=== PATIENT | male | born 1955 | race Caucasian/White ===

== ENCOUNTER → 2017-03-13 | Outpatient (CLI) | payer OTHER ==
[~2017-03-13] MED LIST: ALBUAER2 INH; CMD5 PO; DLR500 PO; FLUT0.15 NAE; FURO-85 PO; LPR25 PO; MAGN250T3 PO; OPTIRAY 320 IV PRN; OXYC5TAB PO; POTA1TAB PO; PRLSR20 PO; SENN-65 PO; SYMIN160 INH; TAMS0.4C38 PO; TIOTCAP INH; TYL325X PO
--- NOTE | 2017-03-13 16:02 | DIAGNOSTIC IMAGING REPORT ---
CT ANGIOGRAM OF THE ABDOMEN, PELVIS, BILATERAL LOWER EXTREMITIES HISTORY: Peripheral artery disease. Lower extremity pain. TECHNIQUE: Multiaxial CT images of the abdomen, pelvis, bilateral lower extremities were performed following the use of intravenous contrast about the arterial structures. Maximal intensity projection images were also obtained. COMPARISON STUDY: None. FINDINGS: The heart is enlarged. Poststernotomy changes. Pacemaker wires. Cholelithiasis. Trace ascites. No hepatic or splenic masses. The adrenal glands and pancreas are unremarkable. The left kidney enhances normally. No hydronephrosis. An 11 mm hypodense lesion within the right kidney. This favors a cyst. Tiny fat and fluid containing right inguinal hernia. Normal bladder. No bowel wall thickening or obstruction. Colonic diverticulosis. Bilateral L5 spondylolysis. Bilateral lower extremity subcutaneous edema. 30% stenosis at the origin of the celiac artery due to the calcified plaque. No significant stenosis seen within the superior mesenteric artery and inferior mesenteric arteries. Mild narrowing at the origin of the right renal artery and approximately 50% narrowing at the origin of the left renal artery due to the calcified plaque. Normal caliber abdominal aorta with moderate calcified plaque. Mild narrowing at the origin of the left common iliac artery. No significant stenosis within the right common iliac artery or external iliac arteries. On the left, the common femoral artery is patent. Multifocal areas of calcified plaque within the mid to distal left superficial femoral artery. This results in up to 75% stenosis within the distal left superficial femoral artery best seen on image 632. Scattered calcified plaque within the proximal popliteal artery demonstrating up to 50% stenosis. Scattered calcified plaque within the posterior tibial and peroneal arteries without associated occlusion. The distal anterior tibia artery is not identified and may be occluded. However, this could also be due to the timing of contrast. On the right, there is 30% focal stenosis within the right common femoral artery. Multifocal stenosis within the distal superficial femoral artery demonstrating up to 60 % stenosis on image 618. Approximately 50% stenosis seen within the proximal popliteal artery. No significant stenosis or occlusion within the posterior tibial are peroneal arteries. The distal anterior tibial artery demonstrates faint flow. Extensive calcified plaque within the mid anterior tibial artery which appears to be occluded. IMPRESSION: 1. Multifocal bilateral lower extremity arterial stenosis as described above. There is also suggestion of occlusion of the distal left anterior tibial artery and occlusion of the mid right anterior tibial artery. 2. Cardiomegaly. 3. Cholelithiasis. 4. Trace ascites. Electronically signed by: Lenny Gracia M.D. 03/13/2017 4:01 PM Dictated Date/Time: 03/13/2017 3:45 PM
== END | disposition home or self-care (01) ==
LOC: C.CTS 14:35
PROVIDERS: ATTEND Internal Medicine Interventional Cardiology
DX: I73.9 Peripheral vascular disease, unspecified (principal)

== ENCOUNTER 2019-04-17 10:10 | Inpatient (IN) ==
[~2019-04-17 10:10] MED LIST changes: -ALBUAER2 INH; -CMD5 PO; -DLR500 PO; -FLUT0.15 NAE; -FURO-85 PO; -LPR25 PO; -MAGN250T3 PO; -OPTIRAY 320 IV PRN; -OXYC5TAB PO; -POTA1TAB PO; -PRLSR20 PO; -SENN-65 PO; +SODIUM CHLORIDE 0.9% 1000ML IV SCH; -SYMIN160 INH; -TAMS0.4C38 PO; -TIOTCAP INH; -TYL325X PO
[2019-04-17] MEDS ORDERED: NITROGLYCERIN/D5W 100MCG/ML 20ML SYR ONE (12:03)
[2019-04-17 12:23] LABS: INR 1.3 (0.9-1.1); Prothrombin Time 13.2 Seconds (9.0-12.0)
[2019-04-17 12:27] LABS: BUN Creatinine Ratio 13.3 (10-20); Creatinine Clr Calc Pharmacy 64.5 ml/min; Est GFR (African American) 95.8; Est GFR (Non-African American) 82.6
[2019-04-17] MEDS ORDERED: NITROGLYCERIN 5 MG/ML 10 ML VIAL ONE (13:03)
[2019-04-17] MEDS ORDERED: NiCARDipine HCL INJ 2.5 MG/ML 10 ML AMP ONE (13:03)
--- NOTE | 2019-04-17 13:17 | Pre Anesthesia Assessment ---
Date of Service April 17, 2019 Pre Sedation Assessment Vital Signs Temp Pulse Resp BP Pulse Ox 04/17/19 10:53 36.4 C L 79 20 146/103 H 91 Cardiovascular RRR, no murmur, no edema Respiratory normal respiratory effort, lungs clear to auscultation Pre-Sedation Airway Assessment Smoking Status: Current some day smoker Hx Sleep Apnea: No Hx Difficult Intubation: No Short, Thick Neck: No Thyromental Distance: > or= 3.5 Finger Breadths Oral Cavity: + WNL Mallampati Class: II ASA: ASA3 NPO Status Date of Last Intake of Fluids: 04/17/19 Time of Last Intake of Fluids: 00:30 Date of Last Intake of Solid Food: 04/17/19 Time of Last Intake of Solid Foods: 00:30 Procedure Planning Contraindications for Sedation: none Current Medications Reviewed: Yes Notes The planned sedation has been discussed with the patient. Informed Consent was obtained. I have identified the patient, determined the appropriateness of sedation and have assessed the patient immediately prior to the procedure. All medicine(s) and interventions are by my order.
--- NOTE | 2019-04-17 13:17 | History & Physical Bridge Note ---
Date of Service April 17, 2019 History & Physical Bridge Note I have examined the patient, reviewed the History & Physical and in the interval since the performance of the History & Physical I have noted the following changes of clinical significance: no changes noted
[2019-04-17] MEDS ORDERED: fentaNYL citrate 100 MCG/2 ML VIAL ONE (13:41)
[2019-04-17] MEDS ORDERED: MIDAZOLAM HCL 1 MG/ML 2ML VIAL ONE (13:41)
[2019-04-17] MEDS ORDERED: HEPARIN SOD (PORCINE) 1000 UNIT/ML 10 ML VIAL ONE (13:41)
[2019-04-17] MEDS ORDERED: LIDOCAINE HCL 1% 20 ML VIAL INJ ONE (14:12)
[2019-04-17] MEDS ORDERED: VISIPAQUE IV PRN (15:40)
[2019-04-17] MEDS ORDERED: NITROGLYCERIN/D5W 100MCG/ML 20ML SYR IART ONE (15:40)
--- NOTE | 2019-04-17 15:41 | Post Anesthesia Assessment ---
Date of Service April 17, 2019 Post Sedation Assessment Vital Signs Temp Pulse Pulse Resp BP BP Pulse Ox 04/17/19 15:23 62 20 162/91 H 100 04/17/19 15:17 60 16 169/94 H 100 04/17/19 15:12 61 16 179/98 H 100 04/17/19 15:07 59 L 18 173/97 H 100 04/17/19 15:02 65 16 185/101 H 100 04/17/19 14:57 61 14 170/97 H 100 04/17/19 14:52 60 14 180/100 H 100 04/17/19 14:47 62 16 161/98 H 100 04/17/19 14:42 60 14 176/98 H 100 04/17/19 14:37 62 16 182/103 H 100 04/17/19 14:32 60 19 181/103 H 100 04/17/19 14:27 60 20 171/102 H 100 04/17/19 14:22 63 21 163/93 H 100 04/17/19 14:17 62 22 148/94 H 100 04/17/19 14:12 63 21 156/92 H 100 04/17/19 14:07 61 23 147/91 H 100 04/17/19 14:02 63 23 158/100 H 100 04/17/19 13:45 61 21 156/90 H 100 04/17/19 10:53 36.4 C L 79 20 146/103 H 91 Recovery Score Activity: Moves 4 extremities Respiration: Deep Breath/Cough Circulation: +/-20% PreAnes Value Consciousness: Fully Awake Oxygen Saturation: O2 needed for >90% Discharge Sedation Level of Care: Fast Track Phase II Post Sedation Plan On clinical assessment, the patient appears to have tolerated the sedation without complications. Patient is recovering as anticipated. Patient will continue to be monitored by nursing and may be discharged when sedation discharge criteria are met per below protocol. Upon Completions of procedure and additional 15 minutes continue every 5 minute vital signs and the P.A.R. score; then discharge to a Phase I or Fast Track to Phase II per the following guidelines: * Discharge Patient to appropriate Phase II area if PAR is 8 or greater or return to pre- procedure baseline. The post - procedure orders will be as directed. * If PAR score is less than 8 or not return to pre-procedure baseline then patient will follow Phase I monitoring till PAR is reached for Phase II. The Phase I may be done in procedure room or may call to secure a Phase I area. * If naloxone or flumazenil are used for reversal, hold in Phase I for continued monitoring from when last reversal dose was given for a minimum of 60 minutes or longer pending the nurse and/or physician discretion of patient condition before discharge to Phase II. Please call the Sedation Physician to re-evaluate and complete post-note for discharge to Phase II area. Do NOT discharge from procedure sedation or Phase 1 until post- sedation evaluation note is complete by procedure /sedation MD Sedation Discharge Instructions to be given to the patient at discharge to home.
[2019-04-17] MEDS ORDERED: ONDANSETRON INJ 2 MG/ML 2 ML VIAL IV PRN (15:44)
[2019-04-17] MEDS ORDERED: ACETAMINOPHEN 325 MG TAB PO PRN (15:44)
--- NOTE | 2019-04-17 15:44 | Post Operative Brief Note ---
Immediate Post Op Note v1 Date of Surgery April 17, 2019 Pre & Post Diagnosis Operation Date: 04/17/19 13:20 Pre-Op Diagnosis: Peripheral Artery Disease Post-Op Diagnosis: Peripheral Artery Disease Procedure Operation Date: 04/17/19 13:20 Actual Procedures p Bilateral Lower Extremity Angiogram, Percutaneous Transluminal Angioplasty and Stent of the Left Superficial Femoral Artery, Mechanical Closure of Right Femoral Artery, Moderate sedation from 1402 - (Right) - Benigno Javed MD Surgeon Sean Javed MD Branch Operations Coordinator Jennifer Estimated Blood Loss 20 Findings Consistent with Post-Op Diagnosis Occluded proximal SFA Successful SENIOR TECHNICAL ARCHITECT and stenting of SFA with good 3 vessel run-off.
[2019-04-17] MEDS ORDERED: SODIUM CHLORIDE 0.9% 1000ML 1,000 ML IV SCH (15:45)
[2019-04-17] MEDS ORDERED: ALBUTEROL HFA 8 GM INHALER INH PRN (15:47)
[2019-04-17] MEDS ORDERED: MoRPHine SULFATE 2 MG/ML CARP IV PRN (15:49)
[2019-04-17] MEDS ORDERED: HYDROCODONE/ACETAMOPHEN 5/325MG TAB PO PRN (15:49)
--- NOTE | 2019-04-17 16:50 | Operative Report ---
Post Operative Report Pre & Post Diagnosis Operation Date: 04/17/19 13:20 Pre-Op Diagnosis: Peripheral Artery Disease Post-Op Diagnosis: Peripheral Artery Disease Procedure Operation Date: 04/17/19 13:20 Actual Procedures p Bilateral Lower Extremity Angiogram, Percutaneous Transluminal Angioplasty and Stent of the Left Superficial Femoral Artery, Mechanical Closure of Right Femoral Artery, Moderate sedation from 1402 - 1552 (Right) - Benigno Javed MD Surgeon Sean Javed MD Operations Technician Jennifer Estimated Blood Loss 20 Findings Consistent with Post-Op Diagnosis Aorta: No significant stenotic or aneurysmal disease. Left lower extremity: Common iliac - Minimal disease External iliac - Minimal disease Internal iliac - Minimal disease RUBBER PRESS TENDER - Mild calcified plaque Profunda - Minimal disease SFA - Occluded proximally, reconstitutes distally via collaterals Popliteal- mild diffuse disease TPT - minimal disease AT - patent, sluggish flow, tapers before foot PT - patent Peroneal - patent Right lower extremity: Common iliac - Mild disease External iliac - Moderate disease extending back to RUBBER PRESS TENDER Internal iliac - Minimal disease RUBBER PRESS TENDER - Moderate calcified proximal disease Profunda - Minimal disease SFA - Distal SFA calcified with 50% stenosis Popliteal - Mild disease TPT - mild disease AT - patent PT - patent Peroneal - patent Specimens none Drains none Complications none Disposition Accompanied Patient To Recovery: No Disposition: PCU Description of Procedure Right common femoral access obtained under ultrasound guidance, short 5Fr sheath placed LLE angiogram performed with RIM catheter and quick cross catheter placed into left RUBBER PRESS TENDER 6 Fr 45 cm destination sheath placed to left RUBBER PRESS TENDER Proximal SFA occlusion crossed with a glide advantage wire and quick cross catheter Intraluminal position confirmed via injection through quick cross catheter Proximal/mid SFA dilated with multiple 6.0 balloon inflations Residual mid segment stenosis treated with 6.5 x 100 mm Supera stent Moderate distal SFA/proximal popliteal disease dilated with 5.0 balloon Noted to have a persistent dissection in proximal SFA upstream from initial stent despite prolonged balloon inflation. Aboslute Pro self-expanding 6 x 60 mm stent placed across proximal SFA overlapping with initial Supera stent Stent postdilated with 6.0 balloon IA nitroglycerin administered for spasm Post procedure good angiographic result, no evidence of dissection and good 3 vessel run-off. Access closure: Starclose Summary: 1. Left lower extremity occluded proximal SFA with distal reconstitution with diminished distal flow but patent 3 vessel runoff. 2. Right lower extremity with moderate distal SFA/popliteal disease and patent 3 vessel runoff. 3. Successful NATURAL GAS BASIS TRADER and stenting of proximal to mid SFA (6.0 x 60 Absolue Pro self-expanding, 6.5 x 120 Supera). Recommendations: Continue DAPT with ASA/Clopidogrel for 1 months Continue ASCVD risk factor modification Follow-up ultrasound in 1 month. I attest to the content of the Intraoperative Record and any orders documented therein. Any exceptions are noted below.
[2019-04-17] MEDS: SENNA 8.6 MG TAB PO SCH (20:04)
[2019-04-17] MEDS: BUDESONIDE/FORMOTEROL FUMARATE 160/4.5 60 PUFFS/INHALER INH SCH (20:04)
[2019-04-17] MEDS: DOCUSATE SODIUM 100 MG CAP PO SCH (20:04)
[2019-04-17] MEDS: POLYETHYLENE (MIRALAX) 17 GM PACK PO SCH (20:04)
[2019-04-17] MEDS ORDERED: MONTELUKAST SODIUM 10 MG TABLET PO SCH (21:00)
[2019-04-17] MEDS ORDERED: ROFLUMILAST 500 MCG TAB PO SCH (21:00)
[2019-04-18 03:08] VITALS: TEMP 98.6
[2019-04-18 06:03] LABS: Basophils # (auto) 0.05 K/uL (0-0.2); Basophils % (auto) 0.6 %; Eosinophils # (auto) 0.07 K/uL (0-0.5); Eosinophils % (auto) 0.8 %; Hematocrit (blood only) 46.1 % (42-52); Hemoglobin 15.5 g/dL (14.0-18.0); Immature Granulocytes # (auto) 0.03 K/uL (0.00-0.02); Immature Granulocytes % (auto) 0.3 %; Lymphocytes # (auto) 1.69 K/uL (1.2-3.4); Lymphocytes % (auto) 18.8 %; Mean Corpuscular Hgb Conc 33.6 g/dL (32-36); Mean Corpuscular Volume 94.9 fL (80-100); Mean Platelet Volume 9.9 fL (7.4-10.4); Monocytes # (auto) 0.97 K/uL (0.11-0.59); Monocytes % (auto) 10.8 %; Neutrophils # (auto) 6.19 K/uL (1.4-6.5); Neutrophils % (auto) 68.7 %; Platelet Count 142 K/uL (130-400); RDW Coefficient of Variation 14.4 % (11.5-14.5); RDW Standard Deviation 49.5 fL (36.4-46.3); Red Blood Count 4.86 M/uL (4.7-6.1)
[2019-04-18 07:48] VITALS: BP 134/78; PULSE 70; O2SAT 96
[2019-04-18] MEDS: DOCUSATE SODIUM 100 MG CAP PO SCH (08:18)
[2019-04-18] MEDS: SENNA 8.6 MG TAB PO SCH (08:18)
[2019-04-18] MEDS: POLYETHYLENE (MIRALAX) 17 GM PACK PO SCH (08:18)
[2019-04-18] MEDS: BUDESONIDE/FORMOTEROL FUMARATE 160/4.5 60 PUFFS/INHALER INH SCH (08:19)
[2019-04-18] MEDS ORDERED: CLOPIDOGREL BISULFATE 75 MG TAB PO SCH (09:00)
[2019-04-18] MEDS ORDERED: ASPIRIN 81 MG ECTAB PO SCH (09:00)
[2019-04-18] MEDS ORDERED: TIOTROPIUM BROMIDE 5 PUFF/90 MCG INH INH SCH (09:00)
[2019-04-18] MEDS ORDERED: ATORVASTATIN 40 MG TAB PO SCH (09:00)
--- NOTE | 2019-04-19 00:06 | Discharge Summary ---
Date of Service April 18, 2019 Admission HPI Per Admitting Provider Mr. Farooq is a pleasant 63-year-old man with a history of significant valvular and congenital heart disease status post bioprosthetic aortic valve replacement (#25 Young), VSD repair, subaortic membrane resection, PFO repair, tricuspid valve annuloplasty in 2014 at [facility], atrial fibrillation, COPD and peripheral artery disease. He is followed by Dr. Jansen at [facility] for his cardiac care. He was seen in the clinic by Dr. Javed last in 2017 for his peripheral arterial disease. At the time the patient was experiencing claudication symptoms. A CTA with runoff showed approximately 70% stenosis of the left SFA, question of occluded distal left NAYANA and question of occluded right mid NAYANA. Lower extremity arterial duplex showed greater than 75% stenosis in the left SFA and 70% stenosis in right distal SFA. It was recommended he undergo lower extremity angiogram with possible intervention. Patient cannot recall why this was not done. He continues to experience limiting claudication, worse on the left. He has cramping in his right calf and left calf/lower thigh after walking about 1/2 block. Denies pain at rest. He has a history lower extremity ulcerations several years ago. No recent wounds or ulcerations. Discharge Data Procedures Performed Operation Date: 04/17/19 13:20 Actual Procedures p Bilateral Lower Extremity Angiogram, Percutaneous Transluminal Angioplasty and Stent of the Left Superficial Femoral Artery, Mechanical Closure of Right Femoral Artery, Moderate sedation from 1402 - 1552 (Right) - Benigno Javed MD Hospital Course (1) PAD (peripheral artery disease): Patient underwent lower extremity angiogram via right common femoral artery access. He was found to have an occluded proximal SFA with distal reconstitution and dampened distal flow. He underwent endovascular intervention with angioplasty and stenting of proximal- mid SFA with placement of a 6.5 x 120 mm Supera stent to mid SFA and later a 6 .0 x 60 self-expanding stent placed to proximal SFA due to residual dissection. Post procedure he had brisk flow with three-vessel runoff and 2+ DP/PT pulses. He was admitted to the telemetry service for observation. Overnight he had no significant lower extremity pain. No access site complications on day of discharge. He was discharged home on new clopidogrel along with his prior warfarin. Atorvastatin increased to 40 mg daily. Follow-up at Dr. Javed's office in 1 month with repeat non-invasive vascular testing. Continued cardiac care with Dr. Jansen at [facility] cardiology. Discharge Instructions Home Medications Daliresp 500 mcg PO QPM 07/27/18 [History Confirmed 04/17/19] MidNite 1 dose PO HS 07/27/18 [History Confirmed 04/17/19] Prilosec OTC 1 tab PO QAM 07/27/18 [History Confirmed 04/17/19] Probiotic 1 tab PO QAM 07/27/18 [History Confirmed 04/17/19] Spiriva with HandiHaler 1 cap INHALATION DAILY 07/27/18 [History Confirmed 04/17/19] Symbicort 2 puff INHALATION BID 07/27/18 [History Confirmed 04/17/19] albuterol sulfate [Ventolin HFA] 2 puff INHALATION Q6H PRN 07/27/18 [History Confirmed 04/17/19] montelukast 10 mg PO PM 07/27/18 [History Confirmed 04/17/19] warfarin 5 mg PO DIRECTED 07/27/18 [History Confirmed 04/17/19] lecithin 1,200 mg PO DAILY 04/16/19 [History Confirmed 04/17/19] turmeric root extract 500 mg PO DAILY 04/16/19 [History Confirmed 04/17/19] acetaminophen [Mapap (acetaminophen)] 650 mg PO Q6H PRN #30 tab 04/18/19 [Rx] atorvastatin 40 mg PO QAM #30 tab 04/18/19 [Rx] clopidogrel 75 mg PO QAM #30 tab 04/18/19 [Rx]
== END 2019-04-18 10:55 | disposition home or self-care (01) | DRG 253 ==
LOC: 2E 10:10 → ASU 10:10 → OBSVTOIN 14:28

== ENCOUNTER 2020-02-23 18:01 | Inpatient (IN) ==
[2020-02-23] MEDS ORDERED: methylPREDNISolone 60 MG in SYRINGE 1 ML IV STA (18:23)
[2020-02-23] MEDS ORDERED: ALBUT/IPRATROP 3MG/0.5MG NEB 3 ML VIAL INH STA (18:23)
--- NOTE | 2020-02-23 18:29 | Emergency Department Note ---
Impression & Plan Hypoxia, Wheezing, Fluid overload, Edema, Hypomagnesemia, SOB (shortness of breath) ED Provider Note NAME: ANGLE PAREDES JR AGE: 64 SEX: M : 1955 ARRIVES VIA: Walk-In INFORMANT: [Patient] ED PROVIDER(S): [Jesus Schroeder MD] CHIEF COMPLAINT: Shortness of breath HISTORY OF PRESENT ILLNESS: Patient is a 64-year-old male with a history of heart failure as well as COPD. Patient states that for the last 2 weeks, he has had increasing leg edema, a 7 pound weight gain, increasing and persistent shortness of breath. The shortness of breath is worse with exertion and better at rest. 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 Despite this change, things keep worsening. Patient does have a subtle cough but this is baseline. There has been no fever. No chest pain although his abdomen feels full. Patient states that he has had no recent travel, no known coronavirus exposures. Patient is currently using albuterol via MDI about 3 times a day and it does seem to help when he uses this medication. REVIEW OF SYSTEMS: See HPI for pertinent positives and negatives. A total of ten systems were reviewed and were otherwise negative. PMHx/PSHx: See Below SOCIAL HISTORY: See Below. PHYSICAL EXAM: GENERAL: Patient is in mild respiratory distress. HEENT: No acute trauma, normocephalic atraumatic, mucous membranes moist, no nasal congestion, no scleral icterus. NECK: No stridor, no adenopathy, no meningismus, trachea is midline. LUNGS: Diminished breath sounds bilaterally, breath sounds are equal. The patient does speak in shorter sentences and does have an increased respiratory rate. He seems in mild respiratory distress. There are wheezes bilaterally, a few crackles heard bilaterally. HEART: 2/6 systolic murmur, slightly irregular rhythm. Normal rate. ABDOMEN: Soft, nontender, bowel sounds positive, no hernias, no peritonitis. EXTREMITIES: No cyanosis, moderate bilateral pedal edema with some chronic skin change, full range of motion of all the joints without pain or difficulty, no signs for acute trauma. NEUROLOGIC: Oriented x 3, no acute motor or sensory deficits, no focal weakness. SKIN: No rash, no jaundice, no diaphoresis. DIFFERENTIAL DIAGNOSIS: Reactive airway disease, pneumonia, pneumothorax, COPD, CHF, infections, cardiac ischemia, pulmonary embolism, musculoskeletal, gastrointestinal, as well as other pathologies. EMERGENCY DEPARTMENT COURSE/PROCEDURES: ECG: Indication is shortness of breath. EKG shows an AV pacemaker with a rate of 75. PVCs are present. QTC is 536. No evidence for acute PR, no concerning ST elevation. Continuous Cardiac Monitoring: An order was placed for continuous cardiac monitoring. The monitor shows a rate of 62 with an AV pacemaker and PVCs. MEDICAL DECISION MAKING: There is no leukocytosis. There was a mild anemia present. Platelet count was normal. No coagulopathy. Magnesium slightly low at 1.7, no kidney failure. Alk phos slightly elevated, the bilirubin was normal. BNP was elevated cons istent with fluid overload. EKG shows an AV pacemaker. Cardiac enzyme testing x1 is not consistent with acute cardiac injury. Chest film shows some chronic lung findings and some cardiomegaly. The film looked similar to previous films. There was no pneumothorax or pneumonia. The patient on exam did seem somewhat short of breath. He did seem fluid overloaded. He was wheezing on exam. Patient was given a DuoNeb, he received IV Solu-Medrol, IV magnesium and IV Lasix. The patient was borderline hypoxic during his ED stay. He required nasal cannula O2. Given the hypoxia, given the weight gain, given the dyspnea, I do think a hospital stay is warranted. I believe the patient's shortness of breath is secondary to fluid overload combined with a flare of COPD. Case management has been involved. The on-call hospitalist was consulted. The patient is aware of all his findings. Past Med/Surg History Medical History Afib CAD (coronary artery disease) non-obstructive Chronic anticoagulation COPD (chronic obstructive pulmonary disease) stable GERD (gastroesophageal reflux disease) Hx of Lyme disease (Acute) approximately 4 years ago per pt Nonischemic cardiomyopathy Osteoarthritis Pacemaker secondary to complete heart block; dual chamber PAD (peripheral artery disease) Pulmonary hypertension Surgical History H/O aortic valve replacement secondary to severe aortic insufficiency; 2014; bioprosthetic H/O Spinal surgery LUMBAR DISCECTOMY History of cardiac cath NO STENTS History of colonoscopy History of tooth extraction History of ventricular septal defect s/p repair S/P right knee arthroscopy S/P VSD closure 2015 Status post patent foramen ovale closure Family History Mother Family history of diabetes mellitus Social History Preferred Language: [place] Citizen Communication Ability: Effective Hot Oiler Required: No Beliefs That Will Affect Care: None Current Living Situation: Alone Feels Safe at Home: Yes Smoking Status: Former smoker Tobacco Type: cigars ; Cigarettes Per Day: ADVISED NOT TO USE IN AM ; Second Hand Exposure: No ; Hx Alcohol Use: Yes Alcohol type: beer Hx Substance Use: No Allergies Allergies Allergy/AdvReac Type Severity Reaction Status Date / Time carvedilol AdvReac Intermediate NIGHTMARES Verified 02/23/20 18:41 Home Meds Home Medications Medication Instructions Recorded Confirmed Daliresp 500 mcg PO QPM 07/27/18 02/23/20 Spiriva with HandiHaler 1 cap INHALATION DAILY 07/27/18 02/23/20 albuterol sulfate [Ventolin HFA] 2 puff INHALATION Q6H PRN 07/27/18 02/23/20 budesonide-formoterol [Symbicort] 2 puff INHALATION BID 07/27/18 02/23/20 montelukast 10 mg PO PM 07/27/18 02/23/20 turmeric root extract 500 mg PO DAILY 04/16/19 02/23/20 spironolactone 25 mg tablet 12.5 mg PO DAILY tab 12/26/19 02/23/20 torsemide 20 mg tablet 20 mg PO DAILY 12/26/19 02/23/20 acetaminophen [Mapap 650 mg PO TID 02/23/20 02/23/20 (acetaminophen)] omeprazole 20 mg PO QAM 02/23/20 02/23/20 simethicone [Gas Relief 160 mg PO BID 02/23/20 02/23/20 (simethicone)] trazodone 50 mg PO HS PRN 02/23/20 02/23/20 Previous Rx's Medication Instructions Recorded atorvastatin 40 mg tablet 40 mg PO QAM #90 tab 12/04/19 Results & Data (ED) Vital Signs Vital Signs - 24 hr 02/23/20 18:06 02/23/20 18:18 02/23/20 18:38 Temperature 36.4 C L Temperature Source Oral Pulse Rate 102 H 77 Pulse Rate [Right Apical] Pulse Rate from SpO2 Sensor 67 Respiratory Rate 24 16 Respiratory Effort / Characteristics Labored Short of Breath Tripoding Respiratory Depth Deep Respiratory Pattern Tachypnea Blood Pressure 151/64 H 154/91 H Blood Pressure Mean 93 96 Pulse Oximetry 90 91 Oxygen Delivery Method Room Air Room Air Room Air Sepsis Recent Fever Within 48 Hours No Sepsis Action Taken by Nursing No Action Required 02/23/20 18:42 02/23/20 18:43 02/23/20 19:00 Temperature Temperature Source Pulse Rate 63 62 Pulse Rate [Right Apical] 73 Pulse Rate from SpO2 Sensor Respiratory Rate 18 16 18 Respiratory Effort / Characteristics Spontaneous Respiratory Depth Respiratory Pattern Blood Pressure 149/84 H Blood Pressure Mean 103 Pulse Oximetry 90 91 93 Oxygen Delivery Method Room Air Room Air Room Air Sepsis Recent Fever Within 48 Hours Sepsis Action Taken by Nursing 02/23/20 19:26 Temperature Temperature Source Pulse Rate Pulse Rate [Right Apical] Pulse Rate from SpO2 Sensor Respiratory Rate Respiratory Effort / Characteristics Respiratory Depth Respiratory Pattern Blood Pressure Blood Pressure Mean Pulse Oximetry 88 L Oxygen Delivery Method Room Air Sepsis Recent Fever Within 48 Hours Sepsis Action Taken by Long Term Medications Current Medication List: was personally reviewed by me Laboratory Data Attestation: I reviewed the patient's lab results. Result diagrams: 02/23/20 18:30 02/23/20 18:30 Lab Results 02/23/20 02/23/20 02/23/20 Range/Units 18:30 18:30 18:30 WBC 7.79 (4.8-10.8) K/uL RBC 4.97 (4.7-6.1) M/uL Hgb 12.9 L (14.0-18.0) g/dL Hct 43.4 (42-52) % MCV 87.3 (80-100) fL MCH 26.0 (25-34) pg MCHC 29.7 L (32-36) g/dL RDW Std Deviation 51.2 H (36.4-46.3) fL RDW Coeff of Lennox 16.0 H (11.5-14.5) % Plt Count 188 (130-400) K/uL MPV 9.2 (7.4-10.4) fL Immature Gran % (Auto) 0.3 % Neut % (Auto) 73.4 % Lymph % (Auto) 16.4 % [place] % (Auto) 8.5 % Eos % (Auto) 0.9 % Baso % (Auto) 0.5 % Immature Gran # (Auto) 0.02 (0.00-0.02) K/uL Neut # (Auto) 5.72 (1.4-6.5) K/uL Lymph # (Auto) 1.28 (1.2-3.4) K/uL [place] # (Auto) 0.66 H (0.11-0.59) K/uL Eos # (Auto) 0.07 (0-0.5) K/uL Baso # (Auto) 0.04 (0-0.2) K/uL PT 11.5 (9.0-12.0) Seconds INR 1.1 (0.9-1.1) APTT 28.4 (21.0-31.0) Seconds PTT Ratio 1.0 Sodium 139 (136-145) mmol/L Potassium 3.6 (3.5-5.1) mmol/L Chloride 103 (98-107) mmol/L Carbon Dioxide 31 (21-32) mmol/L Anion Gap 5.0 (3-11) BUN 12 (7-18) mg/dl Creatinine 1.28 (0.6-1.4) mg/dl Est Cr Clr Drug Dosing Not Reportable Est GFR ( Amer) 67.1 Est GFR (Non-Af Amer) 57.9 BUN/Creatinine Ratio 9.5 L (10-20) Glucose 116 H (70-99) mg/dl Calcium 9.5 (8.5-10.1) mg/dl Magnesium 1.7 L (1.8-2.4) mg/dl Total Bilirubin 0.6 (0.2-1) mg/dl AST 31 (15-37) U/L ALT 25 (12-78) U/L Alkaline Phosphatase 152 H (45-117) U/L Troponin I 0.033 (0-0.045) ng/ml NT-Pro-B Natriuret Pep 3249 H (0-900) pg/ml Total Protein 7.8 (6.4-8.2) gm/dl Albumin 3.6 (3.4-5.0) gm/dl Globulin 4.2 H (2.5-4.0) gm/dl Albumin/Globulin Ratio 0.9 (0.9-2) Administered Medications Magnesium Sulfate/Dextrose (Magnesium Sulfate / D5w) 1 gm in 100 mls @ 100 mls/hr IV ONE ONE Stop: 02/23/20 20:04 Last Admin: 02/23/20 19:23 Dose: 100 mls/hr Documented by: [id number] Discontinued Medications Albuterol (Duoneb) 3 ml INH NOW STA Stop: 02/23/20 18:24 Last Admin: 02/23/20 18:40 Dose: 3 ml Documented by: [id number] Furosemide (Lasix) 40 mg IV NOW STA Stop: 02/23/20 18:52 Last Admin: 02/23/20 18:58 Dose: 40 mg Documented by: [id number] Methylprednisolone 60 mg/ (Syringe) 1.96 mls @ 1.5 mls/min IV NOW STA Stop: 02/23/20 18:24 Last Admin: 02/23/20 18:47 Dose: 1.5 mls/min Documented by: [id number] Methylprednisolone (Solumedrol) Confirm Administered Dose 125 mg .ROUTE .STK-MED ONE Stop: 02/23/20 18:43 Last Admin: 02/23/20 18:47 Dose: Not Given Documented by: [id number] Imaging Data Radiologist's Impression: XR chest 1V portable CLINICAL HISTORY: SOB dyspnea COMPARISON STUDY: 06/17/2016 FINDINGS: Moderate stable cardiomegaly. Prior median sternotomy. Permanent bipolar cardiac pacemaker with leads in good position. A metallic needle overlying the medial right clavicle unchanged from the prior exam. Lungs otherwise appear clear. There are chronic parenchymal changes left lung base. IMPRESSION: Chronic and postoperative change. No acute process. Blood Pressure Blood Pressure Findings: Elevated blood pressure Blood Pressure Disposition: further management by hospitalist Discharge Plan Visit Data Chief Complaint: Shortness of Breath/Dyspnea Stated Complaint: RETAINING WATER ED Provider: Jesus Schroeder Discharge Problem: Hypoxia, Wheezing, Fluid overload, Edema, Hypomagnesemia, SOB (shortness of breath) Patient Disposition: Being Evaluated by Hospitalist Condition: Fair Forms Stand Alone Forms: [employer] Prescriptions Prescriptions: No Action atorvastatin 40 mg tablet 40 mg PO QAM Qty: 90 RF: 3 spironolactone 25 mg tablet 12.5 mg PO DAILY RF: 0 torsemide 20 mg tablet 20 mg PO DAILY RF: 0 omeprazole 20 mg Tablet,Delayed Release (Dr/Ec) 20 mg PO QAM RF: 0 acetaminophen [Mapap (acetaminophen)] 325 mg tablet 650 mg PO TID RF: 0 trazodone 50 mg Tablet 50 mg PO HS PRN (Reason: Sleep) RF: 0 simethicone [Gas Relief (simethicone)] 80 mg Tablet,Chewable 160 mg PO BID RF: 0 montelukast 10 mg Tablet 10 mg PO PM RF: 0 albuterol sulfate [Ventolin HFA] 90 mcg/actuation Hfa Aerosol Inhaler 2 puff INHALATION Q6H PRN (Reason: Shortness Of Breath) RF: 0 Spiriva with HandiHaler 18 mcg Capsule, W/Inhalation Device 1 cap INHALATION DAILY RF: 0 budesonide-formoterol [Symbicort] 160-4.5 mcg/actuation Hfa Aerosol Inhaler 2 puff Inhalation BID RF: 0 Daliresp 500 mcg Tablet 500 mcg PO QPM RF: 0 turmeric root extract 500 mg Capsule 500 mg PO DAILY RF: 0 Referrals Referrals: Haydee Fiore D.OJaun [Primary Care Provider] - Discharge Problem: Fluid overload Qualifiers: Hypervolemia type: unspecified Qualified Code(s): E87.70 - Fluid overload, unspecified Edema Qualifiers: Edema type: unspecified Qualified Code(s): R60.9 - Edema, unspecified
--- NOTE | 2020-02-23 18:36 | XRay Report ---
XR chest 1V portable CLINICAL HISTORY: SOB dyspnea COMPARISON STUDY: 06/17/2016 FINDINGS: Moderate stable cardiomegaly. Prior median sternotomy. Permanent bipolar cardiac pacemaker with leads in good position. A metallic needle overlying the medial right clavicle unchanged from the prior exam. Lungs otherwise appear clear. There are chronic parenchymal changes left lung base. IMPRESSION: Chronic and postoperative change. No acute process. ACT 112: Negative or not required by law. The above report was generated using voice recognition software. It may contain grammatical, syntax or spelling errors. Electronically signed by: Leon Meneses M.D. 02/23/2020 6:34 PM
[2020-02-23 18:39] LABS: Basophils # (auto) 0.04 K/uL (0-0.2); Basophils % (auto) 0.5 %; Eosinophils # (auto) 0.07 K/uL (0-0.5); Eosinophils % (auto) 0.9 %; Hematocrit (blood only) 43.4 % (42-52); Hemoglobin 12.9 g/dL (14.0-18.0); Immature Granulocytes # (auto) 0.02 K/uL (0.00-0.02); Immature Granulocytes % (auto) 0.3 %; Lymphocytes # (auto) 1.28 K/uL (1.2-3.4); Lymphocytes % (auto) 16.4 %; Mean Corpuscular Hgb Conc 29.7 g/dL (32-36); Mean Corpuscular Volume 87.3 fL (80-100); Mean Platelet Volume 9.2 fL (7.4-10.4); Monocytes # (auto) 0.66 K/uL (0.11-0.59); Monocytes % (auto) 8.5 %; Neutrophils # (auto) 5.72 K/uL (1.4-6.5); Neutrophils % (auto) 73.4 %; Platelet Count 188 K/uL (130-400); RDW Standard Deviation 51.2 fL (36.4-46.3); Red Blood Count 4.97 M/uL (4.7-6.1); White Blood Count 7.79 K/uL (4.8-10.8)
[2020-02-23] MEDS ORDERED: methylPREDNISolone 125 MG/2 ML VIAL ONE (18:42)
[2020-02-23 18:50] LABS: INR 1.1 (0.9-1.1); Partial Thromboplastin Time 28.4 Seconds (21.0-31.0); Prothrombin Time 11.5 Seconds (9.0-12.0)
[2020-02-23] MEDS ORDERED: FUROSEMIDE 40 MG/4 ML VIAL IV STA (18:51)
[2020-02-23 19:02] LABS: Alanine Aminotransferase 25 U/L (12-78); Albumin Level 3.6 gm/dl (3.4-5.0); Aspartate Aminotransferase 31 U/L (15-37); BUN Creatinine Ratio 9.5 (10-20); Blood Urea Nitrogen 12 mg/dl (7-18); Calcium 9.5 mg/dl (8.5-10.1); Carbon Dioxide 31 mmol/L (21-32); Chloride 103 mmol/L (98-107); Est GFR (African American) 67.1; Est GFR (Non-African American) 57.9; Glucose 116 mg/dl (70-99); Magnesium 1.7 mg/dl (1.8-2.4); Potassium 3.6 mmol/L (3.5-5.1); Sodium 139 mmol/L (136-145)
[2020-02-23] MEDS ORDERED: MAGNESIUM SULFATE / D5W 1 GM/100 ML BAG IV ONE ×2 (19:05→22:43)
[2020-02-23 19:07] LABS: Albumin Globulin Ratio 0.9 (0.9-2); Alkaline Phosphatase 152 U/L (45-117); Bilirubin,Total 0.6 mg/dl (0.2-1); Globulin 4.2 gm/dl (2.5-4.0); NT Pro B Type Natriuretic Pept 3249 pg/ml (0-900); Total Protein 7.8 gm/dl (6.4-8.2); Troponin I 0.033 ng/ml (0-0.045)
[2020-02-23 21:10] LABS: Reticulocyte % 1.5 % (0.5-2.0); Reticulocytes # 0.07 10^6/uL (0.02-0.10)
[2020-02-23 21:22] LABS: Iron 30 mcg/dl (35-175); Thyroid Stimulating Hormone 0.913 uIu/ml (0.300-4.500); Total Iron Binding Capacity 555 mcg/dl (250-450); Transferrin 415 mg/dl (200-360)
[2020-02-23 21:41] LABS: Allen Test Pos (Pos); Base Excess ABG 2.8 mEq/L (-9-1.8); HCO3 ABG 27 mmol/L (19-24); Oxygen Saturation ABG 90.9 % (90-95); PCO2 ABG 40 mmHg (35-46); PO2 ABG 62 mmHg (80-95); pH ABG 7.45 (7.35-7.45)
--- NOTE | 2020-02-23 21:52 | History & Physical Report ---
Date of Service February 23, 2020 Assessment & Plan (1) Acute hypoxemic respiratory failure: RSHF exacerbation, hx pulmonary hypertension secondary to COPD hx chronic CHF (EF 53% TTE 2019) Dietary indiscretion contributory Doubt acute COPD exacerbation Rule out recurrent PE PAF status post Watchman off anticoagulation complete heart block status post PPM Paced rhythm aortic regurgitation status post bioprosthetic AVR hx PFO/VSD status post surgery nonobstructive CAD/PAD status post surgery New onset anemia Hyperglycemia rule out DM ongoing tobacco abuse PCU Supplemental O2 CT chest PE study Diuretic Rx Strict I/Os, daily weights, CHF education, fluid restriction Cardiology follow-up eval RE right-sided heart failure Anemia work-up, transfuse PRBC if hemoglobin less than 8 (hx PAD/nonobstructive CAD) Check hemoglobin A1c Nicotine patch PRN DVT prophylaxis per Lovenox subcu Full code Text document was generated using [employer] voice recognition software. It may contain grammatical or spelling errors. Kindly contact undersigned for clarification of any documentation item in question. History of Present Illness Chief Complaint: Shortness of breath, fluid retention Primary Care Provider: Haydee Fiore History obtained from patient and records. Medical history significant for chronic CHF (EF 53% TTE 2019), PAF status post Watchman off anticoagulation, complete heart block status post PPM, aortic regurgitation status post bioprosthetic AVR, hx PFO/VSD status post surgery, complete heart block status post PPM, nonobstructive CAD, PAD status post surgery, COPD, pulmonary HTN as per records, history pulmonary embolism sp Coumadin, history endocarditis as per records, ongoing tobacco abuse, history of MRSA as per records. [facility] last June [address] shortness of [address]. CT showed multiple pulmonary emboli. Patient signed out AGAINST MEDICAL ADVICE after an overnight stay because he was unhappy with care but took Coumadin for a few months. 3 weeks ago patient noted increased fluid retention, bilateral leg swelling, and shortness of breath especially on exertion. No chest pain. Usual smoker's cough symptoms. No flulike symptoms. Admits to dietary indiscretion with consumption of pretzels despite "knowing better". Denies abdominal pain/black/bloody stools. [facility] classroom assistant recommended going up on dose 1 of his diuretic pills. Worsening symptoms despite compliance with medication regimen change and stopping pretzel intake the last week. At the ER, O2 sats noted to be 80s on room air. Patient received Lasix, Solu-Medrol, and neb treatment. Medical History as above Last colonoscopy was about 10 years ago as per patient, unrecalled findings. Patient thinks he might be overdue for another colonoscopy. Surgical History : PPM, watchman procedure, vascular procedure, history CABG/valvuloplasty/bioprosthetic AVR/VSD closure, jaw surgery, hernia repair, back surgery Family History : Alcoholism, diabetes, hypertension, COPD Personal/Social history : Half pack daily, daily alcohol intake denies abuse, di sabled Allergies Allergy/AdvReac Type Severity Reaction Status Date / Time carvedilol AdvReac Intermediate NIGHTMARES Verified 02/23/20 18:41 Home Medications Home Medications Medication Instructions Recorded Confirmed Type Daliresp 500 mcg PO QPM 07/27/18 02/23/20 History Spiriva with HandiHaler 1 cap INHALATION DAILY 07/27/18 02/23/20 History albuterol sulfate [Ventolin HFA] 2 puff INHALATION Q6H PRN 07/27/18 02/23/20 History budesonide-formoterol [Symbicort] 2 puff INHALATION BID 07/27/18 02/23/20 History montelukast 10 mg PO PM 07/27/18 02/23/20 History turmeric root extract 500 mg PO DAILY 04/16/19 02/23/20 History atorvastatin 40 mg tablet 40 mg PO QAM #90 tab 12/04/19 02/23/20 Rx spironolactone 25 mg tablet 12.5 mg PO DAILY tab 12/26/19 02/23/20 History torsemide 20 mg tablet 20 mg PO DAILY 12/26/19 02/23/20 History acetaminophen [Mapap 650 mg PO TID 02/23/20 02/23/20 History (acetaminophen)] omeprazole 20 mg PO QAM 02/23/20 02/23/20 History simethicone [Gas Relief 160 mg PO BID 02/23/20 02/23/20 History (simethicone)] trazodone 50 mg PO HS PRN 02/23/20 02/23/20 History Past Med/Surg History Medical History Afib CAD (coronary artery disease) non-obstructive Chronic anticoagulation COPD (chronic obstructive pulmonary disease) stable GERD (gastroesophageal reflux disease) Hx of Lyme disease (Acute) approximately 4 years ago per pt Nonischemic cardiomyopathy Osteoarthritis Pacemaker secondary to complete heart block; dual chamber PAD (peripheral artery disease) Pulmonary hypertension Surgical History H/O aortic valve replacement secondary to severe aortic insufficiency; 2014; bioprosthetic H/O Spinal surgery LUMBAR DISCECTOMY History of cardiac cath NO STENTS History of colonoscopy History of tooth extraction History of ventricular septal defect s/p repair S/P right knee arthroscopy S/P VSD closure 2015 Status post patent foramen ovale closure Family History Mother Family history of diabetes mellitus Social History Preferred Language: Sami Communication Ability: Effective Metal Spinner Required: No Beliefs That Will Affect Care: None Current Living Situation: Alone Feels Safe at Home: Yes Safety Concerns: Feels Safe At This Time Smoking Status: Current every day smoker Tobacco Type: cigarettes ; Cigarettes Per Day: 10 ; Do You Dip or Chew Tobacco: No ; Second Hand Exposure: No ; Hx Alcohol Use: Yes Alcohol type: beer Hx Substance Use: No Review of Systems Review of Systems: As per HPI, all 10 systems reviewed, constipation, all other ROS negative Physical Exam Physical Exam: GENERAL: Slightly uncomfortable, slightly anxious, minimal respiratory distress SKIN: Pallor, warm HEENT: Partial alopecia, pale palpebral conjunctivae, no ptosis, dry buccal mucosa, nasal cannula in place NECK : Supple, no tenderness CHEST : Healed sternal scar, decreased breath sounds, no tenderness HEART : RRR, systolic murmur ABDOMEN: Some distention, nontender RECTAL : Intact sphincter, dark brown stool (FOBT negative) EXTREMITIES : Minimal LE edema/erythema, minimal LE tenderness , no other conspicuous deformities noted NEUROLOGIC : Coherent, no facial asymmetry, no other gross focality Results & Data Results & Data ([facility]) Vital Signs (Past 12 Hours) Vital Signs Temp Pulse Pulse Resp BP Pulse Ox 02/23/20 21:30 66 21 142/84 H 90 02/23/20 21:00 67 17 155/98 H 91 02/23/20 20:30 72 16 135/94 94 02/23/20 20:01 64 25 H 143/80 H 99 02/23/20 20:00 61 23 98 02/23/20 19:31 78 36 H 162/89 H 89 L 02/23/20 19:30 87 28 H 87 L 02/23/20 19:26 88 L 02/23/20 19:00 62 18 149/84 H 93 02/23/20 18:43 63 16 91 02/23/20 18:42 73 18 90 02/23/20 18:38 77 16 154/91 H 91 02/23/20 18:06 36.4 C L 102 H 24 151/64 H 90 Laboratory Results Laboratory Results WBC 7.79 K/uL (4.8-10.8) 02/23/20 18:30 RBC 4.97 M/uL (4.7-6.1) 02/23/20 18:30 Hgb 12.9 g/dL (14.0-18.0) L 02/23/20 18:30 Hct 43.4 % (42-52) 02/23/20 18:30 MCV 87.3 fL (80-100) 02/23/20 18:30 MCH 26.0 pg (25-34) 02/23/20 18:30 MCHC 29.7 g/dL (32-36) L 02/23/20 18:30 RDW Std Deviation 51.2 fL (36.4-46.3) H 02/23/20 18:30 RDW Coeff of Lennox 16.0 % (11.5-14.5) H 02/23/20 18:30 Plt Count 188 K/uL (130-400) 02/23/20 18:30 MPV 9.2 fL (7.4-10.4) 02/23/20 18:30 Immature Gran % (Auto) 0.3 % 02/23/20 18:30 Neut % (Auto) 73.4 % 02/23/20 18:30 Lymph % (Auto) 16.4 % 02/23/20 18:30 [place] % (Auto) 8.5 % 02/23/20 18:30 Eos % (Auto) 0.9 % 02/23/20 18:30 Baso % (Auto) 0.5 % 02/23/20 18:30 Reticulocyte % (Auto) 1.5 % (0.5-2.0) 02/23/20 18:30 Immature Gran # (Auto) 0.02 K/uL (0.00-0.02) 02/23/20 18:30 Neut # (Auto) 5.72 K/uL (1.4-6.5) 02/23/20 18:30 Lymph # (Auto) 1.28 K/uL (1.2-3.4) 02/23/20 18:30 [place] # (Auto) 0.66 K/uL (0.11-0.59) H 02/23/20 18:30 Eos # (Auto) 0.07 K/uL (0-0.5) 02/23/20 18:30 Baso # (Auto) 0.04 K/uL (0-0.2) 02/23/20 18: Reticulocyte # 0.07 10^6/uL (0.02-0.10) 02/23/20 18: Absolute Nucleated RBC 0.00 K/uL (0-0) 02/23/20 18: Nucleated RBC % (auto) 0.0 % 02/23/20 18:30 PT 11.5 Seconds (9.0-12.0) 02/23/20 18:30 INR 1.1 (0.9-1.1) 02/23/20 18:30 APTT 28.4 Seconds (21.0-31.0) 02/23/20 18:30 PTT Ratio 1.0 02/23/20 18:30 ABG pH 7.45 (7.35-7.45) 02/23/20 21:25 ABG pCO2 40 mmHg (35-46) 02/23/20 21:25 ABG pO2 62 mmHg (80-95) L 02/23/20 21:25 ABG HCO3 27 mmol/L (19-24) H 02/23/20 21:25 ABG O2 Saturation 90.9 % (90-95) 02/23/20 21:25 ABG Base Excess 2.8 mEq/L (-9-1.8) H 02/23/20 21:25 Tyler Test Pos (Pos) 02/23/20 21:25 Barometric Pressure 727.6 mm/Hg 02/23/20 21:25 Oxygen Given ROOM AIR 02/23/20 21:25 Sodium 139 mmol/L (136-145) 02/23/20 18:30 Potassium 3.6 mmol/L (3.5-5.1) 02/23/20 18:30 Chloride 103 mmol/L (98-107) 02/23/20 18:30 Carbon Dioxide 31 mmol/L (21-32) 02/23/20 18:30 Anion Gap 5.0 (3-11) 02/23/20 18:30 BUN 12 mg/dl (7-18) 02/23/20 18:30 Creatinine 1.28 mg/dl (0.6-1.4) 02/23/20 18:30 Est Cr Clr Drug Dosing Not Reportable 02/23/20 18:30 Est GFR ( Amer) 67.1 02/23/20 18:30 Est GFR (Non-Af Amer) 57.9 02/23/20 18:30 BUN/Creatinine Ratio 9.5 (10-20) L 02/23/20 18:30 Glucose 116 mg/dl (70-99) H 02/23/20 18:30 Calcium 9.5 mg/dl (8.5-10.1) 02/23/20 18:30 Magnesium 1.7 mg/dl (1.8-2.4) L 02/23/20 18:30 Iron 30 mcg/dl (35-175) L 02/23/20 18:30 TIBC 555 mcg/dl (250-450) H 02/23/20 18:30 Transferrin 415 mg/dl (200-360) H 02/23/20 18:30 Ferritin 9.0 ng/ml (8-388) 02/23/20 18:30 Total Bilirubin 0.6 mg/dl (0.2-1) 02/23/20 18:30 AST 31 U/L (15-37) 02/23/20 18:30 ALT 25 U/L (12-78) 02/23/20 18:30 Alkaline Phosphatase 152 U/L (45-117) H 02/23/20 18:30 Lactate Dehydrogenase 326 U/L (87-241) H 02/23/20 18:30 Troponin I 0.033 ng/ml (0-0.045) 02/23/20 18:30 NT-Pro-B Natriuret Pep 3249 pg/ml (0-900) H 02/23/20 18:30 Total Protein 7.8 gm/dl (6.4-8.2) 02/23/20 18:30 Albumin 3.6 gm/dl (3.4-5.0) 02/23/20 18:30 Globulin 4.2 gm/dl (2.5-4.0) H 02/23/20 18:30 Albumin/Globulin Ratio 0.9 (0.9-2) 02/23/20 18:30 TSH 0.913 uIu/ml (0.300-4.500) 02/23/20 18:30 Diagnostic Findings Chest x-ray : Chronic and postoperative change. No acute process. EKG as per my interpretation : Rate 75, paced rhythm
[2020-02-23 22:14] LABS: Folate (Folic Acid) 15.77 ng/ml (>5.38)
[2020-02-23] MEDS ORDERED: OPTIRAY 320 125ml IV PRN (22:23)
--- NOTE | 2020-02-23 22:40 | CT Scan Report ---
CT angio chest PE protocol CT DOSE: 366.86 mGy.cm HISTORY: Dyspnea PE TECHNIQUE: Multiaxial CT images of the chest were performed following the intravenous administration of contrast to evaluate the pulmonary arteries. Maximal intensity projection images were also obtaine d. A dose lowering technique was utilized adhering to the principles of ALARA. COMPARISON STUDY: None. FINDINGS: Mild atherosclerotic changes thoracic aorta. No evidence for aneurysm. Dilatation of the right as well as left pulmonary arterial vasculature. A component of pulmonary ursula rial hypertension is considered. There is heterogeneous enhancement characteristics of the left lower lobe pulmonary arterial vasculat ure. Diminished opacification is noted throughout the bulk of the vessels left lower lobe. Similar but less prominent findings are seen involving the right lower lobe pulmonary vasculature. IMPRESSION: 1. Study is positive for bilateral pulmonary emboli. 2. Dilatation the pulmonary arterial vessels bilaterally suggesting pulmonary arterial hypertension. 3. Mild emphysematous change ACT 112: Negative or not required by law. The above report was generated using voice recognition software. It may contain grammatical, syntax or spelling errors. Electronically signed by: Leon Meneses M.D. 02/23/2020 10:38 PM
[2020-02-23] MEDS ORDERED: NITROGLYCERIN SL 0.4 MG/TAB TAB SL PRN (22:43)
[2020-02-23] MEDS ORDERED: TRAZODONE HCL 50 MG TAB PO PRN (22:43)
[2020-02-23] MEDS ORDERED: ACETAMINOPHEN 325 MG TAB PO PRN (22:43)
[2020-02-23] MEDS ORDERED: POTASSIUM CHLORIDE 20 MEQ TABCR PO STA (22:43)
[2020-02-24] MEDS: HEPARIN SODIUM/DEXTROSE 25,000 UNITS/500 ML BAG IV SCH ×2 (00:14→22:41)
[2020-02-24] MEDS: SIMETHICONE 80 MG CHEW PO SCH ×3 (00:20→20:19)
[2020-02-24] MEDS: MONTELUKAST SODIUM 10 MG TABLET PO SCH ×2 (00:20→20:20)
[2020-02-24] MEDS: ROFLUMILAST 500 MCG TAB PO SCH ×2 (00:21→20:19)
[2020-02-24] MEDS ORDERED: ALBUT/IPRATROP 3MG/0.5MG NEB 3 ML VIAL NEB PRN (00:21)
[2020-02-24] MEDS: DOCUSATE SODIUM/SENNA 50/8.6MG TAB PO SCH ×2 (00:21→20:21)
[2020-02-24] MEDS ORDERED: LEVALBUTEROL 1.25MG/0.5ML NEB INH SCH (01:00)
[2020-02-24] MEDS ORDERED: XOPENEX/ATROVENT 1.25mg/0.5MG NEB COMBO NEB SCH (01:00)
[2020-02-24] MEDS ORDERED: IPRATROPIUM BROMIDE NEB SOLN 0.02% 2.5 ML VIAL INH SCH (01:00)
[2020-02-24] MEDS: Heparin IV Standard *NO* Bolus IV SCH ×2 (01:23→01:24)
[2020-02-24 05:36] LABS: Estimated Average Glucose 134 mg/dl; Hemoglobin A1C 6.3 % (4.5-5.6)
--- NOTE | 2020-02-24 06:30 | Ultrasound Report ---
US venous doppler LE BI CLINICAL HISTORY: 64 years-old Male presenting with bilateral leg swelling, history of pulmonary embo benigno. TECHNIQUE: Real-time grayscale and color and spectral Doppler ultrasound imaging of the veins of the bilateral lower extremities was performed. Compression and augmentation were also utilized. COMPARISON: None. FINDINGS: RIGHT: Common femoral vein: Patent. Greater saphenous vein (superficial): Not visualized. Deep femoral vein: Patent. Femoral vein: Patent. Popliteal vein: Patent. Calf veins: Limited visualization though grossly patent. LEFT: Common femoral vein: Patent. Greater saphenous vein (superficial): Not visualized. Deep femoral vein: Patent. Femoral vein: Patent. Popliteal vein: Patent. Calf veins: Limited visualization though grossly patent. Other: None. IMPRESSION: No evidence of deep venous thrombosis. ACT 112: Negative or not required by law. Electronically signed by: Berny Medrano M.D. 02/24/2020 6:28 AM
[2020-02-24 06:59] LABS: Basophils # (auto) 0.01 K/uL (0-0.2); Basophils % (auto) 0.2 %; Hematocrit (blood only) 39.5 % (42-52); Hemoglobin 11.6 g/dL (14.0-18.0); Immature Granulocytes # (auto) 0.02 K/uL (0.00-0.02); Immature Granulocytes % (auto) 0.4 %; Lymphocytes # (auto) 0.63 K/uL (1.2-3.4); Lymphocytes % (auto) 12.1 %; Mean Corpuscular Hemoglobin 25.7 pg (25-34); Mean Corpuscular Hgb Conc 29.4 g/dL (32-36); Mean Corpuscular Volume 87.4 fL (80-100); Mean Platelet Volume 9.7 fL (7.4-10.4); Monocytes # (auto) 0.36 K/uL (0.11-0.59); Monocytes % (auto) 6.9 %; Neutrophils # (auto) 4.19 K/uL (1.4-6.5); Neutrophils % (auto) 80.4 %; Platelet Count 199 K/uL (130-400); RDW Standard Deviation 51.3 fL (36.4-46.3); Red Blood Count 4.52 M/uL (4.7-6.1); White Blood Count 5.21 K/uL (4.8-10.8)
[2020-02-24 07:18] LABS: Partial Thromboplastin Ratio 2.1
[2020-02-24 07:19] LABS: Partial Thromboplastin Time 59.1 Seconds (21.0-31.0)
[2020-02-24 07:33] LABS: BUN Creatinine Ratio 12.1 (10-20); Creatinine Clr Calc Pharmacy 53.5 ml/min; Est GFR (African American) 74.9; Est GFR (Non-African American) 64.6; Potassium 4.4 mmol/L (3.5-5.1)
[2020-02-24] MEDS ORDERED: FUROSEMIDE 40 MG/4 ML VIAL IV ONE ×2 (08:00→11:09)
[2020-02-24] MEDS: ASPIRIN 81 MG ECTAB PO SCH (08:23)
[2020-02-24] MEDS: ATORVASTATIN 40 MG TAB PO SCH (08:23)
[2020-02-24] MEDS: POTASSIUM CHLORIDE 20 MEQ TABCR PO SCH ×2 (08:23→20:18)
[2020-02-24] MEDS: METOPROLOL SUCC 25MG EXT REL TAB PO SCH (08:23)
[2020-02-24] MEDS: PANTOprazole 40 MG TAB PO SCH (08:23)
[2020-02-24] MEDS: FLUTICASONE/VILANTEROL 100/25MCG 14 PUFFS/INHALER INH SCH (08:24)
[2020-02-24] MEDS: UMECLIDINIUM BROMIDE 62.5MCG/BLISTER 7 PUFFS/INHALER INH SCH (08:24)
--- NOTE | 2020-02-24 08:52 | Hospitalist Progress Note ---
Date of Service February 24, 2020 Assessment & Plan (1) Acute hypoxemic respiratory failure: B/l Pulmonary Embolism - on current CT angio - pt also has a hx of prior PE diagnosed in [place] - started on IV heparin on admission - plan for oral anticoag., prev. pt was on warfarin - hypercoag. work -up including poss. ca work up / age appropriate cancer screenings - may have been done already per outpt - follow up w/ PCP/ poss. heme/onc - suppl. O2 as needed RSHF exacerbation, hx pulmonary hypertension secondary to COPD Acute cor pulmonale due to bilateral PE's hx chronic CHF (EF 53% TTE 2019) Dietary indiscretion contributory - weight gain, LE edema, crackles on phys. exam, ProBNP elevated - Echo shows EF of 45-50%, LVH, RV pressure overload, RV is moderately to severely dilatated, trace MR, mild TR, RV -Strict I/Os, daily weights, sodium and fluid restriction Cardiology consulted - anticoag. for PE, cont. home diuretics PAF status post Watchman off anticoagulation complete heart block status post PPM, Paced rhythm aortic regurgitation status post bioprosthetic AVR hx PFO/VSD status post surgery nonobstructive CAD/PAD status post surgery New onset anemia Anemia work-up, transfuse PRBC if hemoglobin less than 8 (hx PAD/nonobstructive CAD) Hyperglycemia rule out DM, check hemoglobin A1c Ongoing tobacco abuse, Nicotine patch PRN DVT prophylaxis - on IV heparin Full code Admission and Anticipated Discharge Date Admission Date: February 23, 2020 Subjective Patient is sitting up in the bed, in no acute distress. Denies any fevers, chills, chest pain, abdominal pain, nausea or vomiting. Only reports heartburn, and asks for Tums. Says that his abdomen was more distended, and he noticed lower extremity edema, says that both are now improved, shortness of breath improved. Review of Systems Review of Systems: All systems reviewed & are unremarkable except as noted in HPI & below Constitutional: no fever and no chills Respiratory: + dyspnea (improved); no cough Cardiovascular: + edema (LE b/l, and abd.); no chest pain and no palpitations Gastrointestinal: + heartburn; no abdominal pain, no nausea and no vomiting Physical Exam Physical Exam: GENERAL: thin elderly male sitting up on the edge of bed, in NAD HEENT: NC/AT, EOMI, normal oropharynx NECK : Supple, no tenderness, no JVD RESP : decreased breath sounds, HEART : RRR, soft systolic murmur, 1+ LE edema b/l ABDOMEN: + bowel sounds, some distention, nontender to palpation EXTREMITIES : 1+ LE pitting edema/erythem. skin changes, moves extremities spontaneously NEUROLOGIC : alert and oriented x3, no facial asymmetry,speech fluent, moves extremities spontaneously SKIN: warm, dry Results & Data Results & Data ([facility]) Vital Signs (Past 12 Hours) Vital Signs Temp Pulse Pulse Resp BP BP Pulse Ox 02/24/20 07:00 36.7 C 67 22 137/73 89 L 02/24/20 04:15 36.4 C L 68 18 124/79 90 02/23/20 23:49 36.6 C 69 20 152/88 H 94 02/23/20 23:12 87 02/23/20 22:46 02/23/20 22:43 36.6 C 69 20 152/82 H 100 02/23/20 22:07 60 21 137/86 98 02/23/20 21:30 66 21 142/84 H 90 02/23/20 21:00 67 17 155/98 H 91 Pulse Ox 02/24/20 07:00 02/24/20 04:15 02/23/20 23:49 02/23/20 23:12 02/23/20 22:46 100 02/23/20 22:43 02/23/20 22:07 02/23/20 21:30 02/23/20 21:00 Laboratory Results 02/24/20 02/24/20 02/24/20 Range/Units 06:44 06:44 06:44 WBC 5.21 (4.8-10.8) K/uL RBC 4.52 L (4.7-6.1) M/uL Hgb 11.6 L (14.0-18.0) g/dL Hct 39.5 L (42-52) % MCV 87.4 (80-100) fL MCH 25.7 (25-34) pg MCHC 29.4 L (32-36) g/dL RDW Std Deviation 51.3 H (36.4-46.3) fL RDW Coeff of Lennox 16.0 H (11.5-14.5) % Plt Count 199 (130-400) K/uL MPV 9.7 (7.4-10.4) fL Immature Gran % (Auto) 0.4 % Neut % (Auto) 80.4 % Lymph % (Auto) 12.1 % [place] % (Auto) 6.9 % Eos % (Auto) 0.0 % Baso % (Auto) 0.2 % Reticulocyte % (Auto) (0.5-2.0) % Immature Gran # (Auto) 0.02 (0.00-0.02) K/uL Neut # (Auto) 4.19 (1.4-6.5) K/uL Lymph # (Auto) 0.63 L (1.2-3.4) K/uL [place] # (Auto) 0.36 (0.11-0.59) K/uL Eos # (Auto) 0.00 (0-0.5) K/uL Baso # (Auto) 0.01 (0-0.2) K/uL Reticulocyte # (0.02-0.10) 10^6/uL Absolute Nucleated RBC (0-0) K/uL Nucleated RBC % (auto) % PT (9.0-12.0) Seconds INR (0.9-1.1) APTT 59.1 H* (21.0-31.0) Seconds PTT Ratio 2.1 ABG pH (7.35-7.45) ABG pCO2 (35-46) mmHg ABG pO2 (80-95) mmHg ABG HCO3 (19-24) mmol/L ABG O2 Saturation (90-95) % ABG Base Excess (-9-1.8) mEq/L Tyler Test (Pos) Barometric Pressure mm/Hg Oxygen Given Sodium 138 (136-145) mmol/L Potassium 4.4 D (3.5-5.1) mmol/L Chloride 103 (98-107) mmol/L Carbon Dioxide 29 (21-32) mmol/L Anion Gap 6.0 (3-11) BUN 14 (7-18) mg/dl Creatinine 1.17 (0.6-1.4) mg/dl Est Cr Clr Drug Dosing 53.5 Est GFR ( Amer) 74.9 Est GFR (Non-Af Amer) 64.6 BUN/Creatinine Ratio 12.1 (10-20) Glucose 159 H (70-99) mg/dl Estimat Average Glucose mg/dl Hemoglobin A1c (4.5-5.6) % Calcium 9.0 (8.5-10.1) mg/dl Magnesium (1.8-2.4) mg/dl Iron (35-175) mcg/dl TIBC (250-450) mcg/dl Transferrin (200-360) mg/dl Ferritin (8-388) ng/ml Total Bilirubin (0.2-1) mg/dl AST (15-37) U/L ALT (12-78) U/L Alkaline Phosphatase (45-117) U/L Lactate Dehydrogenase (87-241) U/L Troponin I (0-0.045) ng/ml NT-Pro-B Natriuret Pep (0-900) pg/ml Total Protein (6.4-8.2) gm/dl Albumin (3.4-5.0) gm/dl Globulin (2.5-4.0) gm/dl Albumin/Globulin Ratio (0.9-2) Vitamin B12 (211-911) pg/ml Folate (>5.38) ng/ml TSH (0.300-4.500) uIu/ml Nasal Screen MRSA (PCR) (Negative) Blood Type Antibody Screen 02/24/20 02/23/20 02/23/20 Range/Units 00:15 21:25 21:25 WBC (4.8-10.8) K/uL RBC (4.7-6.1) M/uL Hgb (14.0-18.0) g/dL Hct (42-52) % MCV (80-100) fL MCH (25-34) pg MCHC (32-36) g/dL RDW Std Deviation (36.4-46.3) fL RDW Coeff of Lennox (11.5-14.5) % Plt Count (130-400) K/uL MPV (7.4-10.4) fL Immature Gran % (Auto) % Neut % (Auto) % Lymph % (Auto) % [place] % (Auto) % Eos % (Auto) % Baso % (Auto) % Reticulocyte % (Auto) (0.5-2.0) % Immature Gran # (Auto) (0.00-0.02) K/uL Neut # (Auto) (1.4-6.5) K/uL Lymph # (Auto) (1.2-3.4) K/uL [place] # (Auto) (0.11-0.59) K/uL Eos # (Auto) (0-0.5) K/uL Baso # (Auto) (0-0.2) K/uL Reticulocyte # (0.02-0.10) 10^6/uL Absolute Nucleated RBC (0-0) K/uL Nucleated RBC % (auto) % PT (9.0-12.0) Seconds INR (0.9-1.1) APTT (21.0-31.0) Seconds PTT Ratio ABG pH (7.35-7.45) ABG pCO2 (35-46) mmHg ABG pO2 (80-95) mmHg ABG HCO3 (19-24) mmol/L ABG O2 Saturation (90-95) % ABG Base Excess (-9-1.8) mEq/L Tyler Test (Pos) Barometric Pressure mm/Hg Oxygen Given Sodium (136-145) mmol/L Potassium (3.5-5.1) mmol/L Chloride (98-107) mmol/L Carbon Dioxide (21-32) mmol/L Anion Gap (3-11) BUN (7-18) mg/dl Creatinine (0.6-1.4) mg/dl Est Cr Clr Drug Dosing Est GFR ( Amer) Est GFR (Non-Af Amer) BUN/Creatinine Ratio (10-20) Glucose (70-99) mg/dl Estimat Average Glucose mg/dl Hemoglobin A1c (4.5-5.6) % Calcium (8.5-10.1) mg/dl Magnesium (1.8-2.4) mg/dl Iron (35-175) mcg/dl TIBC (250-450) mcg/dl Transferrin (200-360) mg/dl Ferritin (8-388) ng/ml Total Bilirubin (0.2-1) mg/dl AST (15-37) U/L ALT (12-78) U/L Alkaline Phosphatase (45-117) U/L Lactate Dehydrogenase (87-241) U/L Troponin I (0-0.045) ng/ml NT-Pro-B Natriuret Pep (0-900) pg/ml Total Protein (6.4-8.2) gm/dl Albumin (3.4-5.0) gm/dl Globulin (2.5-4.0) gm/dl Albumin/Globulin Ratio (0.9-2) Vitamin B12 1771 H (211-911) pg/ml Folate 15.77 (>5.38) ng/ml TSH (0.300-4.500) uIu/ml Nasal Screen MRSA (PCR) Negative (Negative) Blood Type O Positive Antibody Screen NEGATIVE 02/23/20 02/23/20 02/23/20 Range/Units 21:25 21:25 18:30 WBC (4.8-10.8) K/uL RBC (4.7-6.1) M/uL Hgb (14.0-18.0) g/dL Hct (42-52) % MCV (80-100) fL MCH (25-34) pg MCHC (32-36) g/dL RDW Std Deviation (36.4-46.3) fL RDW Coeff of Lennox (11.5-14.5) % Plt Count (130-400) K/uL MPV (7.4-10.4) fL Immature Gran % (Auto) % Neut % (Auto) % Lymph % (Auto) % [place] % (Auto) % Eos % (Auto) % Baso % (Auto) % Reticulocyte % (Auto) (0.5-2.0) % Immature Gran # (Auto) (0.00-0.02) K/uL Neut # (Auto) (1.4-6.5) K/uL Lymph # (Auto) (1.2-3.4) K/uL [place]nam # (Auto) (0.11-0.59) K/uL Eos # (Auto) (0-0.5) K/uL Baso # (Auto) (0-0.2) K/uL Reticulocyte # (0.02-0.10) 10^6/uL Absolute Nucleated RBC (0-0) K/uL Nucleated RBC % (auto) % PT (9.0-12.0) Seconds INR (0.9-1.1) APTT (21.0-31.0) Seconds PTT Ratio ABG pH 7.45 (7.35-7.45) ABG pCO2 40 (35-46) mmHg ABG pO2 62 L (80-95) mmHg ABG HCO3 27 H (19-24) mmol/L ABG O2 Saturation 90.9 (90-95) % ABG Base Excess 2.8 H (-9-1.8) mEq/L Tyler Test Pos (Pos) Barometric Pressure 727.6 mm/Hg Oxygen Given ROOM AIR Sodium (136-145) mmol/L Potassium (3.5-5.1) mmol/L Chloride (98-107) mmol/L Carbon Dioxide (21-32) mmol/L Anion Gap (3-11) BUN (7-18) mg/dl Creatinine (0.6-1.4) mg/dl Est Cr Clr Drug Dosing Est GFR ( Amer) Est GFR (Non-Af Amer) BUN/Creatinine Ratio (10-20) Glucose (70-99) mg/dl Estimat Average Glucose mg/dl Hemoglobin A1c (4.5-5.6) % Calcium (8.5-10.1) mg/dl Magnesium (1.8-2.4) mg/dl Iron Cancelled (35-175) mcg/dl TIBC Cancelled (250-450) mcg/dl Transferrin Cancelled (200-360) mg/dl Ferritin Cancelled (8-388) ng/ml Total Bilirubin (0.2-1) mg/dl AST (15-37) U/L ALT (12-78) U/L Alkaline Phosphatase (45-117) U/L Lactate Dehydrogenase 326 H (87-241) U/L Troponin I 0.030 (0-0.045) ng/ml NT-Pro-B Natriuret Pep (0-900) pg/ml Total Protein (6.4-8.2) gm/dl Albumin (3.4-5.0) gm/dl Globulin (2.5-4.0) gm/dl Albumin/Globulin Ratio (0.9-2) Vitamin B12 (211-911) pg/ml Folate (>5.38) ng/ml TSH Cancelled (0.300-4.500) uIu/ml Nasal Screen MRSA (PCR) (Negative) Blood Type Antibody Screen 02/23/20 02/23/20 02/23/20 Range/Units 18:30 18:30 18:30 WBC (4.8-10.8) K/uL RBC (4.7-6.1) M/uL Hgb (14.0-18.0) g/dL Hct (42-52) % MCV (80-100) fL MCH (25-34) pg MCHC (32-36) g/dL RDW Std Deviation (36.4-46.3) fL RDW Coeff of Lennox (11.5-14.5) % Plt Count (130-400) K/uL MPV (7.4-10.4) fL Immature Gran % (Auto) % Neut % (Auto) % Lymph % (Auto) % [place] % (Auto) % Eos % (Auto) % Baso % (Auto) % Reticulocyte % (Auto) (0.5-2.0) % Immature Gran # (Auto) (0.00-0.02) K/uL Neut # (Auto) (1.4-6.5) K/uL Lymph # (Auto) (1.2-3.4) K/uL [place] # (Auto) (0.11-0.59) K/uL Eos # (Auto) (0-0.5) K/uL Baso # (Auto) (0-0.2) K/uL Reticulocyte # (0.02-0.10) 10^6/uL Absolute Nucleated RBC (0-0) K/uL Nucleated RBC % (auto) % PT 11.5 (9.0-12.0) Seconds INR 1.1 (0.9-1.1) APTT 28.4 (21.0-31.0) Seconds PTT Ratio 1.0 ABG pH (7.35-7.45) ABG pCO2 (35-46) mmHg ABG pO2 (80-95) mmHg ABG HCO3 (19-24) mmol/L ABG O2 Saturation (90-95) % ABG Base Excess (-9-1.8) mEq/L Tyler Test (Pos) Barometric Pressure mm/Hg Oxygen Given Sodium 139 (136-145) mmol/L Potassium 3.6 (3.5-5.1) mmol/L Chloride 103 (98-107) mmol/L Carbon Dioxide 31 (21-32) mmol/L Anion Gap 5.0 (3-11) BUN 12 (7-18) mg/dl Creatinine 1.28 (0.6-1.4) mg/dl Est Cr Clr Drug Dosing Not Reportable Est GFR ( Amer) 67.1 Est GFR (Non-Af Amer) 57.9 BUN/Creatinine Ratio 9.5 L (10-20) Glucose 116 H (70-99) mg/dl Estimat Average Glucose 134 mg/dl Hemoglobin A1c 6.3 H (4.5-5.6) % Calcium 9.5 (8.5-10.1) mg/dl Magnesium 1.7 L (1.8-2.4) mg/dl Iron 30 L (35-175) mcg/dl TIBC 555 H (250-450) mcg/dl Transferrin 415 H (200-360) mg/dl Ferritin 9.0 (8-388) ng/ml Total Bilirubin 0.6 (0.2-1) mg/dl AST 31 (15-37) U/L ALT 25 (12-78) U/L Alkaline Phosphatase 152 H (45-117) U/L Lactate Dehydrogenase (87-241) U/L Troponin I 0.033 (0-0.045) ng/ml NT-Pro-B Natriuret Pep 3249 H (0-900) pg/ml Total Protein 7.8 (6.4-8.2) gm/dl Albumin 3.6 (3.4-5.0) gm/dl Globulin 4.2 H (2.5-4.0) gm/dl Albumin/Globulin Ratio 0.9 (0.9-2) Vitamin B12 (211-911) pg/ml Folate (>5.38) ng/ml TSH 0.913 (0.300-4.500) uIu/ml Nasal Screen MRSA (PCR) (Negative) Blood Type Antibody Screen 02/23/20 Range/Units 18:30 WBC 7.79 (4.8-10.8) K/uL RBC 4.97 (4.7-6.1) M/uL Hgb 12.9 L (14.0-18.0) g/dL Hct 43.4 (42-52) % MCV 87.3 (80-100) fL MCH 26.0 (25-34) pg MCHC 29.7 L (32-36) g/dL RDW Std Deviation 51.2 H (36.4-46.3) fL RDW Coeff of Lennox 16.0 H (11.5-14.5) % Plt Count 188 (130-400) K/uL MPV 9.2 (7.4-10.4) fL Immature Gran % (Auto) 0.3 % Neut % (Auto) 73.4 % Lymph % (Auto) 16.4 % [place] % (Auto) 8.5 % Eos % (Auto) 0.9 % Baso % (Auto) 0.5 % Reticulocyte % (Auto) 1.5 (0.5-2.0) % Immature Gran # (Auto) 0.02 (0.00-0.02) K/uL Neut # (Auto) 5.72 (1.4-6.5) K/uL Lymph # (Auto) 1.28 (1.2-3.4) K/uL [place] # (Auto) 0.66 H (0.11-0.59) K/uL Eos # (Auto) 0.07 (0-0.5) K/uL Baso # (Auto) 0.04 (0-0.2) K/uL Reticulocyte # 0.07 (0.02-0.10) 10^6/uL Absolute Nucleated RBC 0.00 (0-0) K/uL Nucleated RBC % (auto) 0.0 % PT (9.0-12.0) Seconds INR (0.9-1.1) APTT (21.0-31.0) Seconds PTT Ratio ABG pH (7.35-7.45) ABG pCO2 (35-46) mmHg ABG pO2 (80-95) mmHg ABG HCO3 (19-24) mmol/L ABG O2 Saturation (90-95) % ABG Base Excess (-9-1.8) mEq/L Tyler Test (Pos) Barometric Pressure mm/Hg Oxygen Given Sodium (136-145) mmol/L Potassium (3.5-5.1) mmol/L Chloride (98-107) mmol/L Carbon Dioxide (21-32) mmol/L Anion Gap (3-11) BUN (7-18) mg/dl Creatinine (0.6-1.4) mg/dl Est Cr Clr Drug Dosing Est GFR ( Amer) Est GFR (Non-Af Amer) BUN/Creatinine Ratio (10-20) Glucose (70-99) mg/dl Estimat Average Glucose mg/dl Hemoglobin A1c (4.5-5.6) % Calcium (8.5-10.1) mg/dl Magnesium (1.8-2.4) mg/dl Iron (35-175) mcg/dl TIBC (250-450) mcg/dl Transferrin (200-360) mg/dl Ferritin (8-388) ng/ml Total Bilirubin (0.2-1) mg/dl AST (15-37) U/L ALT (12-78) U/L Alkaline Phosphatase (45-117) U/L Lactate Dehydrogenase (87-241) U/L Troponin I (0-0.045) ng/ml NT-Pro-B Natriuret Pep (0-900) pg/ml Total Protein (6.4-8.2) gm/dl Albumin (3.4-5.0) gm/dl Globulin (2.5-4.0) gm/dl Albumin/Globulin Ratio (0.9-2) Vitamin B12 (211-911) pg/ml Folate (>5.38) ng/ml TSH (0.300-4.500) uIu/ml Nasal Screen MRSA (PCR) (Negative) Blood Type Antibody Screen Medications Administered Current Inpatient Medications Acetaminophen (Tylenol) 650 mg PO Q4H PRN PRN Reason: Pain or Fever Stop: 03/24/20 22:42 Albuterol (Duoneb) 3 ml NEB Q2H PRN PRN Reason: Wheezing Stop: 03/25/20 00:20 Aspirin (Ecotrin Ectab) 81 mg PO QAM [facility] Stop: 03/25/20 08:59 Last Admin: 02/24/20 08:23 Dose: 81 mg Documented by: Atorvastatin Calcium (Lipitor) 40 mg PO QAM [facility] Stop: 03/25/20 08:59 Last Admin: 02/24/20 08:23 Dose: 40 mg Documented by: Fluticasone/Vilanterol (Breo Ellipta 100/25 Mcg Inh) 1 puffs INH DAILY [facility] Stop: 03/25/20 08:59 Last Admin: 02/24/20 08:24 Dose: 1 puffs Documented by: Heparin Sodium/Dextrose (Heparin Sodium/Dextrose) 25,000 units in 500 mls @ 21 mls/hr IV .[id number] [facility]; Protocol Stop: 03/24/20 22:44 Last Titration: 02/24/20 07:06 Dose: 1,050 units/hr, 21 mls/hr Documented by: Metoprolol Succinate (Toprol Xl) 25 mg PO QAM [facility] Stop: 03/25/20 08:59 Last Admin: 02/24/20 08:23 Dose: 25 mg Documented by: Montelukast Sodium (Singulair) 10 mg PO PM [facility] Stop: 03/24/20 22:42 Last Admin: 02/24/20 00:20 Dose: 10 mg Documented by: Nitroglycerin (Nitrostat) 0.4 mg SL UD PRN PRN Reason: Chest Pain Stop: 03/24/20 22:42 Pantoprazole Sodium (Protonix) 40 mg PO QAM [facility] Stop: 03/25/20 08:59 Last Admin: 02/24/20 08:23 Dose: 40 mg Documented by: Polyethylene Glycol (Miralax Powder Packet) 17 gm PO DAILY PRN PRN Reason: Constipation Stop: 03/24/20 22:42 Potassium Chloride (Klor-Con M20) 20 meq PO BID [facility] Stop: 03/25/20 08:59 Last Admin: 02/24/20 08:23 Dose: 20 meq Documented by: Roflumilast (Daliresp) 500 mcg PO QPM [facility] Stop: 03/24/20 22:42 Last Admin: 02/24/20 00:21 Dose: 500 mcg Documented by: Senna/Docusate Sodium (Senokot S) 1 tab PO HS [facility] Stop: 03/24/20 22:42 Last Admin: 02/24/20 00:21 Dose: 1 tab Documented by: Simethicone (Mylicon) 160 mg PO BID [facility] Stop: 03/24/20 22:42 Last Admin: 02/24/20 08:22 Dose: 160 mg Documented by: Trazodone HCl (Desyrel) 50 mg PO HS PRN PRN Reason: Sleep Stop: 03/24/20 22:42 Umeclidinium [place] (Incruse Ellipta) 1 puffs INH DAILY [facility] Stop: 03/25/20 08:59 Last Admin: 02/24/20 08:24 Dose: 1 puffs Documented by:
[2020-02-24] MEDS ORDERED: FUROSEMIDE 40 MG/4 ML VIAL IV SCH (09:00)
[2020-02-24] MEDS ORDERED: ENOXAPARIN INJ 30 MG/0.3 ML SYR SQ SCH (09:00)
--- NOTE | 2020-02-24 11:16 | Electrocardiogram Report ---
Test Reason : Blood Pressure : / mmHG Vent. Rate : 075 BPM Atrial Rate : 075 BPM P-R Int : 196 ms QRS Dur : 198 ms QT Int : 480 ms P-R-T Axes : 000 -87 100 degrees QTc Int : 536 ms AV dual-paced rhythm with frequent Premature ventricular complexes Abnormal ECG When compared with ECG of 31-JUL-2018 13:38, Premature ventricular complexes are now Present Vent. rate has increased BY 11 BPM Confirmed by Tony Mclain ([id number]) on 02/24/2020 11:16:22 AM Referred By: REFERRED SELF Confirmed By:Tony Mclain
--- NOTE | 2020-02-24 11:28 | Cardiology Consultation ---
Date of Consultation February 24, 2020 Assessment & Plan (1) Pulmonary embolism, bilateral: Patient presents with symptoms of dyspnea abdominal bloating and mild peripheral edema with significant hypoxia observed on presentation. Underlying history is notable for cardiac and pulmonary disease with now superimposed bilateral pulmonary emboli Patient begun on IV heparin. He remains hemodynamically stable Plan continue IV heparin with bridge to oral anticoagulant Continue torsemide and Spironolactone Echocardiogram to assess degree of pulmonary hypertension chronic valvular disease Oxygen supplementation. (2) Acute hypoxemic respiratory failure: (3) Edema: (4) Hypoxia: (5) H/O aortic valve replacement: (6) Afib: History of Present Illness Reason for Consultation: Increasing dyspnea abdominal bloating and edema Requesting Physician: Dr Clark Attending Physician: Bradford Clark MD History of Present Illness Patient is a very complex 64-year-old male with underlying constellation of medical issues which include 1. History of endocarditis in 1977 2. Paroxysmal atrial fibrillation /atrial flutter, atrial fibrillation burden approximately 11% by pacer interrogation 3. CHADS VASC = 4 (Age, Htn, PVD, CHF) status post Watchman device insertion 07/19/2019 4. Bleeding history. GI bleed - 04/2019 5. 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 Severe aortic valve insufficiency status post AVR in 2014 (25 mm Young II), preoperative diagnostic cardiac catheterization without coronary disease 7. Subaortic membrane status post resection in 1959 and 2014 8. Membranous VSD status post repair in 2014 9. PFO status post repair 2014 10. Nonischemic cardiomyopathy with mild left ventricular dysfunction EF 50% 11. Severe COPD 12. Nonobstructive coronary artery disease 13. Peripheral arterial disease status post April 17, 2019 [employer] and stenting of proximal to mid SFA (6.0 x 60 Absolue Pro self-expanding, 6.5 x 120 Supera) 14. Doll's esophagus 15. BPH 16. Polycythemia 17. Pulmonary embolus left lower lobe and lingular branches June 2019 post Watchman procedure treated with anticoagulation for approximately 3 months Patient presents this admission noting increasing dyspnea abdominal bloating and peripheral edema times several days or greater. Weight up approximately 5 pounds. Denies any chest pains fevers chills or productive cough. Notes no overt bleeding melena hematochezia dysuria hematuria. Predominant complaint is of feels full and abdomen. No overt orthopnea. No headache or visual changes. Patient presented to the ER where he is notably hypoxic on presentation. He was treated with bronchodilators corticosteroids and furosemide subsequent CT scan demonstrated evidence of bilateral pulmonary emboli. Patient currently on IV heparin Allergies Allergy/AdvReac Type Severity Reaction Status Date / Time carvedilol AdvReac Intermediate [place]IGHTMAR[place] Verified 02/23/20 18:41 Home Medications Home Medications Medication Instructions Recorded Confirmed Type Daliresp 500 mcg PO QPM 07/27/18 02/23/20 History Spiriva with HandiHaler 1 cap INHALATION DAILY 07/27/18 02/23/20 History albuterol sulfate [Ventolin HFA] 2 puff INHALATION Q6H PRN 07/27/18 02/23/20 History budesonide-formoterol [Symbicort] 2 puff INHALATION BID 07/27/18 02/23/20 History montelukast 10 mg PO PM 07/27/18 02/23/20 History turmeric root extract 500 mg PO DAILY 04/16/19 02/23/20 History atorvastatin 40 mg tablet 40 mg PO QAM #90 tab 12/04/19 02/23/20 Rx spironolactone 25 mg tablet 12.5 mg PO DAILY tab 12/26/19 02/23/20 History torsemide 20 mg tablet 20 mg PO DAILY 12/26/19 02/23/20 History acetaminophen [Mapap 650 mg PO TID 02/23/20 02/23/20 History (acetaminophen)] omeprazole 20 mg PO QAM 02/23/20 02/23/20 History simethicone [Gas Relief 160 mg PO BID 02/23/20 02/23/20 History (simethicone)] trazodone 50 mg PO HS PRN 02/23/20 02/23/20 History Tums 500 mg PO PRN 02/24/20 History Patient History Medical History (Updated 02/24/20 @ 11:45 by Keyon Springer MD) Afib Paroxysmal CAD (coronary artery disease) Minimal luminal irregularities, 2014 Chronic anticoagulation COPD (chronic obstructive pulmonary disease) stable GERD (gastroesophageal reflux disease) Hx of Lyme disease (Acute) approximately 4 years ago per pt Nonischemic cardiomyopathy Osteoarthritis Pacemaker secondary to complete heart block; dual chamber May 2016 PAD (peripheral artery disease) Pulmonary hypertension Surgical History (Updated 02/24/20 @ 11:36 by Keyon Springer MD) H/O aortic valve replacement secondary to severe aortic insufficiency; 2014; bioprosthetic H/O Spinal surgery LUMBAR DISCECTOMY History of cardiac cath Minimal luminal irregularities, 2015 History of colonoscopy History of tooth extraction History of ventricular septal defect s/p repair S/P right knee arthroscopy S/P VSD closure 2015 Status post patent foramen ovale closure Family History Mother Family history of diabetes mellitus Social History Preferred Language: [place] Communication Ability: Effective Development System Efficiency Manager Required: No Beliefs That Will Affect Care: None marital status: Current Living Situation: Alone Feels Safe at Home: Yes Safety Concerns: Feels Safe At This Time Smoking Status: Current every day smoker Tobacco Type: cigarettes ; Cigarettes Per Day: 10 ; Do You Dip or Chew Tobacco: No ; Second Hand Exposure: No ; Hx Alcohol Use: Yes Alcohol type: beer Hx Substance Use: No Review of Systems Review of Systems: All systems reviewed & are unremarkable except as noted in HPI & below Physical Exam Constitutional: + thin; no acute distress Eyes: PERRL, conjunctivae normal, anicteric sclerae ENMT: external ear and nose normal, oropharynx normal Neck: trachea midline, no thyromegaly Respiratory: Auscultation: + diminished lung sounds; no rales Cardiovascular: Rate/Rhythm: regular rate and regular rhythm Heart Sounds: normal S1, normal S2 and + murmur (Grade 1/6 systolic, no dais); no gallop Palpation: normal PMI Vessels: normal carotid upstroke and radial pulses present; no JVD and no carotid bruit Extremities: + edema (1+ bilateral lower extremities left slightly greater than right) Gastrointestinal (Abdomen): Soft with mild distention, no palpable mass rebound or guarding Musculoskeletal: no cyanosis or clubbing, extremities motor strength 5/5 Skin: Ruborous changes of bilateral lower extremities Neurologic: PERRL, EOMI, accommodation nl, no face palsy, no dysarthria Psychiatric: A+Ox3, euthymic affect Results & Data ([facility]) Vital Signs (Past 12 Hours) Vital Signs Temp Pulse Resp BP Pulse Ox 02/24/20 07:00 36.7 C 67 22 137/73 89 L 02/24/20 04:15 36.4 C L 68 18 124/79 90 02/23/20 23:49 36.6 C 69 20 152/88 H 94 Laboratory Results Laboratory Results - last 24 hr 02/23/20 02/23/20 02/23/20 18:30 18:30 18:30 WBC 7.79 RBC 4.97 Hgb 12.9 L Hct 43.4 MCV 87.3 MCH 26.0 MCHC 29.7 L RDW Std Deviation 51.2 H RDW Coeff of Lennox 16.0 H Plt Count 188 MPV 9.2 Immature Gran % (Auto) 0.3 Neut % (Auto) 73.4 Lymph % (Auto) 16.4 [place] % (Auto) 8.5 Eos % (Auto) 0.9 Baso % (Auto) 0.5 Reticulocyte % (Auto) 1.5 Immature Gran # (Auto) 0.02 Neut # (Auto) 5.72 Lymph # (Auto) 1.28 [place] # (Auto) 0.66 H Eos # (Auto) 0.07 Baso # (Auto) 0.04 Reticulocyte # 0.07 Absolute Nucleated RBC 0.00 Nucleated RBC % (auto) 0.0 PT 11.5 INR 1.1 APTT 28.4 PTT Ratio 1.0 ABG pH ABG pCO2 ABG pO2 ABG HCO3 ABG O2 Saturation ABG Base Excess Tyler Test Barometric Pressure Oxygen Given Sodium 139 Potassium 3.6 Chloride 103 Carbon Dioxide 31 Anion Gap 5.0 BUN 12 Creatinine 1.28 Est Cr Clr Drug Dosing Not Reportable Est GFR ( Amer) 67.1 Est GFR (Non-Af Amer) 57.9 BUN/Creatinine Ratio 9.5 L Glucose 116 H Estimat Average Glucose Hemoglobin A1c Calcium 9.5 Magnesium 1.7 L Iron 30 L TIBC 555 H Transferrin 415 H Ferritin 9.0 Total Bilirubin 0.6 AST 31 ALT 25 Alkaline Phosphatase 152 H Lactate Dehydrogenase Troponin I 0.033 NT-Pro-B Natriuret Pep 3249 H Total Protein 7.8 Albumin 3.6 Globulin 4.2 H Albumin/Globulin Ratio 0.9 Vitamin B12 Folate TSH 0.913 Nasal Screen MRSA (PCR) Blood Type Antibody Screen 02/23/20 02/23/20 02/23/20 18:30 18:30 21:25 WBC RBC Hgb Hct MCV MCH MCHC RDW Std Deviation RDW Coeff of Lennox Plt Count MPV Immature Gran % (Auto) Neut % (Auto) Lymph % (Auto) [place] % (Auto) Eos % (Auto) Baso % (Auto) Reticulocyte % (Auto) Immature Gran # (Auto) Neut # (Auto) Lymph # (Auto) [place] # (Auto) Eos # (Auto) Baso # (Auto) Reticulocyte # Absolute Nucleated RBC Nucleated RBC % (auto) PT INR APTT PTT Ratio ABG pH 7.45 ABG pCO2 40 ABG pO2 62 L ABG HCO3 27 H ABG O2 Saturation 90.9 ABG Base Excess 2.8 H Tyler Test Pos Barometric Pressure 727.6 Oxygen Given ROOM AIR Sodium Potassium Chloride Carbon Dioxide Anion Gap BUN Creatinine Est Cr Clr Drug Dosing Est GFR ( Amer) Est GFR (Non-Af Amer) BUN/Creatinine Ratio Glucose Estimat Average Glucose 134 Hemoglobin A1c 6.3 H Calcium Magnesium Iron TIBC Transferrin Ferritin Total Bilirubin AST ALT Alkaline Phosphatase Lactate Dehydrogenase 326 H Troponin I NT-Pro-B Natriuret Pep Total Protein Albumin Globulin Albumin/Globulin Ratio Vitamin B12 Folate TSH Nasal Screen MRSA (PCR) Blood Type Antibody Screen 02/23/20 02/23/20 02/23/20 21:25 21:25 21:25 WBC RBC Hgb Hct MCV MCH MCHC RDW Std Deviation RDW Coeff of Lennox Plt Count MPV Immature Gran % (Auto) Neut % (Auto) Lymph % (Auto) [place] % (Auto) Eos % (Auto) Baso % (Auto) Reticulocyte % (Auto) Immature Gran # (Auto) Neut # (Auto) Lymph # (Auto) [place] # (Auto) Eos # (Auto) Baso # (Auto) Reticulocyte # Absolute Nucleated RBC Nucleated RBC % (auto) PT INR APTT PTT Ratio ABG pH ABG pCO2 ABG pO2 ABG HCO3 ABG O2 Saturation ABG Base Excess Tyler Test Barometric Pressure Oxygen Given Sodium Potassium Chloride Carbon Dioxide Anion Gap BUN Creatinine Est Cr Clr Drug Dosing Est GFR ( Amer) Est GFR (Non-Af Amer) BUN/Creatinine Ratio Glucose Estimat Average Glucose Hemoglobin A1c Calcium Magnesium Iron Cancelled TIBC Cancelled Transferrin Cancelled Ferritin Cancelled Total Bilirubin AST ALT Alkaline Phosphatase Lactate Dehydrogenase Troponin I 0.030 NT-Pro-B Natriuret Pep Total Protein Albumin Globulin Albumin/Globulin Ratio Vitamin B12 1771 H Folate 15.77 TSH Cancelled Nasal Screen MRSA (PCR) Blood Type O Positive Antibody Screen NEGATIVE 02/24/20 02/24/20 02/24/20 00:15 06:44 06:44 WBC 5.21 RBC 4.52 L Hgb 11.6 L Hct 39.5 L MCV 87.4 MCH 25.7 MCHC 29.4 L RDW Std Deviation 51.3 H RDW Coeff of Lennox 16.0 H Plt Count 199 MPV 9.7 Immature Gran % (Auto) 0.4 Neut % (Auto) 80.4 Lymph % (Auto) 12.1 [place] % (Auto) 6.9 Eos % (Auto) 0.0 Baso % (Auto) 0.2 Reticulocyte % (Auto) Immature Gran # (Auto) 0.02 Neut # (Auto) 4.19 Lymph # (Auto) 0.63 L [place] # (Auto) 0.36 Eos # (Auto) 0.00 Baso # (Auto) 0.01 Reticulocyte # Absolute Nucleated RBC Nucleated RBC % (auto) PT INR APTT PTT Ratio ABG pH ABG pCO2 ABG pO2 ABG HCO3 ABG O2 Saturation ABG Base Excess Tyler Test Barometric Pressure Oxygen Given Sodium 138 Potassium 4.4 D Chloride 103 Carbon Dioxide 29 Anion Gap 6.0 BUN 14 Creatinine 1.17 Est Cr Clr Drug Dosing 53.5 Est GFR ( Amer) 74.9 Est GFR (Non-Af Amer) 64.6 BUN/Creatinine Ratio 12.1 Glucose 159 H Estimat Average Glucose Hemoglobin A1c Calcium 9.0 Magnesium Iron TIBC Transferrin Ferritin Total Bilirubin AST ALT Alkaline Phosphatase Lactate Dehydrogenase Troponin I NT-Pro-B Natriuret Pep Total Protein Albumin Globulin Albumin/Globulin Ratio Vitamin B12 Folate TSH Nasal Screen MRSA (PCR) Negative Blood Type Antibody Screen 02/24/20 06:44 WBC RBC Hgb Hct MCV MCH MCHC RDW Std Deviation RDW Coeff of Lennox Plt Count MPV Immature Gran % (Auto) Neut % (Auto) Lymph % (Auto) [place] % (Auto) Eos % (Auto) Baso % (Auto) Reticulocyte % (Auto) Immature Gran # (Auto) Neut # (Auto) Lymph # (Auto) [place] # (Auto) Eos # (Auto) Baso # (Auto) Reticulocyte # Absolute Nucleated RBC Nucleated RBC % (auto) PT INR APTT 59.1 H* PTT Ratio 2.1 ABG pH ABG pCO2 ABG pO2 ABG HCO3 ABG O2 Saturation ABG Base Excess Tyler Test Barometric Pressure Oxygen Given Sodium Potassium Chloride Carbon Dioxide Anion Gap BUN Creatinine Est Cr Clr Drug Dosing Est GFR ( Amer) Est GFR (Non-Af Amer) BUN/Creatinine Ratio Glucose Estimat Average Glucose Hemoglobin A1c Calcium Magnesium Iron TIBC Transferrin Ferritin Total Bilirubin AST ALT Alkaline Phosphatase Lactate Dehydrogenase Troponin I NT-Pro-B Natriuret Pep Total Protein Albumin Globulin Albumin/Globulin Ratio Vitamin B12 Folate TSH Nasal Screen MRSA (PCR) Blood Type Antibody Screen Diagnostic Findings CT angio chest PE protocol CT DOSE: 366.86 mGy.cm HISTORY: Dyspnea PE TECHNIQUE: Multiaxial CT images of the chest were performed following the intravenous administration of contrast to evaluate the pulmonary arteries. Maximal intensity projection images were also obtained. A dose lowering technique was utilized adhering to the principles of ALARA. COMPARISON STUDY: None. FINDINGS: Mild atherosclerotic changes thoracic aorta. No evidence for aneurysm. Dilatation of the right as well as left pulmonary arterial vasculature. A component of pulmonary arterial hypertension is considered. There is heterogeneous enhancement characteristics of the left lower lobe pulmonary arterial vasculature. Diminished opacification is noted throughout the bulk of the vessels left lower lobe. Similar but less prominent findings are seen involving the right lower lobe pulmonary vasculature. IMPRESSION: 1. Study is positive for bilateral pulmonary emboli. 2. Dilatation the pulmonary arterial vessels bilaterally suggesting pulmonary arterial hypertension. 3. Mild emphysematous change ECG Additional Comments: EKG 02/23/2020 Test Reason : Blood Pressure : / mmHG Vent. Rate : 075 BPM Atrial Rate : 075 BPM P-R Int : 196 ms QRS Dur : 198 ms QT Int : 480 ms P-R-T Axes : 000 -87 100 degrees QTc Int : 536 ms AV dual-paced rhythm with frequent Premature ventricular complexes Abnormal ECG When compared with ECG of 31-JUL-2018 13:38, Premature ventricular complexes are now Present Vent. rate has increased BY 11 BPM (1) Edema Edema type: unspecified Qualified Code(s): R60.9 - Edema, unspecified
[2020-02-24] MEDS: POLYETHYLENE (MIRALAX) 17 GM PACK PO PRN (14:47)
[2020-02-24] MEDS ORDERED: CALCIUM CARBONATE 500 MG CHEWABLE TAB PO PRN (16:31)
[2020-02-24] MEDS ORDERED: TRAMADOL HCL 50 MG TABLET PO PRN (18:35)
[2020-02-25 05:21] LABS: Partial Thromboplastin Ratio 2.9
[2020-02-25 05:31] LABS: Partial Thromboplastin Time 81.3 Seconds (21.0-31.0)
[2020-02-25 07:24] LABS: Hemoglobin 11.3 g/dL (14.0-18.0); Mean Corpuscular Hemoglobin 25.9 pg (25-34); Mean Corpuscular Hgb Conc 29.7 g/dL (32-36); Mean Corpuscular Volume 87.2 fL (80-100); Mean Platelet Volume 9.5 fL (7.4-10.4); Platelet Count 180 K/uL (130-400); RDW Coefficient of Variation 15.8 % (11.5-14.5); RDW Standard Deviation 50.3 fL (36.4-46.3); Red Blood Count 4.36 M/uL (4.7-6.1); White Blood Count 5.79 K/uL (4.8-10.8)
[2020-02-25 08:00] LABS: BUN Creatinine Ratio 17.2 (10-20); Calcium 8.9 mg/dl (8.5-10.1); Creatinine Clr Calc Pharmacy 56.6 ml/min; Est GFR (African American) 81.5; Est GFR (Non-African American) 70.4
[2020-02-25] MEDS: FLUTICASONE/VILANTEROL 100/25MCG 14 PUFFS/INHALER INH SCH (08:32)
[2020-02-25] MEDS: METOPROLOL SUCC 25MG EXT REL TAB PO SCH (08:33)
[2020-02-25] MEDS: ATORVASTATIN 40 MG TAB PO SCH (08:33)
[2020-02-25] MEDS: PANTOprazole 40 MG TAB PO SCH (08:33)
[2020-02-25] MEDS: SIMETHICONE 80 MG CHEW PO SCH ×2 (08:33→20:33)
[2020-02-25] MEDS: ASPIRIN 81 MG ECTAB PO SCH (08:33)
[2020-02-25] MEDS: POTASSIUM CHLORIDE 20 MEQ TABCR PO SCH ×2 (08:34→20:33)
[2020-02-25] MEDS: UMECLIDINIUM BROMIDE 62.5MCG/BLISTER 7 PUFFS/INHALER INH SCH (08:34)
--- NOTE | 2020-02-25 08:38 | Hospitalist Progress Note ---
Date of Service February 25, 2020 Assessment & Plan (1) Acute hypoxemic respiratory failure: B/l Pulmonary Embolism - on current CT angio - pt also has a hx of prior PE diagnosed in [place] - started on IV heparin on admission - plan for oral anticoag., prev. pt was on warfarin - discussed in detail oral anticoag. options and what kind of anticoag. pt been on in the past, per chart review, and discussion w/ pharmacy and the pt himself, pt was coumadin, plavix, possibly lovenox bridge but it does not appear that pt was on DOAC before - checked for [place] for DOACs - above $400/month, pt states that he is on limited budget and so this medication would not be feasible for him, agreed to start on warfarin - monitor daily INR - hypercoag. work -up including poss. ca work up / age appropriate cancer screenings - may have been done already per outpt - follow up w/ PCP/ poss. heme/onc - suppl. O2 as needed RSHF exacerbation, hx pulmonary hypertension secondary to COPD Acute cor pulmonale due to bilateral PE's hx chronic CHF (EF 53% TTE 2019) Dietary indiscretion may be contributory - weight gain, LE edema, crackles on phys. exam, ProBNP elevated - Echo shows EF of 45-50%, LVH, RV pressure overload, RV is moderately to sev erely dilatated, trace MR, mild TR -Strict I/Os, daily weights, sodium and fluid restriction Cardiology consulted - anticoag. for PE, cont. home diuretics PAF status post Watchman - off anticoagulation complete heart block status post PPM, Paced rhythm aortic regurgitation status post bioprosthetic AVR hx PFO/VSD status post surgery nonobstructive CAD/PAD status post surgery New onset anemia Anemia work-up, transfuse pRBC if hemoglobin less than 8 (hx PAD/nonobstructive CAD) Hyperglycemia rule out DM, check hemoglobin A1c Ongoing tobacco abuse, Nicotine patch PRN DVT prophylaxis - on IV heparin, will start warfarin Full code Admission and Anticipated Discharge Date Admission Date: February 23, 2020 Subjective Pt is lying in bed, in NAD. Says he feels better, abdomen less distended, breathing improved. Had BM, says he was not abale to have BM in days. Discussed anticoagulation. Pt can not exactly remember what he was taking in the past. Per discussion with the pt, pharmacy and chart review - pt was on coumadin before, also on plavix, and at some point possibly lovenox bridge (after leaving [facility]). It does not seem as pt was on DOAC before. Discussed with him, that unfortunately these medications are quite expensive given his health insurance and pt declined them as he is on very limited budget. Agreed to start on coumadin. Review of Systems Review of Systems: All systems reviewed & are unremarkable except as noted in HPI & below Constitutional: no fever and no chills Respiratory: + dyspnea (improved); no cough Cardiovascular: + edema (LE b/l, and abd. (improved)); no chest pain and no palpitations Gastrointestinal: + heartburn and + constipation (improved); no abdominal pain, no nausea and no vomiting Physical Exam Physical Exam: GENERAL: thin elderly male lying in bed, in NAD HEENT: NC/AT, EOMI, normal oropharynx NECK : Supple, no tenderness, no JVD RESP : decreased breath sounds, HEART : RRR, soft systolic murmur, 1+ LE edema b/l ABDOMEN: + bowel sounds, some distention, nontender to palpation EXTREMITIES : 1+ LE pitting edema/erythem. skin changes, moves extremities spontaneously NEUROLOGIC : alert and oriented x3, no facial asymmetry,speech fluent, moves extremities spontaneously SKIN: warm, dry Results & Data Results & Data ([facility]) Vital Signs (Past 12 Hours) Vital Signs Temp Pulse Resp BP Pulse Ox 02/25/20 04:32 36.7 C 72 18 132/95 95 02/25/20 00:09 36.6 C 68 18 125/74 95 02/24/20 21:31 36.4 C L 64 18 119/75 89 L Laboratory Results 02/25/20 02/25/20 02/25/20 Range/Units 07:07 07:07 04:43 WBC 5.79 (4.8-10.8) K/uL RBC 4.36 L (4.7-6.1) M/uL Hgb 11.3 L (14.0-18.0) g/dL Hct 38.0 L (42-52) % MCV 87.2 (80-100) fL MCH 25.9 (25-34) pg MCHC 29.7 L (32-36) g/dL RDW Std Deviation 50.3 H (36.4-46.3) fL RDW Coeff of Lennox 15.8 H (11.5-14.5) % Plt Count 180 (130-400) K/uL MPV 9.5 (7.4-10.4) fL APTT 81.3 H* (21.0-31.0) Seconds PTT Ratio 2.9 Sodium 140 (136-145) mmol/L Potassium 4.0 (3.5-5.1) mmol/L Chloride 107 (98-107) mmol/L Carbon Dioxide 31 (21-32) mmol/L Anion Gap 2.0 L (3-11) BUN 19 H (7-18) mg/dl Creatinine 1.09 (0.6-1.4) mg/dl Est Cr Clr Drug Dosing 56.6 ml/min Est GFR ( Amer) 81.5 Est GFR (Non-Af Amer) 70.4 BUN/Creatinine Ratio 17.2 (10-20) Glucose 84 (70-99) mg/dl Calcium 8.9 (8.5-10.1) mg/dl Magnesium 2.0 (1.8-2.4) mg/dl Medications Administered Current Inpatient Medications Acetaminophen (Tylenol) 650 mg PO Q4H PRN PRN Reason: Pain or Fever Stop: 03/24/20 22:42 Last Admin: 02/24/20 19:24 Dose: 650 mg Documented by: Albuterol (Duoneb) 3 ml NEB Q2H PRN PRN Reason: Wheezing Stop: 03/25/20 00:20 Aspirin (Ecotrin Ectab) [facility] [place]: 03/25/20 08:59 Last Admin: 02/25/20 08:33 Dose: 81 mg Documented by: Atorvastatin Calcium (Lipitor) 40 mg PO QAM [facility] Stop: 03/25/20 08:59 Last Admin: 02/25/20 08:33 Dose: 40 mg Documented by: Calcium Carbonate (Tums) 500 mg PO QID PRN PRN Reason: Indigestion Stop: 03/25/20 16:30 Fluticasone/Vilanterol (Breo Ellipta 100/25 Mcg Inh) 1 puffs INH DAILY [facility] Stop: 03/25/20 08:59 Last Admin: 02/25/20 08:32 Dose: 1 puffs Documented by: Heparin Sodium/Dextrose (Heparin Sodium/Dextrose) 25,000 units in 500 mls @ 19 mls/hr IV .Q24H [facility]; Protocol Stop: 03/24/20 22:44 Last Titration: 02/25/20 07:10 Dose: 950 units/hr, 19 mls/hr Documented by: Metoprolol Succinate (Toprol Xl) 25 mg PO QAM [facility] Stop: 03/25/20 08:59 Last Admin: 02/25/20 08:33 Dose: 25 mg Documented by: Montelukast Sodium (Singulair) 10 mg PO PM [facility] Stop: 03/24/20 22:42 Last Admin: 02/24/20 20:20 Dose: 10 mg Documented by: Nitroglycerin (Nitrostat) 0.4 mg SL UD PRN PRN Reason: Chest Pain Stop: 03/24/20 22:42 Pantoprazole Sodium (Protonix) 40 mg PO QAM [facility] Stop: 03/25/20 08:59 Last Admin: 02/25/20 08:33 Dose: 40 mg Documented by: Polyethylene Glycol (Miralax Powder Packet) 17 gm PO DAILY PRN PRN Reason: Constipation Stop: 03/24/20 22:42 Last Admin: 02/24/20 14:47 Dose: 17 gm Documented by: Potassium Chloride (Klor-Con M20) 20 meq PO BID [facility] Stop: 03/25/20 08:59 Last Admin: 02/25/20 08:34 Dose: 20 meq Documented by: Roflumilast (Daliresp) 500 mcg PO QPM [facility] Stop: 03/24/20 22:42 Last Admin: 02/24/20 20:19 Dose: 500 mcg Documented by: Senna/Docusate Sodium (Senokot S) 1 tab PO HS [facility] Stop: 03/24/20 22:42 Last Admin: 02/24/20 20:21 Dose: 1 tab Documented by: Simethicone (Mylicon) 160 mg PO BID [facility] Stop: 03/24/20 22:42 Last Admin: 02/25/20 08:33 Dose: 160 mg Documented by: Tramadol HCl (Ultram) 25 mg PO Q4H PRN PRN Reason: Moderate Pain Stop: 03/25/20 18:34 Last Admin: 02/24/20 20:17 Dose: 25 mg Documented by: Trazodone HCl (Desyrel) 50 mg PO HS PRN PRN Reason: Sleep Stop: 03/24/20 22:42 Umeclidinium [place] (Incruse Ellipta) 1 puffs INH DAILY [facility] Stop: 03/25/20 08:59 Last Admin: 02/25/20 08:34 Dose: 1 puffs Documented by:
--- NOTE | 2020-02-25 10:46 | Cardiology Progress Note ---
Date of Service February 25, 2020 Assessment & Plan (1) Pulmonary embolism, bilateral: Patient presents with symptoms of dyspnea abdominal bloating and mild peripheral edema with significant hypoxia observed on presentation. Underlying history is notable for cardiac and pulmonary disease with now superimposed bilateral pulmonary emboli Patient begun on IV heparin. He remains hemodynamically stable Plan: Patient will likely require chronic oxygen supplementation. Continue usual outpatient medications with torsemide and spironolactone Patient may be transitioned to oral anticoagulant. Patient prefers DOAC (2) Acute hypoxemic respiratory failure: Due to acute pulmonary embolus (3) Edema: Likely response to hypoxic respiratory failure (4) Hypoxia: (5) H/O aortic valve replacement: (6) Afib: Subjective Patient seen, examined, chart and telemetry reviewed. Feels improved overnight with better oxygenation less abdominal bloating and peripheral edema. No chest pains tachypalpitations or dizziness. Physical Exam Constitutional: WD/WN, vitals as above + thin; no acute distress Eyes: PERRL, conjunctivae normal, anicteric sclerae ENMT: external ear and nose normal, oropharynx normal Neck: trachea midline, no thyromegaly Respiratory: normal respiratory effort, lungs clear to auscultation Auscultation: + diminished lung sounds; no rales Cardiovascular: Rate/Rhythm: regular rate and regular rhythm Heart Sounds: normal S1, normal S2 and + murmur (Grade 1/6 systolic, no dais); no gallop Palpation: normal PMI Vessels: normal carotid upstroke and radial pulses present; no JVD and no carotid bruit Extremities: + edema (1+ bilateral lower extremities left slightly greater than right) Gastrointestinal (Abdomen): normal bowel sounds, soft, nontender, no hepatosplenomegaly Musculoskeletal: no cyanosis or clubbing, extremities motor strength 5/5 Skin: no rashes, warm and dry Neurologic: PERRL, EOMI, accommodation nl, no face palsy, no dysarthria Psychiatric: A+Ox3, euthymic affect Results & Data Vital Signs (Past 12 Hours) Vital Signs Temp Pulse Pulse Resp BP Pulse Ox 02/25/20 08:00 36.7 C 72 19 132/86 95 02/25/20 04:32 36.7 C 72 18 132/95 95 02/25/20 00:09 36.6 C 68 18 125/74 95 Laboratory Results Laboratory Results - last 24 hr 02/25/20 02/25/20 02/25/20 04:43 07:07 07:07 WBC 5.79 RBC 4.36 L Hgb 11.3 L Hct 38.0 L MCV 87.2 MCH 25.9 MCHC 29.7 L RDW Std Deviation 50.3 H RDW Coeff of Lennox 15.8 H Plt Count 180 MPV 9.5 APTT 81.3 H* PTT Ratio 2.9 Sodium 140 Potassium 4.0 Chloride 107 Carbon Dioxide 31 Anion Gap 2.0 L BUN 19 H Creatinine 1.09 Est Cr Clr Drug Dosing 56.6 Est GFR ( Amer) 81.5 Est GFR (Non-Af Amer) 70.4 BUN/Creatinine Ratio 17.2 Glucose 84 Calcium 8.9 Magnesium 2.0 (1) Edema Edema type: unspecified Qualified Code(s): R60.9 - Edema, unspecified
[2020-02-25 12:28] LABS: Partial Thromboplastin Ratio 2.1
[2020-02-25 12:31] LABS: Partial Thromboplastin Time 57.9 Seconds (21.0-31.0)
[2020-02-25] MEDS: POLYETHYLENE (MIRALAX) 17 GM PACK PO PRN (13:01)
[2020-02-25] MEDS: TORSEMIDE 20 MG TAB PO SCH (14:03)
[2020-02-25] MEDS: SPIRONOLACTONE 12.5 MG TAB PO SCH (14:04)
[2020-02-25] MEDS: WARFARIN SOD 5 MG TAB PO SCH (17:03)
[2020-02-25] MEDS: MONTELUKAST SODIUM 10 MG TABLET PO SCH (20:33)
[2020-02-25] MEDS: DOCUSATE SODIUM/SENNA 50/8.6MG TAB PO SCH (20:33)
[2020-02-25] MEDS: ROFLUMILAST 500 MCG TAB PO SCH (20:33)
[2020-02-25] MEDS: HEPARIN SODIUM/DEXTROSE 25,000 UNITS/500 ML BAG IV SCH (23:44)
[2020-02-26 06:45] LABS: Hematocrit (blood only) 37.5 % (42-52); Hemoglobin 11.1 g/dL (14.0-18.0); Mean Corpuscular Hemoglobin 25.8 pg (25-34); Mean Corpuscular Hgb Conc 29.6 g/dL (32-36); Mean Platelet Volume 9.2 fL (7.4-10.4); Platelet Count 180 K/uL (130-400); RDW Coefficient of Variation 15.6 % (11.5-14.5); RDW Standard Deviation 50.2 fL (36.4-46.3); Red Blood Count 4.31 M/uL (4.7-6.1); White Blood Count 7.38 K/uL (4.8-10.8)
[2020-02-26 06:55] LABS: INR 1.2 (0.9-1.1); Prothrombin Time 12.4 Seconds (9.0-12.0)
[2020-02-26 07:18] LABS: BUN Creatinine Ratio 17.1 (10-20); Calcium 8.8 mg/dl (8.5-10.1); Creatinine Clr Calc Pharmacy 49.8 ml/min; Est GFR (African American) 73.3; Est GFR (Non-African American) 63.3; Magnesium 1.8 mg/dl (1.8-2.4); Potassium 4.3 mmol/L (3.5-5.1)
[2020-02-26 07:31] LABS: Partial Thromboplastin Ratio 1.9
[2020-02-26 07:41] LABS: Partial Thromboplastin Time 53.8 Seconds (21.0-31.0)
[2020-02-26] MEDS: TORSEMIDE 20 MG TAB PO SCH (08:13)
[2020-02-26] MEDS: METOPROLOL SUCC 25MG EXT REL TAB PO SCH (08:13)
[2020-02-26] MEDS: PANTOprazole 40 MG TAB PO SCH (08:14)
[2020-02-26] MEDS: SPIRONOLACTONE 12.5 MG TAB PO SCH (08:14)
[2020-02-26] MEDS: ATORVASTATIN 40 MG TAB PO SCH (08:14)
[2020-02-26] MEDS: ASPIRIN 81 MG ECTAB PO SCH (08:15)
[2020-02-26] MEDS: POTASSIUM CHLORIDE 20 MEQ TABCR PO SCH ×2 (08:15→20:08)
[2020-02-26] MEDS: FLUTICASONE/VILANTEROL 100/25MCG 14 PUFFS/INHALER INH SCH (08:16)
[2020-02-26] MEDS: SIMETHICONE 80 MG CHEW PO SCH ×2 (08:16→20:09)
[2020-02-26] MEDS: UMECLIDINIUM BROMIDE 62.5MCG/BLISTER 7 PUFFS/INHALER INH SCH (08:16)
[2020-02-26] MEDS ORDERED: LOVENOX TEACHING KIT ONE (16:45)
[2020-02-26] MEDS: WARFARIN SOD 5 MG TAB PO SCH (16:54)
--- NOTE | 2020-02-26 16:59 | Hospitalist Progress Note ---
Date of Service February 26, 2020 Assessment & Plan (1) Acute hypoxemic respiratory failure: B/l Pulmonary Embolism - - pt also has a hx of prior PE diagnosed in [place] - started on IV heparin on admission - - londono for DOACs - above $400/month, pt states that he is on limited budget and so this medication would not be feasible for him, agreed to start on warfarin IV heparin d.bruna , pt is started on Lovenox SC bridge - monitor daily INR - goal INR 2-3 , hx pulmonary hypertension secondary to COPD Acute cor pulmonale due to bilateral PE's hx chronic CHF (EF 53% TTE 2019) Dietary indiscretion may be contributory - presented weight gain, LE edema, crackles on phys. exam, ProBNP elevated - Echo shows EF of 45-50%, LVH, RV pressure overload, RV is moderately to severely dilatated, trace MR, mild TR -Strict I/Os, daily weights, sodium and fluid restriction Cardiology consulted vol status improved to approx baseline - PAF status post Watchman - was off anticoagulation/coumadin anticoagulation resumed due to bilat PE complete heart block status post PPM, Paced rhythm aortic regurgitation status post bioprosthetic AVR hx PFO/VSD status post surgery nonobstructive CAD/PAD status post surgery DVT prophylaxis -coumadin /lovenox bridge Full code DISPOSITION: plan to dc home tomorrow with Lovenox bridge therapy Admission and Anticipated Discharge Date Admission Date: February 23, 2020 Subjective wearing 2 L o2 via nasal canula not on home 02 denies of any complain of being SOB , no pluritic chest pain very eager to be discharged home was on Lovenox bridge therapy in past willing to go home with similar Review of Systems 2 Review of Systems: All systems reviewed & are unremarkable except as noted in HPI & below Constitutional: no fever and no chills Respiratory: no cough, no dyspnea, no dyspnea on exertion, no pain with cough and no wheezing Cardiovascular: no chest pain, no chest pain with activity, no dyspnea, no dyspnea at rest, no dyspnea on exertion, no orthopnea, no palpitations, no lightheadedness, no syncope and no edema Physical Exam Constitutional: WD/WN, vitals as above + thin; no acute distress Eyes: PERRL, conjunctivae normal, anicteric sclerae ENMT: external ear and nose normal, oropharynx normal Neck: trachea midline, no thyromegaly Respiratory: normal respiratory effort, lungs clear to auscultation Cardiovascular: RRR, no murmur, no edema Gastrointestinal (Abdomen): normal bowel sounds, soft, nontender, no hepatosplenomegaly Musculoskeletal: no cyanosis or clubbing, extremities motor strength 5/5 Skin: no rashes, warm and dry Neurologic: PERRL, EOMI, accommodation nl, no face palsy, no dysarthria Psychiatric: A+Ox3, euthymic affect Results & Data Results & Data ([facility]) Vital Signs (Past 12 Hours) Vital Signs Temp Pulse Pulse Pulse Pulse Pulse Pulse 02/26/20 15:45 66 02/26/20 15:39 36.2 C L 63 02/26/20 11:33 36.9 C 61 02/26/20 10:33 65 82 96 H 72 02/26/20 07:57 37 C 69 02/26/20 07:25 68 Resp Resp Resp Resp Resp BP Pulse Ox 02/26/20 15:45 02/26/20 15:39 18 119/74 94 02/26/20 11:33 18 122/77 95 02/26/20 10:33 18 22 20 18 02/26/20 07:57 18 125/78 93 02/26/20 07:25 Pulse Ox Pulse Ox Pulse Ox Pulse Ox 02/26/20 15:45 02/26/20 15:39 02/26/20 11:33 02/26/20 10:33 92 90 91 87 L 02/26/20 07:57 02/26/20 07:25
[2020-02-26] MEDS: ENOXAPARIN INJ 60 MG/0.6 ML SYR SQ SCH (18:08)
[2020-02-26] MEDS: POLYETHYLENE (MIRALAX) 17 GM PACK PO PRN (19:11)
[2020-02-26] MEDS: ALBUT/IPRATROP 3MG/0.5MG NEB 3 ML VIAL NEB SCH ×2 (19:32→22:43)
[2020-02-26] MEDS: ROFLUMILAST 500 MCG TAB PO SCH (20:07)
[2020-02-26] MEDS: DOCUSATE SODIUM/SENNA 50/8.6MG TAB PO SCH (20:08)
[2020-02-26] MEDS: MONTELUKAST SODIUM 10 MG TABLET PO SCH (20:09)
[2020-02-26] MEDS ORDERED: ENOXAPARIN 1 MG/KG SC SCH (21:00)
[2020-02-27] MEDS: ALBUT/IPRATROP 3MG/0.5MG NEB 3 ML VIAL NEB SCH ×3 (03:11→11:21)
[2020-02-27] MEDS: ENOXAPARIN INJ 60 MG/0.6 ML SYR SQ SCH (05:45)
[2020-02-27 07:49] LABS: INR 1.4 (0.9-1.1); Prothrombin Time 14.4 Seconds (9.0-12.0)
[2020-02-27] MEDS: PANTOprazole 40 MG TAB PO SCH (08:20)
[2020-02-27] MEDS: SIMETHICONE 80 MG CHEW PO SCH (08:20)
[2020-02-27] MEDS: POTASSIUM CHLORIDE 20 MEQ TABCR PO SCH (08:21)
[2020-02-27] MEDS: ASPIRIN 81 MG ECTAB PO SCH (08:21)
[2020-02-27] MEDS: METOPROLOL SUCC 25MG EXT REL TAB PO SCH (08:21)
[2020-02-27] MEDS: SPIRONOLACTONE 12.5 MG TAB PO SCH (08:21)
[2020-02-27] MEDS: ATORVASTATIN 40 MG TAB PO SCH (08:21)
[2020-02-27] MEDS: UMECLIDINIUM BROMIDE 62.5MCG/BLISTER 7 PUFFS/INHALER INH SCH (08:22)
[2020-02-27] MEDS: TORSEMIDE 20 MG TAB PO SCH (08:22)
[2020-02-27] MEDS: FLUTICASONE/VILANTEROL 100/25MCG 14 PUFFS/INHALER INH SCH (08:22)
--- NOTE | 2020-02-27 12:38 | Hospitalist Progress Note ---
Date of Service February 27, 2020 Assessment & Plan (1) Acute hypoxemic respiratory failure: B/l Pulmonary Embolism - -Prior history of pulmonary embolism diagnosed in [facility], has been taken off anticoagulation - started on IV heparin on admission - - londono for DOACs - above $400/month, pt states that he is on limited budget and so this medication would not be feasible for him, agreed to start on warfarin IV heparin d.bruna , pt is started on Lovenox SC bridge - goal INR 2-3 INR 1.4 today, Patient will be discharged home with home Lovenox bridge and Coumadin Repeat PT/INR on 03/02/2020, Patient will follow up with Coumadin clinic , hx pulmonary hypertension secondary to COPD Acute cor pulmonale due to bilateral PE's hx chronic CHF (EF 53% TTE 2019) Dietary indiscretion may be contributory - presented weight gain, LE edema, crackles on phys. exam, ProBNP elevated - Echo shows EF of 45-50%, LVH, RV pressure overload, RV is moderately to severely dilatated, trace MR, mild TR -Strict I/Os, daily weights, sodium and fluid restriction Cardiology consulted appreciate input vol status improved to approx baseline - PAF status post Watchman - was off anticoagulation/coumadin anticoagulation resumed due to bilat PE Patient will need lifelong anticoagulation-recurrent PE complete heart block status post PPM, Paced rhythm aortic regurgitation status post bioprosthetic AVR hx PFO/VSD status post surgery nonobstructive CAD/PAD status post surgery DVT prophylaxis -coumadin /lovenox bridge Full code DISPOSITION: Stable to be discharged home today with home Lovenox bridge therapy/Coumadin Home nursing arrangement made through [facility] home health Admission and Anticipated Discharge Date Admission Date: February 23, 2020 Subjective Feels fine, offers no complaint, just typically side shows patient requires and monitored oxygen via nasal cannula at rest and with activity Prescription given for home oxygen Denies of any shortness of breath no pleuritic chest pain, no cough Eager to be discharged home today Review of Systems Review of Systems: All systems reviewed & are unremarkable except as noted in HPI & below Physical Exam Constitutional: WD/WN, vitals as above + thin; no acute distress Eyes: PERRL, conjunctivae normal, anicteric sclerae ENMT: external ear and nose normal, oropharynx normal Neck: trachea midline, no thyromegaly Respiratory: normal respiratory effort, lungs clear to auscultation Cardiovascular: RRR, no murmur, no edema Gastrointestinal (Abdomen): normal bowel sounds, soft, nontender, no hepatosplenomegaly Musculoskeletal: no cyanosis or clubbing, extremities motor strength 5/5 Skin: no rashes, warm and dry Neurologic: PERRL, EOMI, accommodation nl, no face palsy, no dysarthria Psychiatric: A+Ox3, euthymic affect Results & Data Results & Data ([facility]) Vital Signs (Past 12 Hours) Vital Signs Temp Pulse Pulse Resp BP BP Pulse Ox 02/27/20 11:23 80 18 89 L 02/27/20 07:04 64 18 98 02/27/20 07:00 36.6 C 62 18 110/62 98 02/27/20 04:30 36.9 C 78 20 118/74 93 02/27/20 03:11 64 16 92 02/27/20 02:15 79
--- NOTE | 2020-02-27 19:21 | Discharge Summary ---
Date of Service February 27, 2020 Admission HPI Per Admitting Provider History obtained from patient and records. Medical history significant for chronic CHF (EF 53% TTE 2019), PAF status post Watchman off anticoagulation, complete heart block status post PPM, aortic regurgitation status post bioprosthetic AVR, hx PFO/VSD status post surgery, complete heart block status post PPM, nonobstructive CAD, PAD status post surgery, COPD, pulmonary HTN as per records, history pulmonary embolism sp Coumadin, history endocarditis as per records, ongoing tobacco abuse, history of MRSA as per records. Recent confinement [facility] last June [address] showed multiple pulmonary emboli. Patient signed out AGAINST MEDICAL ADVICE after an overnight stay because he was unhappy with care but took Coumadin for a few months. 3 weeks ago patient noted increased fluid retention, bilateral leg swelling, and shortness of breath especially on exertion. No chest pain. Usual smoker's cough symptoms. No flulike symptoms. Admits to dietary indiscretion with consumption of pretzels despite "knowing better". Denies abdominal pain/black/bloody stools. [facility] sports anchor recommended going up on dose 1 of his diuretic pills. Worsening symptoms despite compliance with medication regimen change and stopping pretzel intake the last week. At the ER, O2 sats noted to be 80s on room air. Patient received Lasix, Solu-Medrol, and neb treatment. Medical History as above Last colonoscopy was about 10 years ago as per patient, unrecalled findings. Patient thinks he might be overdue for another colonoscopy. Surgical History : PPM, watchman procedure, vascular procedure, history CABG/valvuloplasty/bioprosthetic AVR/VSD closure, jaw surgery, hernia repair, back surgery Family History : Alcoholism, diabetes, hypertension, COPD Personal/Social history : Half pack daily, daily alcohol intake denies abuse, disabled Principal Diagnosis Bilateral pulmonary embolism Discharge Exam Constitutional WD/WN, vitals as above + thin; no acute distress Eyes PERRL, conjunctivae normal, anicteric sclerae ENMT external ear and nose normal, oropharynx normal Neck trachea midline, no thyromegaly Respiratory normal respiratory effort, lungs clear to auscultation Cardiovascular RRR, no murmur, no edema Gastrointestinal (Abdomen) normal bowel sounds, soft, nontender, no hepatosplenomegaly Musculoskeletal no cyanosis or clubbing, extremities motor strength 5/5 Skin no rashes, warm and dry Neurologic PERRL, EOMI, accommodation nl, no face palsy, no dysarthria Psychiatric A+Ox3, euthymic affect Discharge Data Allergies Allergy/AdvReac Type Severity Reaction Status Date / Time carvedilol AdvReac Intermediate NIGHTMARES Verified 02/23/20 18:41 Consultations 02/23/20 19:36 ED Decision to Admit Stat 02/23/20 22:43 Consult Cardiology Routine Consult Case Management - Discharge Planning Routine Ordered Studies 02/23/20 20:51 CT angio chest PE protocol Urgent 02/23/20 22:46 US venous doppler LE BI Routine Hospital Course (1) Acute hypoxemic respiratory failure: B/l Pulmonary Embolism - -Prior history of pulmonary embolism diagnosed in [facility], has been taken off anticoagulation - started on IV heparin on admission - - londono for DOACs - above $400/month, pt states that he is on limited budget and so this medication would not be feasible for him, agreed to start on warfarin IV heparin d.bruna , pt is started on Lovenox SC bridge - goal INR 2-3 INR 1.4 today, Patient will be discharged home with home Lovenox bridge and Coumadin Repeat PT/INR on 03/02/2020, Patient will follow up with Coumadin clinic , hx pulmonary hypertension secondary to COPD Acute cor pulmonale due to bilateral PE's hx chronic CHF (EF 53% TTE 2019) Dietary indiscretion may be contributory - presented weight gain, LE edema, crackles on phys. exam, ProBNP elevated - Echo shows EF of 45-50%, LVH, RV pressure overload, RV is moderately to severely dilatated, trace MR, mild TR -Strict I/Os, daily weights, sodium and fluid restriction Cardiology consulted appreciate input vol status improved to approx baseline - PAF status post Watchman - was off anticoagulation/coumadin anticoagulation resumed due to bilat PE Patient will need lifelong anticoagulation-recurrent PE complete heart block status post PPM, Paced rhythm aortic regurgitation status post bioprosthetic AVR hx PFO/VSD status post surgery nonobstructive CAD/PAD status post surgery DVT prophylaxis -coumadin /lovenox bridge Full code DISPOSITION: Stable to be discharged home today with home Lovenox bridge therapy/Coumadin Home nursing arrangement made through [facility] home health Total Time Total Time Spent Total Time Spent (In Minutes): Proximately 30 minutes Total Time Includes: Discharge Planning and Medication Reconciliation Discharge Plan Discharge Items Patient Disposition: Home - Self-Care Reason For Visit: RESP FAILURE Discharge Diagnosis: BILATERAL PULMONARY EMBOLISM Condition on Discharge: Fair Activity: Resume your previous activity Non-emergency contact: Primary Care Provider Call non-emergency contact if: you have any medication questions Follow-up/Referrals: Haydee Fiore D.O. [Primary Care Provider] - (HOSPITAL FOLLOW UP WITH FAMILY PHYSICIAN IN A WEEK PLEASE CALL TO SCHEDULE AN APPOINTMENT ) Diet: Heart Healthy Ambulatory Orders: Prothrombin Time INR (Routine) Timeframe: [id number] Location: Determined by Patient Ordered By: Olga Almazan Attending Provider Instructions: Your discharged on Lovenox subcutaneous/under skin injection to be given twice daily for 4 days Continue to take Coumadin/warfarin 5 mg 1 tablet daily Lab work: PT/INR check on 03/02/2020 Lovenox injection will be discontinued if your INR more than 2 Pending Studies at Discharge: Yes Studies:: INR CHECK ON Monday03/02/2020 Stand-Alone Forms: My [facility] [place], Smoking Cessation Medications and DC Order Prescriptions: New warfarin [Coumadin] 5 mg Tablet 5 mg PO DAILY 30 Days Qty: 30 RF: 3 enoxaparin 60 mg/0.6 mL Syringe 60 mg subcut Q12H 4 Days Qty: 8 RF: 0 Continued atorvastatin 40 mg tablet 40 mg PO QAM Qty: 90 RF: 3 spironolactone 25 mg tablet 12.5 mg PO DAILY RF: 0 torsemide 20 mg tablet 20 mg PO DAILY RF: 0 omeprazole 20 mg Tablet,Delayed Release (Dr/Ec) 20 mg PO QAM RF: 0 acetaminophen [Mapap (acetaminophen)] 325 mg tablet 650 mg PO TID RF: 0 trazodone 50 mg Tablet 50 mg PO HS PRN (Reason: Sleep) RF: 0 simethicone [Gas Relief (simethicone)] 80 mg Tablet,Chewable 160 mg PO BID RF: 0 Tums 500 mg PO PRN (Reason: Indigestion) RF: 0 montelukast 10 mg Tablet 10 mg PO PM RF: 0 albuterol sulfate [Ventolin HFA] 90 mcg/actuation Hfa Aerosol Inhaler 2 puff INHALATION Q6H PRN (Reason: Shortness Of Breath) RF: 0 Spiriva with HandiHaler 18 mcg Capsule, W/Inhalation Device 1 cap INHALATION DAILY RF: 0 budesonide-formoterol [Symbicort] 160-4.5 mcg/actuation Hfa Aerosol Inhaler 2 puff Inhalation BID RF: 0 Daliresp 500 mcg Tablet 500 mcg PO QPM RF: 0 turmeric root extract 500 mg Capsule 500 mg PO DAILY RF: 0 Discharge Orders: Discharge Order (Routine); Ordered 02/27/20 Ordered By: Olga Raymundo/Other Patient Handouts: A1C Admission Data Admit Date/Time: 02/23/20 20:55 Attending Provider: Olga Cedeño Admit Provider: Silvio Ramirez Primary Care Provider: Haydee Fiore Other Providers: Silvio Ramirez ; Nikhil Jansen ; [facility],Home Healthcare Other Interventions: Discharge Summary Assessment (RN) Last Done: 02/27/20 13:21 DC Date/Time DO NOT enter until pt leaves facility: 02/27/20 14:40
== END 2020-02-27 14:40 | disposition home or self-care (01) | DRG 175 ==
LOC: ED 18:01 → 2S 20:55 → SUATTDRO 20:55 → 2S 22:07 → 2N 02-26 16:46

== ENCOUNTER 2020-10-14 09:16 | Observation (INO) ==
[2020-10-14] MEDS ORDERED: fentaNYL citrate 100 MCG/2 ML VIAL ONE ×2 (10:47→13:29)
[2020-10-14] MEDS ORDERED: LIDOCAINE HCL 1% 20 ML VIAL ONE (10:47)
[2020-10-14] MEDS ORDERED: BACITRACIN INJ 50,000 UNIT VIAL ONE (10:47)
[2020-10-14] MEDS ORDERED: BUPIVACAINE 0.25% 30 ML VIAL ONE (10:47)
[2020-10-14] MEDS ORDERED: MIDAZOLAM HCL 5 MG/ML 1 ML VIAL ONE (10:47)
--- NOTE | 2020-10-14 11:31 | Pre Anesthesia Assessment ---
Date of Service October 14, 2020 Pre Sedation Assessment Vital Signs Temp Pulse Resp BP Pulse Ox 10/14/20 09:24 36.7 C 110 H 18 136/85 96 Cardiovascular RRR, no murmur, no edema Respiratory normal respiratory effort, lungs clear to auscultation Pre-Sedation Airway Assessment Smoking Status: Current every day smoker Hx Sleep Apnea: Yes Hx Difficult Intubation: No Short, Thick Neck: No Thyromental Distance: > or= 3.5 Finger Breadths Oral Cavity: + WNL Mallampati Class: III ASA: ASA3 NPO Status Date of Last Intake of Fluids: 10/14/20 Time of Last Intake of Fluids: 06:00 Last Oral Intake of Fluids Comment: sipis with pills Date of Last Intake of Solid Food: 10/13/20 Time of Last Intake of Solid Foods: 22:00 Procedure Planning Contraindications for Sedation: none Current Medications Reviewed: Yes Notes The planned sedation has been discussed with the patient. Informed Consent was obtained. I have identified the patient, determined the appropriateness of sedation and have assessed the patient immediately prior to the procedure. All medicine(s) and interventions are by my order.
--- NOTE | 2020-10-14 11:31 | History & Physical Bridge Note ---
Date of Service October 14, 2020 History & Physical Bridge Note I have examined the patient, reviewed the History & Physical and in the interval since the performance of the History & Physical I have noted the following changes of clinical significance: no changes noted
[2020-10-14 12:50] LABS: Ferritin 5.8 ng/ml (8-388)
[2020-10-14] MEDS ORDERED: MIDAZOLAM HCL 1 MG/ML 2ML VIAL ONE (14:00)
[2020-10-14] MEDS ORDERED: METOPROLOL TARTRATE 1 MG/ML VIAL IV ONE (14:38)
[2020-10-14] MEDS ORDERED: IRON SUCROSE 200 MG in 0.9 % SODIUM CHLORIDE 100 ML IV ONE (15:05)
[2020-10-14] MEDS ORDERED: POLYETHYLENE (MIRALAX) 17 GM PACK PO PRN (15:13)
[2020-10-14] MEDS ORDERED: ACETAMINOPHEN 325 MG TAB PO PRN (17:26)
[2020-10-14] MEDS: oxyCODONE/ACETAMINOPHEN 5mg/325mg TAB PO PRN ×2 (18:10→23:36)
[2020-10-14] MEDS: FLUTICASONE/VILANTEROL 100/25MCG 14 PUFFS/INHALER INH SCH (20:41)
[2020-10-14] MEDS: ROFLUMILAST 500 MCG TAB PO SCH (20:43)
[2020-10-14] MEDS ORDERED: ceFAZolin 1000MG 1,000 MG/7.5 ML SYR IV ONE (22:00)
[2020-10-14] MEDS: MELATONIN 3 MG TAB PO SCH (23:36)
[2020-10-15] MEDS: oxyCODONE/ACETAMINOPHEN 5mg/325mg TAB PO PRN ×3 (06:34→19:23)
--- NOTE | 2020-10-15 07:00 | XRay Report ---
XR chest 2V PA/lateral HISTORY: 65 years-old Male s/p pacemaker status post placement of a left subclavian pacer COMPARISON: Chest radiograph 02/23/2020 TECHNIQUE: PA and lateral views of the chest FINDINGS: Cardiac silhouette is enlarged, unchanged. Prior median sternotomy with aortic valvular prosthesis. D ense mitral annular calcifications.. Left subclavian pacer. No postprocedural pneumothorax. Emphysema with chronic interstitial coarsening with trace pleural effusions. Mild bibasilar atelectasis/scarri ng. No airspace consolidation typical for pneumonia. Degenerative changes of the shoulders and spine. IMPRESSION: Left subclavian pacer. No postprocedural pneumothorax. ACT 112: Negative or not required by law. The above report was generated using voice recognition software. It may contain grammatical, syntax o r spelling errors. Electronically signed by: Gil Darby M.D. 10/15/2020 6:59 AM
[2020-10-15 07:32] LABS: INR 1.1 (0.9-1.1); Prothrombin Time 11.8 Seconds (9.0-12.0)
[2020-10-15 07:51] LABS: Albumin Level 3.3 gm/dl (3.4-5.0); BUN Creatinine Ratio 18.9 (10-20); Calcium 9.3 mg/dl (8.5-10.1); Creatinine Clr Calc Pharmacy 54.5 ml/min; Est GFR (Non-African American) 69.9; Magnesium 2.3 mg/dl (1.8-2.4); Potassium 4.4 mmol/L (3.5-5.1)
[2020-10-15 07:55] LABS: Albumin Globulin Ratio 0.9 (0.9-2); Globulin 3.5 gm/dl (2.5-4.0); Total Protein 6.8 gm/dl (6.4-8.2)
[2020-10-15 08:31] LABS: Thyroid Stimulating Hormone 1.55 uIu/ml (0.300-4.500)
[2020-10-15 08:37] LABS: Hematocrit (blood only) 34.2 % (42-52); Hemoglobin 8.7 g/dL (14.0-18.0); Mean Corpuscular Hgb Conc 25.4 g/dL (32-36); Mean Corpuscular Volume 78.4 fL (80-100); Mean Platelet Volume 9.1 fL (7.4-10.4); Platelet Count 253 K/uL (130-400); RDW Coefficient of Variation 19.5 % (11.5-14.5); RDW Standard Deviation 55.6 fL (36.4-46.3); Red Blood Count 4.36 M/uL (4.7-6.1)
[2020-10-15] MEDS: UMECLIDINIUM BROMIDE 62.5MCG/BLISTER 7 PUFFS/INHALER INH SCH (08:47)
[2020-10-15] MEDS: METOPROLOL SUCC 25MG EXT REL TAB PO SCH (08:48)
[2020-10-15] MEDS: ASPIRIN 81 MG ECTAB PO SCH (08:48)
[2020-10-15] MEDS: ATORVASTATIN 40 MG TAB PO SCH (08:48)
[2020-10-15] MEDS: CEROVITE ADV FORMULA TAB PO SCH (08:48)
[2020-10-15] MEDS: SACCHAROMYCES BOULARDII 250 MG CAP PO SCH (08:48)
[2020-10-15] MEDS: SPIRONOLACTONE 12.5 MG TAB PO SCH (08:49)
[2020-10-15] MEDS ORDERED: TORSEMIDE 20 MG TAB PO SCH (09:00)
[2020-10-15] MEDS ORDERED: WARFARIN SOD 5 MG TAB PO SCH (09:00)
[2020-10-15] MEDS ORDERED: NON-FORMULARY MEDICATION (Turmeric Root Extract 500 mg Capsule) PO SCH (09:00)
--- NOTE | 2020-10-15 09:41 | XRay Report ---
TWO VIEW CHEST CLINICAL HISTORY: Pacemaker. CHF.. FINDINGS: PA and lateral chest radiographs are compared to study dated 10/15/2020 and correlated with chest CT dated 02/23/2020. The patient is status post midline sternotomy and cardiac valve surgery. A cardiac pacemaker partially obscures the left upper chest. There are 3 leads identified. The heart i s markedly enlarged noting atherosclerotic calcification of the thoracic aorta. Mitral annulus is den sely calcified. There is pulmonary vascular congestion. Advanced emphysema and chronic interstitial t hickening is similar to previous. There are hazy bilateral airspace opacities. No pleural effusion is seen. There is no pneumothorax. The skeletal structures are osteopenic. The bony thorax appears inta ct. Degenerative change and hyperkyphosis are noted in the thoracic spine. A curvilinear metallic for eign body is again seen within the right posterior pleural space. This measures up to 2.4 cm. IMPRESSION: 1. Cardiomegaly and cardiac pacemaker with pulmonary vascular congestion. 2. There are bilateral perihilar airspace opacities which may represent a component of interstitial e trisha. Correlate clinically for evidence of a superimposed infectious/inflammatory pneumonitis. 3. Emphysema. 4. No pleural effusion is identified. ACT 112: Negative or not required by law. Electronically signed by: Jesus Ramirez M.D. 10/15/2020 9:39 AM
[2020-10-15] MEDS: PANTOprazole 40 MG TAB PO SCH (10:13)
[2020-10-15] MEDS ORDERED: AMIODARONE 200 MG TAB PO ONE (12:39)
--- NOTE | 2020-10-15 12:57 | Cardiology Progress Note ---
Date of Service October 15, 2020 Assessment & Plan (1) Acute on chronic systolic (congestive) heart failure: Patient had recently had worsening dyspnea, lack of appetite, and recent studies revealed interval decline in his ejection fraction, to 37% by nuclear gated SPECT, 40% by echocardiogram. Recent nuclear stress test revealed no inducible ischemia, and he did not have obstructive coronary heart disease at the time of his cardiac catheterization performed before his most recent cardiac surgery in 2014. A year ago, he was only in atrial fibrillation approximately 11% the time based on device checks, and since has lapsed into chronic atrial fibrillation. Is uncertain if his progressive symptoms and left ventricular systolic dysfunction is due to atrial fibrillation with some degree of tachycardia, or pacemaker induced. Patient presented yesterday for planned device upgrade. Successful pacing could not be obtained via coronary sinus lead placement. A right-sided interventricular septal lead was therefore placed. On device check today, he is only receiving resynchronization therapy 54% the time in part due to the tachycardia. Patient has underlying COPD. Pulmonary hypertension could be due to his underlying lung disease, or perhaps related to systolic/diastolic dysfunction or due to his previous shunting with noted ventricular septal defect repair. Although he is not an ideal candidate, will proceed with a trial of amiodarone to help with rate control, and perhaps even with rhythm control. If his rates improved, patient would perhaps be more likely to respond to resynchronization therapy. Also perhaps sinus rhythm could be achieved in the future. In addition to start amiodarone, will transition his diuretic to IV for this afternoon. (2) Anemia: Patient has a previous history of heme positive stool, had been seen by GI in September,, but work-up delayed due to multiple comorbidities. He has ongoing anemia on anticoagulation. He describes recent early satiety, lack of appetite. His weight has been relatively stable however for the last year. He certainly has risk factors for colon cancer. Iron studies revealed iron deficiency anemia. IV iron supplementation ordered. I am going to consult GI with regards to advice for colon cancer risk stratification that we have a plan in place heading back to the outpatient realm. Admission and Anticipated Discharge Date Admission Date: October 14, 2020 Subjective Patient seen in follow up in coverage of Dr Woods. Patient's primary nut culler is Dr Jansen of our practice. PAST MEDICAL HISTORY: 1.History of endocarditis in 1977 2.Paroxysmal atrial fibrillation /atrial flutter. 3.CHADS VASC = 4 (Age, Htn, PVD, CHF) 4.Bleeding history. GI bleed - 04/2019 5.Complete heart block status post permanent pacemaker implantation 6.Severe aortic valve insufficiency for which patient is status post AVR in 2014 (25 mm Young II) 7.Subaortic membrane status post resection in 1959 and 2014 8.Membranous VSD status post repair in 2014 9.PFO status post repair 2014 10.Nonischemic cardiomyopathy. 11.Severe COPD , ongoing smoking 12.Nonobstructive coronary artery disease 13.Peripheral arterial disease status postMay 2018PTA and stenting of proximal to mid SFA (6.0 x 60 Absolute Pro self-expanding, 6.5 x 120 Supera) 14.Doll's esophagus 15.BPH 16.Polycythemia secondary to chronic hypoxia 17. Patient had history of anemia and heme positive stools. Watchman Device had been placed at [facility] [place] on 07/18/19. Patient however had recurrent bilateral pulmonary embolism having occurred when off of anticoagulation in January,, and is now back on Coumadin despite percutaneous watchman left atrial appendage occlusion device. Physical Exam Physical Exam: Temp Pulse Resp BP Pulse Ox 36.9 C 78 20 111/66 94 10/15/20 12:26 10/15/20 15:00 10/15/20 13:46 10/15/20 12:26 10/15/20 13:46 Constitutional: WD/WN, vitals as above Respiratory: Mildly decreased breath sounds in the bases, no wheezing, no rales Cardiovascular: Rate/Rhythm: not irregularly irregular Heart Sounds: no murmur Vessels: + JVD Extremities: + edema (Trace lower extremity edema) Gastrointestinal (Abdomen): normal bowel sounds, soft, nontender, no hepatosplenomegaly Neurologic: PERRL, EOMI, accommodation nl, no face palsy, no dysarthria Results & Data ([facility]) Vital Signs (Past 12 Hours) Vital Signs Temp Pulse Pulse Resp BP Pulse Ox 10/15/20 12:26 36.9 C 73 18 111/66 94 10/15/20 07:59 36.6 C 67 20 108/63 95 10/15/20 07:00 109 H 10/15/20 03:00 36.7 C 74 21 119/70 97 Laboratory Results Cardiac Enzymes 10/15/20 Range/Units 06:45 AST 19 (15-37) U/L Coagulation 10/15/20 Range/Units 06:45 PT 11.8 (9.0-12.0) Seconds CBC 10/15/20 Range/Units 06:45 WBC 10.80 (4.8-10.8) K/uL RBC 4.36 L (4.7-6.1) M/uL Hgb 8.7 L (14.0-18.0) g/dL Hct 34.2 L (42-52) % Plt Count 253 (130-400) K/uL Comprehensive Metabolic Panel 10/15/20 Range/Units 06:45 Sodium 140 (136-145) mmol/L Potassium 4.4 (3.5-5.1) mmol/L Chloride 102 (98-107) mmol/L Carbon Dioxide 35 H (21-32) mmol/L BUN 21 H (7-18) mg/dl Creatinine 1.09 (0.6-1.4) mg/dl Glucose 99 (70-99) mg/dl Calcium 9.3 (8.5-10.1) mg/dl AST 19 (15-37) U/L ALT 17 (12-78) U/L Alkaline Phosphatase 107 (45-117) U/L Total Protein 6.8 (6.4-8.2) gm/dl Albumin 3.3 L (3.4-5.0) gm/dl Intake and Output 10/15/20 10/15/20 10/15/20 06:59 14:59 22:59 Intake Total 300 / 400 1310 / 1310 Output Total 700 / 1000 900 / 900 Balance -400 / -600 410 / 410 Intake: IV 110 / 110 Venofer 200 mg In Sodium 110 / 110 Chloride 100 ml @ 220 mls/hr IV TODAY@1330 ONE Rx#:[id number] Oral 300 / 400 1200 / 1200 Output: Urine 700 / 1000 900 / 900 Other: Weight 58.6 kg Weight Measurement Method Built in [facility] Diagnostic Findings Summary of outpatient TTecho performed 08/31/20: The ventricular rate was 110 -114 beats per minute during the echocardiogram study. Calculated LV ejection Fraction = 40% (three dimensional volumes). The LV wall thickness is mildly increased (concentric). The septal wall motion is dyskinetic at the mid and apical levels. The regional left ventricular wall motion is otherwise normal. A pacemaker lead is visualized inthe right ventricle. Mild right ventricular hypokinesis is noted. The right ventricular cavity is moderately dilated. There is an aortic valve bioprosthetic present. The aortic valve prosthesis systolic gradients are normal for this type prosthesis. Mild intravalvular aortic regurgitation is present. Moderate tricuspid regurgitation is present. There is evidence of a prior tricuspid valve annuloplasty. Moderate pulmonary hypertension is present. The estimated pulmonary artery systolic pressure is 53mm Hg. Summary of lexiscan nuclear stress 09/24/20: Lexiscan nuclear cardiac stress test negative for ischemia. Gated SPECT imaging reveals moderate diffuse left ventricular hypokinesis. The left ventricular ejection fraction was calculated to be 37%.
[2020-10-15] MEDS ORDERED: FUROSEMIDE 40 MG in SYRINGE 0 ML IV ONE (13:15)
[2020-10-15] MEDS ORDERED: IRON SUCROSE 200 MG in 0.9 % SODIUM CHLORIDE 100 ML IV ONE (13:30)
[2020-10-15] MEDS ORDERED: TORSEMIDE 10 MG TAB PO SCH (14:00)
[2020-10-15] MEDS: AMIODARONE 200 MG TAB PO SCH (17:52)
[2020-10-15] MEDS: FLUTICASONE/VILANTEROL 100/25MCG 14 PUFFS/INHALER INH SCH (21:44)
[2020-10-15] MEDS: ROFLUMILAST 500 MCG TAB PO SCH (21:45)
[2020-10-16] MEDS: MELATONIN 3 MG TAB PO SCH (00:38)
[2020-10-16] MEDS: oxyCODONE/ACETAMINOPHEN 5mg/325mg TAB PO PRN (00:39)
--- NOTE | 2020-10-16 05:30 | Electrocardiogram Report ---
Test Reason : Blood Pressure : / mmHG Vent. Rate : 109 BPM Atrial Rate : 109 BPM P-R Int : 264 ms QRS Dur : 138 ms QT Int : 324 ms P-R-T Axes : 000 203 120 degrees QTc Int : 436 ms Possible Accelerated Junctional rhythm Non-specific intra-ventricular conduction block Abnormal ECG When compared with ECG of 23-FEB-2020 18:15, Premature ventricular complexes are no longer Present Vent. rate has increased BY 34 BPM Ventricular pacing is no longer present Confirmed by Siddharth Bah ([id number]) on 10/16/2020 5:30:11 AM Referred By: Nikhil Jansen Confirmed By:Siddharth Bah
[2020-10-16 06:37] LABS: Hematocrit (blood only) 32.2 % (42-52); Hemoglobin 8.2 g/dL (14.0-18.0); Mean Corpuscular Hemoglobin 19.4 pg (25-34); Mean Corpuscular Hgb Conc 25.5 g/dL (32-36); Mean Corpuscular Volume 76.3 fL (80-100); Mean Platelet Volume 9.1 fL (7.4-10.4); Platelet Count 235 K/uL (130-400); RDW Coefficient of Variation 19.2 % (11.5-14.5); RDW Standard Deviation 53.5 fL (36.4-46.3); Red Blood Count 4.22 M/uL (4.7-6.1); White Blood Count 10.11 K/uL (4.8-10.8)
[2020-10-16 06:41] LABS: INR 1.1 (0.9-1.1); Prothrombin Time 11.9 Seconds (9.0-12.0)
[2020-10-16 07:07] LABS: BUN Creatinine Ratio 17.2 (10-20); Calcium 8.9 mg/dl (8.5-10.1); Creatinine Clr Calc Pharmacy 45.1 ml/min; Est GFR (African American) 66.7; Est GFR (Non-African American) 57.5; Potassium 3.4 mmol/L (3.5-5.1)
[2020-10-16] MEDS ORDERED: POTASSIUM CHLORIDE CRTAB 20 MEQ TABCR PO STA (08:21)
[2020-10-16] MEDS ORDERED: FUROSEMIDE 40 MG in SYRINGE 0 ML IV ONE (08:30)
[2020-10-16] MEDS: ATORVASTATIN 40 MG TAB PO SCH (08:39)
[2020-10-16] MEDS: AMIODARONE 200 MG TAB PO SCH (08:39)
[2020-10-16] MEDS: PANTOprazole 40 MG TAB PO SCH (08:39)
[2020-10-16] MEDS: UMECLIDINIUM BROMIDE 62.5MCG/BLISTER 7 PUFFS/INHALER INH SCH (08:39)
[2020-10-16] MEDS: CEROVITE ADV FORMULA TAB PO SCH (08:39)
[2020-10-16] MEDS: ASPIRIN 81 MG ECTAB PO SCH (08:39)
[2020-10-16] MEDS: SPIRONOLACTONE 12.5 MG TAB PO SCH (08:39)
[2020-10-16] MEDS: SACCHAROMYCES BOULARDII 250 MG CAP PO SCH (08:39)
[2020-10-16] MEDS: METOPROLOL SUCC 25MG EXT REL TAB PO SCH (08:39)
[2020-10-16] MEDS ORDERED: Nursing to Pharmacy Communication SCH (09:30)
[2020-10-16] MEDS ORDERED: POTASSIUM CHLORIDE PWD 20 MEQ PACK PO ONE (09:45)
--- NOTE | 2020-10-16 09:48 | Gastrointestinal Consultation ---
Date of Consultation October 16, 2020 Assessment & Plan (1) Anemia: Normally, in the case of iron deficiency anemia, poor appetite and weight loss, colon cancer should be ruled out and colonoscopy is the best diagnostic tool. However, he is a high cardiac risk for sedation and tells me that he does not want colonoscopy. If no hx of colon polyps, he is low risk for colon cancer and would be an ideal candidate for Cologuard screening. Prior colonoscopy records are with [facility]. If hx of colon polyps, then he would be a good candidate for virtual CT colonography. Present on Admission?: Yes (2) Cirrhosis: Discussed cirrhosis with the pt, He seemed unaware of prior finding. Recommended abstaining from alcohol. This definitely could be contributing to the anemia, in addition to CKD. Present on Admission?: Yes Supervising Physician Co-Signing Physician Notes The patient was discharged prior to afternoon rounds. We did discuss the patient's case in detail. He should be followed by his regular GI provider to determine if a repeat colonoscopy should be considered. History of Present Illness Reason for Consultation: anemia, colon cancer risk stratification Requesting Physician: Dr. Sigala Attending Physician: Vishnu Sigala, DO History of Present Illness Mr. Escobar Farooq is a 65 yr old male pt of Dr. Haydee Fiore, with a hx of CAD, CHF, COPD, PVD on warfarin for A-fib, poast Aortic Valve Replacement who came [facility] on 10/14 for scheduled implanted device update and was admitted for worsening dyspnea, lack of appetite, weight loss and decline in EF to 37%. Regarding anemia: baseline 11 in February, now 8.2, MCV 76, iron 13. Regarding risks for colon cancer: no family hx. Pt unsure if any hx of polyps. Had prior endoscopy at [facility], unsure when. Regarding symptoms: Anemia as above. + Weight loss. + Poor appetite. Occasional constipation resolved with Miralax use. No blood in BMs. No narrow caliber BMs. Denies any abdominal pain. Additionally - new cirrhosis suggested on CT. Pt admits to previously being a heavy drinking and cutting down to current intake of 2-3 7oz beers every day. He doesn't intent to decrease. Mentions it is the "only thing to look forward to now." Platelets are normal, so suspect early cirrhosis. This may be contributing to the anemia, however. Allergies Allergy/AdvReac Type Severity Reaction Status Date / Time carvedilol AdvReac Intermediate NIGHTMARES Verified 08/28/20 14:41 Home Medications Medication Instructions Recorded Confirmed Type Daliresp 500 mcg PO QPM 07/27/18 10/14/20 History Spiriva with HandiHaler 1 cap INHALATION DAILY 07/27/18 10/14/20 History albuterol sulfate [Ventolin HFA] 2 puff INHALATION Q6H PRN 07/27/18 10/14/20 History budesonide-formoterol [Symbicort] 2 puff INHALATION BID 07/27/18 10/14/20 History turmeric root extract 500 mg PO DAILY 04/16/19 10/14/20 History atorvastatin 40 mg tablet 40 mg PO QAM #90 tab 12/04/19 10/14/20 Rx spironolactone 25 mg tablet 12.5 mg PO DAILY tab 12/26/19 10/14/20 History acetaminophen [Mapap 650 mg PO TID 02/23/20 10/14/20 History (acetaminophen)] omeprazole 20 mg PO QAM 02/23/20 10/14/20 History warfarin [Coumadin] 5 mg PO DAILY 30 Days #30 tab 02/27/20 10/14/20 Rx Saccharomyces boulardii 1 tab PO TID 08/28/20 10/14/20 History aspirin 81 mg tablet,delayed 81 mg PO DAILY 08/28/20 10/14/20 History release melatonin 3 mg tablet 3 mg PO HS 08/28/20 10/14/20 History metoprolol succinate 25 mg 25 mg PO DAILY 08/28/20 10/14/20 History tablet,extended release 24 hr polyethylene glycol 3350 17 gram 17 g PO DAILY 08/28/20 10/14/20 History oral powder packet torsemide 20 mg tablet 20 mg PO .COMPLEX 08/28/20 10/14/20 History dt-hyy-XM-Fj-Tw-ndihzcz-lutein 1 tab PO DAILY 10/14/20 10/14/20 History digoxin [Digitek] 0.125 mg PO DAILY@1600 #30 tab 10/16/20 Rx iron,carbonyl-vitamin C [Vitron-C] 1 tab PO DAILY #30 tab 10/16/20 Rx Patient History Medical History (Updated 10/16/20 @ 10:06 by ASTRID Matson) Afib Paroxysmal CAD (coronary artery disease) Minimal luminal irregularities, 2014 Chronic anticoagulation COPD (chronic obstructive pulmonary disease) stable GERD (gastroesophageal reflux disease) Hx of Lyme disease approximately 4 years ago per pt Nonischemic cardiomyopathy Osteoarthritis Pacemaker secondary to complete heart block; dual chamber May 2016 PAD (peripheral artery disease) Pulmonary hypertension Surgical History (Updated 02/24/20 @ 11:36 by Keyon Springer MD) H/O aortic valve replacement secondary to severe aortic insufficiency; 2014; bioprosthetic H/O Spinal surgery LUMBAR DISCECTOMY History of cardiac cath Minimal luminal irregularities, 2014 History of colonoscopy History of tooth extraction History of ventricular septal defect s/p repair S/P right knee arthroscopy S/P VSD closure 2014 Status post patent foramen ovale closure Family History Mother Family history of diabetes mellitus Social History Smoking Status: Current every day smoker Cigarettes Per Day: 10; Second Hand Exposure: No; Hx Alcohol Use: Yes Alcohol type: beer Hx Substance Use: No Preferred Language: Luxembourger Communication Ability: Effective Metal Baler Required: No Beliefs That Will Affect Care: None marital status: Current Living Situation: Alone Feels Safe at Home: Yes Assistive Devices: Oxygen - Continuous Review of Systems Review of Systems: ROS: Gen: + weakness, + weight loss, poor appetite, no fevers Eyes: No eye redness, or pain, no recent vision changes Resp: + chronic exertional SOB, no cough Cardio: + palpitations/irregular beats, denies chest pain GI: No abdominal pain, no nausea/vomiting : Denies pain on urination Skin: No jaundice, itching or new rashes Physical Exam Constitutional: + thin, + frail appearing and cooperative Eyes: PERRL, conjunctivae normal, anicteric sclerae ENMT: external ear and nose normal, oropharynx normal Neck: trachea midline, no thyromegaly Respiratory: normal respiratory effort, lungs clear to auscultation Results & Data ([facility]) Vital Signs (Past 12 Hours) Vital Signs Temp Pulse Pulse Resp BP Pulse Ox 10/16/20 08:07 37.1 C 61 19 106/62 92 10/16/20 03:00 36.7 C 64 21 148/77 H 94 10/15/20 23:36 36.9 C 62 20 129/71 93 Laboratory Results WBC 10, Hb 8.2, Hct 32, Plats 235, Na 139, K 3.4, BUN 22, Cr 1.28, glucose [address] chest 08/16/2020 (see [facility] records): suggests Subtle nodular contour of the liver suggesting underlying cirrhosis.
--- NOTE | 2020-10-16 11:33 | Discharge Summary ---
Date of Service October 16, 2020 Discharge Data Consultations 10/15/20 15:20 Consult Gastroenterology Routine Procedures Performed Operation Date: 10/14/20 11:00 Actual Procedures p Upgrade of any system to BIV - DO shanna Rowe Venogram, Unilateral - DO shanna Rowe Pacer with A/V Leads (Dual) - June Woods DO Hospital Course (1) Acute on chronic systolic (congestive) heart failure: Patient had recently had worsening dyspnea, lack of appetite, and recent studies revealed interval decline in his ejection fraction, to 37% by nuclear gated SPECT, 40% by echocardiogram. Recent nuclear stress test revealed no inducible ischemia, and he did not have obstructive coronary heart disease at the time of his cardiac catheterization performed before his most recent cardiac surgery in 2014. A year ago, he was only in atrial fibrillation approximately 11% the time based on device checks, and since has lapsed into chronic atrial fibrillation. Is uncertain if his progressive symptoms and left ventricular systolic dysfunction is due to atrial fibrillation with some degree of tachycardia, or pacemaker induced. Patient presented yesterday for planned device upgrade. Successful pacing could not be obtained via coronary sinus lead placement. A right-sided interventricular septal lead was therefore placed. On device check today, he is only receiving resynchronization therapy 54% the time in part due to the tachycardia. Patient has underlying COPD. Pulmonary hypertension could be due to his underlying lung disease, or perhaps related to systolic/diastolic dysfunction or due to his previous shunting with noted ventricular septal defect repair. Oral amiodarone was initiated on 10/15/2020. After further consideration however given the patient's longstanding history of cigarette smoking, and lung disease including COPD, and history of recurrent pulmonary embolism, as well as concerns of early cirrhosis perhaps related to congestive heart failure as well as alcohol use, I am concerned with regards to potential amiodarone related pulmonary and hepatic toxicity. We will therefore instead add low-dose digoxin 0.125 mg by mouth daily in an effort to help improve the patient's atrial fibrillation rates. Hypoxia was noted with ambulation, and therefore he has been discharged on supplemental oxygen. (2) Anemia: Patient has a previous history of heme positive stool, had been seen by GI in September,, but work-up delayed due to multiple comorbidities. He has ongoing anemia on anticoagulation. Iron studies revealed iron deficiency anemia. GI input noted and appreciated. I am in agreement that ideally, given iron deficiency anemia, poor appetite, and weight loss, colonoscopy would be most ideal approach. The patient however has multiple comorbidities, and endoscopy has been delayed for about the last year due to his ongoing illness and morbidities. Patient is hesitant to undergo colonoscopy. We will have patient follow-up with his primary care provider, or [facility] for conside ration of Cologuard screening , Virtual CT colonography, or colonoscopy if felt appropriate. For now, continue multivitamin, and Vitron-C, 1 tablet by mouth daily. Discharge Instructions Wound care instructions provided to patient. He is to keep his left infraclavicular pacemaker pocket dry. He may take Tylenol on an as-needed basis for pain. Typically driving is restricted after lead placement, however the patient does not have reliable transportation, since his RV apical lead is chronic and has matured, I think it is reasonable for him to try this was previously discussed. He already has a follow-up device clinic appointment for wound check and interrogation on 10/23/2020 at [facility]. He has a follow-up cardiology appointment on 11/10/[address] Jansen. Medication changes have included addition of digoxin and Vitron C As an outpatient, we are working on obtaining prior authorization for Entresto and this is pending.
--- NOTE | 2020-10-16 11:39 | Cardiology Progress Note ---
Date of Service October 16, 2020 Assessment & Plan (1) Acute on chronic systolic (congestive) heart failure: As previously discussed, in order to optimize attempts at cardiac resynchronization therapy, improved rate control recommended however blood pressure is relatively low preventing titration of metoprolol. Debated starting amiodarone, but on further assessment, he has significant risk of lung toxicity and liver toxicity especially with GI impression of early cirrhosis. We will therefore discontinue amiodarone, transition to metoprolol plus digoxin. Digoxin had previously been considered as an outpatient by his primary ruby developer. Efforts are underway as an outpatient to obtain financial help with regards to Entresto treatment. This will be revisited at his upcoming follow-up visit. (2) Anemia: Received 1 dose of IV iron. Discharge on prior to hospital multivitamin as well as Vitron-C. Follow-up with PCP, or Sushil HERNANDEZ , for consideration of Cologuard screening, Virual CT colonography, or colonoscopy. (3) Cirrhosis: Perhaps related to congestive heart failure, or alcohol use. Decided against starting amiodarone. (4) Pulmonary embolism, bilateral: Patient is back on Coumadin 5 mg daily. Anticoagulation was held for pacemaker upgrade. Follow-up with [facility] anticoagulation clinic. Lovenox bridge avoided in an effort to reduce risk of pocket hematoma. Follow-up as noted for device check within a week, follow-up with Dr. Jansen scheduled for 11/10/2020. Admission and Anticipated Discharge Date Admission Date: October 14, 2020 Subjective Patient seen in follow-up. He is feeling improved. Telemetry reveals ventricular pacing in the 60s. Physical Exam Physical Exam: Temp Pulse Resp BP Pulse Ox 37.1 C 61 19 106/62 92 10/16/20 08:07 10/16/20 08:07 10/16/20 08:07 10/16/20 08:07 10/16/20 08:07 Constitutional: WD/WN, vitals as above Respiratory: normal respiratory effort, lungs clear to auscultation Cardiovascular: RRR, no murmur, no edema Chest (Breasts): Additional Comments: Left infraclavicular device pocket is clean dry and intact, well-healing incision, no hematoma, no drainage Gastrointestinal (Abdomen): normal bowel sounds, soft, nontender, no hepatosplenomegaly Neurologic: PERRL, EOMI, accommodation nl, no face palsy, no dysarthria Results & Data ([facility]) Vital Signs (Past 12 Hours) Vital Signs Temp Pulse Pulse Pulse Resp BP Pulse Ox 10/16/20 08:07 37.1 C 61 19 106/62 92 10/16/20 08:00 63 10/16/20 03:00 36.7 C 64 21 148/77 H 94 10/15/20 23:36 36.9 C 62 20 129/71 93
[2020-10-16] MEDS ORDERED: DIGOXIN 0.125 MG TAB PO SCH (16:00)
--- NOTE | 2020-10-20 15:06 | Operative Report (OR) ---
DATE OF OPERATION: 10/14/2020 PREOPERATIVE DIAGNOSES: Nonischemic cardiomyopathy, persistent atrial fibrillation, chronic heart failure with reduced ejection fraction and a high degree AV block with a high ____ of RV pacing. POSTOPERATIVE DIAGNOSES: Nonischemic cardiomyopathy, persistent atrial fibrillation, chronic heart failure with reduced ejection fraction and a high degree AV block with a high ____ of RV pacing. PROCEDURE: Upgrade to a biventricular rate responsive permanent pacemaker where the left ventricular lead is positioned over the left bundle position under fluoroscopic guidance. SURGEON: June Woods DO. ASSISTANTS: None. ANESTHESIA: Monitored conscious sedation administered under my supervision by Isidra Woodward. Start time 11:46, end time 02:54. Total of 6 mg of Versed and 150 mcg of fentanyl. INTRAVENOUS FLUIDS: 173 mL. CONTRAST: 85 mL. ANTIBIOTICS: 1 gram of Ancef. BLOOD LOSS: 40 mL. URINE OUTPUT: Not applicable. SPECIMENS: None. FINDINGS: See below. DRAINS: None. INDICATIONS: This is a 65-year-old gentleman who has a past medical history for tachybrady syndrome and now high degree AV block where he underwent a pacemaker in 05/2016. His pacing burden from the RV has significantly increased in addition to now having nonischemic cardiomyopathy where his ejection fraction went from normal to 40% in 01/2020 and remains low in 07/2020. Persistent atrial fibrillation on metoprolol and Coumadin, status post a Watchman device in 06/2019. His CHADS2-VASc score is 4, but after the Watchman he did have a history of PE and so he remains on Coumadin. He does have a history of a GI bleed in 04/2019. He has a history of endocarditis in 1977 with aortic insufficiency and status post an AVR in 2014 with a 25 mm Young valve in addition to the VSD membranous repair in 2014. He has a history of pulmonary hypertension as well as subaortic membrane, where he is status post resection in 1959 as well as 2014. Peripheral arterial disease status post BLUEBERRY GROWER with stenting to the right SFA in 03/2019 and severe COPD. He also has past medical history of iron deficiency anemia. Due to his worsening cardiomyopathy and his heart failure as well as high RV pacing burden, he was recommended upgrade to a biventricular device. CONSENT: Consent was obtained prior to the patient going into electrophysiology lab. The patient was informed of the risks, benefits and alternative procedure. Risks include but not limited to sudden cardiac , cardiac arrhythmias, cerebrovascular accident, myocardial infarction, injury to the blood vessels, chamber of the heart, lung, bleeding, and infection. The patient understood these risks and agreed with procedure as planned. Informed consent was obtained. DESCRIPTION OF THE PROCEDURE: The patient was brought into the electrophysiology lab in fasting state. He was connected to continuous cardiac monitoring. A timeout was performed to ensure patient identity and procedure correctly. The patient received prophylactic antibiotics prior to incision. He was prepped and draped over the left inferior space in normal surgical standard fashion. Monitored conscious sedation was given throughout the procedure for patient's comfort level. [place] precautions were maintained throughout the procedure. 10 mL of 1% lidocaine, bupivacaine mixture were given over the prior surgical incision. Incision was made over the prior surgical incision. Then a peripheral venogram was performed to identify the axillary vein. Venous axillary access was obtained through a needlestick without any problems. The guidewire was inserted through without any resistance. Then, a 9-Salvadorean OptiSeal sheath was advanced over the guidewire without any resistance. Guidewire and dilator were removed. Then an MPX coronary sinus outer sheath was advanced into the right atrium over a Glidewire. The Glidewire and dilator were removed. The coronary sinus was cannulated. I was not able to cannulate the coronary sinus with the diagnostic Decapolar Biosense catheter, but then at one point, my guidewire seemed to go in what looked like a bailout and I was able to get the MPX over this and giving a puff of contrast through the coronary sinus venogram, I realized that the main coronary sinus quickly broke bifurcated into 2 branches. I was able to get a Whisper wire out into one of the branches then advanced the MPX over it, and advanced the lead out, but the lead did not capture. Then I tried to get the Whisper up to the other branch using a merit Vert 5-Salvadorean sheath which then helped me to get the MPX in, but once I got the lead out here, it still did not capture, so I aborted the coronary sinus lead and went back to doing a left bundle lead. The MPX was removed and the His sheath was advanced down into the right ventricle over a Glidewire without any resistance. Glidewire and dilator were removed. Then the left bundle lead was advanced into the sheath and I never really got the best His signals, but had an idea of where I was, came about 2 cm down from this in an imaginary line extending to the apex and began to just pace map to see how my QRS morphology looked in V1 and if I had a W formed. At one point I thought I had an okay and I started screwing it in but when I was screwing it in, it felt a little tough and eventually I did not like the way that the waveform was going, so I unscrewed that and repositioned it a little bit lower. At this point, I felt like I had decent waveform on my V1, W looking and started to give a series of clockwise turns to start screwing the lead into the septum pausing every couple of turns to see how my QRS morphology looked in V1 as well as my pacing stimulation to QRS peak in V6 and impedance drops as well as giving some vena contrast through the sheath to see how I was up on the septum. Ultimately, I was satisfied with the position and the sheath was slid under fluoroscopic guidance followed then by the 9-Salvadorean OptiSeal sheath being slit. The lead was fixated to pectoralis muscle using 0 silk suture. Then the prior pacemaker was removed from the pocket and the capsule. The capsule was disrupted inferiorly and caudally to allow for new blood flow. The pocket was flushed with copious amounts of bacitracin saline wash and inspected for hemostasis. The previous pacing leads were tested intraoperatively, see below for results. Then all the pacing wires were attached to the new device, making sure the pins were in appropriate position, passed set screw and set screws were all tightened. Then, the device was placed in the pocket, making sure the leads were lying flat beneath the device. Then a Tyrx pouch was placed on top of the device in the pocket to prevent any further possible infection. The incision was then closed in 3-layer fashion with 2-0 Vicryl interrupted suture followed by 3-0 Vicryl interrupted suture, followed by 4-0 Monocryl running stitch and Dermabond was applied followed by a Telfa and micropore dressing. EQUIPMENT: 1. Explanted generator is an Advisa [id number] implanted 06/20/2016, serial number [id number]. 2. The new pulse generator is a Medtronic Corie METAL BONDING CRIB ATTENDANT-P MRI SureScan [id number], serial number [id number]. 3. The Tyrx pouch reference [id number], lot number [id number], expiration 07/10/2021. 4. Right atrial lead 5076-52 cm, serial number [id number], implanted 06/20/2016. 5. Right ventricular lead, 5076-58 cm, serial number [id number], implanted 06/20/2016. 6. The left bundle lead, Medtronic 3830-69 cm, serial number [id number]. INTRAOPERATIVE TESTIN. Right atrial lead flutter waves are 0.2 millivolts, impedance 336 ohms. 2. Right ventricular lead R-wave 7.7 millivolts, impedance 537 ohms, threshold 0.8 volts at 0.4 milliseconds. 3. Left bundle lead: R waves 3.6 millivolts, impedance 609 ohms, threshold 0.5 volts at 0.4 milliseconds. FINAL MEASUREMENTS THROUGH THE DEVICE: 1. Right atrial lead, fib waves were 0.1 millivolts, impedance 323 ohms, no threshold testing, patient is in AFib. 2. Right ventricular lead, R-wave 7.1 millivolts, impedance 513 ohms, threshold 0.75 volts at 0.4 milliseconds. 3. Left bundle lead impedance 646 ohms, threshold 0.5 volts at 0.4 milliseconds. FINAL PARAMETERS: DDDR 60/130, right atrial amplitude 2 volts, pulse width 0.4 milliseconds, sensitivity 0.15 millivolts. Right ventricular amplitude 1.5 volts, pulse width 0.4 milliseconds, sensitivity 1.2 millivolts. Left bundle lead amplitude 3.5 volts, pulse width 0.4 milliseconds. IMPRESSION: Successful upgrade to a biventricular with the left ventricular lead is over the left bundle position (rate responsive permanent pacemaker under fluoroscopic guidance along with peripheral venogram and coronary sinus venogram secondary to high-degree AV block with a high RV percent pacing burden, persistent atrial fibrillation and nonischemic cardiomyopathy and congestive heart failure). PLAN: The patient will be admitted, I noticed he is profoundly anemic over the last year and his iron studies were very low. I will have GI consult to see him as well as give him the Venofer and he will need a higher dose of AV josé miguel blockers, metoprolol. In regards to his post-procedure activity, he is not allowed to lift left elbow or left shoulder for 1 month. He cannot lift more than 10 pounds with the left arm for 2 weeks. He is to keep the dressing on and dry until his wound check the following week. He can wear a sling as needed and he will get a chest x-ray and an EKG. I attest to the content of the Intraoperative Record and any orders documented therein. Any exception s are noted below.
== END 2020-10-16 12:20 | disposition home health service (06) ==
LOC: EP 09:16 → 2S 09:16 → SUATTDRO 12:16

== ENCOUNTER 2022-03-04 08:19 | Observation (INO) ==
[2022-03-04] MEDS ORDERED: HEPARIN (PORCINE) 1000 UNIT/ML 10 ML (CATH LAB USE ONLY) ONE (09:35)
[2022-03-04] MEDS ORDERED: MIDAZOLAM HCL 1 MG/ML 2ML VIAL ONE ×2 (09:35→11:27)
[2022-03-04] MEDS ORDERED: niCARdipine HCL INJ 2.5 MG/ML 10 ML AMP ONE (09:35)
[2022-03-04] MEDS ORDERED: fentaNYL citrate 100 MCG/2 ML VIAL ONE ×2 (09:35→11:26)
[2022-03-04] MEDS ORDERED: NITROGLYCERIN/D5W 100MCG/ML 20ML SYR ONE (09:36)
[2022-03-04] MEDS ORDERED: LIDOCAINE 1% LOCAL 20 ML VIAL ONE (09:37)
[2022-03-04] MEDS ORDERED: POTASSIUM CHLORIDE CRTAB 20 MEQ TABCR PO STA (09:41)
[2022-03-04] MEDS ORDERED: POTASSIUM CHLORIDE 10 MEQ / 100ML WTR IV ONE (09:43)
[2022-03-04] MEDS ORDERED: POTASSIUM CHLORIDE 10 MEQ TABCR PO ONE (09:43)
--- NOTE | 2022-03-04 10:21 | History & Physical Bridge Note ---
Date of Service March 04, 2022 History & Physical Bridge Note I have examined the patient, reviewed the History & Physical and in the interval since the performance of the History & Physical I have noted the following changes of clinical significance: no changes noted
--- NOTE | 2022-03-04 10:27 | Pre Anesthesia Assessment ---
Date of Service March 04, 2022 Pre Sedation Assessment Vital Signs Pulse Resp BP 03/04/22 08:42 66 20 121/71 Cardiovascular RRR, no murmur, no edema Respiratory normal respiratory effort, lungs clear to auscultation Additional Comments: Extremities: -- 2+ radial bilaterally --2+ femoral pulse bilaterally -- diminished popliteal pulse bilaterally --Right 1+ DP, 1+ PT. Left 1+ PT -- No lower extremity ulcerations. -- 1+ lower extremity edema greater on the left --Dependent rubor. Normal capillary refill. Pre-Sedation Airway Assessment Smoking Status: Current every day smoker Hx Sleep Apnea: Yes Hx Difficult Intubation: No ASA3 NPO Status Date of Last Intake of Fluids: 03/03/22 Date of Last Intake of Solid Food: 03/03/22 Procedure Planning Contraindications for Sedation: none Current Medications Reviewed: Yes Notes The planned sedation has been discussed with the patient. Informed Consent was obtained. I have identified the patient, determined the appropriateness of sedation and have assessed the patient immediately prior to the procedure. All medicine(s) and interventions are by my order. Cr 1.7, K 2.8 pre procedure. Patient hydrated with 500 cc bolus of NS. 40 meq potassium chloride PO and [address] Javed requested I obtain informed consent and patient had no objection.
--- NOTE | 2022-03-04 12:46 | Post Anesthesia Assessment ---
Date of Service March 04, 2022 Post Sedation Assessment Vital Signs Pulse Resp BP 03/04/22 08:42 66 20 121/71 Recovery Score Activity: Moves 4 extremities Respiration: Deep Breath/Cough Circulation: +/-20% PreAnes Value Consciousness: Fully Awake Oxygen Saturation: O2 needed for >90% Discharge Sedation Level of Care: Fast Track Phase II Post Sedation Plan On clinical assessment, the patient appears to have tolerated the sedation without complications. Patient is recovering as anticipated. Patient will continue to be monitored by nursing and may be discharged when sedation discharge criteria are met per below protocol. Upon Completions of procedure up to 15 minutes continue every 5 minute vital signs and the P.A.R. score; then discharge to a Phase I or Fast Track to Phase II per the following guidelines: * Discharge Patient to appropriate Phase II area if PAR is 8 or greater or return to pre- procedure baseline. The post - procedure orders will be as directed. * If PAR score is less than 8 or not return to pre-procedure baseline then patient will follow Phase I monitoring till PAR is reached for Phase II. The Phase I may be done in procedure room or may call to secure a Phase I area. * If naloxone or flumazenil are used for reversal, hold in Phase I for continued monitoring from when last reversal dose was given for a minimum of 60 minutes or longer pending the nurse and/or physician discretion of patient condition before discharge to Phase II. Please call the Sedation Physician to re-evaluate and complete post-note for discharge to Phase II area. Do NOT discharge from procedure sedation or Phase 1 until post- sedation evaluation note is complete by procedure /sedation MD Sedation Discharge Instructions to be given to the patient at discharge to home.
--- NOTE | 2022-03-04 12:50 | Endovascular Procedure Note ---
[facility] Endovascular Procedure Rpt Pre & Post Diagnosis Peripheral arterial disease I identified the patient and participated in the time-out.: Yes Procedure Operation Date: 03/04/22 10:00 Actual Procedures p Cineradiography w/Routine Exam - Benigno Javed MD Surgeon Sean Javed MD Manager Of Business Jimmy Abdalla Estimated Blood Loss 20 Findings See Below Abdominal aorta--no significant aneurysmal or stenotic disease Right lower extremity-- -Common iliac, external iliac, internal iliac widely patent -NATUROPATHIC ONCOLOGY PROVIDER, profunda widely patent -SFA heavily calcified, diffuse mid to distal disease with 95% distal stenosis -Popliteal calcified, 50% proximal stenosis -NAYANA calcified with severe diffuse disease, tapers prior to foot -SMELTER CHARGER widely patent into the foot -Peroneal patent to the ankle Left lower extremity-- -Common iliac, external iliac, internal iliac widely patent -NATUROPATHIC ONCOLOGY PROVIDER, profunda widely patent -SFA stents patent with moderate mid segment in-stent restenosis -Popliteal - mild disease, patent -Tibials not well visualized Anesthesia Type RN Sedation Radiation Exposure (mGv) Radiation (mGy): 102 Contrast Contrast: 70 Complications none Disposition Accompanied Patient To Recovery: Yes Disposition: Explosive Ordnance Disposal Specialist Holding Description of Procedure LT NATUROPATHIC ONCOLOGY PROVIDER obtained under ultrasound guidance, short 5Fr sheath placed Abdominal aortogram and proximal RT lower extremity angiogram performed with RIM catheter. 6 Fr 65 cm destination sheath placed from LT NATUROPATHIC ONCOLOGY PROVIDER to RT SFA. RT Lower extremity distal angiography via sheath to SFA Distal SFA stenosis crossed with 0.14 command wire Angioplasty of distal SFA with 3.0 balloon Shockwave intravascular lithotripsy to mid to distal SFA (6.0 x 60 balloon, 240 pulses). Mid SFA to proximal popliteal treated with 6.0 x 220 Lutonix drug-eluting balloon. Post procedure good angiographic result, minimal residual stenosis, no evidence of flow-limitng dissection and brisk 2 vessel run-off. Contrast used: 70ml Moderate sedation: [id number] Access closure: StarClose Summary: 1. Right lower extremity -- Diffuse, calcified SFA disease up to 95% distal, 50% proximal popliteal, 2 vessel runoff via SMELTER CHARGER/Peroneal 2. Left lower extremity -- SFA stents widely patent with up to 40% mid in-stent restenosis 3. Successful angioplasty of mid SFA to proximal popliteal with intravascular lithotripsy and drug-eluting balloon (Lutonix 6 x 220). Recommendations: Start clopidogrel and continue dual therapy with clopidogrel/coumadin for 1 month. After 1 month stop clopidogrel and resume aspirin. Follow-up non-invasive vascular testing in 2 weeks. I attest to the content of the Intraoperative Record and any orders documented therein. Any exceptions are noted below. Vascular Charges Angiography/Venography Procedure 1: Angiography/Venography charges: [id number] Initial 3rd order or selective abd, pelvic, or LE branch Procedure 2: Angiography/Venography charges: [id number] Aortography, abd + b/l iliofem LE, catheter, radiological S&I Lower Extremity Interventions Procedure 1: Lower Extremity Intervention charges: [id number] Angioplasty, femoral, popliteal artery(s), unilateral Additional Services Procedure 1: Additional Services Charges: 93367 Ultrasound guidance - vascular access Procedure 2: Additional Services Charges: 78692 Moderate sedation initial 15 min Procedure 3: Additional Services Charges: 46817 Moderate sedation, each additional 15 min
[2022-03-04] MEDS: POTASSIUM CHLORIDE / WTR 10 MEQ/100 ML PLCT IV SCH ×2 (14:08→14:09)
[2022-03-04 15:19] LABS: BUN Creatinine Ratio 19.3 (10-20); Creatinine Clr Calc Pharmacy 36.1 ml/min; Est GFR (African American) 50.2 ml/min; Est GFR (Non-African American) 43.3 ml/min; Potassium 3.3 mmol/L (3.5-5.1)
[2022-03-04] MEDS ORDERED: traZODone HCL 50 MG TAB PO PRN (21:57)
[2022-03-04] MEDS ORDERED: CLOPIDOGREL BISULFATE 300 MG TAB PO STA (22:01)
[2022-03-04] MEDS: POTASSIUM CHLORIDE 10 MEQ TABCR PO SCH (22:31)
[2022-03-04] MEDS ORDERED: ALUMINUM/MAGNESIUM SUSP 30 ML UDC PO PRN (22:56)
[2022-03-04] MEDS ORDERED: oxyCODONE HCL IR 5 MG TAB (IMMEDIATE RELEASE) PO PRN (22:56)
[2022-03-05 06:46] LABS: Hematocrit (blood only) 33.8 % (42-52); Hemoglobin 9.2 g/dL (14.0-18.0); Mean Corpuscular Hemoglobin 20.4 pg (25-34); Mean Corpuscular Hgb Conc 27.2 g/dL (32-36); Mean Corpuscular Volume 74.9 fL (80-100); Mean Platelet Volume 9.5 fL (7.4-10.4); Platelet Count 194 K/uL (130-400); RDW Coefficient of Variation 22.5 % (11.5-14.5); RDW Standard Deviation 58.6 fL (36.4-46.3); Red Blood Count 4.51 M/uL (4.7-6.1); White Blood Count 9.16 K/uL (4.8-10.8)
[2022-03-05 06:51] LABS: INR 1.6 (0.9-1.1); Prothrombin Time 16.2 Seconds (9.0-12.0)
[2022-03-05 06:58] LABS: Anisocytosis Present; Basophils # (auto) 0.05 K/uL (0-0.2); Basophils % (auto) 0.5 %; Eosinophils # (auto) 0.11 K/uL (0-0.5); Eosinophils % (auto) 1.2 %; Hypochromasia Present; Immature Granulocytes # (auto) 0.02 K/uL (0.00-0.02); Immature Granulocytes % (auto) 0.2 %; Lymphocytes # (auto) 0.97 K/uL (1.2-3.4); Lymphocytes % (auto) 10.6 %; Microcytosis Present; Monocytes # (auto) 1.16 K/uL (0.11-0.59); Monocytes % (auto) 12.7 %; Neutrophils # (auto) 6.85 K/uL (1.4-6.5); Neutrophils % (auto) 74.8 %; Polychromasia 1+
[2022-03-05] MEDS ORDERED: CYANOCOBALAMIN (B-12) 500 MCG TABLET PO SCH (09:00)
[2022-03-05] MEDS ORDERED: ASPIRIN 81 MG ECTAB PO SCH (09:00)
[2022-03-05] MEDS ORDERED: METOPROLOL SUCC 25MG EXT REL TAB PO SCH (09:00)
[2022-03-05] MEDS ORDERED: PANTOprazole 40 MG TAB PO SCH (09:00)
[2022-03-05] MEDS ORDERED: CLOPIDOGREL BISULFATE 75 MG TAB PO SCH (09:00)
[2022-03-05] MEDS ORDERED: NON-FORMULARY MEDICATION (Omeprazole 20 mg Capsule,Delayed Release(Dr/Ec)) PO SCH (09:00)
[2022-03-05] MEDS ORDERED: FLUTICASONE/VILANTEROL 100/25MCG 14 PUFFS/INHALER INH SCH (09:00)
[2022-03-05] MEDS ORDERED: NON-FORMULARY MEDICATION (Magnesium 100 mg Capsule) PO SCH (09:00)
[2022-03-05] MEDS ORDERED: UMECLIDINIUM BROMIDE 62.5MCG/BLISTER 7 PUFFS/INHALER INH SCH (09:00)
[2022-03-05] MEDS ORDERED: OMEGA-3 (PURIFIED FISH OIL) 1 GM CAP PO SCH (09:00)
[2022-03-05] MEDS ORDERED: ATORVASTATIN 40 MG TAB PO SCH (09:00)
[2022-03-05] MEDS ORDERED: SPIRONOLACTONE 12.5 MG TAB PO SCH (09:00)
[2022-03-05 09:19] LABS: BUN Creatinine Ratio 18.7 (10-20); Calcium 8.8 mg/dl (8.5-10.1); Creatinine Clr Calc Pharmacy 42.9 ml/min; Est GFR (African American) 59.9 ml/min; Est GFR (Non-African American) 51.7 ml/min; Potassium 3.6 mmol/L (3.5-5.1)
[2022-03-05] MEDS: POTASSIUM CHLORIDE 10 MEQ TABCR PO SCH (09:42)
[2022-03-05] MEDS ORDERED: DIGOXIN 0.125 MG TAB PO SCH (16:00)
[2022-03-05] MEDS ORDERED: WARFARIN SOD 7.5 MG TAB PO SCH (16:00)
[2022-03-05] MEDS ORDERED: MELATONIN 3 MG TAB PO SCH (21:00)
[2022-03-05] MEDS ORDERED: ROFLUMILAST 500 MCG TAB PO SCH (21:00)
--- NOTE | 2022-03-07 08:30 | Discharge Summary ---
Date of Service March 07, 2022 Admission HPI Per Admitting Provider Mr. Farooq is a pleasant 66-year-old man with a history of significant valvular and congenital heart disease status post bioprosthetic aortic valve replacement (#25 Young), VSD repair, subaortic membrane resection, PFO repair, tricuspid valve annuloplasty in 2014 at [facility], atrial fibrillation status post Watchman device, bilateral PE, COPD and peripheral artery disease. He is followed by Dr. Jansen at [facility] for his cardiac care. Initially seen for PAD in 2016. Underwent bilateral lower extremity angiogram 04/17/2019 and was found to have an occluded proximal LT SFA with distal reconstitution. He underwent endovascular intervention with eventual placement of a 6.5 x 120 Supera and 6.0 x 60 mm absolute self-expanding stent. Discharged home on prior Coumadin and new clopidogrel. He had a bilateral LE arterial duplex at [facility] in December. Images not available, per report right SFA with hemodynamically significant stenosis (velocity up to 502 cm/sec) and some degree of left SFA restenosis. Discharge Data Procedures Performed Operation Date: 03/04/22 10:00 Actual Procedures s Placement Art Occlusive Device - Benigno Javed MD s Femoral Popliteal Balloon - Benigno Javed MD s Ultrasound Vascular Access - Benigno Javed MD p Angio Extremity Bilateral - Benigno Javed MD Hospital Course (1) PAD (peripheral artery disease): 2. Atrial fibrillation/flutter--Watchman device 3. Chronic systolic heart failure/nonischemic cardiomyopathystatus post BiV ICD 4. History of congenital heart disease status post remote repair 5. Tobacco use 6. Pulmonary emboli-- on anticoagulation Underwent bilateral lower extremity angiogram via LT CORE MEASURES ABSTRACTOR access. Found to have mild to moderate diffuse LT SFA restenosis. RLE with calcified SFA disease up to 95% in the distal segment. RT SFA intervention with intravascular lithotripsy and drug-eluting balloon. Procedure uncomplicated and had good angiographic result. Prior to procedure was noted to have mild ARIEL and hypokalemia on pre-procedure labs in the setting of increasing home diuretics. Due to chronic systolic heart failure and ARIEL admitted overnight for observation and fluid management post procedure. Received pre-procedure hydration and potassium supplementation. Diuretics held during admission. On hospital day 2 SCr improved down from 1.7 to 1.3. Euvolemic on discharge exam. Discharged on dual therapy with clopidogrel, coumadin for 1 month. After 1 month stop clopidogrel and resume aspirin. INR on discharge 1.6. Discharged on coumadin 7.5 for 2 days with plan to resume 5mg daily after that and follow-up with usual coumadin clinic. Plan to resume torsemide 20mg daily on discharge with follow-up with Dr. Jansen. Vascular follow-up in 2 weeks with repeat non-invasive vascular testing. . Discharge Instructions Home Medications albuterol sulfate 90 mcg/actuation aerosol inhaler (Ventolin HFA) 2 puff INHALATION Q6H PRN 07/27/18 [History Confirmed 03/04/22] budesonide-formoterol HFA 160 mcg-4.5 mcg/actuation aerosol inhaler (Symbicort) 2 puff INHALATION BID 07/27/18 [History Confirmed 03/04/22] roflumilast 500 mcg tablet (Daliresp) 500 mcg PO QPM 07/27/18 [History Confirmed 03/04/22] tiotropium bromide 18 mcg capsule with inhalation device (Spiriva with HandiHaler) 1 cap INHALATION DAILY 07/27/18 [History Confirmed 03/04/22] turmeric root extract 500 mg capsule 500 mg PO DAILY 04/16/19 [History Confirmed 03/04/22] spironolactone 25 mg tablet 12.5 mg PO DAILY tab 12/26/19 [History Confirmed 03/04/22] warfarin 5 mg tablet (Coumadin) 5 mg PO DAILY 30 Days #30 tab 02/27/20 [Rx Confirmed 03/04/22] Saccharomyces boulardii [Daily Probiotic (S. boulardii)] 1 tab PO TID 08/28/20 [History Confirmed 03/04/22] melatonin 3 mg tablet 3 mg PO HS 08/28/20 [History Confirmed 03/04/22] metoprolol succinate 25 mg tablet,extended release 24 hr 25 mg PO DAILY 08/28/20 [History Confirmed 03/04/22] torsemide 20 mg tablet 20 mg PO .COMPLEX 08/28/20 [History Confirmed 03/04/22] digoxin 125 mcg (0.125 mg) tablet (Digitek) 0.125 mg PO DAILY@1600 #30 tab 10/16/20 [Rx Confirmed 03/04/22] atorvastatin 40 mg tablet 40 mg PO QAM #90 tab 12/21/20 [Rx Confirmed 03/04/22] sacubitril 24 mg-valsartan 26 mg tablet (Entresto) 1 tab PO BID 02/16/21 [History Confirmed 03/04/22] cyanocobalamin (vitamin B-12) 1,000 mcg capsule 1,000 mcg PO DAILY 02/22/22 [History Confirmed 03/04/22] vitamin E (dl, acetate) 1 tab PO .daily 02/22/22 [History Confirmed 03/04/22] zinc gluconate 50 mg tablet 50 mg PO DAILY 02/22/22 [History Confirmed 03/04/22] clopidogrel 75 mg tablet 75 mg PO QAM 30 Days #30 tab 03/04/22 [Rx] magnesium 100 mg capsule 100 mg PO DAILY 03/04/22 [History Confirmed 03/04/22] omega-3 fatty acids-vitamin E 1,000 mg capsule 1 cap PO DAILY 03/04/22 [History Confirmed 03/04/22] pantoprazole 40 mg tablet,delayed release 40 mg PO QAM 30 Days #30 tab 03/04/22 [Rx] polyethylene glycol 3350 17 gram oral powder packet (Miralax) 17 g PO DAILY 03/04/22 [History Confirmed 03/04/22] trazodone 50 mg tablet 50 mg PO HS PRN 03/04/22 [History Confirmed 03/04/22] Coding Level of Care Code 47491 OBS Care - Discharge Diagnoses PAD (peripheral artery disease) I73.9
[2022-03-07] MEDS ORDERED: WARFARIN SOD 5 MG TAB PO SCH (16:00)
== END 2022-03-05 11:00 | disposition home or self-care (01) ==
LOC: 2E 08:19 → CC 08:19
PROC: CLB.AEB (2022-03-04 10:00)
DX: Z95.5 Presence of coronary angioplasty implant and graft; I42.8 Other cardiomyopathies; I26.99 Other pulmonary embolism without acute cor pulmonale; I50.22 Chronic systolic (congestive) heart failure; Z79.51 Long term (current) use of inhaled steroids; M19.90 Unspecified osteoarthritis, unspecified site; I48.91 Unspecified atrial fibrillation; Z79.82 Long term (current) use of aspirin; Z79.899 Other long term (current) drug therapy; I11.0 Hypertensive heart disease with heart failure; J44.9 Chronic obstructive pulmonary disease, unspecified; I25.10 Atherosclerotic heart disease of native coronary artery without angina pectoris; F17.290 Nicotine dependence, other tobacco product, uncomplicated; Z79.01 Long term (current) use of anticoagulants; I73.9 Peripheral vascular disease, unspecified

== ENCOUNTER 2022-04-07 16:57 | Inpatient (IN) ==
[2022-04-07] MEDS ORDERED: SODIUM CHLORIDE 0.9% 500 ML IV ONE ×2 (17:44→19:38)
--- NOTE | 2022-04-07 18:06 | XRay Report ---
XR chest 1V portable CLINICAL HISTORY: hypotension TECHNIQUE: Single frontal radiograph of the chest was obtained. Comparison: Comparison is made to chest radiographs 10/15/2020 FINDINGS: Median sternotomy wires are unchanged. Dual-lead pacemaker is seen. Cardiomegaly is noted. Prominence and cephalization of the vasculature is seen. No evidence of pleural effusion or pneumothorax. IMPRESSION: Cardiomegaly with mild pulmonary hypertension. ACT 112: Negative or not required by law. Electronically signed by: Giovanni Mancia M.D. 04/07/2022 6:04 PM
[2022-04-07 18:59] LABS: INR 3.6 (0.9-1.1); Partial Thromboplastin Ratio 1.3; Partial Thromboplastin Time 36.7 Seconds (21.0-31.0); Prothrombin Time 35.8 Seconds (9.0-12.0)
[2022-04-07 19:06] LABS: Troponin I High Sensitivity 57.4 pg/ml (0-20)
[2022-04-07 19:07] LABS: Alanine Aminotransferase 201 U/L (7-52); Albumin Globulin Ratio 1.2 (0.9-2); Albumin Level 4.1 gm/dl (3.4-5.0); Alkaline Phosphatase 72 U/L (34-104); Anion Gap 13 (3-11); BUN Creatinine Ratio 24.3 (10-20); Bilirubin,Total 0.9 mg/dl (0.2-1.0); Blood Urea Nitrogen 79 mg/dl (6-23); Calcium 9.5 mg/dl (8.5-10.1); Carbon Dioxide 24 mmol/L (21-32); Chloride 95 mmol/L (98-107); Est GFR (African American) 21.5 ml/min; Est GFR (Non-African American) 18.5 ml/min; Globulin 3.3 gm/dl (2.5-4.0); Glucose 86 mg/dl (70-99(Fasting)); Phosphorus 6.5 mg/dl (2.5-4.9); Sodium 132 mmol/L (136-145); Total Protein 7.4 gm/dl (6.0-8.3)
[2022-04-07 19:41] LABS: Hematocrit (blood only) 40.7 % (42-52); Hemoglobin 11.5 g/dL (14.0-18.0); Mean Corpuscular Hemoglobin 22.9 pg (25-34); Mean Corpuscular Hgb Conc 28.3 g/dL (32-36); Mean Corpuscular Volume 80.9 fL (80-100); Mean Platelet Volume 9.4 fL (7.4-10.4); Platelet Count 292 K/uL (130-400); RDW Coefficient of Variation 25.4 % (11.5-14.5); RDW Standard Deviation 74.1 fL (36.4-46.3); Red Blood Count 5.03 M/uL (4.7-6.1); White Blood Count 10.03 K/uL (4.8-10.8)
[2022-04-07 19:42] LABS: Anisocytosis Present; Basophils # (auto) 0.03 K/uL (0-0.2); Basophils % (auto) 0.3 %; Eosinophils # (auto) 0.05 K/uL (0-0.5); Eosinophils % (auto) 0.5 %; Hypochromasia Present; Immature Granulocytes # (auto) 0.03 K/uL (0.00-0.02); Immature Granulocytes % (auto) 0.3 %; Lymphocytes # (auto) 1.36 K/uL (1.2-3.4); Lymphocytes % (auto) 13.6 %; Monocytes # (auto) 1.56 K/uL (0.11-0.59); Monocytes % (auto) 15.6 %; Neutrophils % (auto) 69.7 %; Polychromasia 1+
[2022-04-07] MEDS ORDERED: DEXTROSE 50% 50 ML SYRINGE IV ONE (19:55)
[2022-04-07] MEDS ORDERED: NovoLIN-R INSULIN PER UNIT CHARGE IV STA (19:55)
[2022-04-07] MEDS ORDERED: CALCIUM GLUCONATE 1,000 MG/60 ML BAG IV STA ×3 (19:55→19:57)
[2022-04-07 20:30] LABS: Potassium 6.4 mmol/L (3.5-5.1)
--- NOTE | 2022-04-07 20:53 | CT Scan Report ---
CT abd pelvis wo con CLINICAL HISTORY: acute on chronic renal failure TECHNIQUE: Helical axial images of the abdomen and pelvis were obtained. Automated dose lowering tech niques and/or adjustment according to patient size were utilized for this exam. This exam was perfor med without intravenous contrast. CT DOSE: 251.90 mGy.cm COMPARISON: Comparison is made to CTA pelvis 03/13/2017 FINDINGS: Lower chest: Interstitial thickening is seen in the bilateral lungs. Partial visualization of cardio megaly. Liver: Unremarkable. No focal lesions are seen. Gallbladder and biliary tree: The gallbladder is contracted. Radiodense gallstone is noted. No intra- or extrahepatic biliary ductal dilation. Pancreas: Unremarkable, no focal lesions. Spleen: Unremarkable. Adrenals: Unremarkable. Kidneys and ureters: A nonobstructive stone is seen on the right. Bladder: Unremarkable. Reproductive organs: Unremarkable. Bowel: Diverticulosis is seen without evidence of diverticulitis. Lymph nodes Retroperitoneal: Unremarkable. Mesenteric: Unremarkable. Pelvic: Unremarkable. Peritoneum: Normal. Vessels: Atherosclerotic calcifications are seen. Abdominal wall: Right fat and fluid containing inguinal hernia. Bones: Degenerative changes in the visualized spine. Bilateral pars defects and grade 1 anterolisthes is at L4-L5. IMPRESSION: Acute abnormalities, in particular no hydronephrosis in this patient with acute renal failure. ACT 112: Negative or not required by law. Electronically signed by: Giovanni Mancia M.D. 04/07/2022 8:52 PM
[2022-04-07] MEDS ORDERED: PATIROMER CALCIUM SORBITEX 8.4 GM PACK PO STA (20:58)
[2022-04-07] MEDS ORDERED: MoRPHine SULFATE 2 MG/ML CARP IV STA (21:35)
--- NOTE | 2022-04-07 21:46 | Emergency Department Note ---
Impression & Plan Acute hyperkalemia, Acute on chronic renal failure, Acute hypotension, Elevated troponin, Transaminitis ED Provider Note NAME: ANGLE PAREDES JR AGE: 66 SEX: M ARRIVES VIA: Walk-In INFORMANT: Patient ED PROVIDER(S): Charanjit Olson MD CHIEF COMPLAINT: Hypotension, referred. 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 The patient denies having symptoms of lightheadedness or near syncope. He denies chest pain, shortness of breath from baseline in setting of COPD, cough, congestion. He does report he has had mucousy loose stools over the couple of weeks. He also notes that he has been having less diuretic effect with his torsemide and has been urinating less than usual. He reports that the edema in his lower extremities is not any worse than it usually is but it is not any better. Patient reports he does smoke cigarettes. He also reports that he does drink alcohol daily and reports this is limited to "several beers when [he] eats his pretzels". On arrival patient is acute on chronically ill-appearing but no acute distress, afebrile with heart rate in the 60s and blood pressure ranging 70s-90s/50s-60s, mentating normally. O2 saturations 95% on room air. On exam the patient has dry cracked mucous membranes though he does have 2+ pitting edema of the bilateral lower extremities. Lungs with scant wheezes of the lower lung bacon and otherwise clear. EKG demonstrates paced rhythm without overt acute ischemia. Chest x-ray demonstrates vascular prominence consistent with the patient's known pulmonary hypertension WBC and platelets within normal limits. H/H 11.5/40.7 improved from recent. Chemistry without metabolic acidosis however creatinine 3.2 increased from prior baseline range of ~0.6. Initial potassium was hemolyzed however it was noted the patient did have outpatient blood work performed this afternoon that demonstrated hyperkalemia to 6.0. The patient's potassium subsequently did result on repeat at 6.4. Subsequently treated with calcium, dextrose and insulin. He was additionally ordered for [place] following CT scan of the abdomen pelvis which demonstrated no acute findings of his abdomen pelvis. LFTs do show transaminitis that appears new AST and ALT 370 and 200, respectively. Initial high-sensitivity troponin was elevated at 57.4, nonspecific. Patient's medical alcohol was undetectable. COVID-19 RNA, FREDIS test was negative. Patient was treated with cautious IV fluid boluses which she tolerated well from a respiratory standpoint and blood pressure was responsive. Case was discussed with Dr. Rodriguez, [facility], who will evaluate the patient for admission. Triage Nursing notes reviewed and agree them. Prior medical records reviewed Vital Signs: reviewed and remarkable for hypotension. Differential diagnosis: Infection, dehydration, metabolic abnormality, hypo/hyperglycemia, electrolyte disturbance, anemia, hypoxia, cardiac sources, intracerebral event, toxicologic, neurologic, as well as other pathologies. ER treatment provided: See below. Diagnostics interpreted by me: ECG: AV dual-paced rhythm, 64 bpm, no ectopy, no overt acute ischemia. Cardiac Monitoring: An order for continuous cardiac monitoring was placed and demonstrated AV dual-paced rhythm, 64 bpm, no ectopy. Laboratory studies: See below Imaging studies: See below Consultation(s): Case was discussed with Dr. Rodriguez [facility], who will evaluate the patient for admission. 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 The patient denies having symptoms of lightheadedness or near syncope. He denies chest pain, shortness of breath from baseline in setting of COPD, cough, congestion. He does report he has had mucousy loose stools over the couple of weeks. He also notes that he has been having less diuretic effect with his torsemide and has been urinating less than usual. He reports that the edema in his lower extremities is not any worse than it usually is but it is not any better. Patient reports he does smoke cigarettes. He also reports that he does drink alcohol daily and reports this is limited to "several beers when [he] eats his pretzels". ROS: See above HPI for pertinent positives & negatives. A total of 10 systems reviewed and were otherwise negative. VITALS:See Below PHYSICAL EXAMINATION: GENERAL: Awake, alert, unkempt, chronically ill-appearing, in no distress HENT: Normocephalic, atraumatic. Oropharynx with dry mucous membranes and otherwise unremarkable. EYES: Normal conjunctiva. Sclera non-icteric. NECK: Supple. No nuchal rigidity. FROM. No JVD. RESPIRATORY: Clear to auscultation. CARDIAC: Regular rate, normal rhythm. Extremities warm with capillary refill < 2s. ABDOMEN: Soft, non-distended. No tenderness to palpation. No rebound or guarding. No masses. RECTAL: Deferred. MUSCULOSKELETAL: Chest examination reveals no tenderness. The back is symmetrical on inspection without obvious abnormality. There is no CVA tenderness to palpation. No joint edema. LOWER EXTREMITIES: Calves are equal size bilaterally and non-tender. 1+ pitting edema. Chronic vascular skin changes. NEURO: Normal sensorium. No sensory or motor deficits noted. SKIN: Scattered ecchymosis of BUE and BLE. No jaundice noted. ED COURSE: Critical Care: I have personally spent greater than 95 minutes of critical care time in the direct management of this patient. This includes bedside care, interpretation of diagnostic studies, and testing, discussion with consultants, patient, and family members, and other required patient management activities. This 95 min utes is in excess of all separately billable procedures. Charanjit Olson MD Past Med/Surg History Medical History Afib Paroxysmal CAD (coronary artery disease) Minimal luminal irregularities, 2014 Chronic anticoagulation COPD (chronic obstructive pulmonary disease) stable GERD (gastroesophageal reflux disease) Hx of Lyme disease approximately 4 years ago per pt Nonischemic cardiomyopathy Osteoarthritis Pacemaker secondary to complete heart block; dual chamber May 2016 PAD (peripheral artery disease) Pulmonary hypertension Surgical History H/O aortic valve replacement secondary to severe aortic insufficiency; 2014; bioprosthetic H/O Spinal surgery LUMBAR DISCECTOMY History of cardiac cath Minimal luminal irregularities, 2014 History of colonoscopy History of tooth extraction History of ventricular septal defect s/p repair S/P right knee arthroscopy S/P VSD closure 2015 Status post patent foramen ovale closure Family History Mother Family history of diabetes mellitus Social History Smoking Status: Current every day smoker Cigarettes Per Day: 10; Second Hand Exposure: No; Tobacco Cessation Education Requested by Patient: No Hx Alcohol Use: Yes Alcohol type: beer Hx Substance Use: No Preferred Language: Khmer Communication Ability: Effective Visual Impairment: No Limitations Sales Driver Required: No Beliefs That Will Affect Care: None marital status: Current Living Situation: Alone Feels Safe at Home: Yes Safety Concerns: Feels Safe At This Time Assistive Devices: Glasses and Oxygen - at Night Allergies Allergies Allergy/AdvReac Type Severity Reaction Status Date / Time carvedilol AdvReac Intermediate NIGHTMARES Verified 04/07/22 21:37 Home Meds Home Medications Medication Instructions Recorded Confirmed albuterol sulfate 90 mcg/actuation 2 puff INHALATION Q6H PRN 07/27/18 04/07/22 aerosol inhaler (Ventolin HFA) budesonide-formoterol HFA 160 2 puff INHALATION BID 07/27/18 04/07/22 mcg-4.5 mcg/actuation aerosol inhaler (Symbicort) tiotropium bromide 18 mcg capsule 1 cap INHALATION QAM 07/27/18 04/07/22 with inhalation device (Spiriva with HandiHaler) turmeric root extract 500 mg 500 mg PO QDL 04/16/19 04/07/22 capsule spironolactone 25 mg tablet 12.5 mg PO QAM tab 12/26/19 04/07/22 melatonin 3 mg tablet 3 mg PO HS PRN 08/28/20 04/07/22 metoprolol succinate 25 mg 25 mg PO DAILY@1600 08/28/20 04/07/22 tablet,extended release 24 hr cyanocobalamin (vitamin B-12) 1,000 mcg PO QDL 02/22/22 04/07/22 1,000 mcg capsule zinc gluconate 50 mg tablet 50 mg PO QAM 02/22/22 04/07/22 Lactobacillus 40-Bifidobact 1 cap PO QAM 04/07/22 04/07/22 3-S.thermophilus 100 billion cell capsule (Probiotic) atorvastatin 40 mg tablet 40 mg PO DAILY 04/07/22 04/07/22 furosemide 40 mg tablet 40 mg PO BID 04/07/22 04/07/22 gabapentin 100 mg capsule 100 mg PO TID 04/07/22 04/07/22 magnesium 30 mg tablet 0 mg PO QDL 04/07/22 04/07/22 potassium chloride 10 mEq 10 meq PO DAILY 04/07/22 04/07/22 tablet,extended release(part/cryst) sacubitril 24 mg-valsartan 26 mg 1 tab PO BID 04/07/22 04/07/22 tablet (Entresto) vitamin E 400 unit capsule 400 unit PO QAM 04/07/22 04/07/22 warfarin 5 mg tablet See Rx Instructions .ROUTE .COMPLEX 04/07/22 04/07/22 Previous Rx's Medication Instructions Recorded digoxin 125 mcg (0.125 mg) tablet 0.125 mg PO DAILY@1600 #30 tab 10/16/20 (Digitek) pantoprazole 40 mg tablet,delayed 40 mg PO QAM 30 Days #90 tab 03/28/22 release clopidogrel 75 mg tablet 75 mg PO QAM 90 Days #90 tab 04/04/22 Results & Data (ED) Vital Signs Vital Signs - 24 hr 04/07/22 17:15 04/07/22 17:29 04/07/22 19:00 Temperature 36.5 C Temperature Source Temporal Artery Scan Pulse Rate 61 Pulse Rate [Apical] 61 60 Respiratory Rate 17 21 19 Respiratory Effort / Characteristics Non-Labored Non-Labored Respiratory Depth Normal Normal Blood Pressure 75/54 L Blood Pressure [Right Arm] 95/60 L 85/60 L Blood Pressure Mean 61 Blood Pressure Mean [Right Arm] 71 68 Pulse Oximetry 92 93 95 Oxygen Delivery Method Room Air Room Air Room Air Sepsis Recent Fever Within 48 Hours No Sepsis New/Unexplained Change in Mental Status No Sepsis Action Taken by Nursing No Action Required Laboratory Data Attestation: I reviewed the patient's lab results. Result diagrams: 04/07/22 18:22 04/08/22 00:46 Lab Results 04/07/22 04/07/22 04/07/22 Range/Units 18:22 18:22 18: WBC 10.03 (4.8-10.8) K/uL RBC 5.03 (4.7-6.1) M/uL Hgb 11.5 L (14.0-18.0) g/dL Hct 40.7 L (42-52) % MCV 80.9 (80-100) fL MCH 22.9 L (25-34) pg MCHC 28.3 L (32-36) g/dL RDW Std Deviation 74.1 H (36.4-46.3) fL RDW Coeff of Lennox 25.4 H (11.5-14.5) % Plt Count 292 (130-400) K/uL MPV 9.4 (7.4-10.4) fL Immature Gran % (Auto) 0.3 % Neut % (Auto) 69.7 % Lymph % (Auto) 13.6 % Worth % (Auto) 15.6 % Eos % (Auto) 0.5 % Baso % (Auto) 0.3 % Neut # (Auto) 7.00 H (1.4-6.5) K/uL Lymph # (Auto) 1.36 (1.2-3.4) K/uL Worth # (Auto) 1.56 H (0.11-0.59) K/uL Eos # (Auto) 0.05 (0-0.5) K/uL Baso # (Auto) 0.03 (0-0.2) K/uL Immature Gran # (Auto) 0.03 H (0.00-0.02) K/uL Polychromasia 1+ Hypochromasia Present Anisocytosis Present PT 35.8 H (9.0-12.0) Seconds INR 3.6 H (0.9-1.1) APTT 36.7 H (21.0-31.0) Seconds PTT Ratio 1.3 Sodium 132 L (136-145) mmol/L Potassium TNP Chloride 95 L (98-107) mmol/L Carbon Dioxide 24 (21-32) mmol/L Anion Gap 13 H (3-11) BUN 79 H (6-23) mg/dl Creatinine 3.25 H (0.6-1.4) mg/dl Est Cr Clr Drug Dosing Not Reportable Est GFR ( Amer) 21.5 ml/min Est GFR (Non-Af Amer) 18.5 ml/min BUN/Creatinine Ratio 24.3 H (10-20) Glucose 86 (70-99(Fasting)) mg/dl Calcium 9.5 (8.5-10.1) mg/dl Phosphorus 6.5 H (2.5-4.9) mg/dl Magnesium 3.0 H (1.7-2.4) mg/dl Total Bilirubin 0.9 (0.2-1.0) mg/dl AST TNP ALT 201 H (7-52) U/L Alkaline Phosphatase 72 (34-104) U/L Troponin I High Sens 57.4 H* (0-20) pg/ml Total Protein 7.4 (6.0-8.3) gm/dl Albumin 4.1 (3.4-5.0) gm/dl Globulin 3.3 (2.5-4.0) gm/dl Albumin/Globulin Ratio 1.2 (0.9-2) Ethyl Alcohol mg/dL (<10.0) mg/dl SARS-CoV-2, RNA, NAAT (NEGATIVE) 04/07/22 04/07/22 04/07/22 Range/Units 18:22 19:38 19:54 WBC (4.8-10.8) K/uL RBC (4.7-6.1) M/uL Hgb (14.0-18.0) g/dL Hct (42-52) % MCV (80-100) fL MCH (25-34) pg MCHC (32-36) g/dL RDW Std Deviation (36.4-46.3) fL RDW Coeff of Lennox (11.5-14.5) % Plt Count (130-400) K/uL MPV (7.4-10.4) fL Immature Gran % (Auto) % Neut % (Auto) % Lymph % (Auto) % Worth % (Auto) % Eos % (Auto) % Baso % (Auto) % Neut # (Auto) (1.4-6.5) K/uL Lymph # (Auto) (1.2-3.4) K/uL Worth # (Auto) (0.11-0.59) K/uL Eos # (Auto) (0-0.5) K/uL Baso # (Auto) (0-0.2) K/uL Immature Gran # (Auto) (0.00-0.02) K/uL Polychromasia Hypochromasia Anisocytosis PT (9.0-12.0) Seconds INR (0.9-1.1) APTT (21.0-31.0) Seconds PTT Ratio Sodium (136-145) mmol/L Potassium 6.4 H* Chloride (98-107) mmol/L Carbon Dioxide (21-32) mmol/L Anion Gap (3-11) BUN (6-23) mg/dl Creatinine (0.6-1.4) mg/dl Est Cr Clr Drug Dosing Est GFR ( Amer) ml/min Est GFR (Non-Af Amer) ml/min BUN/Creatinine Ratio (10-20) Glucose (70-99(Fasting)) mg/dl Calcium (8.5-10.1) mg/dl Phosphorus (2.5-4.9) mg/dl Magnesium (1.7-2.4) mg/dl Total Bilirubin (0.2-1.0) mg/dl AST 372 H ALT (7-52) U/L Alkaline Phosphatase (34-104) U/L Troponin I High Sens (0-20) pg/ml Total Protein (6.0-8.3) gm/dl Albumin (3.4-5.0) gm/dl Globulin (2.5-4.0) gm/dl Albumin/Globulin Ratio (0.9-2) Ethyl Alcohol mg/dL < 10.0 (<10.0) mg/dl SARS-CoV-2, RNA, NAAT NEGATIVE (NEGATIVE) Administered Medications Sodium Chloride (Nss 1000ml) 1,000 mls @ 80 mls/hr IV .[id number] OLGA Stop: 05/07/22 22:29 Last Admin: 04/07/22 23:31 Dose: 80 mls/hr Documented by: [id number] Discontinued Medications Dextrose (Dextrose 50% 50 Ml Syringe) 100 ml IV NOW ONE Stop: 04/07/22 19:56 Last Admin: 04/07/22 20:35 Dose: 100 ml Documented by: [id number] Sodium Chloride (Nss) 500 mls @ 999 mls/hr IV .Q31M ONE Stop: 04/07/22 18:14 Last Infusion: 04/07/22 21:39 Dose: 0 mls/hr Documented by: [id number] Admin: 04/07/22 18:28 Dose: 999 mls/hr Documented by: [id number] Sodium Chloride (Nss) 500 mls @ 999 mls/hr IV .Q31M ONE Stop: 04/07/22 20:08 Last Infusion: 04/07/22 21:39 Dose: 0 mls/hr Documented by: [id number] Admin: 04/07/22 20:55 Dose: 999 mls/hr Documented by: [id number] Calcium Gluconate () 1,000 mg in 60 mls @ 240 mls/hr IV NOW STA Stop: 04/07/22 20:09 Last Infusion: 04/07/22 21:40 Dose: 0 mls/hr Documented by: [id number] Admin: 04/07/22 20:35 Dose: 240 mls/hr Documented by: [id number] Calcium Gluconate () 1,000 mg in 60 mls @ 240 mls/hr IV NOW STA Stop: 04/07/22 20:09 Last Infusion: 04/07/22 21:40 Dose: 0 mls/hr Documented by: [id number] Admin: 04/07/22 20:35 Dose: 240 mls/hr Documented by: [id number] Calcium Gluconate () 1,000 mg in 60 mls @ 240 mls/hr IV NOW STA Stop: 04/07/22 20:11 Last Admin: 04/07/22 21:38 Dose: 240 mls/hr Documented by: [id number] Piperacillin Sod/Tazobactam (Sod 3.375 gm/ Dextrose) 115 mls @ 230 mls/hr IV NOW ONE; Protocol Stop: 04/07/22 23:14 Last Infusion: 04/07/22 23:57 Dose: 0 mls/hr Documented by: [id number] Admin: 04/07/22 23:27 Dose: 230 mls/hr Documented by: [id number] Insulin Human Regular (Novolin-R Insulin Per Unit Charge) 10 units IV NOW STA Stop: 04/07/22 19:56 Last Admin: 04/07/22 20:35 Dose: 10 units Documented by: [id number] Cosigned by: [id number] Miscellaneous (Patient's Height And/Or Weight Needed) 1 ea N/A NOW STA Stop: 04/07/22 22:38 Last Admin: 04/07/22 23:21 Dose: 1 ea Documented by: [id number] Morphine Sulfate (Morphine Sulfate 2 Mg/Ml Carp) 2 mg IV NOW STA Stop: 04/07/22 21:36 Last Admin: 04/07/22 22:06 Dose: 2 mg Documented by: [id number] Patiromer (Patiromer Calcium Sorbitex 8.4 Gm Pack) 8.4 gm PO NOW STA Stop: 04/07/22 20:59 Last Admin: 04/07/22 21:39 Dose: 8.4 gm Documented by: [id number] Imaging Data Radiologist's Impression: Chest X-Ray 04/07/22 17:29 XR chest 1V portable CLINICAL HISTORY: hypotension TECHNIQUE: Single frontal radiograph of the chest was obtained. Comparison: Comparison is made to chest radiographs 10/15/2020 FINDINGS: Median sternotomy wires are unchanged. Dual-lead pacemaker is seen. Cardiomegaly is noted. Prominence and cephalization of the vasculature is seen. No evidence o f pleural effusion or pneumothorax. IMPRESSION: Cardiomegaly with mild pulmonary hypertension. ACT 112: Negative or not required by law. Electronically signed by: Giovanni Mancia M.D. 04/07/2022 6:04 PM Abdomen/Pelvis CT 04/07/22 19:34 CT abd pelvis wo con CLINICAL HISTORY: acute on chronic renal failure TECHNIQUE: Helical axial images of the abdomen and pelvis were obtained. Automated dose lowering techniques and/or adjustment according to patient size were utilized for this exam. This exam was performed without intravenous contrast. CT DOSE: 251.90 mGy.cm COMPARISON: Comparison is made to CTA pelvis 03/13/2017 FINDINGS: Lower chest: Interstitial thickening is seen in the bilateral lungs. Partial visualization of cardiomegaly. Liver: Unremarkable. No focal lesions are seen. Gallbladder and biliary tree: The gallbladder is contracted. Radiodense gallstone is noted. No intra- or extrahepatic biliary ductal dilation. Pancreas: Unremarkable, no focal lesions. Spleen: Unremarkable. Adrenals: Unremarkable. Kidneys and ureters: A nonobstructive stone is seen on the right. Bladder: Unremarkable. Reproductive organs: Unremarkable. Bowel: Diverticulosis is seen without evidence of diverticulitis. Lymph nodes Retroperitoneal: Unremarkable. Mesenteric: Unremarkable. Pelvic: Unremarkable. Peritoneum: Normal. Vessels: Atherosclerotic calcifications are seen. Abdominal wall: Right fat and fluid containing inguinal hernia. Bones: Degenerative changes in the visualized spine. Bilateral pars defects and grade 1 anterolisthesis at L4-L5. IMPRESSION: Acute abnormalities, in particular no hydronephrosis in this patient with acute renal failure. ACT 112: Negative or not required by law. Electronically signed by: Giovanni Mancia M.D. 04/07/2022 8:52 PM Discharge Plan Visit Data Chief Complaint: Referred by Doctor Stated Complaint: SYSTOLIC IS 58, DR. MATA CALLED, ED Provider: Charanjit Olson Discharge Problem: Acute hyperkalemia, Acute on chronic renal failure, Acute hypotension, Elevated troponin, Transaminitis Patient Disposition: Admitted As Inpatient Discharge Instructions Interventions: ED Discharge Assessment Last Done: 04/07/22 22:55 Discharge Problem: Acute on chronic renal failure Qualifiers: Acute renal failure type: unspecified Chronic kidney disease stage: unspecified stage Qualified Code(s): N17.9 - Acute kidney failure, unspecified
[2022-04-07] MEDS ORDERED: POLYETHYLENE (MIRALAX) 17 GM PACK PO PRN (22:30)
[2022-04-07] MEDS ORDERED: ACETAMINOPHEN 325 MG TAB PO PRN (22:30)
[2022-04-07] MEDS ORDERED: PIPERACILL/TAZOBAC CONSULT ACTIVE PRN (22:30)
[2022-04-07] MEDS ORDERED: NITROGLYCERIN SL 0.4 MG/TAB TAB SL PRN (22:30)
[2022-04-07] MEDS ORDERED: ONDANSETRON INJ 2 MG/ML 2 ML VIAL IV PRN (22:30)
[2022-04-07] MEDS ORDERED: Patient's HEIGHT &/or WEIGHT Needed STA (22:37)
[2022-04-07] MEDS ORDERED: PIPERACILLIN/TAZOBACTAM 3.375 GM in DEXTROSE 5% 100 ML IV ONE (22:45)
[2022-04-07] MEDS ORDERED: ALBUTEROL HFA 8 GM INHALER INH PRN (22:46)
[2022-04-07] MEDS ORDERED: MELATONIN 3 MG TAB PO PRN (22:46)
[2022-04-07] MEDS: SODIUM CHLORIDE 0.9% 1000ML 1,000 ML IV SCH (23:31)
--- NOTE | 2022-04-08 02:46 | History and Physical Report ---
DATE OF ADMISSION: 04/07/2022. CHIEF COMPLAINT: Hypotension, ARIEL, hyperkalemia. HISTORY OF PRESENT ILLNESS: This is a 66-year-old male with past medical history significant for COPD, chronic respiratory failure, the patient says he uses oxygen in the nighttime on and off; history of pulmonary embolism; history of paroxysmal atrial fibrillation, status post Watchman's left atrial appendage closure device; history of VSD, status post cardiac pacemaker; history of CAD; pulmonary hypertension; aortic regurgitation; history of PE with acute cor pulmonale; Doll's esophagus; polycythemia secondary to hypoxia; history of rheumatoid arthritis; history of tobacco abuse. The patient lives alone. He went to see vascular surgery for followup and the patient was found to have hypotension and sent to the ER and found to also have hyperkalemia and ARIEL. The patient also has history of congenital heart disease, status post bioprosthetic aortic valve replacement, VSD repair, subaortic membrane resection, PFO repair, tricuspid valve annuloplasty in 2014 at [facility]. The patient underwent bilateral lower extremity angiogram in March 2019 and found to have occluded proximal left SFA with distal reconstitution. He underwent endovascular intervention. On Coumadin and Plavix. The patient recently underwent again bilateral lower extremity angiogram, found to have diffuse left SFA restenosis. Right lower extremity with calcified SFA disease, up to 95% in distal segment. He had right SFA intervention with intravascular lithotripsy and drug-eluting balloon and the patient states since the procedure, he is having lot of pain in the lower extremity. He was seen and evaluated by vascular surgery today and sent in because of hypotension. In the ER, he was also found to have potassium of 6.4, sodium of 132, creatinine of 3.25. Troponin high sensitivity 57. CT of the abdomen and pelvis without contrast, no hydronephrosis was found. After the fluid bolus, his blood pressure improved. He was given calcium gluconate, insulin dextrose, and Veltassa in the ER. The patient is alert and oriented. He did complain of back pain and leg pains. Denies any chest pain, denies any shortness of breath. He has chronic cough from his COPD. Denies any headache. No blurred visions, no earache. Has some runny nose. No sore throat. Appetite is okay. No difficulty swallowing. He lives alone. The patient ambulates without any support. Denies any blood in the stools or black stools. He says he is not urinating much. Recently, his torsemide was changed to Lasix. He says he tries to avoid salt , he is not micturating much. ALLERGIES: COREG. PAST MEDICAL HISTORY: As mentioned above. PAST SURGICAL HISTORY: Right heart catheterization, injection of lumbosacral spine, jaw arthroscopy, right knee arthroscopy, percutaneous closure of left atrial appendage implant in June 2019, reoperation of CABG, right inguinal hernia repair, repair of tricuspid valve, replacement of aortic valve with prosthetic valve, spine surgery, VSD closure. MEDICATIONS: The patient is on albuterol 2 puffs inhalation q. 6 hours p.r.n., atorvastatin 40 mg p.o. daily, Symbicort 2 puffs inhalation b.i.d., Plavix 75 mg p.o. daily, vitamin B12 1000 mcg p.o. daily, digoxin 0.125 mg p.o. daily, Lasix 40 mg p.o. b.i.d., gabapentin 100 mg p.o. t.i.d., probiotic 1 capsule p.o. daily, melatonin 3 mg p.o. at bedtime p.r.n., metoprolol succinate 25 mg p.o. daily, Protonix 40 mg p.o. daily, potassium chloride 10 mEq p.o. daily, Entresto 1 tablet p.o. daily, Creon 1 capsule inhalation daily, spironolactone 12.5 mg p.o. a.m., turmeric root 500 mg p.o. daily, vitamin E 400 units p.o. daily, warfarin as directed, zinc gluconate 50 mg p.o. daily. FAMILY HISTORY: Significant for father has alcoholism, COPD, depression; mother has hypertension, diabetes. SOCIAL HISTORY: Lives alone. Currently smokes half pack a day for 30 years. Alcohol 2 or 3 beers at night as per Epic. No drug use. REVIEW OF SYSTEMS: As per HPI. Rest of review of systems is negative. PHYSICAL EXAMINATION: GENERAL: The patient is of moderate build, not in acute distress. VITAL SIGNS: Temperature 36.4, pulse 71, respiratory rate 20, blood pressure currently 97/52, oxygen 94% on 2 liters. HEENT: Pupils equal, round and reactive to light. Oral mucosa moist. NECK: No JVD, no neck masses. CARDIOVASCULAR: S1 and S2 heard. Regular rate and rhythm. No murmur, no gallop. RESPIRATORY SYSTEM: Normal AP diameter. No accessory muscle use. No wheezing, no crackles. ABDOMEN: Soft, bowel sounds present, nontender, no distention. CENTRAL NERVOUS SYSTEM: Cranial nerves II through XII are grossly intact, nonfocal. EXTREMITIES: Right lower extremity is slightly erythematous and somewhat cold to touch. No edema seen. LABORATORY DATA: WBC 10.03, hemoglobin 11.5, hematocrit 40.7, platelets 292. PT 35.8, INR 3.6, APTT 36.7. Sodium 132, potassium 6.4, chloride 95, CO2 of 24, BUN 79, creatinine 3.25, serum glucose 86, calcium 9.5, phosphorus 6.5, magnesium 3, total bilirubin 0.9, AST 372, ALT 201, alkaline phosphatase 72. Troponin I high sensitivity 57.4. Ethyl alcohol less than 10. SARS-CoV-2 RNA negative. IMAGING DATA: CT of the abdomen and pelvis without contrast, no hydronephrosis. Chest x-ray: Cardiomegaly with mild pulmonary hypertension. EKG: AV dual paced rhythm at a rate of 64. ASSESSMENT AND PLAN: This 66-year-old male presents with hypotension, acute kidney injury, and hyperkalemia. 1. Hypotension: Improving with the fluid bolus. Will hold his Entresto, Lasix, spironolactone, metoprolol, digoxin. Continue with gentle fluids at 80 mL per hour. As needed, will give some more fluid boluses. Closely monitor in tele floor. Empirically starting on Zosyn. Follow lactic acid levels. Closely monitor. 2. Acute kidney injury: Creatinine of 3.2, probably secondary to hypotension and holding his nephrotoxic agents, holding his diuretics, spironolactone, Lasix, and also Entresto. Also, holding metoprolol. Getting gentle fluids. Will follow the labs in a.m. Consult nephrology in the a.m. 3. Hyperkalemia, potassium 6.4: Received calcium gluconate, insulin, dextrose and Veltassa in the ER. Will follow the repeat labs, holding the Aldactone and Entresto. Low-potassium diet,Monitor in tele.. 4. Mild elevation of troponin: Mostly likely from demand ischemia.. Will follow the repeat levels. Follow the echocardiogram. 5. P history of right-sided heart failure and also valvular heart disease: Holding diuretics. Getting fluids. Monitor for any volume overload. Diuretic adjustment as per Cardiology and nephrology. 6. Lower extremity pain: History of peripheral vascular disease, history of recent procedure. Will consult vascular surgery. Also questionable right lower extremity cellulitis. Placed on antibiotics, Zosyn. Follow the response. 7. History of chronic obstructive pulmonary disease: Continue home inhalers, oxygen as needed. 8. History of paroxysmal atrial fibrillation: History of Watchman left atrial appendage closure device, history of pacemaker, history of ventricular septal defect repair, history of bioprosthetic aortic valve, status post repair, history of subaortic membrane resection, history of PFO repair, history of tricuspid valve annuloplasty. Currently holding metoprolol and digoxin. On Coumadin, INR is 3.6. Follow the INR and adjust the Coumadin dose. 9. Hyperlipidemia: Continue statin. 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 11. Transaminitis. Probably from hypotension. Will follow repeat levels. 12. Deep venous thrombosis prophylaxis: On Coumadin. INR 3.6. DISPOSITION: Closely monitor in the tele floor. PT/OT prior to discharge. Social service to help with discharge planning. Level 1 full code as per my discussion with the patient. Job ID: [id number] MTDD
[2022-04-08 05:55] LABS: Hematocrit (blood only) 37.8 % (42-52); Hemoglobin 10.4 g/dL (14.0-18.0); Mean Corpuscular Hemoglobin 22.6 pg (25-34); Mean Corpuscular Hgb Conc 27.5 g/dL (32-36); Mean Platelet Volume 9.8 fL (7.4-10.4); Platelet Count 234 K/uL (130-400); RDW Standard Deviation 74.5 fL (36.4-46.3); Red Blood Count 4.61 M/uL (4.7-6.1); White Blood Count 10.46 K/uL (4.8-10.8)
[2022-04-08 06:08] LABS: INR 3.5 (0.9-1.1); Prothrombin Time 34.4 Seconds (9.0-12.0)
[2022-04-08 06:15] LABS: BUN Creatinine Ratio 25.6 (10-20); Calcium 9.1 mg/dl (8.5-10.1); Creatinine Clr Calc Pharmacy 19.1 ml/min; Est GFR (African American) 22.1 ml/min; Est GFR (Non-African American) 19.1 ml/min; Magnesium 2.7 mg/dl (1.7-2.4); Potassium 5.4 mmol/L (3.5-5.1)
[2022-04-08 06:30] LABS: Anisocytosis Present; Basophils # (auto) 0.02 K/uL (0-0.2); Basophils % (auto) 0.2 %; Eosinophils # (auto) 0.02 K/uL (0-0.5); Eosinophils % (auto) 0.2 %; Hypochromasia Present; Immature Granulocytes # (auto) 0.02 K/uL (0.00-0.02); Immature Granulocytes % (auto) 0.2 %; Lymphocytes # (auto) 0.94 K/uL (1.2-3.4); Monocytes # (auto) 1.24 K/uL (0.11-0.59); Monocytes % (auto) 11.9 %; Neutrophils # (auto) 8.22 K/uL (1.4-6.5); Neutrophils % (auto) 78.5 %
--- NOTE | 2022-04-08 08:01 | Cardiology Consultation ---
Date of Consultation April 08, 2022 Assessment & Plan (1) Acute hyperkalemia: (2) Acute on chronic renal failure: (3) Acute hypotension: (4) Elevated troponin: (5) Transaminitis: (6) Acute on chronic systolic (congestive) heart failure: (7) Pulmonary embolism, bilateral: (8) PAD (peripheral artery disease): (9) Complete heart block: (10) Afib: (11) Chronic anticoagulation: (12) CAD (coronary artery disease): (13) H/O aortic valve replacement: (14) S/P VSD closure: ? accidental overdose of diuretics will defer to our nephrology colleagues. no cardiac component at this point History of Present Illness Reason for Consultation: chronic LV systolic failure Requesting Physician: Dr. Rodriguez Attending Physician: John Flores MD History of Present Illness Pt seen and examined, well known to myself. Presents to [facility] with markedly abnormal outpatient labs. No acute cardiac complaints. PAST MEDICAL HISTORY: 1. History of endocarditis in 1977 2. Paroxysmal atrial fibrillation /atrial flutter. 3. [id number] = 4 (Age, HTN, PVD, CHF) 4. Bleeding history. GI bleed - 04/2019 5. Complete heart block status post permanent pacemaker implantationand subsequent device upgrade to Bi V ICD September 2020 6. Severe aortic valve insufficiency status post AVR in 2014 (25 mm Young II) 7. Subaortic membrane status post resection in 1959 and 2014 8. Membranous VSD status post repair in 2014 9. PFO status post repair 2014 10. Nonischemic cardiomyopathy. 11. Severe COPD 12. Nonobstructive coronary artery disease 13. Peripheral arterial disease status postMay 2018PTA and stenting of proximal to mid SFA (6.0 x 60 Absolue Pro self-expanding, 6.5 x 120 Supera) Successful angioplasty of mid SFA to proximal popliteal with intravascular lithotripsy and drug-eluting balloon 03/04/22 14. Doll's esophagus 15. BPH 16. Polycythemia secondary to chronic hypoxia 17. Bilateral pulmonary emboli on chronic Coumadin therapywhich occurred after Watchman placement Allergies Allergy/AdvReac Type Severity Reaction Status Date / Time carvedilol AdvReac Intermediate NIGHTMARES Verified 04/07/22 21:37 Home Medications Medication Instructions Recorded Confirmed Type albuterol sulfate 90 mcg/actuation 2 puff INHALATION Q6H PRN 07/27/18 04/07/22 History aerosol inhaler (Ventolin HFA) budesonide-formoterol HFA 160 2 puff INHALATION BID 07/27/18 04/07/22 History mcg-4.5 mcg/actuation aerosol inhaler (Symbicort) tiotropium bromide 18 mcg capsule 1 cap INHALATION QAM 07/27/18 04/07/22 History with inhalation device (Spiriva with HandiHaler) melatonin 3 mg tablet 3 mg PO HS PRN 08/28/20 04/07/22 History digoxin 125 mcg (0.125 mg) tablet 0.125 mg PO DAILY@1600 #30 tab 10/16/20 04/07/22 Rx (Digitek) cyanocobalamin (vitamin B-12) 1,000 mcg PO QDL 02/22/22 04/07/22 History 1,000 mcg capsule zinc gluconate 50 mg tablet 50 mg PO QAM 02/22/22 04/07/22 History pantoprazole 40 mg tablet,delayed 40 mg PO QAM 30 Days #90 tab 03/28/22 04/07/22 Rx release clopidogrel 75 mg tablet 75 mg PO QAM 90 Days #90 tab 04/04/22 04/07/22 Rx Lactobacillus 40-Bifidobact 1 cap PO QAM 04/07/22 04/07/22 History 3-S.thermophilus 100 billion cell capsule (Probiotic) atorvastatin 40 mg tablet 40 mg PO DAILY 04/07/22 04/07/22 History magnesium 30 mg tablet 0 mg PO QDL 04/07/22 04/07/22 History potassium chloride 10 mEq 10 meq PO DAILY 04/07/22 04/07/22 History tablet,extended release(part/cryst) vitamin E 400 unit capsule 400 unit PO QAM 04/07/22 04/07/22 History folic acid 1 mg tablet 1 mg PO QAM #30 tab 04/24/22 Rx furosemide 40 mg tablet 40 mg PO QAM #0 tab 04/24/22 04/07/22 Rx metoprolol succinate 25 mg 12.5 mg PO BID #0 tab 04/24/22 04/07/22 Rx tablet,extended release 24 hr Patient History Medical History Afib Paroxysmal CAD (coronary artery disease) Minimal luminal irregularities, 2014 Chronic anticoagulation COPD (chronic obstructive pulmonary disease) stable GERD (gastroesophageal reflux disease) Hx of Lyme disease approximately 4 years ago per pt Hypotension Nonischemic cardiomyopathy Osteoarthritis Pacemaker secondary to complete heart block; dual chamber May 2016 PAD (peripheral artery disease) Pulmonary hypertension Surgical History H/O aortic valve replacement secondary to severe aortic insufficiency; 2014; bioprosthetic H/O Spinal surgery LUMBAR DISCECTOMY History of cardiac cath Minimal luminal irregularities, 2014 History of colonoscopy History of tooth extraction History of ventricular septal defect s/p repair S/P right knee arthroscopy S/P VSD closure 2015 Status post patent foramen ovale closure Family History Mother Family history of diabetes mellitus Social History Smoking Status: Current every day smoker Cigarettes Per Day: 10; Second Hand Exposure: No; Hx Alcohol Use: Yes Alcohol type: beer Hx Substance Use: No Preferred Language: Ukrainian Communication Ability: Effective Visual Impairment: No Limitations Hospitality Job Titles Required: No Beliefs That Will Affect Care: None marital status: Current Living Situation: Alone Feels Safe at Home: Yes Assistive Devices: Oxygen - at Night Review of Systems Review of Systems: All systems reviewed & are unremarkable except as noted in HPI & below Results & Data ([facility]) Vital Signs (Past 12 Hours) Vital Signs Temp Pulse Resp BP BP Pulse Ox 04/08/22 06:37 36.4 C L 74 20 89/58 L 96 04/08/22 03:35 36.7 C 78 19 90/62 L 95 04/07/22 22:38 36.4 C L 71 20 97/52 L 94 (1) Acute on chronic renal failure Acute renal failure type: unspecified Chronic kidney disease stage: unspecified stage Qualified Code(s): N17.9 - Acute kidney failure, unspecified; N18.9 - Chronic kidney disease, unspecified
[2022-04-08 08:13] LABS: Appearance Urine Clear (Clear); Bacteria Urine Automated Negative (Negative); Bilirubin Urine Negative (Negative); Blood Urine Negative (Negative); Color Urine Dark Yellow; Glucose Urine UA Negative (Negative); Ketones Urine Trace (Negative); Leukocyte Esterase Urine Trace (Negative); Nitrite Urine Negative (Negative); Protein Urine Negative (Negative); RBC Urine Automated 0-4 /hpf (0-4); Specific Gravity Urine 1.016 (1.000-1.030); Urobilinogen Urine Negative (Negative)
[2022-04-08] MEDS: PIPERACILLIN/TAZOBACTAM 3.375 GM in DEXTROSE 5% 100 ML IV SCH ×2 (08:20→19:50)
[2022-04-08] MEDS: GABAPENTIN 100 MG CAP PO SCH ×3 (08:42→20:23)
[2022-04-08] MEDS: ATORVASTATIN 40 MG TAB PO SCH (08:42)
[2022-04-08] MEDS: PANTOprazole 40 MG TAB PO SCH (08:43)
[2022-04-08] MEDS: ADVANCED PROBIOTIC 1250 MG CAPSULE PO SCH (08:43)
[2022-04-08] MEDS: ZINC SULFATE 220 MG CAPSULE PO SCH (08:43)
[2022-04-08] MEDS: CLOPIDOGREL BISULFATE 75 MG TAB PO SCH (08:43)
[2022-04-08 08:44] LABS: Albumin Level 3.2 gm/dl (3.4-5.0); Bilirubin Direct 0.2 mg/dl (0-0.2); Bilirubin,Total 0.5 mg/dl (0.2-1.0)
[2022-04-08] MEDS: FLUTICASONE/VILANTEROL 200/25MCG 14 PUFFS/INHALER INH SCH (08:44)
[2022-04-08] MEDS: UMECLIDINIUM BROMIDE 62.5MCG/BLISTER 7 PUFFS/INHALER INH SCH (08:44)
[2022-04-08] MEDS: traMADol HCL 50 MG TABLET PO PRN (08:47)
[2022-04-08] MEDS ORDERED: SODIUM BICARBONATE 8.4% 75 MEQ in SODIUM CHLORIDE 0.45 % 1,000 ML IV SCH (10:05)
--- NOTE | 2022-04-08 10:05 | Nephrology Consultation ---
Date of Consultation April 08, 2022 Assessment & Plan (1) Acute on chronic renal failure: stage 2 acute on chronic renal failure, favor ischemic ATN in the setting of protracted hypotension, ?recent modifications in diuretics (? if does changes were somehow confused). urine sediment with ketones and a few LE. no evidence of UTI on UA irregardless of what any cx will say . no indication for urgent dialysis > changed NS this am to 1.2 NS w/ 75 mEq/L sodium bicarb at 50 mL / hr > lower rate d/t wheeze -serial bmp -supportive care > bp improving some now and 02 needs stable -CXR for AM ordered -on zosyn d/t concern for sepsis > defer to primary service to wean as indicated; does not have UTI (2) Hyperkalemia: improving with medical mgt -agree w/ low k diet -check digoxin level (ordered) and cont to hold digoxin -recheck bmp at 1100 and 1700 ordered History of Present Illness Reason for Consultation: ARIEL, hyperkalemia Requesting Physician: Dr Rodriguez Attending Physician: John Flores MD History of Present Illness 66 y/o M whom I'm asked to see for ARIEL and hyperkalemia was admitted overnight for same in setting of hypotension. Had been seen in vascular surgery clinic and sent to ER d/t hypotension. As an outpatient, his SBP generally run 110- 120s; he was in the 70s-80s on arrival to ER at 1700 yesterday and overnight. PMH includes complex structural heart disease s/p extensive repairs as below 2014, nonobstructive CAD and nonischemic [employer], a fib s/p Watchman procedure and w/ PE in wake of procedure on AC, complete heart block s/p 2019 cardiac pacer, symptomatic peripheral arterial disease s/p recent and alos 2019 stenting, COPD, nocturnal hypoxemia on 02 hs (intermittent adherence), Barretts, tobacco abuse, secondary polycythemia, prostatic hypertrophy, Covid 19 infection late 2020, active tobacco abuse. His cardiac surgical repair history includes 1959 and 2014 resection of subaortic membrane and 2015 repair of PFO and membranous VSD and s/p 2015 AVR for severe aortic valve insufficiency. He also has emerging CKD 3A, w/ his creatinine running about 1.5 since December; previously had been 1.1 x years. On 03/04/22 he had BLE extremity imaging and R SFA intravascular lithotripsy and drug eluting balloon procedure with Dr Javed; was obs'd in part to monitor renal function, w/ creatinine peaking at 1.7 and down to 1.3 by 03/05 d/c. He was d/c on his customary 20 mg daily torsemide dose. At f/u visit with PCP on 03/08 he c/o worse edema RLE and worse BLE cramping. he was advised to increase torsemide to 20 mg bid x 7 days on 03/11 w/ repeat labs planned 1 wk later. Repeat labs 03/24 showed creatinine 1.5 and K 4.2; he saw cardiology that day and did not have much improvement in leg pain; edema was a bit better per his report and his weight in clinic was down 4 lb from PCP visit. About a week before that visit he had transitioned from torsemide to furosemide. The patient is not able to tell me much about these med changes - they are found on chart review; he just knows his diuretics were increased recently. His PCP also comments in OP notes that despite being asked to make certain changes - to torsemide for example - he did not. He is also on entresto, spironolactone, digoxin as OP. Presenting K on 04/07 was 6.4, creat 3.3. he received fluid bolus w/ improved SBP and also received calcium, IV insulin, veltassa. Also started on NS at 80 mL hourly. K this AM 5.4; creat 3.2. The patient c/o dependent edema worse since his spring 2021 PAD procedure and ongoing leg pain. no worse breathing than baseline or light headedness. no chest pain palpitations or orthopnea. no new or worrisome voiding sx though he chronically c/o trouble starting/maintaining urine stream adn frequency. Allergies Allergy/AdvReac Type Severity Reaction Status Date / Time carvedilol AdvReac Intermediate NIGHTMARES Verified 04/07/22 21:37 Home Medications Medication Instructions Recorded Confirmed Type albuterol sulfate 90 mcg/actuation 2 puff INHALATION Q6H PRN 07/27/18 04/07/22 History aerosol inhaler (Ventolin HFA) budesonide-formoterol HFA 160 2 puff INHALATION BID 07/27/18 04/07/22 History mcg-4.5 mcg/actuation aerosol inhaler (Symbicort) tiotropium bromide 18 mcg capsule 1 cap INHALATION QAM 07/27/18 04/07/22 History with inhalation device (Spiriva with HandiHaler) turmeric root extract 500 mg 500 mg PO QDL 04/16/19 04/07/22 History capsule spironolactone 25 mg tablet 12.5 mg PO QAM tab 12/26/19 04/07/22 History melatonin 3 mg tablet 3 mg PO HS PRN 08/28/20 04/07/22 History metoprolol succinate 25 mg 25 mg PO DAILY@1600 08/28/20 04/07/22 History tablet,extended release 24 hr digoxin 125 mcg (0.125 mg) tablet 0.125 mg PO DAILY@1600 #30 tab 10/16/20 04/07/22 Rx (Digitek) cyanocobalamin (vitamin B-12) 1,000 mcg PO QDL 02/22/22 04/07/22 History 1,000 mcg capsule zinc gluconate 50 mg tablet 50 mg PO QAM 02/22/22 04/07/22 History pantoprazole 40 mg tablet,delayed 40 mg PO QAM 30 Days #90 tab 03/28/22 04/07/22 Rx release clopidogrel 75 mg tablet 75 mg PO QAM 90 Days #90 tab 04/04/22 04/07/22 Rx Lactobacillus 40-Bifidobact 1 cap PO QAM 04/07/22 04/07/22 History 3-S.thermophilus 100 billion cell capsule (Probiotic) atorvastatin 40 mg tablet 40 mg PO DAILY 04/07/22 04/07/22 History furosemide 40 mg tablet 40 mg PO BID 04/07/22 04/07/22 History gabapentin 100 mg capsule 100 mg PO TID 04/07/22 04/07/22 History magnesium 30 mg tablet 0 mg PO QDL 04/07/22 04/07/22 History potassium chloride 10 mEq 10 meq PO DAILY 04/07/22 04/07/22 History tablet,extended release(part/cryst) sacubitril 24 mg-valsartan 26 mg 1 tab PO BID 04/07/22 04/07/22 History tablet (Entresto) vitamin E 400 unit capsule 400 unit PO QAM 04/07/22 04/07/22 History warfarin 5 mg tablet See Rx Instructions .ROUTE .COMPLEX 04/07/22 04/07/22 History Patient History Medical History (Updated 04/08/22 @ 17:50 by Ashley Askew MD, PhD) Afib Paroxysmal CAD (coronary artery disease) Minimal luminal irregularities, 2014 Chronic anticoagulation COPD (chronic obstructive pulmonary disease) stable GERD (gastroesophageal reflux disease) Hx of Lyme disease approximately 4 years ago per pt Nonischemic cardiomyopathy Osteoarthritis Pacemaker secondary to complete heart block; dual chamber May 2016 PAD (peripheral artery disease) Pulmonary hypertension Surgical History H/O aortic valve replacement secondary to severe aortic insufficiency; 2014; bioprosthetic H/O Spinal surgery LUMBAR DISCECTOMY History of cardiac cath Minimal luminal irregularities, 2014 History of colonoscopy History of tooth extraction History of ventricular septal defect s/p repair S/P right knee arthroscopy S/P VSD closure 2014 Status post patent foramen ovale closure Family History Mother Family history of diabetes mellitus Social History Smoking Status: Current every day smoker Cigarettes Per Day: 10; Second Hand Exposure: No; Tobacco Cessation Education Requested by Patient: No Hx Alcohol Use: Yes Alcohol type: beer Hx Substance Use: No Preferred Language: Belgian Communication Ability: Effective Visual Impairment: No Limitations Industrial Engineer Required: No Beliefs That Will Affect Care: None marital status: Current Living Situation: Alone Feels Safe at Home: Yes Safety Concerns: Feels Safe At This Time Assistive Devices: Oxygen - at Night Review of Systems Review of Systems: All systems reviewed & are unremarkable except as noted in HPI & below Physical Exam Constitutional: well developed, average body habitus (small frame), + frail appearing (appears chronically ill) and cooperative; no acute distress Eyes: EOM intact bilaterally ENMT: Ears: no external ear abnormality Nose: no external nose abnormality Mouth: + dry oral mucous membranes Neck: no nuchal rigidity Respiratory: normal respiratory effort Auscultation: + diminished lung sounds and + wheezes (scattered expiratory) Gastrointestinal (Abdomen): Inspection/Auscultation: normal bowel sounds Percussion/Palpation: abdomen soft; abdomen nontender Musculoskeletal: Extremities: strength 5/5 throughout Skin: no rashes, warm and dry Neurologic: new, fluent speech, no tremor Results & [facility] ([facility]) Vital Signs (Past 12 Hours) Vital Signs Temp Pulse Resp BP BP Pulse Ox 04/08/22 06:37 36.4 C L 74 20 89/58 L 96 04/08/22 03:35 36.7 C 78 19 90/62 L 95 04/07/22 22:38 36.4 C L 71 20 97/52 L 94 Laboratory Results 04/08/22 05:21 04/08/22 05:21 UA reviewed Diagnostic Findings TTE 01/2022 EF 54%; small LV relative to RV. progressive (compared to 2019 adn 2020 studies) dilatation of RV and RV hypokinesis. AVR working OK. cxr admission Cardiomegaly with mild pulmonary hypertension CT abd/pelvis non con no acute abnormalities (1) Acute on chronic renal failure Acute renal failure type: unspecified Chronic kidney disease stage: unspecified stage Qualified Code(s): N17.9 - Acute kidney failure, unspecified; N18.9 - Chronic kidney disease, unspecified
[2022-04-08] MEDS: SODIUM CHLORIDE 0.9% 1000ML 1,000 ML IV SCH (11:21)
[2022-04-08 11:55] LABS: BUN Creatinine Ratio 25.2 (10-20); Creatinine Clr Calc Pharmacy 19.5 ml/min; Est GFR (African American) 22.8 ml/min; Est GFR (Non-African American) 19.7 ml/min; Potassium 5.1 mmol/L (3.5-5.1)
[2022-04-08] MEDS: CYANOCOBALAMIN (B-12) 500 MCG TABLET PO SCH (12:03)
[2022-04-08 12:04] LABS: Troponin I High Sensitivity 53.5 pg/ml (0-20)
--- NOTE | 2022-04-08 13:23 | Vascular Medicine Consultation ---
Date of Consultation April 08, 2022 Assessment & Plan (1) PAD (peripheral artery disease): --post left SFA stenting 03/2019 --right SFA angioplasty with intravascular lithotripsy and LYNN 03/04/22 2. Atrial fibrillation/flutter--Watchman device 3. Chronic systolic heart failure/nonischemic cardiomyopathystatus post BiV ICD 4. History of congenital heart disease status post remote repair 5. Tobacco use 6. Pulmonary emboli-- on anticoagulation Patient recently underwent right lower extremity endovascular intervention in the setting of claudication. Was admitted yesterday with significant hypotension, acute renal failure. Being evaluated by nephrology and cardiac care provided by Dr. Jansen. Currently complains of back and neck pain but no significant leg pain, do not feel PAD is causing his discomfort. On exam extremities are adequately perfused, no evidence of critical limb ischemia. Digit pressures in our office yesterday improved post intervention. No additional vascular testing or intervention needed at this time. History of Present Illness Reason for Consultation: Leg pain, PAD Attending Physician: John Flores MD History of Present Illness Mr. Farooq is a pleasant 66-year-old man with a history of significant valvular and congenital heart disease status post bioprosthetic aortic valve replacement (#25 Young), VSD repair, subaortic membrane resection, PFO repair, tricuspid valve annuloplasty in 2014 at [facility], atrial fibrillation status post Watchman device, bilateral PE, COPD and peripheral artery disease. He is followed by Dr. Jansen at [facility] for his cardiac care. Patient has a history of PAD initially diagnosed in 2017 in the setting of claudication. A CTA suggestive of bilateral high-grade SFA disease. Angiogram was deferred at that time. Returned in March 2019 with progressive limiting claudication involving his left calf limiting him to less than a half a block of walking.Underwent bilateral lower extremity angiogram 04/17/2019 and was found to have an occluded proximal LT SFA with distal reconstitution. He underwent endovascular intervention with eventual placement of a 6.5 x 120 Supera and 6.0 x 60 mm absolute self-expanding stent. Discharged home on prior Coumadin and new clopidogrel. In June 2019 patient underwent Watchman device insertion and shortly after was diagnosed with PE. Was on anticoagulation with warfarin for about 3 months. Then presented to [facility] in January 2020 with acute heart failure. Echo at that time show ed moderate LVH, EF 45-50%, bioprosthetic aortic valve with expected gradients, RV pressure 50-60 mmHg consistent with moderate to severe pulmonary htn, RV moderately to severely dilated. Subsequently has been started on Entresto and underwent upgrade to BiV device. Seen in our office in January with severe leg pain. Angiogram on 03/04/22 revealed calcified up to 95% right distal SFA stenosis, 50% right proximal popliteal stenosis, 2 vessel runoff via LAMINATION BUILDER/peroneal. Underwent successful angioplasty of right mid SFA to proximal popliteal with intravascular lithotripsy and drug eluding balloon (Lutonix 6 x 220). Patient was seen in our office yesterday for post procedure followup. Noted to have significant hypotension with a systolic blood pressure in the 60s. He was given 250 cc NS IV but systolic pressure remained int he 60s and he was referred to the ED. He was admitted and found to have acute renal insufficiency (Cr 3.25) and hyperkalemia (K 6.4). We were consulted today due to leg pain. While examining patient he states the majority of his pain is actually in his back and neck. Neg pain at rest, states if he were to get up and walk his legs would hurt. He has some lower extremity edema. Denies significant dyspnea. Being seen by [facility] cardiology. Allergies Allergy/AdvReac Type Severity Reaction Status Date / Time carvedilol AdvReac Intermediate NIGHTMARES Verified 04/07/22 21:37 Home Medications Medication Instructions Recorded Confirmed Type albuterol sulfate 90 mcg/actuation 2 puff INHALATION Q6H PRN 07/27/18 04/07/22 History aerosol inhaler (Ventolin HFA) budesonide-formoterol HFA 160 2 puff INHALATION BID 07/27/18 04/07/22 History mcg-4.5 mcg/actuation aerosol inhaler (Symbicort) tiotropium bromide 18 mcg capsule 1 cap INHALATION QAM 07/27/18 04/07/22 History with inhalation device (Spiriva with HandiHaler) turmeric root extract 500 mg 500 mg PO QDL 04/16/19 04/07/22 History capsule spironolactone 25 mg tablet 12.5 mg PO QAM tab 12/26/19 04/07/22 History melatonin 3 mg tablet 3 mg PO HS PRN 08/28/20 04/07/22 History metoprolol succinate 25 mg 25 mg PO DAILY@1600 08/28/20 04/07/22 History tablet,extended release 24 hr digoxin 125 mcg (0.125 mg) tablet 0.125 mg PO DAILY@1600 #30 tab 10/16/20 04/07/22 Rx (Digitek) cyanocobalamin (vitamin B-12) 1,000 mcg PO QDL 02/22/22 04/07/22 History 1,000 mcg capsule zinc gluconate 50 mg tablet 50 mg PO QAM 02/22/22 04/07/22 History pantoprazole 40 mg tablet,delayed 40 mg PO QAM 30 Days #90 tab 03/28/22 04/07/22 Rx release clopidogrel 75 mg tablet 75 mg PO QAM 90 Days #90 tab 04/04/22 04/07/22 Rx Lactobacillus 40-Bifidobact 1 cap PO QAM 04/07/22 04/07/22 History 3-S.thermophilus 100 billion cell capsule (Probiotic) atorvastatin 40 mg tablet 40 mg PO DAILY 04/07/22 04/07/22 History furosemide 40 mg tablet 40 mg PO BID 04/07/22 04/07/22 History gabapentin 100 mg capsule 100 mg PO TID 04/07/22 04/07/22 History magnesium 30 mg tablet 0 mg PO QDL 04/07/22 04/07/22 History potassium chloride 10 mEq 10 meq PO DAILY 04/07/22 04/07/22 History tablet,extended release(part/cryst) sacubitril 24 mg-valsartan 26 mg 1 tab PO BID 04/07/22 04/07/22 History tablet (Entresto) vitamin E 400 unit capsule 400 unit PO QAM 04/07/22 04/07/22 History warfarin 5 mg tablet See Rx Instructions .ROUTE .COMPLEX 04/07/22 04/07/22 History Patient History Medical History (Updated 04/08/22 @ 08:01 by Nikhil Jansen DO) Afib Paroxysmal CAD (coronary artery disease) Minimal luminal irregularities, 2014 Chronic anticoagulation COPD (chronic obstructive pulmonary disease) stable GERD (gastroesophageal reflux disease) Hx of Lyme disease approximately 4 years ago per pt Nonischemic cardiomyopathy Osteoarthritis Pacemaker secondary to complete heart block; dual chamber May 2016 PAD (peripheral artery disease) Pulmonary hypertension Surgical History H/O aortic valve replacement secondary to severe aortic insufficiency; 2015; bioprosthetic H/O Spinal surgery LUMBAR DISCECTOMY History of cardiac cath Minimal luminal irregularities, 2015 History of colonoscopy History of tooth extraction History of ventricular septal defect s/p repair S/P right knee arthroscopy S/P VSD closure 2015 Status post patent foramen ovale closure Family History Mother Family history of diabetes mellitus Social History Smoking Status: Current every day smoker Cigarettes Per Day: 10; Second Hand Exposure: No; Tobacco Cessation Education Requested by Patient: No Hx Alcohol Use: Yes Alcohol type: beer Hx Substance Use: No Preferred Language: Tamazight Communication Ability: Effective Visual Impairment: No Limitations Nuclear Process Engineer Required: No Beliefs That Will Affect Care: None marital status: Current Living Situation: Alone Feels Safe at Home: Yes Safety Concerns: Feels Safe At This Time Assistive Devices: Oxygen - at Night Physical Exam Physical Exam: General: Comfortable, no acute distress. Appears frail Eyes: Sclerae anicteric HENT: Mask in place Neck:No appreciable JVD Lungs: Bibasilar crackles Cardiac: Regular rate and rhythm. Abdomen: Soft, nontender Neuro: Nonfocal Psych: Alert orient x3, normal affect and mood Extremities/Vascular: -- 2+ radial bilaterally --2+ femoral pulse bilaterally --Pedal pulses diminished but palpable bilaterally. Extremities appear perfused --1+ pretibial edema bilaterally --no ulcers Results & Data ([facility]) Vital Signs (Past 12 Hours) Vital Signs Temp Pulse Resp BP BP Pulse Ox 04/08/22 11:50 36.5 C 77 20 90/57 L 91 04/08/22 06:37 36.4 C L 74 20 89/58 L 96 04/08/22 03:35 36.7 C 78 19 90/62 L 95 PG Care Time/CCT Total # of Minutes Spent Total Time Spent with Patient: Total time spent is greater than 50% in coordination of care (as documented) at patient's floor/unit and/or counseling patient: Coding Level of Care Code 88420 Inpt Consult Level 3 Diagnoses PAD (peripheral artery disease) I73.9
--- NOTE | 2022-04-08 13:27 | Hospitalist Progress Note ---
Date of Service April 08, 2022 Assessment & Plan (1) Acute on chronic renal failure: Plan: ASSESSMENT AND PLAN: This 66-year-old male presents with hypotension, acute kidney injury, and hyperkalemia. 1. Hypotension:Likely from volume depletion Currently on bicarb drip Hold Entresto, Lasix, spironolactone, metoprolol, digoxin. 2. Acute kidney injury possible prerenal etiology, possible ATN Creatinine of 3.2, probably secondary to hypotension and holding his nephrotoxic agents, holding his diuretics, spironolactone, Lasix, and also Entresto Baseline around 1 Creatinine today 3.1 Bicarb drip started Nephrology service on board Monitor BMP 3. Hyperkalemia potassium 6.4: Potassium level improved to 5.1 4. Mild elevation of troponin: Mostly likely from demand ischemia Repeat troponins in the 50s, plateau 5. P history of right-sided heart failure and also valvular heart disease: Holding diuretics. Shuttle Operator consulted 6. Lower extremity pain: History of peripheral vascular disease, history of recent procedure. Vascular surgery consulted No surgical intervention at this point Continue Zosyn for now 7. History of chronic obstructive pulmonary disease: Continue home inhalers, oxygen as needed. 8. History of paroxysmal atrial fibrillation: History of Watchman left atrial appendage closure device, history of pacemaker, history of ventricular septal defect repair, history of bioprosthetic aortic valve, status post repair, history of subaortic membrane resection, history of PFO repair, history of tricuspid valve annuloplasty. Currently holding metoprolol and digoxin INR 3.5 Hold Coumadin INR goal 2-3 Alcohol use Will start alcohol withdrawal protocol including gabapentin protocol and Ativan as needed 9. Hyperlipidemia: Continue statin. 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 11. Transaminitis. Probably from hypotension. Will follow repeat levels. 12. Deep venous thrombosis prophylaxis: INR 3.5 Hold Coumadin DISPOSITION: Pending PT and OT evaluation Admission and Anticipated Discharge Date Admission Date: April 07, 2022 Subjective Follow-up for acute on chronic kidney disease, etc. Seen resting in bed, comfortable, not in distress States he feels tired today Was having some neck pain which is chronic this morning relieved by tramadol which was ordered no chest pain, dyspnea, palpitations, dizziness No fevers or chills Denies leg pain Inquiring when he can be discharged, states that he can only stay here for the weekend because he does not like staying in the hospita At length, explained medical condition, risks and benefits of leaving prematurely Agreeable to stay On further interview by RN, patient admits to drinking 2-3 bottles of beer per day 5-6 on weekends Also smokes Review of Systems Review of Systems: all noted and negative except for above Physical Exam Physical Exam: General- oriented x 3, not in distress, speaks in sentences with no effort or accessory muscle use Somewhat weak Head- atraumatic Eyes- PERRL, EOMI, anicteric ENT- oropharynx clear Neck- supple, no JVD, no adenopathy, no thyromegaly; carotids +2/2, no bruits appreciated Lungs- clear to auscultation bilaterally, no rales/wheezes Heart- normal rate, regular rhythm; no murmur, no gallop, no rub appreciated Abdomen- normal bowel sounds, nondistended, soft, nontender, no masses or hepatosplenomegaly Extremities- no pretibial edema, no calf tenderness; peripheral pulses intact Neuro- alert, oriented x 3; CN 2-12 grossly intact; motor 5/5 bilaterally;s ensation 100% on all extremities; no other gross focal neurologic deficits Skin- warm & dry Results & Data Results & Data ([facility]) Vital Signs (Past 12 Hours) Vital Signs Temp Pulse Resp BP BP Pulse Ox 04/08/22 11:50 36.5 C 77 20 90/57 L 91 04/08/22 06:37 36.4 C L 74 20 89/58 L 96 04/08/22 03:35 36.7 C 78 19 90/62 L 95 all noted and reviewed including below (1) Acute on chronic renal failure Acute renal failure type: unspecified Chronic kidney disease stage: unspecified stage Qualified Code(s): N17.9 - Acute kidney failure, unspecified; N18.9 - Chronic kidney disease, unspecified
[2022-04-08] MEDS ORDERED: GABAPENTIN 600MG ALCOHOL WITHDRAWAL LOAD PO STA (15:27)
[2022-04-08] MEDS ORDERED: LORazepam 2 MG/1 ML VIAL IV PRN ×2 (15:27)
[2022-04-08] MEDS ORDERED: WARFARIN SOD 5 MG TAB PO SCH (16:00)
[2022-04-08] MEDS ORDERED: GABAPENTIN 600 MG TAB PO ONE (16:30)
[2022-04-08] MEDS: FOLIC ACID 1 MG TAB PO SCH (17:53)
[2022-04-08] MEDS: THIAMINE HCL 100 MG TAB PO SCH (17:53)
[2022-04-08 18:01] LABS: BUN Creatinine Ratio 25.7 (10-20); Creatinine Clr Calc Pharmacy 19.8 ml/min; Est GFR (African American) 23.3 ml/min; Est GFR (Non-African American) 20.1 ml/min; Potassium 4.8 mmol/L (3.5-5.1)
[2022-04-08 18:05] LABS: Troponin I High Sensitivity 49.8 pg/ml (0-20)
--- NOTE | 2022-04-08 21:49 | Electrocardiogram Report ---
Test Reason : Blood Pressure : / mmHG Vent. Rate : 064 BPM Atrial Rate : 064 BPM P-R Int : 170 ms QRS Dur : 134 ms QT Int : 434 ms P-R-T Axes : -46 230 060 degrees QTc Int : 447 ms AV dual-paced rhythm Abnormal ECG When compared with ECG of 15-OCT-2020 07:03, AV pacing is now present Vent. rate has decreased BY 45 BPM Confirmed by Siddharth Bah ([id number]) on 04/08/2022 9:48:56 PM Referred By: REFERRED SELF Confirmed By:Siddharth Bah
[2022-04-09] MEDS: GABAPENTIN 100 MG CAP PO SCH (03:34)
[2022-04-09] MEDS: traMADol HCL 50 MG TABLET PO PRN (04:08)
[2022-04-09 06:03] LABS: INR 2.3 (0.9-1.1); Prothrombin Time 23.4 Seconds (9.0-12.0)
[2022-04-09] MEDS: PIPERACILLIN/TAZOBACTAM 3.375 GM in DEXTROSE 5% 100 ML IV SCH ×3 (08:43→23:33)
[2022-04-09] MEDS: FOLIC ACID 1 MG TAB PO SCH (08:43)
[2022-04-09] MEDS: THIAMINE HCL 100 MG TAB PO SCH (08:44)
[2022-04-09] MEDS: CLOPIDOGREL BISULFATE 75 MG TAB PO SCH (08:45)
[2022-04-09] MEDS: ZINC SULFATE 220 MG CAPSULE PO SCH (08:45)
[2022-04-09] MEDS: PANTOprazole 40 MG TAB PO SCH (08:46)
[2022-04-09] MEDS: ADVANCED PROBIOTIC 1250 MG CAPSULE PO SCH (08:46)
[2022-04-09] MEDS: UMECLIDINIUM BROMIDE 62.5MCG/BLISTER 7 PUFFS/INHALER INH SCH (08:46)
[2022-04-09] MEDS: ATORVASTATIN 40 MG TAB PO SCH (08:46)
[2022-04-09] MEDS: FLUTICASONE/VILANTEROL 200/25MCG 14 PUFFS/INHALER INH SCH (08:47)
--- NOTE | 2022-04-09 09:14 | Nephrology Progress Note ---
Date of Service April 09, 2022 Assessment & Plan (1) Acute on chronic renal failure: Plan: stage 2 acute on chronic renal failure, favor ischemic ATN in the setting of p rotracted hypotension, ?recent modifications in diuretics (? if does changes were somehow confused). urine sediment with ketones and a few LE. no evidence of UTI on UA irregardless of what any cx will say . no indication for urgent dialysis > changed NS this am to 1.2 NS w/ 75 mEq/L sodium bicarb at 50 mL / hr > lower rate d/t wheeze-- now d/c -ed.No need for iV fluids. - Renal functions - improving,Although BP is still soft and Cxr and 02 requirements has not changed. -supportive care, hold diuretics, careful 250 bolus of NS if needed for hypotension, restart on diuretics if oxygen requirements increase. -on zosyn d/t concern for sepsis > defer to primary service to wean as indicated; does not have UTI (2) Hyperkalemia: Plan: improving with medical mgt -agree w/ low k diet - Raised dig levels- raised , not sure when this was drawn-- ideally should be 4 hr after Iv and 6 hr post Oral dose . He is no longer on this.Leave this to primary team. Admission and Anticipated Discharge Date Admission Date: April 07, 2022 Subjective Follow-up for acute on chronic kidney disease, etc. Seen resting in bed, comfortable, not in distress. uop has been good after foleys, HYpotensive. Review of Systems Review of Systems: All systems reviewed & are unremarkable except as noted in Subjective Physical Exam Physical Exam: Constitutional:L well developed, av erage body habitus (small frame), + frail appearing (a ppears chronically ill) and cooperat yulisa; no acute dist ress Eyes: EOM intact bilater ally ENMT: Ears: no external ear abnormality N ose: no external n ose abnormality M outh: + dry oral m ucous membranes Neck: no nuchal rigidity Respiratory: normal respiratory effort Auscultat ion: + diminished lung sounds and + wheezes (scattered expiratory) Gastrointestinal ( Abdomen): Inspection/Auscult ation: normal grisel l sounds Percussi on/Palpation: abdo men soft; abdomen nontender Musculoskeletal: Extremities: stren gth 5/5 throughout Skin: no rashes, warm an d dry Neurologic: new, fluent speech , no tremor Results & Data ([facility]) Vital Signs (Past 12 Hours) Vital Signs Temp Pulse Pulse Resp BP BP Pulse Ox 04/09/22 07:16 36.6 C 70 18 88/52 L 96 04/09/22 03:41 97/63 L 04/09/22 03:25 37 C 78 17 89/64 L 99 04/09/22 01:22 65 04/08/22 23:06 36.8 C 67 16 91/60 L 98 Laboratory Results 04/09/22 09:00 04/09/22 09:00 (1) Acute on chronic renal failure Acute renal failure type: unspecified Chronic kidney disease stage: unspecified stage Qualified Code(s): N17.9 - Acute kidney failure, unspecified; N18.9 - Chronic kidney disease, unspecified
--- NOTE | 2022-04-09 09:35 | XRay Report ---
XR chest 1V portable HISTORY: Right-sided heart failure. Assess for pulmonary edema. valvular / R HF pt on IVF> eval flui d status COMPARISON: Chest 04/07/2022. FINDINGS: No pneumothorax. The heart remains enlarged. The left-sided pacemaker again noted. There ar e poststernotomy changes. Interval progression of the perihilar interstitial/vascular thickening and small bilateral pleural fusions. Bibasilar densities have also progressed. Stable curvilinear metalli c density overlying the right clavicular head. IMPRESSION: 1. Interval progression of the pulmonary edema and small bilateral pleural effusions. 2. Bibasilar densities have also progressed and may represent atelectasis or pneumonia. ACT 112: Negative or not required by law. Electronically signed by: Lenny Gracia M.D. 04/09/2022 9:34 AM
[2022-04-09 09:42] LABS: Calcium 9.1 mg/dl (8.5-10.1); Creatinine Clr Calc Pharmacy 25.4 ml/min; Est GFR (African American) 30.8 ml/min; Est GFR (Non-African American) 26.6 ml/min; Potassium 4.5 mmol/L (3.5-5.1)
[2022-04-09] MEDS ORDERED: SODIUM CHLORIDE 0.9% 1000ML 500 ML IV ONE (10:04)
[2022-04-09 10:16] LABS: Hematocrit (blood only) 40.8 % (42-52); Hemoglobin 11.1 g/dL (14.0-18.0); Mean Corpuscular Hemoglobin 22.9 pg (25-34); Mean Corpuscular Hgb Conc 27.2 g/dL (32-36); Mean Corpuscular Volume 84.1 fL (80-100); Mean Platelet Volume 9.9 fL (7.4-10.4); Platelet Count 246 K/uL (130-400); RDW Standard Deviation 75.3 fL (36.4-46.3); Red Blood Count 4.85 M/uL (4.7-6.1); White Blood Count 12.27 K/uL (4.8-10.8)
[2022-04-09 10:35] LABS: Allen Test Pos (Pos); Base Excess ABG 0.2 mEq/L (-9-1.8); HCO3 ABG 27 mmol/L (19-24); PCO2 ABG 58 mmHg (35-46); PO2 ABG 96 mmHg (80-95); pH ABG 7.29 (7.35-7.45)
--- NOTE | 2022-04-09 10:39 | XRay Report ---
XR chest 1V portable CLINICAL HISTORY: wheezing TECHNIQUE: Single frontal radiograph of the chest was obtained. Comparison: Comparison is made to chest radiograph 04/09/2022 FINDINGS: Lines and tubes are stable. Cardiomegaly is noted. Stable bilateral lower lung predominant airspace o pacities. There is a small left pleural effusion. IMPRESSION: 1. Bilateral lower lung predominant airspace opacities which may represent atelectasis, pneumonia, a nd/or aspiration. 2. Small left pleural effusion. ACT 112: Negative or not required by law. Electronically signed by: Giovanni Mancia M.D. 04/09/2022 10:38 AM
[2022-04-09 11:06] LABS: Basophils # (auto) 0.05 K/uL (0-0.2); Basophils % (auto) 0.4 %; Eosinophils # (auto) 0.15 K/uL (0-0.5); Eosinophils % (auto) 1.2 %; Hypochromasia Present; Immature Granulocytes # (auto) 0.03 K/uL (0.00-0.02); Immature Granulocytes % (auto) 0.2 %; Lymphocytes # (auto) 0.88 K/uL (1.2-3.4); Lymphocytes % (auto) 7.2 %; Monocytes # (auto) 1.14 K/uL (0.11-0.59); Monocytes % (auto) 9.3 %; Neutrophils # (auto) 10.02 K/uL (1.4-6.5); Neutrophils % (auto) 81.7 %
--- NOTE | 2022-04-09 11:37 | Hospitalist Progress Note ---
Date of Service April 09, 2022 Assessment & Plan (1) Acute on chronic renal failure: Plan: ASSESSMENT AND PLAN: This 66-year-old male presents with hypotension, acute kidney injury, and hyperkalemia. 1. Hypotension:Likely from volume depletion Patient hypotensive in the systolic 70s to 80s today Did not improve his 1 L IV fluid bolus Discussed with auto body customizer, transfer to ICU Hold Entresto, Lasix, spironolactone, metoprolol, digoxin. Possible component of sepsis from right lower extremity cellulitis, possible pneumonia bilateral Urine culture: Negative Blood cultures: Pending Leg erythema, improving Start doxycycline IV Continue Zosyn IV 2. Acute kidney injury possible prerenal etiology, possible ATN Creatinine of 3.2, probably secondary to hypotension and holding his nephrotoxic agents, holding his diuretics, spironolactone, Lasix, and also Entresto Baseline around 1 Given bicarb drip Creatinine today 2.4 Bicarb drip started Nephrology service on board Recommend to DC IV fluids today due to possible volume overload 3. Hyperkalemia potassium 6.4 on admission Potassium level improved to 4.5 4. Mild elevation of troponin: Mostly likely from demand ischemia Repeat troponins in the 50s, plateau 5. P history of right-sided heart failure and also valvular heart disease: Holding diuretics. Re Recording Mixer consulted 6. Lower extremity pain: History of peripheral vascular disease, history of recent procedure. Vascular surgery consulted No surgical intervention at this point Continue Zosyn for now for possible cellulitis 7. History of chronic obstructive pulmonary disease: Continue home inhalers, oxygen as needed. 8. History of paroxysmal atrial fibrillation: History of Watchman left atrial appendage closure device, history of pacemaker, history of ventricular septal defect repair, history of bioprosthetic aortic valve, status post repair, history of subaortic membrane resection, history of PFO repair, history of tricuspid valve annuloplasty. Currently holding metoprolol and digoxin INR 2.3 Resume Coumadin INR goal 2-3 Alcohol use No overt signs of alcohol withdrawal alcohol withdrawal protocol including gabapentin protocol and Ativan as needed 9. Hyperlipidemia: Continue statin. 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 11. Transaminitis. Probably from hypotension. Seems to be improving 12. Deep venous thrombosis prophylaxis: INR 2.3 Hold Coumadin DISPOSITION: Pending PT and OT evaluation Admission and Anticipated Discharge Date Admission Date: April 07, 2022 Subjective ff up for hypotension, etc notified by RN as patient hypotensive, drowsy, etc seen resting in bed, not in distress drowsy but easily awakened states he just feels tired and sleepy no chest pain, dyspnea, palpitations, dizziness no abdominal pain ,nausea/vomiting, pain no other symptoms Review of Systems 2 Review of Systems: all noted and negative except for above Physical Exam Physical Exam: General- oriented x 2, not in distress, speaks in sentences with no effort or accessory muscle use Very drowsy Appears weak Eyes- anicteric Neck- no JVD Lungs-decreased breath sounds at the bases, no wheezing noted Heart- normal rate, regular rhythm; no murmurs Abdomen- normal bowel sounds, nondistended, soft, nontender Extremities-right lower extremity: Mild erythema, no edema Left lower extremity: Essentially normal Neuro- alert, oriented x23; no gross focal neurologic deficits Skin- warm & dry Results & Data Results & Data ([facility]) Vital Signs (Past 12 Hours) Vital Signs Temp Pulse Pulse Resp BP BP Pulse Ox 04/09/22 11:03 36.2 C L 74 19 90/49 L 94 04/09/22 10:54 84 20 96 04/09/22 10:26 69 90/48 L 94 04/09/22 10:13 90 75/49 L 98 04/09/22 09:41 97 H 82/46 L 04/09/22 09:29 88 81/45 L 04/09/22 07:16 36.6 C 70 18 88/52 L 96 04/09/22 03:41 97/63 L 04/09/22 03:25 37 C 78 17 89/64 L 99 04/09/22 01:22 65 all noted and reviewed including below (1) Acute on chronic renal failure Acute renal failure type: unspecified Chronic kidney disease stage: unspecified stage Qualified Code(s): N17.9 - Acute kidney failure, unspecified; N18.9 - Chronic kidney disease, unspecified
[2022-04-09] MEDS: SODIUM CHLORIDE 0.9% 1000ML 1,000 ML IV SCH (11:53)
[2022-04-09] MEDS: DOXYCYCLINE HYCLATE 100 MG in DEXTROSE 5% 100 ML IV SCH ×2 (11:54→23:29)
[2022-04-09] MEDS: CYANOCOBALAMIN (B-12) 500 MCG TABLET PO SCH (11:55)
--- NOTE | 2022-04-09 12:11 | Critical Care Consultation ---
Date of Consultation April 09, 2022 Assessment & Plan (1) Hypotension: (2) Transaminitis: (3) Acute hypoxemic respiratory failure: (4) Fluid overload: (5) Chronic anticoagulation: (6) H/O aortic valve replacement: 66-year-old male with a past medical history of AVR replacement, vasculopathy, nonischemic cardiomyopathy, atrial fibrillation and chronic anticoagulation with warfarin presenting to the hospital due to hypotension and renal failure. Neurologic: Patient is mildly lethargic. Likely secondary to metabolic encephalopathy from hypercapnia, transaminitis and hypoxemia. We will check an ammonia level. He does orient easily and follows commands. Hold gabapentin. Pulmonary: Currently on minimal BiPAP due to hypoxemic and hypercapnic respiratory failure. ABG with evidence of acute hypercapnic respiratory failure likely secondary to volume overload. Chest x-ray reviewed as per HPI. Signs of pulmonary edema noted. Continue Breo Ellipta and Incruse Ellipta for possible COPD. Cardiovascular: History of aortic valve replacement, diastolic CHF and secondary pulmonary hypertension. Maintain mean arterial pressures above 65. We will start low dose Levophed as needed. Gastrointestinal: Transaminitis of unclear etiology. CT abdomen/pelvis on admission without acute findings. Repeat LFTs ordered. If trend continues upward, will need hepatitis work-up. Possible ischemic hepatitis versus congestive hepatopathy given RV failure. Renal: ARIEL improving with IV fluids. Appreciate nephrology input. Possible overdiuresis. Continue close monitoring of urine output via Pritchard. Lactate ordered. Infectious disease: Concern of possible sepsis. Etiology unclear. ? Lower extremity cellulitis. Continue broad-spectrum antibiotics. MRSA screen negative. Hematologic: Patient on warfarin for history of PE and A. fib. Continue warfarin. INR 2.3. No signs of bleeding. Patient with chronic anemia. Hemoglobin 11.1. Endocrine: We will check TSH and cortisol. VTE prophylaxis: Warfarin CODE STATUS: Full Family at bedside: Not available bedside Disposition: ICU I have personally spent 43 minutes of critical care time in the direct management of this patient. This is a life/limb threatening event. This includes time spent evaluating patient, direct bedside care, chart review, placing orders, interpretation of diagnostic studies, discussion with consultants, patient, and family members, as well as other required patient management activities. This time is exclusive of all separately billable procedures, and teaching time and separate from and in addition to any other critical care service time. Thank you for allowing us to participate in the care of this patient. History of Present Illness Reason for Consultation: Hypoxemic respiratory failure and hypotension Attending Physician: John Flores MD History of Present Illness 66-year-old male with a past medical history of paroxysmal atrial fibrillation status post watchman device, severe aortic valve insufficiency status post AVR in 2015, membranous VSD status postrepair in 2015, nonischemic cardiomyopathy, peripheral artery disease, Doll's esophagus, history of bilateral pulmonary emboli on warfarin therapy and coronary artery disease who presented to the hospital 04/08/2022. 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 He was referred to the ER. He was found to be hyperkalemic and with acute kidney injury. He received Veltassa, calcium gluconate and insulin in the ER. ICU was called today due to ongoing hypotension with systolics in the 70s over 50s. He received 2, 250 mL boluses over the span of 1 to 2 hours. When I came to see the patient he was on BiPAP and his blood pressure was 90/50. He is mentating and denies any significant complaint at present. He denies any fevers, chills or night sweats. Denies any chest pain. Echo from 02/11/2022 reviewed with an LVEF of 54%. Mild pulmonary hypertension seen with an estimated PASP of [address] abdomen and pelvis completed 04/07/2022 revealed no acute abnormalities. Chest x-ray with bilateral pulmonary edema and small bilateral effusions. MRSA screen negative on admission. Mild leukocytosis today at 12,270. Patient is currently on Zosyn and doxycycline. INR is currently 2.3. Blood cultures negative thus far. Urinalysis 04/08/2022 with trace leuk esterase. I spoke with the patient's hospitalist, roller shop utility worker and nurse. Cardiology feels that the patient may have been a bit over diuresed as an outpatient. Updated echo was reportedly stable compared to prior. Allergies Allergy/AdvReac Type Severity Reaction Status Date / Time carvedilol AdvReac Intermediate NIGHTMARES Verified 04/07/22 21:37 Home Medications Medication Instructions Recorded Confirmed Type albuterol sulfate 90 mcg/actuation 2 puff INHALATION Q6H PRN 07/27/18 04/07/22 History aerosol inhaler (Ventolin HFA) budesonide-formoterol HFA 160 2 puff INHALATION BID 07/27/18 04/07/22 History mcg-4.5 mcg/actuation aerosol inhaler (Symbicort) tiotropium bromide 18 mcg capsule 1 cap INHALATION QAM 07/27/18 04/07/22 History with inhalation device (Spiriva with HandiHaler) turmeric root extract 500 mg 500 mg PO QDL 04/16/19 04/07/22 History capsule spironolactone 25 mg tablet 12.5 mg PO QAM tab 12/26/19 04/07/22 History melatonin 3 mg tablet 3 mg PO HS PRN 08/28/20 04/07/22 History metoprolol succinate 25 mg 25 mg PO DAILY@1600 08/28/20 04/07/22 History tablet,extended release 24 hr digoxin 125 mcg (0.125 mg) tablet 0.125 mg PO DAILY@1600 #30 tab 10/16/20 04/07/22 Rx (Digitek) cyanocobalamin (vitamin B-12) 1,000 mcg PO QDL 02/22/22 04/07/22 History 1,000 mcg capsule zinc gluconate 50 mg tablet 50 mg PO QAM 02/22/22 04/07/22 History pantoprazole 40 mg tablet,delayed 40 mg PO QAM 30 Days #90 tab 03/28/22 04/07/22 Rx release clopidogrel 75 mg tablet 75 mg PO QAM 90 Days #90 tab 04/04/22 04/07/22 Rx Lactobacillus 40-Bifidobact 1 cap PO QAM 04/07/22 04/07/22 History 3-S.thermophilus 100 billion cell capsule (Probiotic) atorvastatin 40 mg tablet 40 mg PO DAILY 04/07/22 04/07/22 History furosemide 40 mg tablet 40 mg PO BID 04/07/22 04/07/22 History gabapentin 100 mg capsule 100 mg PO TID 04/07/22 04/07/22 History magnesium 30 mg tablet 0 mg PO QDL 04/07/22 04/07/22 History potassium chloride 10 mEq 10 meq PO DAILY 04/07/22 04/07/22 History tablet,extended release(part/cryst) sacubitril 24 mg-valsartan 26 mg 1 tab PO BID 04/07/22 04/07/22 History tablet (Entresto) vitamin E 400 unit capsule 400 unit PO QAM 04/07/22 04/07/22 History warfarin 5 mg tablet See Rx Instructions .ROUTE .COMPLEX 04/07/22 04/07/22 History Patient History Medical History (Updated 04/09/22 @ 12:32 by Ernst Almaguer MD) Afib Paroxysmal CAD (coronary artery disease) Minimal luminal irregularities, 2014 Chronic anticoagulation COPD (chronic obstructive pulmonary disease) stable GERD (gastroesophageal reflux disease) Hx of Lyme disease approximately 4 years ago per pt Hypotension Nonischemic cardiomyopathy Osteoarthritis Pacemaker secondary to complete heart block; dual chamber May 2016 PAD (peripheral artery disease) Pulmonary hypertension Surgical History H/O aortic valve replacement secondary to severe aortic insufficiency; 2014; bioprosthetic H/O Spinal surgery LUMBAR DISCECTOMY History of cardiac cath Minimal luminal irregularities, 2014 History of colonoscopy History of tooth extraction History of ventricular septal defect s/p repair S/P right knee arthroscopy S/P VSD closure 2014 Status post patent foramen ovale closure Family History Mother Family history of diabetes mellitus Social History Smoking Status: Current every day smoker Cigarettes Per Day: 10; Second Hand Exposure: No; Tobacco Cessation Education Requested by Patient: No Hx Alcohol Use: Yes Alcohol type: beer Hx Substance Use: No Preferred Language: Nauruan Communication Ability: Effective Visual Impairment: No Limitations Email Producer Required: No Beliefs That Will Affect Care: None marital status: Current Living Situation: Alone Feels Safe at Home: Yes Safety Concerns: Feels Safe At This Time Assistive Devices: Oxygen - at Night Review of Systems Review of Systems: All systems reviewed & are unremarkable except as noted in HPI & below Physical Exam Physical Exam: Constitutional: Chronically ill-appearing male in mild distress. BiPAP mask in place. Eyes: Pupils are equal round and reactive to light. Conjunctivae are normal. Anicteric sclera. Ears nose, mouth and throat: BiPAP in place. Neck: Trachea is midline. Visual inspection is normal. Respiratory: Clear to auscultation bilaterally. No use of accessory muscles. No significant clubbing noted. Cardiovascular: Regular rate and rhythm. No murmurs. No edema. Gastrointestinal: Mild tenderness to palpation over the lower epigastrium. No rebound. No significant blood no burning thyromegaly. Musculoskeletal: No cyanosis. Patient is able to move all extremities. Skin: Areas of venous stasis dermatitis in his lower extremities. Neurologic: No obvious focal neurological deficits seen. Psychiatric: Alert and oriented x3 with a euthymic affect. Results & Data Results & Data ([facility]) Vital Signs (Past 12 Hours) Vital Signs Temp Pulse Pulse Resp BP BP Pulse Ox 04/09/22 11:03 36.2 C L 74 19 90/49 L 94 04/09/22 10:54 84 20 96 04/09/22 10:26 69 90/48 L 94 04/09/22 10:13 90 75/49 L 98 04/09/22 09:41 97 H 82/46 L 04/09/22 09:29 88 81/45 L 04/09/22 07:16 36.6 C 70 18 88/52 L 96 04/09/22 03:41 97/63 L 04/09/22 03:25 37 C 78 17 89/64 L 99 04/09/22 01:22 65 Coding Level of Care Code Critical Care 1st 30-74 mins Diagnoses Hypotension I95.9 Transaminitis R74.01 Acute hypoxemic respiratory failure J96.01 Fluid overload E87.70 Hypervolemia type: unspecified Chronic anticoagulation Z79.01 H/O aortic valve replacement Z95.2 Time Spent (min) 43 (1) Fluid overload Hypervolemia type: unspecified Qualified Code(s): E87.70 - Fluid overload, unspecified
[2022-04-09 13:09] LABS: Albumin Globulin Ratio 1.2 (0.9-2); BUN Creatinine Ratio 28.3 (10-20); Bilirubin,Total 0.7 mg/dl (0.2-1.0); Calcium 8.6 mg/dl (8.5-10.1); Creatinine Clr Calc Pharmacy 26.2 ml/min; Est GFR (African American) 32.1 ml/min; Est GFR (Non-African American) 27.7 ml/min; Globulin 2.5 gm/dl (2.5-4.0); Potassium 4.5 mmol/L (3.5-5.1); Total Protein 5.5 gm/dl (6.0-8.3)
--- NOTE | 2022-04-09 14:12 | Cardiology Progress Note ---
Date of Service April 09, 2022 Assessment & Plan (1) Acute hyperkalemia: (2) Acute on chronic renal failure: (3) Acute hypotension: (4) Elevated troponin: (5) Transaminitis: (6) Acute on chronic systolic (congestive) heart failure: (7) Pulmonary embolism, bilateral: (8) PAD (peripheral artery disease): (9) Complete heart block: (10) Afib: (11) Chronic anticoagulation: (12) CAD (coronary artery disease): (13) H/O aortic valve replacement: (14) S/P VSD closure: Plan: My initial suspicion was the patient may have taken extra diuretics mistakingly at home given his laboratory findings and hypotension upon presentation. BP initially improved with fluid but again hypotensive today. Primary team requested patient be moved to the ICU Patient does not examine his volume overloaded. May consider invasive hemodynamic monitoring to provide a clear picture of volume status. 2D echocardiogram unchanged. I do not see any acute cardiovascular event that may have contributed to current situation. Would continue with IV fluids at this time. Appreciate input from our critical care and nephrology colleagues. Admission and Anticipated Discharge Date Admission Date: April 07, 2022 Subjective Patient seen and examined, chart reviewed. Currently on BiPAP. States he is having little bit more difficulty breathing today. Patient also appears more lethargic than on presentation. Denies chest pain. Telemetry reviewed: AV paced rhythm Review of Systems Review of Systems: All systems reviewed & are unremarkable except as noted in HPI & below Physical Exam Physical Exam: General: Awake, alert and oriented x 3. Lethargic. Conversational dyspnea while on BiPAP HEENT: Normocephalic, atraumatic. Pupils equal, round and reactive to light and accommodation. Extraocular muscles are intact. Anicteric sclera. Moist mucous membranes. Neck: No JVD. No bruit. Cardiovascular: Regular. Positive S-4. Normal S-1 and S-2. No S-3. 3/6 mid to late systolic ejection murmur, greatest at the right sternal border, second intercostal space with radiation to the bilateral carotids. No rubs. Pulmonary: Clear to auscultation bilaterally. No rales, rhonchi, or wheezing. Abdomen: Bowel sounds x 4, soft. No rebound, guarding or tenderness. No organomegaly. Extremities: No clubbing, cyanosis or edema. +2 pedal pulses bilaterally. Skin: Warm and dry. Results & Data ([facility]) Vital Signs (Past 12 Hours) Vital Signs Temp Pulse Pulse Resp BP BP Pulse Ox 04/09/22 11:45 89/47 L 04/09/22 11:03 36.2 C L 74 19 90/49 L 94 04/09/22 10:54 84 20 96 04/09/22 10:26 69 90/48 L 94 04/09/22 10:13 90 75/49 L 98 04/09/22 09:41 97 H 82/46 L 04/09/22 09:29 88 81/45 L 04/09/22 09:00 72 04/09/22 08:00 04/09/22 07:16 36.6 C 70 18 88/52 L 96 04/09/22 03:41 97/63 L 04/09/22 03:25 37 C 78 17 89/64 L 99 Pulse Ox 04/09/22 11:45 04/09/22 11:03 04/09/22 10:54 04/09/22 10:26 04/09/22 10:13 04/09/22 09:41 04/09/22 09:29 04/09/22 09:00 04/09/22 08:00 95 04/09/22 07:16 04/09/22 03:41 04/09/22 03:25 (1) Acute on chronic renal failure Acute renal failure type: unspecified Chronic kidney disease stage: unspecified stage Qualified Code(s): N17.9 - Acute kidney failure, unspecified; N18.9 - Chronic kidney disease, unspecified
[2022-04-09 14:26] LABS: Base Excess ABG 0.1 mEq/L (-9-1.8); HCO3 ABG 28 mmol/L (19-24); PCO2 ABG 64 mmHg (35-46); PO2 ABG 67 mmHg (80-95); pH ABG 7.26 (7.35-7.45)
[2022-04-09 14:27] LABS: Allen Test Pos (Pos)
[2022-04-09] MEDS ORDERED: STAT IV Infusion **Titration per Protocol STA (14:43)
[2022-04-09] MEDS: WARFARIN SOD 2.5 MG TAB PO SCH (15:24)
[2022-04-09] MEDS ORDERED: GABAPENTIN 600 MG TAB PO SCH (15:30)
--- NOTE | 2022-04-09 16:35 | XRay Report ---
XR chest 1V portable CLINICAL HISTORY: picc line placement to right arm TECHNIQUE: Single frontal radiograph of the chest was obtained. Comparison: Comparison is made to chest radiograph 04/09/2022 FINDINGS: A right PICC tip is in the lower SVC. Additional lines and tubes are stable. Cardiomegaly is noted. M inimal increase in pulmonary vascular congestion. There are perihilar airspace opacities bilaterally. No evidence of pleural effusion or pneumothorax. IMPRESSION: 1. Satisfactory position of right PICC. 2. Moderate pulmonary edema. 3. Perihilar airspace opacities, new from prior exam, a represent alveolar edema and/or atelectasis, aspiration, pneumonia or pneumonia. ACT 112: Negative or not required by law. Electronically signed by: Giovanni Mancia M.D. 04/09/2022 4:34 PM
[2022-04-09] MEDS: NOREPINEPHRINE/D5W 8 MG/508 ML BAG IV SCH ×2 (16:52→20:43)
[2022-04-09] MEDS ORDERED: MoRPHine SULFATE 2 MG/ML CARP IV STA (19:43)
[2022-04-10] MEDS: SODIUM CHLORIDE 0.9% 1000ML 1,000 ML IV SCH ×3 (00:27→22:55)
[2022-04-10 05:33] LABS: Prothrombin Time 20.9 Seconds (9.0-12.0)
[2022-04-10 05:36] LABS: Hematocrit (blood only) 39.1 % (42-52); Hemoglobin 10.5 g/dL (14.0-18.0); Mean Corpuscular Hemoglobin 22.9 pg (25-34); Mean Corpuscular Hgb Conc 26.9 g/dL (32-36); Mean Corpuscular Volume 85.4 fL (80-100); Mean Platelet Volume 9.2 fL (7.4-10.4); Platelet Count 213 K/uL (130-400); RDW Coefficient of Variation 24.8 % (11.5-14.5); RDW Standard Deviation 76.5 fL (36.4-46.3); Red Blood Count 4.58 M/uL (4.7-6.1); White Blood Count 12.57 K/uL (4.8-10.8)
[2022-04-10 05:37] LABS: Anisocytosis Present; Basophils # (auto) 0.02 K/uL (0-0.2); Basophils % (auto) 0.2 %; Eosinophils # (auto) 0.08 K/uL (0-0.5); Eosinophils % (auto) 0.6 %; Hypochromasia Present; Immature Granulocytes # (auto) 0.02 K/uL (0.00-0.02); Immature Granulocytes % (auto) 0.2 %; Lymphocytes # (auto) 0.56 K/uL (1.2-3.4); Lymphocytes % (auto) 4.5 %; Monocytes # (auto) 1.44 K/uL (0.11-0.59); Monocytes % (auto) 11.5 %; Neutrophils # (auto) 10.45 K/uL (1.4-6.5); Polychromasia 1+
[2022-04-10 05:40] LABS: BUN Creatinine Ratio 30.9 (10-20); Calcium 8.4 mg/dl (8.5-10.1); Creatinine Clr Calc Pharmacy 33.8 ml/min; Est GFR (African American) 43.6 ml/min; Est GFR (Non-African American) 37.6 ml/min; Magnesium 2.4 mg/dl (1.7-2.4); Phosphorus 3.5 mg/dl (2.5-4.9); Potassium 4.2 mmol/L (3.5-5.1)
[2022-04-10 05:53] LABS: iSTAT Allen Test Pass; iSTAT Art Bld Gas pCO2 Correct 64 mmHg (35-46); iSTAT Art Bld Gas pH Corrected 7.248 (7.35-7.45); iSTAT Arterial Blood Gas HCO3 28 meg/L (19-24); iSTAT Arterial Blood Gas pCO2 67 mmHg (35-46); iSTAT Arterial Blood Gas pH 7.24 (7.35-7.45); iSTAT Arterial Blood Gas pO2 72 mmHg (80-95); iSTAT Arterial Blood Gas pO2 C 67; iSTAT Carbon Dioxide 30 mmol/L (24-31); iSTAT FiO2 35 %; iSTAT Hematocrit 39 % (42-52); iSTAT Hemoglobin 13.3 g/dl (14.0-18.0); iSTAT Potassium 4.3 mmol/L (3.3-5.0); iSTAT Site R Radial; iSTAT Sodium 136 mmol/L (135-144)
[2022-04-10] MEDS: PIPERACILLIN/TAZOBACTAM 3.375 GM in DEXTROSE 5% 100 ML IV SCH ×2 (08:57→15:13)
[2022-04-10] MEDS: CLOPIDOGREL BISULFATE 75 MG TAB PO SCH (09:01)
[2022-04-10] MEDS: ATORVASTATIN 40 MG TAB PO SCH (09:01)
[2022-04-10] MEDS: PANTOprazole 40 MG TAB PO SCH (09:02)
[2022-04-10] MEDS: ZINC SULFATE 220 MG CAPSULE PO SCH (09:02)
[2022-04-10] MEDS: ADVANCED PROBIOTIC 1250 MG CAPSULE PO SCH (09:02)
[2022-04-10] MEDS: FOLIC ACID 1 MG TAB PO SCH (09:02)
[2022-04-10] MEDS: THIAMINE HCL 100 MG TAB PO SCH (09:02)
--- NOTE | 2022-04-10 09:06 | XRay Report ---
XR chest 1V portable HISTORY: Respiratory failure. COMPARISON: Chest 04/09/2022. FINDINGS: No pneumothorax. There are low lung volumes. Patchy bibasilar densities and small bilateral pleural effusions persist. The heart remains enlarged. There is mild central pulmonary vascular franchesca estion without overt edema. Left-sided pacemaker and a right PICC again noted. IMPRESSION: 1. No change in the pulmonary edema, cardiomegaly, and small bilateral pleural effusions. 2. Patchy bibasilar densities also persist and may represent a superimposed pneumonia. ACT 112: Negative or not required by law. Electronically signed by: Lenny Gracia M.D. 04/10/2022 9:04 AM
--- NOTE | 2022-04-10 09:16 | Critical Care Progress Note ---
Date of Service April 10, 2022 Assessment & Plan (1) Hypotension: (2) Transaminitis: (3) Acute hypoxemic respiratory failure: (4) Fluid overload: (5) Chronic anticoagulation: (6) H/O aortic valve replacement: Plan: 66-year-old male with a past medical history of AVR replacement, vasculopathy, nonischemic cardiomyopathy, atrial fibrillation and chronic anticoagulation with warfarin presenting to the hospital due to hypotension and renal failure. Neurologic: Patient is mildly lethargic. Likely secondary to metabolic encephalopathy from hypercapnia, transaminitis and hypoxemia. Ammonia level within normal limits. Hold gabapentin. Pulmonary: Currently on minimal BiPAP due to hypoxemic and hypercapnic respiratory failure. ABG with evidence of acute hypercapnic respiratory failure likely secondary to volume overload. Repeat ABG this morning. Chest x-ray reviewed as per HPI. Signs of pulmonary edema noted. Continue Breo Ellipta and Incruse Ellipta for possible COPD. Cardiovascular: History of aortic valve replacement, diastolic CHF and secondary pulmonary hypertension. Maintain mean arterial pressures above 65. Continue low-dose Levophed. PICC line in place. We will start the patient on low-dose midodrine 2.5 mg 3 times daily. Gastrointestinal: CT abdomen/pelvis on admission without acute findings. Repeat LFTs suggestive of improved transaminitis likely secondary to ischemic hepatopathy. NPO. Continue Protonix 40 mg daily. Renal: ARIEL improving with IV fluids. Appreciate nephrology input. Possible overdiuresis as an outpatient Continue close monitoring of urine output via Pritchard. Lactate unremarkable. Infectious disease: Concern of possible sepsis. Etiology unclear. ? Lower extremity cellulitis. Continue broad-spectrum antibiotics. MRSA screen negative. Hematologic: Patient on warfarin for history of PE and A. fib. Continue warfarin. INR 2.3. No signs of bleeding. Patient with chronic anemia. Endocrine: TSH within normal limits. Random cortisol low. We will start the patient on hydrocortisone 50 mg 3 times daily. VTE prophylaxis: Warfarin CODE STATUS: Full Family at bedside: Not available bedside Disposition: ICU I have personally spent 38 minutes of critical care time in the direct management of this patient. This is a life/limb threatening event. This includes time spent evaluating patient, direct bedside care, chart review, placing orders, interpretation of diagnostic studies, discussion with consultants, patient, and family members, as well as other required patient management activities. This time is exclusive of all separately billable procedures, and teaching time and separate from and in addition to any other critical care service time. Thank you for allowing us to participate in the care of this patient. Admission and Anticipated Discharge Date Admission Date: April 07, 2022 Subjective Patient seen and examined at bedside. Currently on low-dose of Levophed and continuous BiPAP. He was found to be hypercapnic this morning. He is arousable and responds to commands. He knows that he is in the hospital. Apparently, yesterday evening he was a bit combative and confused. Review of Systems Review of Systems: All systems reviewed & are unremarkable except as noted in HPI & below Physical Exam Physical Exam: Constitutional: Chronically ill-appearing male in mild distress. BiPAP mask in place. Eyes: Pupils are equal round and reactive to light. Conjunctivae are normal. Anicteric sclera. Ears nose, mouth and throat: BiPAP in place. Neck: Trachea is midline. Visual inspection is normal. Respiratory: Clear to auscultation bilaterally. No use of accessory muscles. No significant clubbing noted. Cardiovascular: Regular rate and rhythm. No murmurs. No edema. Gastrointestinal: Mild tenderness to palpation over the lower epigastrium. No rebound. No significant blood no burning thyromegaly. Musculoskeletal: No cyanosis. Patient is able to move all extremities. Skin: Areas of venous stasis dermatitis in his lower extremities. Neurologic: No obvious focal neurological deficits seen. Psychiatric: Alert and oriented x3 with a euthymic affect. Results & Data Results & Data ([facility]) Vital Signs (Past 12 Hours) Vital Signs Pulse Resp BP Pulse Ox Pulse Ox 04/10/22 07:55 86 23 94 04/10/22 05:50 70 26 H 92 04/10/22 05:30 71 18 97/62 L 100 04/10/22 05:15 68 23 86/61 L 100 04/10/22 05:00 75 17 84/54 L 94 04/10/22 04:45 78 18 92/53 L 100 04/10/22 04:30 80 20 93/55 L 100 04/10/22 04:15 72 16 97/55 L 100 04/10/22 04:00 81 13 92/54 L 100 04/10/22 03:45 81 23 92/58 L 100 04/10/22 03:37 77 25 H 100 04/10/22 03:30 72 15 93/51 L 100 04/10/22 03:15 64 17 92/57 L 100 04/10/22 03:00 72 14 84/50 L 100 04/10/22 02:45 70 20 90/51 L 100 04/10/22 02:30 72 17 92/63 L 98 04/10/22 02:15 72 18 93/53 L 100 04/10/22 02:00 72 22 105/69 98 04/10/22 01:45 78 19 97/62 L 100 04/10/22 01:30 74 22 98/67 L 100 04/10/22 01:15 85 20 104/62 97 04/10/22 01:00 76 19 99/63 L 98 04/10/22 00:45 74 25 H 97/60 L 100 04/10/22 00:30 80 17 97/70 L 93 04/10/22 00:15 78 21 97/65 L 98 04/10/22 00:00 77 23 99/61 L 98 04/09/22 23:45 79 25 H 99/68 L 96 04/09/22 23:30 83 17 101/65 96 04/09/22 23:15 79 18 95/57 L 96 04/09/22 23:00 94 H 18 96/59 L 96 92 04/09/22 22:45 86 14 95/60 L 92 04/09/22 22:35 88 26 H 93 04/09/22 22:30 66 13 86/56 L 92 04/09/22 22:15 72 20 90/57 L 96 04/09/22 22:00 85 18 93/54 L 96 04/09/22 21:45 84 18 92/58 L 97 04/09/22 21:31 0 L 20 104/59 L 97 04/09/22 21:15 64 15 103/61 95 Coding Level of Care Code Critical Care 1st 30-74 mins Diagnoses Hypotension I95.9 Transaminitis R74.01 Acute hypoxemic respiratory failure J96.01 Fluid overload E87.70 Hypervolemia type: unspecified Chronic anticoagulation Z79.01 H/O aortic valve replacement Z95.2 Time Spent (min) 38 (1) Fluid overload Hypervolemia type: unspecified Qualified Code(s): E87.70 - Fluid overload, unspecified
[2022-04-10 10:50] LABS: iSTAT Allen Test Pass; iSTAT Arterial Blood Gas HCO3 27 meg/L (19-24); iSTAT Arterial Blood Gas pCO2 61 mmHg (35-46); iSTAT Arterial Blood Gas pH 7.26 (7.35-7.45); iSTAT Arterial Blood Gas pO2 69 mmHg (80-95); iSTAT Carbon Dioxide 29 mmol/L (24-31); iSTAT Site L Radial
[2022-04-10] MEDS: DOXYCYCLINE HYCLATE 100 MG in DEXTROSE 5% 100 ML IV SCH ×2 (11:22→23:32)
[2022-04-10] MEDS: UMECLIDINIUM BROMIDE 62.5MCG/BLISTER 7 PUFFS/INHALER INH SCH (11:30)
[2022-04-10] MEDS: FLUTICASONE/VILANTEROL 200/25MCG 14 PUFFS/INHALER INH SCH (11:31)
[2022-04-10] MEDS: CYANOCOBALAMIN (B-12) 500 MCG TABLET PO SCH (11:34)
[2022-04-10] MEDS: MIDODRINE HCL 2.5 MG TAB PO SCH ×2 (11:35→17:16)
--- NOTE | 2022-04-10 12:13 | Nephrology Progress Note ---
Date of Service April 10, 2022 Assessment & Plan (1) Acute on chronic renal failure: Plan: stage 2 acute on chronic renal failure, favor ischemic ATN in the setting of protracted hypotension, ?recent modifications in diuretics (? if does changes were somehow confused). urine sediment with ketones and a few LE. no evidence of UTI on UA - he was moved to ICU for AMS and needed NIV with pressor support with IV fluids, BP still soft, - more alert, UOP improved and renal functions have improved as well - Difficult to asses true volume status and agree with Cardiology for more invasive monitoring for accurate fluid managment - Supportive care., keep MAP > 65. (2) Hyperkalemia: Plan: . Admission and Anticipated Discharge Date Admission Date: April 07, 2022 Subjective Patient seen and examined at bedside. Currently on low-dose of Levophed nasal cannula. Looks more alert today, no distress. BP continues to be soft soft , on low dose levo.Not on fluids during my rounds, no pedal edema. Review of Systems Review of Systems: All systems reviewed & are unremarkable except as noted in Subjective Physical Exam Physical Exam: General: More alert, but ill appearing oon 6 l oxygen Head: Normocephalic, atraumatic ENT: PERRL, EOMI, no pharyngeal exudate, mucous membranes moist Chest: on room air, diminished breath sounds at bases Cardiac: Systolic murmur, no JVD, normal peripheral pulses Abdominal: NABS x 4 quadrants, soft, nondistended, nontender to palpation, no rebound or guarding Extremities:No edema Psych: Normal mood and affect Neuro: AAO x 3, strength intact bilaterally and rated 5/5, no motor deficits, speech is clear, no peripheral sensory deficits Results & Data ([facility]) Vital Signs (Past 12 Hours) Vital Signs Pulse Resp BP Pulse Ox 04/10/22 11:07 82 26 H 95 04/10/22 10:00 77 16 88/52 L 96 04/10/22 09:45 72 87/56 L 95 04/10/22 09:30 90 93/56 L 96 04/10/22 09:15 78 85/59 L 98 04/10/22 09:00 72 93/57 L 96 04/10/22 08:45 73 14 107/62 90 04/10/22 08:30 79 19 84/69 L 92 04/10/22 08:15 79 18 96/59 L 99 04/10/22 08:03 73 21 92/61 L 95 04/10/22 08:00 75 25 H 95/60 L 89 L 04/10/22 07:55 86 23 94 04/10/22 07:45 78 20 94/62 L 93 04/10/22 07:30 68 21 87/53 L 95 04/10/22 07:15 76 25 H 101/64 90 04/10/22 07:00 72 18 114/65 97 04/10/22 05:50 70 26 H 92 04/10/22 05:30 71 18 97/62 L 100 04/10/22 05:15 68 23 86/61 L 100 04/10/22 05:00 75 17 84/54 L 94 04/10/22 04:45 78 18 92/53 L 100 04/10/22 04:30 80 20 93/55 L 100 04/10/22 04:15 72 16 97/55 L 100 04/10/22 04:00 81 13 92/54 L 100 04/10/22 03:45 81 23 92/58 L 100 04/10/22 03:37 77 25 H 100 04/10/22 03:30 72 15 93/51 L 100 04/10/22 03:15 64 17 92/57 L 100 04/10/22 03:00 72 14 84/50 L 100 04/10/22 02:45 70 20 90/51 L 100 04/10/22 02:30 72 17 92/63 L 98 04/10/22 02:15 72 18 93/53 L 100 04/10/22 02:00 72 22 105/69 98 04/10/22 01:45 78 19 97/62 L 100 04/10/22 01:30 74 22 98/67 L 100 04/10/22 01:15 85 20 104/62 97 04/10/22 01:00 76 19 99/63 L 98 04/10/22 00:45 74 25 H 97/60 L 100 04/10/22 00:30 80 17 97/70 L 93 04/10/22 00:15 78 21 97/65 L 98 (1) Acute on chronic renal failure Acute renal failure type: unspecified Chronic kidney disease stage: unspecified stage Qualified Code(s): N17.9 - Acute kidney failure, unspecified; N18.9 - Chronic kidney disease, unspecified
--- NOTE | 2022-04-10 13:37 | Cardiology Progress Note ---
Date of Service April 10, 2022 Assessment & Plan (1) Acute hyperkalemia: (2) Acute on chronic renal failure: (3) Acute hypotension: (4) Elevated troponin: (5) Transaminitis: (6) Acute on chronic systolic (congestive) heart failure: (7) Pulmonary embolism, bilateral: (8) PAD (peripheral artery disease): (9) Complete heart block: (10) Afib: (11) Chronic anticoagulation: (12) CAD (coronary artery disease): (13) H/O aortic valve replacement: (14) S/P VSD closure: Plan: Renal function significantly improving. Patient significantly hypercapnic and remains on BiPAP. Still receiving low-dose Levophed for BP support with the plan to transition to midodrine 2D echocardiogram unchanged. I do not see any acute cardiovascular event that may have contributed to current situation. We will repeat echocardiogram in a.m. to rule out any structural changes Appreciate input from our critical care and nephrology colleagues. Admission and Anticipated Discharge Date Admission Date: April 07, 2022 Subjective Patient seen and examined, chart reviewed. Much more lethargic today. Currently on BiPAP but arousable. I was paged by nursing last p.m. with the patient confused stating he wanted to leave AMA. I was able to talk him into staying. Telemetry reviewed: AV pacing Review of Systems Review of Systems: All systems reviewed & are unremarkable except as noted in HPI & below Physical Exam Physical Exam: General: Awake, alert and oriented x 3. Lethargic. Conversational dyspnea while on BiPAP HEENT: Normocephalic, atraumatic. Pupils equal, round and reactive to light and accommodation. Extraocular muscles are intact. Anicteric sclera. Moist mucous membranes. Neck: No JVD. No bruit. Cardiovascular: Regular. Positive S-4. Normal S-1 and S-2. No S-3. 3/6 mid to late systolic ejection murmur, greatest at the right sternal border, second intercostal space with radiation to the bilateral carotids. No rubs. Pulmonary: Clear to auscultation bilaterally. No rales, rhonchi, or wheezing. Abdomen: Bowel sounds x 4, soft. No rebound, guarding or tenderness. No organomegaly. Extremities: No clubbing, cyanosis or edema. +2 pedal pulses bilaterally. Skin: Warm and dry. Results & Data ([facility]) Vital Signs (Past 12 Hours) Vital Signs Pulse Resp BP Pulse Ox 04/10/22 11:07 82 26 H 95 04/10/22 10:00 77 16 88/52 L 96 04/10/22 09:45 72 87/56 L 95 04/10/22 09:30 90 93/56 L 96 04/10/22 09:15 78 85/59 L 98 04/10/22 09:00 72 93/57 L 96 04/10/22 08:45 73 14 107/62 90 04/10/22 08:30 79 19 84/69 L 92 04/10/22 08:15 79 18 96/59 L 99 04/10/22 08:03 73 21 92/61 L 95 04/10/22 08:00 75 25 H 95/60 L 89 L 04/10/22 07:55 86 23 94 04/10/22 07:45 78 20 94/62 L 93 04/10/22 07:30 68 21 87/53 L 95 04/10/22 07:15 76 25 H 101/64 90 04/10/22 07:00 72 18 114/65 97 04/10/22 05:50 70 26 H 92 04/10/22 05:30 71 18 97/62 L 100 04/10/22 05:15 68 23 86/61 L 100 04/10/22 05:00 75 17 84/54 L 94 04/10/22 04:45 78 18 92/53 L 100 04/10/22 04:30 80 20 93/55 L 100 04/10/22 04:15 72 16 97/55 L 100 04/10/22 04:00 81 13 92/54 L 100 04/10/22 03:45 81 23 92/58 L 100 04/10/22 03:37 77 25 H 100 04/10/22 03:30 72 15 93/51 L 100 04/10/22 03:15 64 17 92/57 L 100 04/10/22 03:00 72 14 84/50 L 100 04/10/22 02:45 70 20 90/51 L 100 04/10/22 02:30 72 17 92/63 L 98 04/10/22 02:15 72 18 93/53 L 100 04/10/22 02:00 72 22 105/69 98 04/10/22 01:45 78 19 97/62 L 100 (1) Acute on chronic renal failure Acute renal failure type: unspecified Chronic kidney disease stage: unspecified stage Qualified Code(s): N17.9 - Acute kidney failure, unspecified; N18.9 - Chronic kidney disease, unspecified
[2022-04-10] MEDS: HYDROCORTISONE SOD 50 MG in SYRINGE 0 ML IV SCH ×2 (15:12→20:39)
[2022-04-10] MEDS: WARFARIN SOD 2.5 MG TAB PO SCH (15:13)
[2022-04-10] MEDS ORDERED: GABAPENTIN 400 MG CAP PO SCH (15:30)
[2022-04-10] MEDS: NOREPINEPHRINE/D5W 8 MG/508 ML BAG IV SCH (16:55)
[2022-04-10] MEDS ORDERED: LORazepam 2 MG/1 ML VIAL IV STA (17:00)
[2022-04-10] MEDS ORDERED: LORazepam 2 MG/1 ML VIAL ONE (17:00)
--- NOTE | 2022-04-10 19:01 | Hospitalist Progress Note ---
Date of Service April 10, 2022 delayed entry date of service noted above Assessment & Plan (1) Acute on chronic renal failure: Plan: ASSESSMENT AND PLAN: This 66-year-old male presents with hypotension, acute kidney injury, and hyperkalemia. 1. HypotensionLikely from volume depletion, possible Adrenal Insufficiency 04/09 transferred to ICU ;Levophed drip started remains on Levophed drip Hydrocortisone IV and Midodrine started Hold Entresto, Lasix, spironolactone, metoprolol, digoxin. Possible component of sepsis from right lower extremity cellulitis, possible pneumonia bilateral Leg erythema, improving Urine culture: Negative Blood cultures: negative Continue Zosyn IV + doxycycline IV Acute Metabolic Encephalopathy secondary to above, Hypercapnea, possible Alcohol Withdrawal patient cannot sign out AMA due to incapacity for medical decision making as per Psych 2. Acute kidney injury possible prerenal etiology, possible ATN Creatinine of 3.2, probably secondary to hypotension and holding his nephrotoxic agents, holding his diuretics, spironolactone, Lasix, and also Entresto Baseline around 1 Given bicarb drip Creatinine improving, 2.8 Nephrology service on board Recommend to DC IV fluids today due to possible volume overload 3. Hyperkalemia potassium 6.4 on admission resolved 4. Mild elevation of troponin: Mostly likely from demand ischemia Repeat troponins in the 50s, plateau echo: pending 5. P history of right-sided heart failure and also valvular heart disease: Holding diuretics. [employer]asing [employer] consulted Echo ordered 6. Lower extremity pain: History of peripheral vascular disease, history of recent procedure. Vascular surgery consulted No surgical intervention at this point Continue Zosyn for now for possible cellulitis RLE erythem resolving 7. History of chronic obstructive pulmonary disease: (+) hypercapneic respiratory failure from pneumonia continue Bipap treatment of pneumonia as per above Continue home inhalers, oxygen as needed. 8. History of paroxysmal atrial fibrillation: History of Watchman left atrial appendage closure device, history of pacemaker, history of ventricular septal defect repair, history of bioprosthetic aortic valve, status post repair, history of subaortic membrane resection, history of PFO repair, history of tricuspid valve annuloplasty. Currently holding metoprolol and digoxin INR 2.0 continue Coumadin INR goal 2-3 Alcohol use No overt signs of alcohol withdrawal alcohol withdrawal protocol including gabapentin protocol and Ativan as needed Gabapentin discontinued due to encephalopathy PRN Ativan 9. Hyperlipidemia: Continue statin. 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 11. Transaminitis. Probably from hypotension. Seems to be improving 12. Deep venous thrombosis prophylaxis: INR 2.0 Hold Coumadin DISPOSITION: Pending PT and OT evaluation Admission and Anticipated Discharge Date Admission Date: April 07, 2022 Subjective ff up for acute renal failure, etc seen at bedside patient confused, trying to get up from bed, expressing to sign out AMA Ativan IV given denies headache, dizziness, chest pain, shortness of breath, abdominal pain still on Levophed drip no other issues per dairy manufacturing technologist of Systems Review of Systems: all noted and negative except for above Physical Exam Physical Exam: General- oriented x 0, not in distress, speaks in sentences with no effort or accessory muscle use weak Eyes- anicteric Neck- no JVD Lungs- clear breath sounds bilaterally Heart- normal rate, regular rhythm; no murmurs Abdomen- normal bowel sounds, nondistended, soft, nontender Extremities- no pretibial edema, no calf tenderness no erythema Neuro- alert, oriented x 0; no new gross focal neurologic deficits Skin- warm & dry Results & Data Results & Data ([facility]) Vital Signs (Past 12 Hours) Vital Signs Temp Pulse Resp BP Pulse Ox 04/10/22 17:16 75 22 89/48 L 92 04/10/22 17:01 87 118/58 L 04/10/22 17:00 84 22 04/10/22 16:46 96 H 04/10/22 16:30 77 108/65 98 04/10/22 16:15 72 15 99/56 L 99 04/10/22 16:00 77 18 94/55 L 100 04/10/22 15:45 91 H 13 106/53 L 99 04/10/22 15:43 84 24 99 04/10/22 15:30 98 H 86/55 L 97 04/10/22 15:15 83 102/54 L 94 04/10/22 15:01 80 104/65 95 04/10/22 15:00 85 26 H 94 04/10/22 14:45 89 117/67 95 04/10/22 14:32 82 123/84 92 04/10/22 14:30 78 99 04/10/22 14:15 83 105/64 95 04/10/22 14:00 75 26 H 110/63 96 04/10/22 13:46 89 119/65 95 04/10/22 13:30 77 24 107/60 92 04/10/22 13:15 88 110/65 94 04/10/22 13:00 81 115/65 95 04/10/22 12:47 93 H 24 102/62 96 04/10/22 12:30 100 H 15 100/64 95 04/10/22 12:15 36.6 C 84 19 109/59 L 94 04/10/22 12:00 75 15 101/56 L 95 04/10/22 11:45 77 102/61 92 04/10/22 11:30 73 15 97 04/10/22 11:07 82 26 H 95 04/10/22 10:00 77 16 88/52 L 96 04/10/22 09:45 72 87/56 L 95 04/10/22 09:30 90 93/56 L 96 04/10/22 09:15 78 85/59 L 98 04/10/22 09:00 72 93/57 L 96 04/10/22 08:45 73 14 107/62 90 04/10/22 08:30 79 19 84/69 L 92 04/10/22 08:15 79 18 96/59 L 99 04/10/22 08:03 73 21 92/61 L 95 04/10/22 08:00 75 25 H 95/60 L 89 L 04/10/22 07:55 86 23 94 04/10/22 07:45 78 20 94/62 L 93 04/10/22 07:30 68 21 87/53 L 95 04/10/22 07:15 76 25 H 101/64 90 (1) Acute on chronic renal failure Acute renal failure type: unspecified Chronic kidney disease stage: unspecified stage Qualified Code(s): N17.9 - Acute kidney failure, unspecified; N18.9 - Chronic kidney disease, unspecified
[2022-04-10 21:00] LABS: BUN Creatinine Ratio 34.4 (10-20); Calcium 8.2 mg/dl (8.5-10.1); Creatinine Clr Calc Pharmacy 49.8 ml/min; Est GFR (African American) 66.2 ml/min; Est GFR (Non-African American) 57.1 ml/min; Magnesium 2.1 mg/dl (1.7-2.4); Phosphorus 2.4 mg/dl (2.5-4.9); Potassium 4.1 mmol/L (3.5-5.1)
[2022-04-11] MEDS: PIPERACILLIN/TAZOBACTAM 3.375 GM in DEXTROSE 5% 100 ML IV SCH ×2 (00:06→09:10)
[2022-04-11 03:45] LABS: iSTAT Allen Test Pass; iSTAT Art Bld Gas pCO2 Correct 50 mmHg (35-46); iSTAT Art Bld Gas pH Corrected 7.335 (7.35-7.45); iSTAT Arterial Blood Gas HCO3 27 meg/L (19-24); iSTAT Arterial Blood Gas pCO2 50 mmHg (35-46); iSTAT Arterial Blood Gas pH 7.34 (7.35-7.45); iSTAT Arterial Blood Gas pO2 33 mmHg (80-95); iSTAT Arterial Blood Gas pO2 C 33; iSTAT Carbon Dioxide 28 mmol/L (24-31); iSTAT FiO2 35 %; iSTAT Hematocrit 38 % (42-52); iSTAT Hemoglobin 12.9 g/dl (14.0-18.0); iSTAT Potassium 4.2 mmol/L (3.3-5.0); iSTAT Site R Brachial; iSTAT Sodium 136 mmol/L (135-144)
[2022-04-11 05:07] LABS: Hematocrit (blood only) 34.6 % (42-52); Hemoglobin 9.2 g/dL (14.0-18.0); Mean Corpuscular Hemoglobin 22.5 pg (25-34); Mean Corpuscular Hgb Conc 26.6 g/dL (32-36); Mean Corpuscular Volume 84.8 fL (80-100); Mean Platelet Volume 8.9 fL (7.4-10.4); Platelet Count 179 K/uL (130-400); RDW Coefficient of Variation 24.8 % (11.5-14.5); RDW Standard Deviation 76.8 fL (36.4-46.3); Red Blood Count 4.08 M/uL (4.7-6.1); White Blood Count 8.28 K/uL (4.8-10.8)
[2022-04-11 05:26] LABS: INR 2.3 (0.9-1.1); Prothrombin Time 23.9 Seconds (9.0-12.0)
[2022-04-11 05:33] LABS: Anisocytosis Present; Basophilic Stippling 1+; Basophils # (auto) 0.01 K/uL (0-0.2); Basophils % (auto) 0.1 %; Hypochromasia Present; Immature Granulocytes # (auto) 0.01 K/uL (0.00-0.02); Immature Granulocytes % (auto) 0.1 %; Lymphocytes # (auto) 0.21 K/uL (1.2-3.4); Lymphocytes % (auto) 2.5 %; Monocytes # (auto) 0.25 K/uL (0.11-0.59); Neutrophils % (auto) 94.3 %; Polychromasia 1+
[2022-04-11 05:37] LABS: BUN Creatinine Ratio 31.7 (10-20); Calcium 8.3 mg/dl (8.5-10.1); Creatinine Clr Calc Pharmacy 53.2 ml/min; Est GFR (African American) 71.6 ml/min; Est GFR (Non-African American) 61.8 ml/min; Magnesium 2.1 mg/dl (1.7-2.4); Phosphorus 2.2 mg/dl (2.5-4.9); Potassium 3.9 mmol/L (3.5-5.1)
[2022-04-11] MEDS: MIDODRINE HCL 2.5 MG TAB PO SCH ×3 (09:06→16:47)
[2022-04-11] MEDS: SODIUM CHLORIDE 0.9% 1000ML 1,000 ML IV SCH (09:06)
[2022-04-11] MEDS: HYDROCORTISONE SOD 50 MG in SYRINGE 0 ML IV SCH ×3 (09:06→20:36)
[2022-04-11] MEDS: FOLIC ACID 1 MG TAB PO SCH (09:07)
[2022-04-11] MEDS: PANTOprazole 40 MG TAB PO SCH (09:07)
[2022-04-11] MEDS: ZINC SULFATE 220 MG CAPSULE PO SCH (09:07)
[2022-04-11] MEDS: CLOPIDOGREL BISULFATE 75 MG TAB PO SCH (09:07)
[2022-04-11] MEDS: ATORVASTATIN 40 MG TAB PO SCH (09:07)
[2022-04-11] MEDS: UMECLIDINIUM BROMIDE 62.5MCG/BLISTER 7 PUFFS/INHALER INH SCH (09:08)
[2022-04-11] MEDS: ADVANCED PROBIOTIC 1250 MG CAPSULE PO SCH (09:08)
[2022-04-11] MEDS: THIAMINE HCL 100 MG TAB PO SCH (09:08)
[2022-04-11] MEDS: FLUTICASONE/VILANTEROL 200/25MCG 14 PUFFS/INHALER INH SCH (09:09)
--- NOTE | 2022-04-11 09:59 | Critical Care Progress Note ---
Date of Service April 11, 2022 Assessment & Plan (1) Hypotension: (2) Transaminitis: (3) Acute hypoxemic respiratory failure: (4) Fluid overload: (5) Chronic anticoagulation: (6) H/O aortic valve replacement: Plan: 66-year-old male with a past medical history of AVR replacement, vasculopathy, nonischemic cardiomyopathy, atrial fibrillation and chronic anticoagulation with warfarin presenting to the hospital due to hypotension and renal failure. Neurologic: Patient is mildly lethargic. Likely secondary to metabolic encephalopathy from hypercapnia, transaminitis and hypoxemia. Ammonia level within normal limits. Hold gabapentin - Possible alcohol withdraw: Alcohol withdrawal scoring - adding librium for hepatic insufficiency Pulmonary: Mild CO2 retention - Off Bipap - Continue Breo Ellipta and Incruse Ellipta for possible COPD. - Poor pulmonary reserve: not ideal candidate for IVORY. Cardiovascular: History of aortic valve replacement, diastolic CHF and secondary pulmonary hypertension. Maintain mean arterial pressures above 65. Continue low-dose Levophed. PICC line in place. We will start the patient on low-dose midodrine 2.5 mg 3 times daily. - ECHO reviewed -Weaning vasoactive's as needed Gastrointestinal: Transaminitis: improving - ischemic (most likely vs congestive) CT abdomen/pelvis on admission without acute findings. Cardiac diet. Continue Protonix 40 mg daily. Renal: ARIEL improving with IV fluids. Appreciate nephrology input. Possible overdiuresis as an outpatient Continue close monitoring of urine output via [place] - D/C normal saline Infectious disease: No fever, normalized WBC. Day 4 of Zosyn, de-escalate to rocephin single agent for 7 days total therapy. - Blood cultures today to eval for possible endocarditis. Hematologic: Patient on warfarin for history of PE and A. fib. Continue warfarin. INR 2.3. No signs of bleeding. Patient with chronic anemia. Endocrine: TSH within normal limits. Random cortisol low. We will start the patient on hydrocortisone 50 mg 3 times daily. VTE prophylaxis: Warfarin CODE STATUS: Full Family at bedside: Not available bedside Disposition: ICU I have personally spent 45 minutes of critical care time in the direct management of this patient. This is a life/limb threatening event. This includes time spent evaluating patient, direct bedside care, chart review, placing orders, interpretation of diagnostic studies, discussion with consultants, pat ient, and family members, as well as other required patient management activities. This time is exclusive of all separately billable procedures, and teaching time and separate from and in addition to any other critical care service time. Admission and Anticipated Discharge Date Admission Date: April 07, 2022 Subjective Reports a sore back secondary to positioning. When directly questioned about alcohol consumption he reports that he drinks 2-3 beers daily, never had re ported withdrawals before. Was able to wean off BiPAP. Physical Exam Physical Exam: General: Alert. nontoxic. Skin: Warm, dry, Head: Atraumatic Ears, nose, mouth and throat: airway patent Cardiovascular: Normal peripheral perfusion Respiratory: no respiratory distress Gastrointestinal: Non distended Musculoskeletal: No deformity Results & Data Results & Data ([facility]) Vital Signs (Past 12 Hours) Vital Signs Temp Pulse Resp BP Pulse Ox Pulse Ox 04/11/22 07:07 36.6 C 04/11/22 02:43 89 25 H 98 04/11/22 00:00 76 0 L 88/64 L 99 04/10/22 23:45 88 5 L 107/65 100 04/10/22 23:30 86 11 L 96/64 L 98 04/10/22 23:15 98 H 0 L 119/72 79 L 04/10/22 23:01 108 H 23 113/75 88 L 04/10/22 23:00 105 H 18 88 L 72 L 04/10/22 22:46 81 8 L 103/78 94 04/10/22 22:30 82 18 96/65 L 97 04/10/22 22:15 84 12 100/61 98 04/10/22 22:01 85 24 93 04/10/22 22:00 77 23 103/61 94 Critical Care Results & Data Vital Signs (Past 12 Hours) Vital Signs Temp Pulse Pulse Resp BP BP Pulse Ox 04/11/22 12:00 86 16 114/60 100 04/11/22 11:05 36.7 C 73 10 L 115/71 98 04/11/22 11:00 81 14 115/71 95 04/11/22 10:00 79 18 102/57 L 98 04/11/22 09:00 84 18 78/66 L 99 04/11/22 08:00 91 H 16 115/66 91 04/11/22 07:07 36.6 C 04/11/22 07:00 85 16 114/68 90 04/11/22 02:43 89 25 H 98 Lab & Micro Results (Past 24 Hours) RBC 4.08 M/uL (4.7-6.1) L 04/11/22 WBC 8.28 K/uL (4.8-10.8) 04/11/22 Hgb 9.2 g/dL (14.0-18.0) L 04/11/22 Hct 34.6 % (42-52) L 04/11/22 MCV 84.8 fL (80-100) 04/11/22 MCH 22.5 pg (25-34) L 04/11/22 MCHC 26.6 g/dL (32-36) L 04/11/22 RDW Standard Deviation 76.8 fL (36.4-46.3) H 04/11/22 RDW Coefficient of Variation 24.8 % (11.5-14.5) H 04/11/22 Plt Count 179 K/uL (130-400) 04/11/22 MPV 8.9 fL (7.4-10.4) 04/11/22 Neutrophils (%) (Auto) 94.3 % 04/11/22 Lymphocytes (%) (Auto) 2.5 % 04/11/22 Monocytes # (Auto) 0.25 K/uL (0.11-0.59) 04/11/22 Eosinophils # (Auto) 0.00 K/uL (0-0.5) 04/11/22 Immature Granulocyte % (Auto) 0.1 % 04/11/22 Neutrophils # (Auto) 7.80 K/uL (1.4-6.5) H 04/11/22 Lymphocytes # (Auto) 0.21 K/uL (1.2-3.4) L 04/11/22 Monocytes # (Auto) 0.25 K/uL (0.11-0.59) 04/11/22 Eosinophils # (Auto) 0.00 K/uL (0-0.5) 04/11/22 Basophils # (Auto) 0.01 K/uL (0-0.2) 04/11/22 Immature Granulocyte # (Auto) 0.01 K/uL (0.00-0.02) 04/11/22 Polychromasia 1+ 04/11/22 Hypochromasia Present 04/11/22 Basophilic Stippling 1+ 04/11/22 Anisocytosis Present 04/11/22 Na 138 mmol/L (136-145) 04/11/22 K 3.9 mmol/L (3.5-5.1) 04/11/22 Cl 107 mmol/L (98-107) 04/11/22 CO2 26 mmol/L (21-32) 04/11/22 Anion Gap 5 (3-11) 04/11/22 BUN 38 mg/dl (6-23) H 04/11/22 Creatinine 1.20 mg/dl (0.6-1.4) 04/11/22 Estimated GFR ( Amer) 71.6 ml/min 04/11/22 Estimated GFR (Non-Af Amer) 61.8 ml/min 04/11/22 BUN/Creatinine Ratio 31.7 (10-20) H 04/11/22 Glu 165 mg/dl (70-99(Fasting)) H 04/11/22 Ca 8.3 mg/dl (8.5-10.1) L 04/11/22 Phosphorus Level 2.2 mg/dl (2.5-4.9) L 04/11/22 Total Bilirubin 0.8 mg/dl (0.2-1.0) 04/11/22 Direct Bilirubin 0.3 mg/dl (0-0.2) H 04/11/22 AST 118 U/L (13-39) H 04/11/22 ALT 211 U/L (7-52) H 04/11/22 Alkaline Phosphatase 53 U/L (34-104) 04/11/22 TP 5.6 gm/dl (6.0-8.3) L 04/11/22 Albumin 3.0 gm/dl (3.4-5.0) L 04/11/22 Mg 2.1 mg/dl (1.7-2.4) 04/11/22 04:50 04/11/22 Calcium Level 8.3 mg/dl (8.5-10.1) L 04/11/22 04:50 04/11/22 Prothromb Time International Ratio 2.3 (0.9-1.1) H 04/11/22 04:50 04/11/22 Venous Blood pH 7.32 (7.36-7.41) L 04/11/22 10:16 04/11/22 Venous Blood Partial Pressure CO2 56 mmHg (38-50) H 04/11/22 10:16 04/11/22 Venous Blood Partial Pressure O2 32 mmHg 04/11/22 10:04/11/22 Venous Blood HCO3 28 mmol/L 04/11/22 10:04/11/22 Venous Blood Base Excess 1.7 mEq/L 04/11/22 10:04/11/22 Venous Blood Oxygen Saturation < 60.0 % 04/11/22 10:04/11/22 Blood Gas Barometric Pressure 724.1 mm/Hg 04/11/22 10:16 04/11/22 Tyler Test Pass 04/11/22 03:30 04/11/22 Blood Gas Barometric Pressure 724.1 mm/Hg 04/11/22 10:16 04/11/22 Diagnostic Findings (Past 24 Hours) Chest X-Ray 04/11/22 07:00 XR chest 1V portable CLINICAL HISTORY: f/u COMPARISON STUDY: Chest radiograph April 10, 2022. FINDINGS: Right PICC is in place. There is a left subclavian pacer, median sternotomy wires and prosthetic cardiac valve. Cardiomegaly is similar to prior exam. There is no pneumothorax. Small bilateral pleural effusions are unchanged. Lower lung airspace opacities have slightly improved. There is suspected mild pulmonary edema. IMPRESSION: 1. No significant change is suspected pulmonary edema and small bilateral pleural effusions. 2. Slight improvement in lower lung airspace opacities which could reflect superimposed pneumonia or alveolar pulmonary edema. ACT 112: Negative or not required by law. Electronically signed by: Kushal Messina M.D. 04/11/2022 12:08 PM I & O Totals 24 Hours 04/10/22 04/11/22 04/12/22 06:59 06:59 06:59 Intake Total 2491.332 / 2491.332 2982.242 / 2982.242 1149.760 / 1149.760 Output Total 1450 / 1450 900 / 900 Balance 1041.332 / 9219.981 4150.242 / 2082.242 1149.760 / 1149.760 Cumulative 04/07/22 16:57 thru 04/11/22 10:38 Intake Total 9951.841 Output Total 3450 Balance 6501.841 RT Ventilator Mngmt (Last Documented) Ventilator Ordered Settings Respiratory Rate 16 04/11/22 12:00 Fraction of Inspired Oxygen 35 04/11/22 02:43 Ventilator - PT Measurements Respiratory Rate 16 End-Tidal CO2 9 Coding Level of Care Code Critical Care 1st 30-74 mins Diagnoses Hypotension I95.9 Transaminitis R74.01 Acute hypoxemic respiratory failure J96.01 Fluid overload E87.70 Hypervolemia type: unspecified Chronic anticoagulation Z79.01 H/O aortic valve replacement Z95.2 (1) Fluid overload Hypervolemia type: unspecified Qualified Code(s): E87.70 - Fluid overload, unspecified
[2022-04-11] MEDS ORDERED: ICU ELECTROLYTE REPLACEMENT PROTOCOL ONE (10:18)
[2022-04-11 10:35] LABS: Base Excess VBG 1.7 mEq/L; HCO3 VBG 28 mmol/L; Oxygen Saturation VBG < 60.0 %; PCO2 VBG 56 mmHg (38-50); PO2 VBG 32 mmHg; pH VBG 7.32 (7.36-7.41)
[2022-04-11 10:46] LABS: Bilirubin Direct 0.3 mg/dl (0-0.2); Bilirubin,Total 0.8 mg/dl (0.2-1.0); Total Protein 5.6 gm/dl (6.0-8.3)
--- NOTE | 2022-04-11 12:09 | XRay Report ---
XR chest 1V portable CLINICAL HISTORY: f/u COMPARISON STUDY: Chest radiograph April 10, 2022. FINDINGS: Right PICC is in place. There is a left subclavian pacer, median sternotomy wires and prost hetic cardiac valve. Cardiomegaly is similar to prior exam. There is no pneumothorax. Small bilateral pleural effusions are unchanged. Lower lung airspace opacities have slightly improved. There is susp ected mild pulmonary edema. IMPRESSION: 1. No significant change is suspected pulmonary edema and small bilateral pleural effusions. 2. Slight improvement in lower lung airspace opacities which could reflect superimposed pneumonia or alveolar pulmonary edema. ACT 112: Negative or not required by law. Electronically signed by: Kushal Messina M.D. 04/11/2022 12:08 PM
[2022-04-11] MEDS: DOXYCYCLINE HYCLATE 100 MG in DEXTROSE 5% 100 ML IV SCH (12:14)
--- NOTE | 2022-04-11 12:22 | Cardiology Progress Note ---
Date of Service April 11, 2022 Assessment & Plan (1) Acute hyperkalemia: (2) Acute on chronic renal failure: (3) Acute hypotension: (4) Elevated troponin: (5) Transaminitis: (6) Acute on chronic systolic (congestive) heart failure: (7) Pulmonary embolism, bilateral: (8) PAD (peripheral artery disease): (9) Complete heart block: (10) Afib: (11) Chronic anticoagulation: (12) CAD (coronary artery disease): (13) H/O aortic valve replacement: (14) S/P VSD closure: Plan: Renal function at baseline Still receiving low-dose Levophed for BP support with the plan to transition to midodrine Repeat echocardiogram shows increased velocity across the bioprosthetic aortic valve. Given his elevated white count and change in mental status we will check a procalcitonin level and blood cultures x2 now. Blood cultures from admission were negative. Would avoid doing a IVORY at this time given the patient's respiratory status and mental status change. Renal functions returned to baseline. Appreciate input from our critical care and nephrology colleagues. Admission and Anticipated Discharge Date Admission Date: April 07, 2022 Subjective Patient seen and examined, chart reviewed. Events of last p.m. discussed with nursing. Patient appears to be much more confused today. Off BiPAP. Review of Systems Review of Systems: Unobtainable due to reduced consciousness Physical Exam Physical Exam: General: Awake, alert and oriented x 3. Lethargic. Conversational dyspnea while on BiPAP HEENT: Normocephalic, atraumatic. Pupils equal, round and reactive to light and accommodation. Extraocular muscles are intact. Anicteric sclera. Moist mucous membranes. Neck: No JVD. No bruit. Cardiovascular: Regular. Positive S-4. Normal S-1 and S-2. No S-3. 3/6 mid to late systolic ejection murmur, greatest at the right sternal border, second intercostal space with radiation to the bilateral carotids. No rubs. Pulmonary: Clear to auscultation bilaterally. No rales, rhonchi, or wheezing. Abdomen: Bowel sounds x 4, soft. No rebound, guarding or tenderness. No organomegaly. Extremities: No clubbing, cyanosis or edema. +2 pedal pulses bilaterally. Skin: Warm and dry. Results & Data ([facility]) Vital Signs (Past 12 Hours) Vital Signs Temp Pulse Pulse Resp BP Pulse Ox 04/11/22 11:05 36.7 C 73 10 L 115/71 98 04/11/22 07:07 36.6 C 04/11/22 02:43 89 25 H 98 (1) Acute on chronic renal failure Acute renal failure type: unspecified Chronic kidney disease stage: unspecified stage Qualified Code(s): N17.9 - Acute kidney failure, unspecified; N18.9 - Chronic kidney disease, unspecified
[2022-04-11] MEDS: CYANOCOBALAMIN (B-12) 500 MCG TABLET PO SCH (12:23)
--- NOTE | 2022-04-11 13:26 | Nephrology Progress Note ---
Date of Service April 11, 2022 Assessment & Plan Admission and Anticipated Discharge Date Admission Date: April 07, 2022 Subjective Assessment & Plan (1) Acute on chronic renal failure: Plan: acute on chronic renal failure, favor ischemic ATN in the setting of protracted hypotension. urine sediment with ketones and a few LE. no evidence of UTI on UA - he was moved to ICU for AMS and needed NIV with pressor support with IV fluids, BP still soft, - more alert, UOP improved and renal functions have improved as well Labs today is much better. Will sign off. Call if any new issues Subjective Patient seen and examined at bedside. Currently on low-dose of Levophed nasal cannula. Looks more alert today, no distress. BP continues to be soft soft , on low dose levo.Not on fluids during my rounds, no pedal edema. Review of Systems Review of Systems: All systems reviewed & are unremarkable except as noted in Subjective Physical Exam Physical Exam: General: More alert, but ill appearing oon 6 l oxygen Head: Normocephalic, atraumatic ENT: PERRL, EOMI, no pharyngeal exudate, mucous membranes moist Chest: on room air, diminished breath sounds at bases Cardiac: Systolic murmur, no JVD, normal peripheral pulses Abdominal: NABS x 4 quadrants, soft, nondistended, nontender to palpation, no rebound or guarding Extremities:No edema Psych: Normal mood and affect Neuro: AAO x 3, strength intact bilaterally and rated 5/5, no motor deficits, speech is clear, no peripheral sensory deficits Results & Data ([facility]) Vital Signs (Past 12 Hours) Vital Signs Temp Pulse Pulse Resp BP BP Pulse Ox 04/11/22 12:00 86 16 114/60 100 04/11/22 11:05 36.7 C 73 10 L 115/71 98 04/11/22 11:00 81 14 115/71 95 04/11/22 10:00 79 18 102/57 L 98 04/11/22 09:00 84 18 78/66 L 99 04/11/22 08:00 91 H 16 115/66 91 04/11/22 07:07 36.6 C 04/11/22 07:00 85 16 114/68 90 04/11/22 02:43 89 25 H 98
[2022-04-11] MEDS ORDERED: THIAMINE HCL 100 MG/ML 2 ML VIAL IM STA (13:36)
[2022-04-11] MEDS ORDERED: chlordiazePOXIDE ALCOHOL WITHDRAWL 25MG PO STA (13:36)
[2022-04-11] MEDS ORDERED: SODIUM CHLORIDE 0.65% NA SOLN 45 ML (OCEAN) PRN (14:05)
[2022-04-11] MEDS ORDERED: SODIUM CHLORIDE 0.65% NA SOLN 45 ML (OCEAN) ONE (14:05)
[2022-04-11] MEDS ORDERED: THIAMINE HCL 500 MG in SODIUM CHLORIDE 0.9% 50 ML IV ONE (14:15)
[2022-04-11] MEDS: POT PHOSPHATE MONOBASIC W/ SOD TAB PO SCH ×3 (14:16→20:36)
[2022-04-11] MEDS: chlordiazePOXIDE HCl 25 MG CAP PO SCH ×2 (14:16→20:37)
[2022-04-11] MEDS ORDERED: GABAPENTIN 100 MG CAP PO SCH (15:30)
[2022-04-11] MEDS: cefTRIAXone SODIUM 2,000 MG in DEXTROSE 5% 50 ML IV SCH (16:51)
[2022-04-11] MEDS: ICU ELECTROLYTE REPLACEMENT PROTOCOL SCH (17:33)
--- NOTE | 2022-04-11 21:47 | Hospitalist Progress Note ---
Date of Service April 11, 2022 Assessment & Plan (1) Acute on chronic renal failure: Plan: (1) Acute on chronic renal failure: Plan: ASSESSMENT AND PLAN: This 66-year-old male presents with hypotension, acute kidney injury, and hyperkalemia, developed hypotension, and hypercapnea on hospital day #2, transferred to ICU. 1. HypotensionLikely from volume depletion, Sepsis, possible Adrenal Insufficiency 04/09 transferred to ICU ;Levophed drip started remains on Levophed drip, BP soft Off IV fluids, crea back to baseline CXR possible pleural effusion Hydrocortisone IV and Midodrine Day #2 Possible component of sepsis from right lower extremity cellulitis, possible pneumonia bilateral Leg erythema, improving off Bipap Urine culture: Negative Blood cultures: negative Repeat Blood cultures: pending given Zosyn IV + doxycycline IV--> transitioned to Ceftri IV Day 1 Echo: EF 70% Acute Metabolic Encephalopathy secondary to above, Hypercapnea, possible Alcohol Withdrawal still confused Hypercapnea resolved, off Bipap Librium started Day#1 patient cannot sign out AMA due to incapacity for medical decision making as per Psych 2. Acute kidney injury possible prerenal etiology, possible ATN Creatinine of 3.2, probably secondary to hypotension Baseline around 1 Given bicarb drip Creatinine improving from 3.2 to 1.8 Nephrology service consulted Recommend to DC IV fluids 3. Hyperkalemia potassium 6.4 on admission resolved 4. Mild elevation of troponin: Mostly likely from demand ischemia Repeat troponins in the 50s, plateau echo: LVH, EF 70%, mildly reducecd RV systolic function, abnormal prosthetic gradient 5. P history of right-sided heart failure and also valvular heart disease: Holding diuretics. Vacuum Pan Tender consulted echo: LVH, EF 70%, mildly reducecd RV systolic function, abnormal prosthetic gradient 6. Lower extremity pain: History of peripheral vascular disease, history of recent procedure. Vascular surgery consulted No surgical intervention at this point Continue Zosyn for now for possible cellulitis RLE erythema resolved 7. History of chronic obstructive pulmonary disease: (+) hypercapneic respiratory failure with lethargy noted on hospital day 2 from pneumonia, Tramadol? off Bipap treatment of pneumonia as per above Continue home inhalers, oxygen as needed. 8. History of paroxysmal atrial fibrillation: History of Watchman left atrial appendage closure device, history of pacemaker, history of ventricular septal defect repair, history of bioprosthetic aortic valve, status post repair, history of subaortic membrane resection, history of PFO repair, history of tricuspid valve annuloplasty. Currently holding metoprolol and digoxin INR 2.3 continue Coumadin INR goal 2-3 Possible Alcohol Withdrawal admits to drinking 3-5 beers/day Gabapentin changed to Librium Ativan as needed Gabapentin discontinued due to encephalopathy PRN Ativan 9. Hyperlipidemia: Continue statin. 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 11. Transaminitis. Probably from hypotension. improving 12. Deep venous thrombosis prophylaxis: INR 2.3 Coumadin DISPOSITION: Pending PT and OT evaluation lives at home Admission and Anticipated Discharge Date Admission Date: April 07, 2022 Subjective ff up for acute renal failure, etc seen resting in bed, comfortable sleeping off Bipap remains on Levophed still confused earlier today Review of Systems Review of Systems: all noted and negative except for above Physical Exam Physical Exam: General- sleeping, not in distress,breathing with no effort or accessory muscle use Eyes- anicteric Neck- no JVD Lungs- clear breath sounds bilaterally Heart- normal rate, regular rhythm; no murmurs Abdomen- normal bowel sounds, nondistended, soft, nontender Extremities- no pretibial edema, no calf tenderness erythema on the RLE resolved Neuro- sleeping Skin- warm & dry Results & Data Results & Data ([facility]) Vital Signs (Past 12 Hours) Vital Signs Temp Pulse Pulse Resp BP BP Pulse Ox 04/11/22 21:00 89 12 102/60 97 04/11/22 20:45 89 12 117/68 94 04/11/22 20:30 91 H 12 110/69 93 04/11/22 20:00 91 H 12 121/70 92 04/11/22 19:45 90 12 110/70 90 04/11/22 19:30 90 12 110/66 98 04/11/22 19:15 90 12 93/65 L 99 04/11/22 19:00 88 0 L 102/63 100 04/11/22 15:15 68 0 L 108/62 100 04/11/22 15:00 72 16 108/62 96 04/11/22 14:30 113/61 04/11/22 14:01 71 16 120/63 99 04/11/22 13:30 107/59 L 04/11/22 13:00 74 16 114/68 94 04/11/22 12:00 86 16 114/60 100 04/11/22 11:05 36.7 C 73 10 L 115/71 98 04/11/22 11:00 81 14 115/71 95 04/11/22 10:00 79 18 102/57 L 98 all noted and reviewed including below (1) Acute on chronic renal failure Acute renal failure type: unspecified Chronic kidney disease stage: unspecified stage Qualified Code(s): N17.9 - Acute kidney failure, unspecified; N18.9 - Chronic kidney disease, unspecified
[2022-04-12] MEDS: chlordiazePOXIDE HCl 25 MG CAP PO SCH ×4 (02:28→21:10)
[2022-04-12 05:21] LABS: INR 3.1 (0.9-1.1); Prothrombin Time 30.8 Seconds (9.0-12.0)
[2022-04-12 05:24] LABS: Albumin Level 2.9 gm/dl (3.4-5.0); BUN Creatinine Ratio 29.2 (10-20); Bilirubin Direct 0.2 mg/dl (0-0.2); Bilirubin,Total 0.6 mg/dl (0.2-1.0); Calcium 8.8 mg/dl (8.5-10.1); Creatinine Clr Calc Pharmacy 56.5 ml/min; Est GFR (Non-African American) 66.4 ml/min; Magnesium 2.2 mg/dl (1.7-2.4); Potassium 3.9 mmol/L (3.5-5.1); Total Protein 5.4 gm/dl (6.0-8.3)
[2022-04-12] MEDS: ICU ELECTROLYTE REPLACEMENT PROTOCOL SCH (05:37)
[2022-04-12 05:45] LABS: Hematocrit (blood only) 34.9 % (42-52); Hemoglobin 9.5 g/dL (14.0-18.0); Mean Corpuscular Hemoglobin 23.3 pg (25-34); Mean Corpuscular Hgb Conc 27.2 g/dL (32-36); Mean Corpuscular Volume 85.5 fL (80-100); Mean Platelet Volume 9.2 fL (7.4-10.4); Platelet Count 153 K/uL (130-400); RDW Coefficient of Variation 25.2 % (11.5-14.5); Red Blood Count 4.08 M/uL (4.7-6.1); White Blood Count 6.36 K/uL (4.8-10.8)
[2022-04-12 05:46] LABS: Anisocytosis Present; Hypochromasia Present; Immature Granulocytes # (auto) 0.01 K/uL (0.00-0.02); Immature Granulocytes % (auto) 0.2 %; Lymphocytes # (auto) 0.32 K/uL (1.2-3.4); Monocytes # (auto) 0.48 K/uL (0.11-0.59); Monocytes % (auto) 7.5 %; Neutrophils # (auto) 5.55 K/uL (1.4-6.5); Neutrophils % (auto) 87.3 %; Polychromasia 1+
[2022-04-12] MEDS: POTASSIUM CHLORIDE CRTAB 20 MEQ TABCR PO SCH ×2 (06:11→08:58)
[2022-04-12] MEDS: HYDROCORTISONE SOD 50 MG in SYRINGE 0 ML IV SCH (08:51)
[2022-04-12] MEDS: THIAMINE HCL 100 MG TAB PO SCH (08:52)
[2022-04-12] MEDS: ATORVASTATIN 40 MG TAB PO SCH (08:52)
[2022-04-12] MEDS: MIDODRINE HCL 2.5 MG TAB PO SCH ×3 (08:52→16:06)
[2022-04-12] MEDS: PANTOprazole 40 MG TAB PO SCH (08:52)
[2022-04-12] MEDS: ZINC SULFATE 220 MG CAPSULE PO SCH (08:52)
[2022-04-12] MEDS: FOLIC ACID 1 MG TAB PO SCH (08:52)
[2022-04-12] MEDS: CLOPIDOGREL BISULFATE 75 MG TAB PO SCH (08:52)
[2022-04-12] MEDS: FLUTICASONE/VILANTEROL 200/25MCG 14 PUFFS/INHALER INH SCH (08:53)
[2022-04-12] MEDS: UMECLIDINIUM BROMIDE 62.5MCG/BLISTER 7 PUFFS/INHALER INH SCH (08:53)
[2022-04-12] MEDS: ADVANCED PROBIOTIC 1250 MG CAPSULE PO SCH (08:53)
--- NOTE | 2022-04-12 10:03 | Critical Care Progress Note ---
Date of Service April 12, 2022 Assessment & Plan (1) Hypotension: (2) Transaminitis: (3) Acute hypoxemic respiratory failure: (4) Fluid overload: (5) Chronic anticoagulation: (6) H/O aortic valve replacement: Plan: 66-year-old male with a past medical history of AVR replacement, vasculopathy, nonischemic cardiomyopathy, atrial fibrillation and chronic anticoagulation with warfarin presenting to the hospital due to hypotension and renal failure. Neurologic: Patient is mildly lethargic. Likely secondary to metabolic encephalopathy from hypercapnia, transaminitis and hypoxemia. Ammonia level within normal limits. Hold gabapentin - Doubt alcohol withdraw: Alcohol withdrawal scoring - symptom triggered, minimal dosing Pulmonary: Mild CO2 retention - Off Bipap - Continue Breo Ellipta and Incruse Ellipta for possible COPD. - Poor pulmonary reserve: not ideal candidate for IVORY. Cardiovascular: History of aortic valve replacement, diastolic CHF and secondary pulmonary hypertension. Maintain mean arterial pressures above 65. Continue low-dose L evophed. PICC line in place. We will start the patient on low-dose midodrine 2.5 mg 3 times daily. - ECHO reviewed -Off vasoactives Gastrointestinal: Transaminitis: improving - ischemic (most likely vs congestive) CT abdomen/pelvis on admission without acute findings. Cardiac diet. Continue Protonix 40 mg daily. Renal: ARIEL: Resovled. Infectious disease: No fever, normalized WBC. Day 4 of Zosyn, de-escalate to rocephin single agent for 7 days total therapy. - Blood cultures today to eval for possible endocarditis. Hematologic: Patient on warfarin for history of PE and A. fib. Continue warfarin. INR 2.3. No signs of bleeding. Patient with chronic anemia. Endocrine: TSH within normal limits. Random cortisol low. - Stop hydrocortisone VTE prophylaxis: Warfarin CODE STATUS: Full Family at bedside: Not available bedside Disposition: Stable for downgrade out of ICU Admission and Anticipated Discharge Date Admission Date: April 07, 2022 Subjective Feels improved today. Sitting up in chair has been off pressors for greater than 12 hours Review of Systems Review of Systems: Denies chest pain, no shortness of breath ideally would like to go home. Physical Exam Physical Exam: General: Alert. nontoxic. Skin: Warm, dry, Head: Atraumatic Ears, nose, mouth and throat: airway patent Cardiovascular: Normal peripheral perfusion Respiratory: no respiratory distress Gastrointestinal: Non distended Musculoskeletal: No deformity Results & Data Results & Data ([facility]) Vital Signs (Past 12 Hours) Vital Signs Temp Pulse Resp BP Pulse Ox Pulse Ox 04/12/22 06:30 95 H 17 104/65 98 04/12/22 06:00 95 H 12 115/72 92 04/12/22 05:30 95 H 18 103/66 94 04/12/22 05:00 95 H 12 103/65 90 04/12/22 04:30 94 H 12 109/70 96 04/12/22 04:00 94 H 22 109/70 98 04/12/22 03:30 93 H 21 116/71 92 04/12/22 03:00 92 H 13 95/60 L 96 04/12/22 02:30 92 H 14 92/68 L 97 04/12/22 02:00 91 H 12 94/67 L 96 04/12/22 01:30 92 H 12 86/58 L 97 04/12/22 01:00 90 14 82/58 L 95 04/12/22 00:30 92 H 14 93/55 L 97 04/12/22 00:00 36.5 C 90 0 L 111/67 95 04/11/22 23:30 91 H 89/59 L 98 04/11/22 23:00 91 H 88/56 L 97 92 04/11/22 22:30 90 102/63 98 04/11/22 22:00 90 116/69 98 Critical Care Results & Data Vital Signs (Past 12 Hours) Vital Signs Temp Pulse Resp BP Pulse Ox Pulse Ox 04/12/22 06:30 95 H 17 104/65 98 04/12/22 06:00 95 H 12 115/72 92 04/12/22 05:30 95 H 18 103/66 94 04/12/22 05:00 95 H 12 103/65 90 04/12/22 04:30 94 H 12 109/70 96 04/12/22 04:00 94 H 22 109/70 98 04/12/22 03:30 93 H 21 116/71 92 04/12/22 03:00 92 H 13 95/60 L 96 04/12/22 02:30 92 H 14 92/68 L 97 04/12/22 02:00 91 H 12 94/67 L 96 04/12/22 01:30 92 H 12 86/58 L 97 04/12/22 01:00 90 14 82/58 L 95 04/12/22 00:30 92 H 14 93/55 L 97 04/12/22 00:00 36.5 C 90 0 L 111/67 95 04/11/22 23:30 91 H 89/59 L 98 04/11/22 23:00 91 H 88/56 L 97 92 04/11/22 22:30 90 102/63 98 04/11/22 22:00 90 116/69 98 Lab & Micro Results (Past 24 Hours) RBC 4.08 M/uL (4.7-6.1) L 04/12/22 WBC 6.36 K/uL (4.8-10.8) 04/12/22 Hgb 9.5 g/dL (14.0-18.0) L 04/12/22 Hct 34.9 % (42-52) L 04/12/22 MCV 85.5 fL (80-100) 04/12/22 MCH 23.3 pg (25-34) L 04/12/22 MCHC 27.2 g/dL (32-36) L 04/12/22 RDW Standard Deviation 79.0 fL (36.4-46.3) H 04/12/22 RDW Coefficient of Variation 25.2 % (11.5-14.5) H 04/12/22 Plt Count 153 K/uL (130-400) 04/12/22 MPV 9.2 fL (7.4-10.4) 04/12/22 Neutrophils (%) (Auto) 87.3 % 04/12/22 Lymphocytes (%) (Auto) 5.0 % 04/12/22 Monocytes # (Auto) 0.48 K/uL (0.11-0.59) 04/12/22 Eosinophils # (Auto) 0.00 K/uL (0-0.5) 04/12/22 Immature Granulocyte % (Auto) 0.2 % 04/12/22 Neutrophils # (Auto) 5.55 K/uL (1.4-6.5) 04/12/22 Lymphocytes # (Auto) 0.32 K/uL (1.2-3.4) L 04/12/22 Monocytes # (Auto) 0.48 K/uL (0.11-0.59) 04/12/22 Eosinophils # (Auto) 0.00 K/uL (0-0.5) 04/12/22 Basophils # (Auto) 0.00 K/uL (0-0.2) 04/12/22 Immature Granulocyte # (Auto) 0.01 K/uL (0.00-0.02) 04/12/22 Polychromasia 1+ 04/12/22 Hypochromasia Present 04/12/22 Anisocytosis Present 04/12/22 Na 139 mmol/L (136-145) 04/12/22 K 3.9 mmol/L (3.5-5.1) 04/12/22 Cl 108 mmol/L (98-107) H 04/12/22 CO2 28 mmol/L (21-32) 04/12/22 Anion Gap 3 (3-11) 04/12/22 BUN 33 mg/dl (6-23) H 04/12/22 Creatinine 1.13 mg/dl (0.6-1.4) 04/12/22 Estimated GFR ( Amer) 77.0 ml/min 04/12/22 Estimated GFR (Non-Af Amer) 66.4 ml/min 04/12/22 BUN/Creatinine Ratio 29.2 (10-20) H 04/12/22 Glu 131 mg/dl (70-99(Fasting)) H 04/12/22 Ca 8.8 mg/dl (8.5-10.1) 04/12/22 Phosphorus Level 3.0 mg/dl (2.5-4.9) 04/12/22 Total Bilirubin 0.6 mg/dl (0.2-1.0) 04/12/22 Direct Bilirubin 0.2 mg/dl (0-0.2) 04/12/22 AST 95 U/L (13-39) H 04/12/22 ALT 180 U/L (7-52) H 04/12/22 Alkaline Phosphatase 50 U/L (34-104) 04/12/22 TP 5.4 gm/dl (6.0-8.3) L 04/12/22 Albumin 2.9 gm/dl (3.4-5.0) L 04/12/22 Mg 2.2 mg/dl (1.7-2.4) 04/12/22 04:47 04/12/22 Calcium Level 8.8 mg/dl (8.5-10.1) 04/12/22 04:47 04/12/22 Prothromb Time International Ratio 3.1 (0.9-1.1) H 04/12/22 04:47 04/12/22 Venous Blood pH 7.32 (7.36-7.41) L 04/11/22 10:16 04/11/22 Venous Blood Partial Pressure CO2 56 mmHg (38-50) H 04/11/22 10:16 04/11/22 Venous Blood Partial Pressure O2 32 mmHg 04/11/22 10:16 04/11/22 Venous Blood HCO3 28 mmol/L 04/11/22 10:16 04/11/22 Venous Blood Base Excess 1.7 mEq/L 04/11/22 10:16 04/11/22 Venous Blood Oxygen Saturation < 60.0 % 04/11/22 10:16 04/11/22 Blood Gas Barometric Pressure 724.1 mm/Hg 04/11/22 10:16 04/11/22 Blood Gas Barometric Pressure 724.1 mm/Hg 04/11/22 10:16 04/11/22 Diagnostic Findings (Past 24 Hours) Chest X-Ray 04/11/22 07:00 XR chest 1V portable CLINICAL HISTORY: f/u COMPARISON STUDY: Chest radiograph April 10, 2022. FINDINGS: Right PICC is in place. There is a left subclavian pacer, median sternotomy wires and prosthetic cardiac valve. Cardiomegaly is similar to prior exam. There is no pneumothorax. Small bilateral pleural effusions are unchanged. Lower lung airspace opacities have slightly improved. There is suspected mild pulmonary edema. IMPRESSION: 1. No significant change is suspected pulmonary edema and small bilateral pleural effusions. 2. Slight improvement in lower lung airspace opacities which could reflect superimposed pneumonia or alveolar pulmonary edema. ACT 112: Negative or not required by law. Electronically signed by: Kushal Messina M.D. 04/11/2022 12:08 PM I & O Totals 24 Hours 04/11/22 04/12/22 04/13/22 06:59 06:59 06:59 Intake Total 2982.242 / 2982.242 1867.626 / 1867.626 Output Total 900 / 900 551 / 551 Balance 2082.242 / 2082.242 1316.626 / 1316.626 Cumulative 04/07/22 16:57 thru 04/12/22 06:00 Intake Total 41853.707 Output Total 4001 Balance 6615.707 RT Ventilator Mngmt (Last Documented) Ventilator Ordered Settings Respiratory Rate 17 04/12/22 06:30 Fraction of Inspired Oxygen 35 04/11/22 02:43 Ventilator - PT Measurements Respiratory Rate 17 End-Tidal CO2 9 Coding Level of Care Code 20947 Subseq Hosp Care Lvl 3 Diagnoses Hypotension I95.9 Transaminitis R74.01 Acute hypoxemic respiratory failure J96.01 Fluid overload E87.70 Hypervolemia type: unspecified Chronic anticoagulation Z79.01 H/O aortic valve replacement Z95.2 (1) Fluid overload Hypervolemia type: unspecified Qualified Code(s): E87.70 - Fluid overload, unspecified
--- NOTE | 2022-04-12 12:13 | Hospitalist Progress Note ---
Date of Service April 12, 2022 Assessment & Plan (1) Hypotension: (2) Transaminitis: (3) Acute on chronic renal failure: (4) Anemia: (5) DVT prophylaxis: (6) Acute and chronic respiratory failure with hypoxia: (7) Chronic anticoagulation: (8) H/O aortic valve replacement: Plan: 1. Hypotension presents with hypotension, acute kidney injury, and hyperkalemia, initially improved with IVF and emergent treatments but then developed hypotension, and hypercapnea on hospital day #2, transferred to ICU. HypotensionLikely from volume depletion, Sepsis, possible Adrenal Insufficiency but the patient also had morphine overnight which may have explained his lethargy somewhat. Levophed drip started and he was also placed on low dose midodrine with improvement in his blood pressure. Empiric hydrocortisone was added and is now off after a couple of days and clinical improvement. Creatinine is now back to baseline and off IV fluids Although he is lethargic now, nurse reported that he tolerated PO this am. Continues on Rocephin for total 7 days abx, no clear source of infection. CXR possible pleural effusion 2. Possible component of sepsis from right lower extremity cellulitis, possible pneumonia bilateral Leg erythema, improving off Bipap Urine culture: Negative Blood cultures: negative Repeat Blood cultures: pending given Zosyn IV + doxycycline IV--> transitioned to Ceftri IV Day 1 Echo: EF 70% 3. Acute Metabolic Encephalopathy secondary to above, Hypercapnea, possible Alcohol Withdrawal still lethargic but following commands, cannot assess comprehension with his current level of fatigue Hypercapnea resolved, off Bipap Librium started by ICU attending but stopped with persistent lethargy patient cannot sign out AMA due to incapacity for medical decision making as per Psych 4. Acute kidney injury possible prerenal etiology, possible ATN Creatinine of 3.2, probably secondary to hypotension Baseline around 1 Given bicarb drip Creatinine improving from 3.2 to 1.8 Nephrology service consulted Recommend to DC IV fluids 5. Hyperkalemia potassium 6.4 on admission resolved 6.. Mild elevation of troponin: Mostly likely from demand ischemia Repeat troponins in the 50s, plateau echo: LVH, EF 70%, mildly reduced RV systolic function, abnormal prosthetic gradient 6. P history of right-sided heart failure and also valvular heart disease: Holding diuretics. Operations Supervisor consulted echo: LVH, EF 70%, mildly reducecd RV systolic function, abnormal prosthetic gradient 7. Lower extremity pain: History of peripheral vascular disease, history of recent procedure. Vascular surgery consulted No surgical intervention at this point Continue Zosyn for now for possible cellulitis RLE erythema resolved 8. History of chronic obstructive pulmonary disease: (+) hypercapneic respiratory failure with lethargy noted on hospital day 2 from pneumonia, Tramadol? off Bipap treatment of pneumonia as per above Continue home inhalers, oxygen as needed. 9. History of paroxysmal atrial fibrillation: History of Watchman left atrial appendage closure device, history of pacemaker, history of ventricular septal defect repair, history of bioprosthetic aortic valve, status post repair, history of subaortic membrane resection, history of PFO repair, history of tricuspid valve annuloplasty. Currently holding metoprolol and digoxin INR 2.3 continue Coumadin INR goal 2-3 Possible Alcohol Withdrawal admits to drinking 3-5 beers/day Gabapentin changed to Librium Ativan as needed Gabapentin discontinued due to encephalopathy PRN Ativan 9. Hyperlipidemia: Continue statin. 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 11. Transaminitis. Probably from hypotension. improving 12. Deep venous thrombosis prophylaxis: INR 2.3 Coumadin, trend INR daily. DISPOSITION:uncertain while still fatigued. Myla Rock DO [facility] Hospitalist Admission and Anticipated Discharge Date Admission Date: April 07, 2022 Subjective The patient is a 66-year-old man who presented with low blood pressure. In the ER he was also found to have a potassium of 6.4, sodium of 132 and creatinine of 3.25 with a normal baseline. High sensitive troponin was 57 (elevated). A CT of the abdomen pelvis without contrast revealed no evidence of hydrocephalus. He was given a fluid bolus and his blood pressure improved. He was given calcium gluconate insulin dextrose and Veltassa in the ER. He was alert and oriented at that time. He did report back pain and leg pain and was given some morphine overnight. He was also placed on a gabapentin protocol for alcohol withdrawal but was ultimately never given gabapentin. The following day he was more hypotensive again and lethargic. He was transitioned to the critical care unit for hypotension and acute hypoxic respiratory failure with fluid overload. As there was concern for possible sepsis he had been placed on broad-spectrum antibiotics. He was placed on low-dose Levophed and low-dose midodrine 2.5 mg 3 times daily. Elevated transaminitis was thought secondary to ischemic hepatopathy. He is anticoagulated on warfarin for history of PE and atrial fibrillation and has known chronic anemia. He remained on noninvasive ventilator with pressor support and did not require intubation. Today he is off BiPAP and is oxygenating 100% on 2 L nasal cannula. Blood pressure is now 196/59 with a pulse of 85. He is received 4 days of Zosyn and will be de-escalated to Rocephin single agent for 7 days total therapy. Blood cultures have been drawn and are pending for possible endocarditis. A IVORY was considered but not advised given his altered mental status and hypotension and respiratory status. A IVORY revealed EF greater than 50% with no left ventricular wall motion abnormalities, mildly reduced RV systolic function a bioprosthetic aortic valve with a abnormal gradient and mild pulmonary hypertension. The patient was started on hydrocortisone 50 mg 3 times a day with a random cortisol that was low. The patient was unable to awaken and verbalize understanding of my questions but he was able to follow instructions related to his exam. Per RN, he had been up all morning and demonstrated correct orientation x 2 and had eaten breakfast. He was very tired from the activity of the morning. Review of Systems Review of Systems: Lethargy prevented ROS Physical Exam Physical Exam: CONSTITUTIONAL: WNWD, vitals as above, generally somnolent, nonverbal, following commands EYES: PERRL, normal conjunctivae, no scleral icterus ENT: external ear and nose normal, MMM NECK: trachea midline RESPIRATORY: clear to auscultation bilaterally, no crackles, rales or wheezes, normal respiratory effort CARDIOVASCULAR: regular rate and rhythm, S1 and 2 heard without murmurs, gallops or rubs, no JVD, no peripheral edema CHEST: inspection of chest was normal GASTROINTESTINAL: soft, nontender, ND, no guarding MUSCULOSKELETAL: generalized weakness, head is normocephalic and atraumatic SKIN: warm and dry NEUROLOGIC: CN 2-12 grossly intact, no sensory deficit, normal cognition, normal speech, no tremor PSYCHIATRIC: alert cooperative and oriented to person, place and time. Results & Data Results & Data ([facility]) Vital Signs (Past 12 Hours) Vital Signs Pulse Resp BP Pulse Ox 04/12/22 11:00 85 19 96/59 L 100 04/12/22 10:00 98 H 18 106/65 96 04/12/22 09:00 97 H 25 H 105/65 90 04/12/22 08:00 98 H 23 114/67 90 04/12/22 07:00 97 H 23 118/71 100 04/12/22 06:30 95 H 17 104/65 98 04/12/22 06:00 95 H 12 115/72 92 04/12/22 05:30 95 H 18 103/66 94 04/12/22 05:00 95 H 12 103/65 90 04/12/22 04:30 94 H 12 109/70 96 04/12/22 04:00 94 H 22 109/70 98 04/12/22 03:30 93 H 21 116/71 92 04/12/22 03:00 92 H 13 95/60 L 96 04/12/22 02:30 92 H 14 92/68 L 97 04/12/22 02:00 91 H 12 94/67 L 96 04/12/22 01:30 92 H 12 86/58 L 97 04/12/22 01:00 90 14 82/58 L 95 04/12/22 00:30 92 H 14 93/55 L 97 Laboratory Results Short CBC 04/12/22 Range/Units 04:47 WBC 6.36 (4.8-10.8) K/uL Hgb 9.5 L (14.0-18.0) g/dL Hct 34.9 L (42-52) % Plt Count 153 (130-400) K/uL BMP 04/12/22 04:47 Sodium 139 Potassium 3.9 Chloride 108 H Carbon Dioxide 28 BUN 33 H Creatinine 1.13 Glucose 131 H Calcium 8.8 Liver Function 04/12/22 Range/Units 04:47 Total Bilirubin 0.6 (0.2-1.0) mg/dl Direct Bilirubin 0.2 (0-0.2) mg/dl AST 95 H (13-39) U/L ALT 180 H (7-52) U/L Alkaline Phosphatase 50 (34-104) U/L Albumin 2.9 L (3.4-5.0) gm/dl Medications Administered Current Inpatient Medications Acetaminophen (Acetaminophen 325 Mg Tab) 650 mg PO Q4H PRN PRN Reason: Pain or Fever Stop: 05/07/22 22:29 Albuterol (Albuterol Hfa 8 Gm Inhaler) 2 puffs INH Q6H PRN PRN Reason: Shortness Of Breath Stop: 05/07/22 22:45 Atorvastatin Calcium (Atorvastatin 40 Mg Tab) 40 mg PO DAILY [facility] Stop: 05/08/22 08:59 Last Admin: 04/12/22 08:52 Dose: 40 mg Documented by: Chlordiazepoxide HCl (Chlordiazepoxide Hcl 25 Mg Cap) 50 mg PO Q6H OLGA; Taper Stop: 04/13/22 13:59 Last Admin: 04/12/22 08:51 Dose: 50 mg Documented by: Chlordiazepoxide HCl (Chlordiazepoxide Hcl 10 Mg Cap) 10 mg PO Q8H [facility] Stop: 04/14/22 10:01 Chlordiazepoxide HCl (Chlordiazepoxide Hcl 5 Mg Cap) 5 mg PO Q12H [facility] Stop: 04/15/22 10:01 Clopidogrel Bisulfate (Clopidogrel Bisulfate 75 Mg Tab) 75 mg PO QAM [facility] Stop: 05/08/22 08:59 Last Admin: 04/12/22 08:52 Dose: 75 mg Documented by: Cyanocobalamin (Cyanocobalamin (B-12) 500 Mcg Tablet) 1,000 mcg PO QDL [facility] Stop: 05/08/22 11:29 Last Admin: 04/11/22 12:23 Dose: 1,000 mcg Documented by: Fluticasone/Vilanterol (Fluticasone/Vilanterol 200/25mcg 14 Puffs/Inhaler) 1 puffs INH DAILY [facility] Stop: 05/08/22 08:59 Last Admin: 04/12/22 08:53 Dose: 1 puffs Documented by: Folic Acid (Folic Acid 1 Mg Tab) 1 mg PO QAM [facility] Stop: 05/08/22 08:59 Last Admin: 04/12/22 08:52 Dose: 1 mg Documented by: Heparin Sodium (Beef Lung) (Heparin 10 Unit/Ml 5 Ml Flush) 5 ml FLUSH PRN PRN PRN Reason: Flush Stop: 05/12/22 00:23 Last Admin: 04/12/22 06:11 Dose: 5 ml Documented by: Ceftriaxone Sodium 2,000 mg/ (Dextrose) 70 mls @ 140 mls/hr IV DAILY@1600 [facility]; Protocol Stop: 04/14/22 23:59 Last Infusion: 04/11/22 17:21 Dose: Infused Documented by: Lactobacillus Acidophilus (Advanced Probiotic 1250 Mg Capsule) 2 cap PO QAM [facility] Stop: 05/08/22 08:59 Last Admin: 04/12/22 08:53 Dose: 2 cap Documented by: Lorazepam (Lorazepam 2 Mg/1 Ml Vial) 1 mg IV ONE PRN; Protocol PRN Reason: EtoH Withdrawal AWSS 6-10 Stop: 05/08/22 15:26 Lorazepam (Lorazepam 2 Mg/1 Ml Vial) 0.5 mg IV Q4H PRN PRN Reason: ANIXETY Stop: 05/08/22 15:26 Last Admin: 04/08/22 16:21 Dose: 0.5 mg Documented by: Melatonin (Melatonin 3 Mg Tab) 3 mg PO HS PRN PRN Reason: Sleep Stop: 05/07/22 22:45 Midodrine (Midodrine Hcl 2.5 Mg Tab) 2.5 mg PO TID@0800,1200,1700 [facility] Stop: 05/10/22 11:59 Last Admin: 04/12/22 08:52 Dose: 2.5 mg Documented by: Miscellaneous (Icu Electrolyte Replacement Protocol) 1 ea N/A BID@06,18 [facility]; Protocol Stop: 04/18/22 17:59 Last Admin: 04/12/22 05:37 Dose: 1 ea Documented by: Nitroglycerin (Nitroglycerin Sl 0.4 Mg/Tab Tab) 0.4 mg SL UD PRN PRN Reason: Chest Pain Stop: 05/07/22 22:29 Ondansetron HCl (Ondansetron Inj 2 Mg/Ml 2 Ml Vial) 4 mg IV Q6H PRN PRN Reason: Nausea Stop: 05/07/22 22:29 Pantoprazole Sodium (Pantoprazole 40 Mg Tab) 40 mg PO QAM [facility] Stop: 05/08/22 08:59 Last Admin: 04/12/22 08:52 Dose: 40 mg Documented by: Polyethylene Glycol (Polyethylene (Miralax) 17 Gm Pack) 17 gm PO DAILY PRN PRN Reason: Constipation Stop: 05/07/22 22:29 Sodium Chloride (Sodium Chloride 0.65% Na Soln 45 Ml ([place])) 1 sprays NA PRN PRN PRN Reason: Dryness Stop: 05/11/22 14:04 Thiamine HCl (Thiamine Hcl 100 Mg Tab) [facility] [place] Stop: 05/08/22 14:29 Last Admin: 04/12/22 08:52 Dose: 100 mg Documented by: Umeclidinium [place] (Umeclidinium [place] 62.5mcg/Blister 7 Puffs/Inhaler) 1 puffs INH [facility] Stop: 05/08/22 08:59 Last Admin: 04/12/22 08:53 Dose: 1 puffs Documented by: Warfarin Sodium (Warfarin Sod 5 Mg Tab) 5 mg PO MoFr@1600 [facility] Stop: 05/08/22 15:59 Last Admin: 04/11/22 16:47 Dose: 5 mg Documented by: Warfarin Sodium (Warfarin Sod 2.5 Mg Tab) 2.5 mg PO SuTuWeThSa@1600 [facility] Stop: 05/09/22 15:59 Last Admin: 04/10/22 15:13 Dose: 2.5 mg Documented by: Zinc Sulfate (Zinc Sulfate 220 Mg Capsule) 220 mg PO [facility] Stop: 05/08/22 08:59 Last Admin: 04/12/22 08:52 Dose: 220 mg Documented by: (1) Acute on chronic renal failure Acute renal failure type: unspecified Chronic kidney disease stage: unspecified stage Qualified Code(s): N17.9 - Acute kidney failure, unspecified; N18.9 - Chronic kidney disease, unspecified
[2022-04-12] MEDS: CYANOCOBALAMIN (B-12) 500 MCG TABLET PO SCH (13:01)
[2022-04-12] MEDS: WARFARIN SOD 2.5 MG TAB PO SCH (16:06)
[2022-04-12] MEDS: cefTRIAXone SODIUM 2,000 MG in DEXTROSE 5% 50 ML IV SCH (16:08)
[2022-04-12 21:12] LABS: Appearance Urine Clear (Clear); Bacteria Urine Automated Negative (Negative); Bilirubin Urine Negative (Negative); Blood Urine 2+ (Negative); Color Urine Yellow; Glucose Urine UA Negative (Negative); Ketones Urine Negative (Negative); Leukocyte Esterase Urine Trace (Negative); Nitrite Urine Negative (Negative); Protein Urine Negative (Negative); RBC Urine Automated >30 /hpf (0-4); Specific Gravity Urine 1.016 (1.000-1.030); Urobilinogen Urine Negative (Negative)
[2022-04-13 06:08] LABS: INR 4.2 (0.9-1.1); Prothrombin Time 41.1 Seconds (9.0-12.0)
[2022-04-13 06:22] LABS: Anisocytosis Present; Basophils # (auto) 0.01 K/uL (0-0.2); Basophils % (auto) 0.1 %; Eosinophils # (auto) 0.02 K/uL (0-0.5); Eosinophils % (auto) 0.2 %; Hematocrit (blood only) 37.4 % (42-52); Hemoglobin 9.9 g/dL (14.0-18.0); Hypochromasia Present; Immature Granulocytes # (auto) 0.02 K/uL (0.00-0.02); Immature Granulocytes % (auto) 0.2 %; Lymphocytes # (auto) 0.93 K/uL (1.2-3.4); Mean Corpuscular Hemoglobin 22.8 pg (25-34); Mean Corpuscular Hgb Conc 26.5 g/dL (32-36); Mean Platelet Volume 8.9 fL (7.4-10.4); Monocytes # (auto) 0.99 K/uL (0.11-0.59); Monocytes % (auto) 11.7 %; Neutrophils # (auto) 6.46 K/uL (1.4-6.5); Neutrophils % (auto) 76.8 %; Platelet Count 153 K/uL (130-400); RDW Coefficient of Variation 25.2 % (11.5-14.5); RDW Standard Deviation 78.7 fL (36.4-46.3); Red Blood Count 4.35 M/uL (4.7-6.1); White Blood Count 8.43 K/uL (4.8-10.8)
[2022-04-13 06:23] LABS: Albumin Level 3.1 gm/dl (3.4-5.0); BUN Creatinine Ratio 31.7 (10-20); Bilirubin Direct 0.2 mg/dl (0-0.2); Bilirubin,Total 0.5 mg/dl (0.2-1.0); Calcium 9.4 mg/dl (8.5-10.1); Creatinine Clr Calc Pharmacy 63.2 ml/min; Est GFR (African American) 88.2 ml/min; Est GFR (Non-African American) 76.1 ml/min; Magnesium 2.2 mg/dl (1.7-2.4); Phosphorus 2.4 mg/dl (2.5-4.9); Potassium 4.1 mmol/L (3.5-5.1)
[2022-04-13] MEDS ORDERED: SPIRONOLACTONE 12.5 MG TAB PO SCH (10:00)
[2022-04-13] MEDS: MIDODRINE HCL 2.5 MG TAB PO SCH ×2 (10:15→17:20)
[2022-04-13] MEDS: FUROSEMIDE 40 MG TAB PO SCH ×2 (10:46→17:20)
[2022-04-13] MEDS: ATORVASTATIN 40 MG TAB PO SCH (10:46)
[2022-04-13] MEDS: UMECLIDINIUM BROMIDE 62.5MCG/BLISTER 7 PUFFS/INHALER INH SCH (10:46)
[2022-04-13] MEDS: FLUTICASONE/VILANTEROL 200/25MCG 14 PUFFS/INHALER INH SCH (10:46)
[2022-04-13] MEDS: ZINC SULFATE 220 MG CAPSULE PO SCH (10:46)
[2022-04-13] MEDS: CLOPIDOGREL BISULFATE 75 MG TAB PO SCH (10:46)
[2022-04-13] MEDS: ADVANCED PROBIOTIC 1250 MG CAPSULE PO SCH (10:47)
[2022-04-13] MEDS: PANTOprazole 40 MG TAB PO SCH (10:47)
[2022-04-13] MEDS: FOLIC ACID 1 MG TAB PO SCH (11:22)
[2022-04-13] MEDS: THIAMINE HCL 100 MG TAB PO SCH (11:22)
--- NOTE | 2022-04-13 13:15 | Cardiology Progress Note ---
Date of Service April 13, 2022 Assessment & Plan (1) Acute hyperkalemia: (2) Acute on chronic renal failure: (3) Acute hypotension: (4) Elevated troponin: (5) Transaminitis: (6) Acute on chronic systolic (congestive) heart failure: (7) Pulmonary embolism, bilateral: (8) PAD (peripheral artery disease): (9) Complete heart block: (10) Afib: (11) Chronic anticoagulation: (12) CAD (coronary artery disease): (13) H/O aortic valve replacement: (14) S/P VSD closure: Plan: Renal function at baseline Still receiving low-dose Levophed for BP support with the plan to transition to midodrine Repeat echocardiogram shows increased velocity across the bioprosthetic aortic valve. Possibly due to hyperdynamic LV systolic function given current clinical status. Blood cultures remain negative. Will continue to follow clinically Admission and Anticipated Discharge Date Admission Date: April 07, 2022 Subjective Patient seen and examined, chart reviewed. Remains lethargic but more responsive than previous. Does not voice any complaints except fatigue. Review of Systems Review of Systems: All systems reviewed & are unremarkable except as noted in HPI & below Physical Exam Physical Exam: General: Awake, alert and oriented x 3. Lethargic. Conversational dyspnea while on BiPAP HEENT: Normocephalic, atraumatic. Pupils equal, round and reactive to light and accommodation. Extraocular muscles are intact. Anicteric sclera. Moist mucous membranes. Neck: No JVD. No bruit. Cardiovascular: Regular. Positive S-4. Normal S-1 and S-2. No S-3. 3/6 mid to late systolic ejection murmur, greatest at the right sternal border, second intercostal space with radiation to the bilateral carotids. No rubs. Pulmonary: Clear to auscultation bilaterally. No rales, rhonchi, or wheezing. Abdomen: Bowel sounds x 4, soft. No rebound, guarding or tenderness. No organomegaly. Extremities: No clubbing, cyanosis or edema. +2 pedal pulses bilaterally. Skin: Warm and dry. Results & Data ([facility]) Vital Signs (Past 12 Hours) Vital Signs Temp Pulse Pulse Resp BP Pulse Ox 04/13/22 11:08 36.4 C L 102 H 18 113/74 97 04/13/22 10:00 100 H 04/13/22 06:41 36.7 C 98 H 18 113/75 94 04/13/22 03:04 36.5 C 94 H 18 123/86 99 (1) Acute on chronic renal failure Acute renal failure type: unspecified Chronic kidney disease stage: unspecified stage Qualified Code(s): N17.9 - Acute kidney failure, unspecified; N18.9 - Chronic kidney disease, unspecified
[2022-04-13] MEDS: CYANOCOBALAMIN (B-12) 500 MCG TABLET PO SCH (13:28)
--- NOTE | 2022-04-13 15:27 | Hospitalist Progress Note ---
Date of Service April 13, 2022 Assessment & Plan (1) Hypotension: (2) Transaminitis: (3) Acute on chronic renal failure: (4) Anemia: (5) Acute and chronic respiratory failure with hypoxia: (6) Chronic anticoagulation: (7) H/O aortic valve replacement: (8) DVT prophylaxis: Plan: 1. Hypotension presents with hypotension, acute kidney injury, and hyperkalemia, initially improved with IVF and emergent treatments but then developed hypotension, and hypercapnea on hospital day #2, transferred to ICU. HypotensionLikely from volume depletion, Sepsis, possible Adrenal Insufficiency but the patient also had morphine overnight which may have explained his lethargy somewhat. Levophed drip started and he was also placed on low dose midodrine with improvement in his blood pressure. Empiric hydrocortisone was added and is now off after a couple of days and clinical improvement. Creatinine is now back to baseline and off IV fluids-->unfortunately no he has worsened pulmonary edema. Was restarted on his PO Lasix today but will plan to switch to IV in am. Cont daily BMP. Continues on Rocephin for total 7 days abx, no clear source of infection. 2. Possible component of sepsis from right lower extremity cellulitis, possible pneumonia bilateral Leg erythema, improving off Bipap Urine culture: Negative Blood cultures: negative Repeat Blood cultures: pending given Zosyn IV + doxycycline IV--> transitioned to Ceftriaxone) Echo: EF 70% 3. Acute diastolic heart failure--transitioning PO Lasix to IV with recent CXR this evening. BB restarted. Hypoxia present 2/2 pulmonary edema. 3. Acute Metabolic Encephalopathy secondary to above, Hypercapnea, possible Alcohol Withdrawal still lethargic but following commands, cannot assess comprehension with his current level of fatigue Hypercapnea resolved, off Bipap Librium started by ICU attending but stopped with persistent lethargy patient cannot sign out AMA due to incapacity for medical decision making as per Psych 4. Acute kidney injury possible prerenal etiology, possible ATN Creatinine of 3.2, probably secondary to hypotension Baseline around 1 Given bicarb drip Creatinine improving from 3.2 to 1.8 Nephrology service consulted Recommend to DC IV fluids Creat now 1.0 5. Hyperkalemia potassium 6.4 on admission resolved-still holding spironolactone and entresto 6.. Mild elevation of troponin: Mostly likely from demand ischemia Repeat troponins in the 50s, plateau echo: LVH, EF 70%, mildly reduced RV systolic function, abnormal prosthetic gradient 6. P history of right-sided heart failure and also valvular heart disease: Holding diuretics. Program Management Intern consulted echo: LVH, EF 70%, mildly reducecd RV systolic function, abnormal prosthetic gradient 7. Lower extremity pain: History of peripheral vascular disease, history of recent procedure. Vascular surgery consulted No surgical intervention at this point Continue Zosyn for now for possible cellulitis RLE erythema resolved 8. History of chronic obstructive pulmonary disease: (+) hypercapneic respiratory failure with lethargy noted on hospital day 2 from pneumonia, Tramadol? off Bipap treatment of pneumonia as per above Continue home inhalers, oxygen as needed. 9. History of paroxysmal atrial fibrillation: History of Watchman left atrial appendage closure device, history of pacemaker, history of ventricular septal defect repair, history of bioprosthetic aortic valve, status post repair, history of subaortic membrane resection, history of PFO repair, history of tricuspid valve annuloplasty. Currently holding metoprolol and digoxin--tachycardic with paced rhythm, restart metoprolol now. INR 2.3 continue Coumadin INR goal 2-3 Possible Alcohol Withdrawal admits to drinking 3-5 beers/day Gabapentin changed to Librium Ativan as needed Gabapentin discontinued due to encephalopathy/Librium stopped 2/2 fatigue PRN Ativan 9. Hyperlipidemia: Continue statin. 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 11. Transaminitis. Probably from hypotension. improving 12. Deep venous thrombosis prophylaxis: INR 2.3 Coumadin, trend INR daily. DISPOSITION:uncertain while still fatigued. Myla Rock DO [facility] Hospitalist Admission and Anticipated Discharge Date Admission Date: April 07, 2022 Subjective The patient is a 66-year-old man who presented with low blood pressure. Today he remains very weak Brother is at bedside and reports baseline is talkative and makes sense, independent, drives Pt reports drinking alcohol dialy (2-3 beers) and he smokes regularly Pt is not able to remember the details around why or how he got to be in the ER Review of Systems Review of Systems: All systems were reviewed and negative except as indicated above. Physical Exam Physical Exam: CONSTITUTIONAL: vitals as above, generally fatigued and weak, thin EYES: normal conjunctivae, no scleral icterus ENT: external ear and nose normal, MMM NECK: trachea midline RESPIRATORY: clear to auscultation on the right with diminished breath sounds throughout the left side, no crackles, rales or wheezes, slightly increased respiratory effort CARDIOVASCULAR: regular rate and rhythm, S1 and 2 heard without murmurs, gallops or rubs, no JVD, no peripheral edema CHEST: inspection of chest revealed PM in left anterior chest. GASTROINTESTINAL: soft, nontender, ND, no guarding MUSCULOSKELETAL: generalized weakness, head is normocephalic and atraumatic SKIN: warm and dry NEUROLOGIC: CN 2-12 grossly intact, no sensory deficit, normal cognition, normal speech, no tremor PSYCHIATRIC: alert cooperative and oriented to person, place and time. Results & Data Results & Data ([facility]) Vital Signs (Past 12 Hours) Vital Signs Temp Pulse Pulse Resp BP Pulse Ox 04/13/22 15:20 36.7 C 99 H 18 106/72 99 04/13/22 11:08 36.4 C L 102 H 18 113/74 97 04/13/22 10:00 100 H 04/13/22 06:41 36.7 C 98 H 18 113/75 94 Laboratory Results Short CBC 04/13/22 Range/Units 05:27 WBC 8.43 (4.8-10.8) K/uL Hgb 9.9 L (14.0-18.0) g/dL Hct 37.4 L (42-52) % Plt Count 153 (130-400) K/uL BMP 04/13/22 05:27 Sodium 142 Potassium 4.1 Chloride 110 H Carbon Dioxide 29 BUN 32 H Creatinine 1.01 Glucose 94 Calcium 9.4 Liver Function 04/13/22 Range/Units 05:27 Total Bilirubin 0.5 (0.2-1.0) mg/dl Direct Bilirubin 0.2 (0-0.2) mg/dl AST 76 H (13-39) U/L ALT 173 H (7-52) U/L Alkaline Phosphatase 52 (34-104) U/L Albumin 3.1 L (3.4-5.0) gm/dl Urine 04/12/22 Range/Units 20:30 Urine Color Yellow Urine Appearance Clear (Clear) Urine pH 6.0 (4.5-7.5) Ur Specific [place] 1.016 (1.000-1.030) Urine Protein Negative (Negative) Urine Glucose (UA) Negative (Negative) Diagnostic Findings Chest X-Ray 04/13/22 18:07 SINGLE VIEW CHEST CLINICAL HISTORY: Tachypnea. FINDINGS: An AP, portable, upright chest radiograph is compared to study dated 04/11/2022. The examination is degraded by portable technique, apical lordotic positioning, and patient rotation. The patient is status post midline sternotomy. A cardiac pacemaker is unchanged in position, as is a right PICC line. The heart is enlarged noting atherosclerotic calcification of the thoracic aorta. There is pulmonary vascular congestion with interstitial edema. Small pleural effusions are noted with dependent consolidation. No pneumothorax is seen. The skeletal structures are osteopenic. The bony thorax is grossly intact. Advanced atherosclerotic calcification is noted in the carotid bulbs. IMPRESSION: 1. Cardiomegaly and cardiac pacemaker with evidence of congestive failure and pulmonary edema. This has worsened as compared to 04/11/2022. 2. Small pleural effusions with dependent consolidation ACT 112: Negative or not required by law. Electronically signed by: Jesus Ramirez M.D. 04/13/2022 7:46 PM Medications Administered Current Inpatient Medications Acetaminophen (Acetaminophen 325 Mg Tab) 650 mg PO Q4H PRN PRN Reason: Pain or Fever Stop: 05/07/22 22:29 Albuterol (Albuterol Hfa 8 Gm Inhaler) 2 puffs INH Q6H PRN PRN Reason: Shortness Of Breath Stop: 05/07/22 22:45 Atorvastatin Calcium (Atorvastatin 40 Mg Tab) 40 mg PO DAILY [facility] Stop: 05/08/22 08:59 Last Admin: 04/13/22 10:46 Dose: 40 mg Documented by: Clopidogrel Bisulfate (Clopidogrel Bisulfate 75 Mg Tab) 75 mg PO QAM [facility] Stop: 05/08/22 08:59 Last Admin: 04/13/22 10:46 Dose: 75 mg Documented by: Cyanocobalamin (Cyanocobalamin (B-12) 500 Mcg Tablet) 1,000 mcg PO QDL [facility] Stop: 05/08/22 11:29 Last Admin: 04/13/22 13:28 Dose: 1,000 mcg Documented by: Fluticasone/Vilanterol (Fluticasone/Vilanterol 200/25mcg 14 Puffs/Inhaler) 1 puffs INH DAILY [facility] Stop: 05/08/22 08:59 Last Admin: 04/13/22 10:46 Dose: 1 puffs Documented by: Folic Acid (Folic Acid 1 Mg Tab) 1 mg PO QAM [facility] Stop: 05/08/22 08:59 Last Admin: 04/13/22 11:22 Dose: 1 mg Documented by: Furosemide (Furosemide 40 Mg Tab) 40 mg PO [id number] [facility] Stop: 05/13/22 09:49 Last Admin: 04/13/22 10:46 Dose: 40 mg Documented by: Heparin Sodium (Beef Lung) (Heparin 10 Unit/Ml 5 Ml Flush) 5 ml FLUSH PRN PRN PRN Reason: Flush Stop: 05/12/22 00:23 Last Admin: 04/12/22 06:11 Dose: 5 ml Documented by: Ceftriaxone Sodium 2,000 mg/ (Dextrose) 70 mls @ 140 mls/hr IV DAILY@1600 [facility]; Protocol Stop: 04/14/22 23:59 Last Infusion: 04/12/22 16:39 Dose: Infused Documented by: Lactobacillus Acidophilus (Advanced Probiotic 1250 Mg Capsule) 2 cap PO QAM [facility] Stop: 05/08/22 08:59 Last Admin: 04/13/22 10:47 Dose: 2 cap Documented by: Melatonin (Melatonin 3 Mg Tab) 3 mg PO HS PRN PRN Reason: Sleep Stop: 05/07/22 22:45 Midodrine (Midodrine Hcl 2.5 Mg Tab) 2.5 mg PO BID@0800,1700 [facility] Stop: 05/13/22 16:59 Nitroglycerin (Nitroglycerin Sl 0.4 Mg/Tab Tab) 0.4 mg SL UD PRN PRN Reason: Chest Pain Stop: 05/07/22 22:29 Ondansetron HCl (Ondansetron Inj 2 Mg/Ml 2 Ml Vial) 4 mg IV Q6H PRN PRN Reason: Nausea Stop: 05/07/22 22:29 Pantoprazole Sodium (Pantoprazole 40 Mg Tab) 40 mg PO QAM [facility] Stop: 05/08/22 08:59 Last Admin: 04/13/22 10:47 Dose: 40 mg Documented by: Polyethylene Glycol (Polyethylene (Miralax) 17 Gm Pack) 17 gm PO DAILY PRN PRN Reason: Constipation Stop: 05/07/22 22:29 Sodium Chloride (Sodium Chloride 0.65% Na Soln 45 Ml ([place])) 1 sprays NA PRN PRN PRN Reason: Dryness Stop: 05/11/22 14:04 Thiamine HCl (Thiamine Hcl 100 Mg Tab) [facility] Stop: 05/08/22 14:29 Last Admin: 04/13/22 11:22 Dose: 100 mg Documented by: Umeclidinium [place] (Umeclidinium [place] 62.5mcg/Blister 7 Puffs/Inhaler) [address] [facility] Stop: 05/08/22 08:59 Last Admin: 04/13/22 10:46 Dose: 1 puffs Documented by: Warfarin Sodium (Warfarin Sod 5 Mg Tab) 5 mg PO MoFr@1600 [facility] Stop: 05/08/22 15:59 Last Admin: 04/11/22 16:47 Dose: 5 mg Documented by: Warfarin Sodium (Warfarin Sod 2.5 Mg Tab) 2.5 mg PO SuTuWeThSa@1600 [facility] Stop: 05/09/22 15:59 Last Admin: 04/12/22 16:06 Dose: 2.5 mg Documented by: Zinc Sulfate (Zinc Sulfate 220 Mg Capsule) [address] [facility] Stop: 05/08/22 08:59 Last Admin: 04/13/22 10:46 Dose: 220 mg Documented by: (1) Acute on chronic renal failure Acute renal failure type: unspecified Chronic kidney disease stage: unspecified stage Qualified Code(s): N17.9 - Acute kidney failure, unspecified; N18.9 - Chronic kidney disease, unspecified
[2022-04-13] MEDS: cefTRIAXone SODIUM 2,000 MG in DEXTROSE 5% 50 ML IV SCH (16:00)
[2022-04-13] MEDS ORDERED: LORazepam 2 MG/1 ML VIAL IV PRN ×3 (19:23→23:45)
--- NOTE | 2022-04-13 19:47 | XRay Report ---
SINGLE VIEW CHEST CLINICAL HISTORY: Tachypnea. FINDINGS: An AP, portable, upright chest radiograph is compared to study dated 04/11/2022. The examina tion is degraded by portable technique, apical lordotic positioning, and patient rotation. The marilyn ent is status post midline sternotomy. A cardiac pacemaker is unchanged in position, as is a right PI CC line. The heart is enlarged noting atherosclerotic calcification of the thoracic aorta. There is p ulmonary vascular congestion with interstitial edema. Small pleural effusions are noted with dependen t consolidation. No pneumothorax is seen. The skeletal structures are osteopenic. The bony thorax is grossly intact. Advanced atherosclerotic calcification is noted in the carotid bulbs. IMPRESSION: 1. Cardiomegaly and cardiac pacemaker with evidence of congestive failure and pulmonary edema. This h as worsened as compared to 04/11/2022. 2. Small pleural effusions with dependent consolidation ACT 112: Negative or not required by law. Electronically signed by: Jesus Ramirez M.D. 04/13/2022 7:46 PM
--- NOTE | 2022-04-14 01:26 | Communication Note ---
Date of Service: April 14, 2022 Patient agitated as per RN. Incomplete response to small doses of Ativan. Small doses given initially due to lethargy concerns on review of a.m. notes. VICKI S, Ativan, gabapentin as per alcohol withdrawal protocol.
[2022-04-14] MEDS ORDERED: LORazepam 2 MG/1 ML VIAL IV PRN ×2 (01:33)
[2022-04-14] MEDS ORDERED: ATIVAN IV ALCOHOL WITHDRAWL IV PRN (01:33)
[2022-04-14] MEDS ORDERED: GABAPENTIN 1200MG ALCOHOL WITHDRAWAL LOAD PO SCH (01:45)
[2022-04-14] MEDS ORDERED: GABAPENTIN 600 MG TAB PO ONE (02:00)
[2022-04-14] MEDS: LORazepam 2 MG/1 ML VIAL IV PRN ×2 (02:01→03:38)
[2022-04-14 06:05] LABS: INR 3.2 (0.9-1.1)
[2022-04-14 06:14] LABS: BUN Creatinine Ratio 24.7 (10-20); Calcium 9.1 mg/dl (8.5-10.1); Creatinine Clr Calc Pharmacy 65.2 ml/min; Est GFR (African American) 92.6 ml/min; Est GFR (Non-African American) 79.9 ml/min; Magnesium 1.6 mg/dl (1.7-2.4); Phosphorus 2.9 mg/dl (2.5-4.9); Potassium 3.5 mmol/L (3.5-5.1)
[2022-04-14 06:50] LABS: Vitamin B12 > 1500 pg/ml (180-914)
[2022-04-14 06:51] LABS: Folate (Folic Acid) 17.33 ng/ml (>5.38)
[2022-04-14 07:04] LABS: Basophils # (auto) 0.02 K/uL (0-0.2); Basophils % (auto) 0.2 %; Eosinophils # (auto) 0.14 K/uL (0-0.5); Eosinophils % (auto) 1.7 %; Hemoglobin 9.5 g/dL (14.0-18.0); Immature Granulocytes # (auto) 0.01 K/uL (0.00-0.02); Immature Granulocytes % (auto) 0.1 %; Lymphocytes # (auto) 0.95 K/uL (1.2-3.4); Lymphocytes % (auto) 11.4 %; Mean Corpuscular Hemoglobin 22.5 pg (25-34); Mean Corpuscular Hgb Conc 26.4 g/dL (32-36); Mean Corpuscular Volume 85.3 fL (80-100); Mean Platelet Volume 9.6 fL (7.4-10.4); Monocytes # (auto) 0.88 K/uL (0.11-0.59); Monocytes % (auto) 10.6 %; Neutrophils # (auto) 6.34 K/uL (1.4-6.5); Platelet Count 157 K/uL (130-400); RDW Coefficient of Variation 25.5 % (11.5-14.5); RDW Standard Deviation 78.8 fL (36.4-46.3); Red Blood Count 4.22 M/uL (4.7-6.1); White Blood Count 8.34 K/uL (4.8-10.8)
[2022-04-14 07:22] LABS: Anisocytosis Present; Hypochromasia Present
[2022-04-14] MEDS ORDERED: GABAPENTIN 600 MG TAB PO SCH ×2 (08:00→22:00)
--- NOTE | 2022-04-14 08:47 | Cardiology Progress Note ---
Date of Service April 14, 2022 Assessment & Plan (1) Acute hyperkalemia: (2) Acute on chronic renal failure: (3) Acute hypotension: (4) Elevated troponin: (5) Transaminitis: (6) Acute on chronic systolic (congestive) heart failure: (7) Pulmonary embolism, bilateral: (8) PAD (peripheral artery disease): (9) Complete heart block: (10) Afib: (11) Chronic anticoagulation: (12) CAD (coronary artery disease): (13) H/O aortic valve replacement: (14) S/P VSD closure: Plan: Renal function at baseline Still receiving low-dose Levophed for BP support with the plan to transition to midodrine Repeat echocardiogram shows increased velocity across the bioprosthetic aortic valve. Possibly due to hyperdynamic LV systolic function given current clinical status. Blood cultures remain negative. Will continue to follow clinically Admission and Anticipated Discharge Date Admission Date: April 07, 2022 Physical Exam Physical Exam: General: Awake, alert and oriented x 3. Lethargic. Conversational dyspnea while on BiPAP HEENT: Normocephalic, atraumatic. Pupils equal, round and reactive to light and accommodation. Extraocular muscles are intact. Anicteric sclera. Moist mucous membranes. Neck: No JVD. No bruit. Cardiovascular: Regular. Positive S-4. Normal S-1 and S-2. No S-3. 3/6 mid to late systolic ejection murmur, greatest at the right sternal border, second intercostal space with radiation to the bilateral carotids. No rubs. Pulmonary: Clear to auscultation bilaterally. No rales, rhonchi, or wheezing. Abdomen: Bowel sounds x 4, soft. No rebound, guarding or tenderness. No organomegaly. Extremities: No clubbing, cyanosis or edema. +2 pedal pulses bilaterally. Skin: Warm and dry. Results & Data ([facility]) Vital Signs (Past 12 Hours) Vital Signs Temp Pulse Pulse Resp BP Pulse Ox 04/14/22 07:27 102 H 04/14/22 03:34 36.5 C 103 H 24 118/75 91 04/13/22 23:08 35.9 C L 103 H 20 112/72 95 04/13/22 22:17 103 H (1) Acute on chronic renal failure Acute renal failure type: unspecified Chronic kidney disease stage: unspecified stage Qualified Code(s): N17.9 - Acute kidney failure, unspecified; N18.9 - Chronic kidney disease, unspecified
[2022-04-14] MEDS: ATORVASTATIN 40 MG TAB PO SCH (09:32)
[2022-04-14] MEDS: FUROSEMIDE 40 MG/4 ML VIAL IV SCH ×2 (09:32→16:49)
[2022-04-14] MEDS: FLUTICASONE/VILANTEROL 200/25MCG 14 PUFFS/INHALER INH SCH (09:32)
[2022-04-14] MEDS: FOLIC ACID 1 MG TAB PO SCH (09:32)
[2022-04-14] MEDS: CLOPIDOGREL BISULFATE 75 MG TAB PO SCH (09:32)
[2022-04-14] MEDS: MIDODRINE HCL 2.5 MG TAB PO SCH (09:32)
[2022-04-14] MEDS: UMECLIDINIUM BROMIDE 62.5MCG/BLISTER 7 PUFFS/INHALER INH SCH (09:33)
[2022-04-14] MEDS: PANTOprazole 40 MG TAB PO SCH (09:33)
[2022-04-14] MEDS: METOPROLOL TARTRATE 25 MG TAB PO SCH ×2 (09:33→20:51)
[2022-04-14] MEDS: ADVANCED PROBIOTIC 1250 MG CAPSULE PO SCH (09:33)
[2022-04-14] MEDS: THIAMINE HCL 100 MG TAB PO SCH (09:33)
[2022-04-14] MEDS: ZINC SULFATE 220 MG CAPSULE PO SCH (09:33)
[2022-04-14] MEDS: CYANOCOBALAMIN (B-12) 500 MCG TABLET PO SCH (11:03)
[2022-04-14] MEDS ORDERED: FUROSEMIDE 40 MG/4 ML VIAL IV STA (11:08)
--- NOTE | 2022-04-14 11:09 | Hospitalist Progress Note ---
Date of Service April 14, 2022 Assessment & Plan (1) Hypotension: Plan: Improved and midodrine stopped. Cont to monitor closely. (2) Transaminitis: Plan: resolving. (3) Acute on chronic renal failure: (4) Anemia: (5) Acute and chronic respiratory failure with hypoxia: (6) Chronic anticoagulation: (7) H/O aortic valve replacement: (8) DVT prophylaxis: Plan: 1. Hypotension presents with hypotension, acute kidney injury, and hyperkalemia, initially improved with IVF and emergent treatments but then developed hypotension, and hypercapnea on hospital day #2, transferred to ICU. HypotensionLikely from volume depletion, Sepsis, possible Adrenal Insufficiency but the patient also had morphine overnight which may have explained his lethargy somewhat. Levophed drip started and he was also placed on low dose midodrine with improvement in his blood pressure. Empiric hydrocortisone was added and is now off after a couple of days and clinical improvement. Creatinine is now back to baseline and off IV fluids-->unfortunately no he has worsened pulmonary edema. Was restarted on his PO Lasix today but will plan to switch to IV in am. Cont daily BMP. Continues on Rocephin for total 7 days abx, no clear source of infection. 04/14: stopped midodrine 2. Possible component of sepsis from right lower extremity cellulitis, possible pneumonia bilateral Leg erythema, improving off Bipap Urine culture: Negative Blood cultures: negative Repeat Blood cultures: pending given Zosyn IV + doxycycline IV--> transitioned to Ceftriaxone) Echo: EF 70% with increased gradient across prosthetic valve. 3. Acute diastolic heart failure--transitioning PO Lasix to IV with recent CXR this evening. BB restarted. Hypoxia present 2/2 pulmonary edema. 3. Acute Metabolic Encephalopathy secondary to above, Hypercapnea, possible Alcohol Withdrawal still lethargic but following commands, cannot assess comprehension with his current level of fatigue Hypercapnea resolved, off Bipap Librium started by ICU attending but stopped with persistent lethargy patient cannot sign out AMA due to incapacity for medical decision making as per Psych 4. Acute kidney injury possible prerenal etiology, possible ATN Creatinine of 3.2, probably secondary to hypotension Baseline around 1 Given bicarb drip Creatinine improving from 3.2 to 1.8 Nephrology service consulted Recommend to DC IV fluids Creat now 1.0 cont to monitor with daily labs, ki while put back on IV lasix in setting of fluid overload. 5. Hyperkalemia potassium 6.4 on admission resolved-still holding spironolactone and entresto for now. 6.. Mild elevation of troponin: Mostly likely from demand ischemia Repeat troponins in the 50s, plateau echo: LVH, EF 70%, mildly reduced RV systolic function, abnormal prosthetic gradient-cannot assess further with IVORY at this time given mental and respiratory status. 6. P history of right-sided heart failure and also valvular heart disease: Holding diuretics. Director Of Customer Acquisition consulted echo: LVH, EF 70%, mildly reduced RV systolic function, abnormal prosthetic gradient 7. Lower extremity pain: History of peripheral vascular disease, history of recent procedure. Vascular surgery consulted No surgical intervention at this point Continue Zosyn for now for possible cellulitis RLE erythema resolved 8. History of chronic obstructive pulmonary disease: (+) hypercapneic respiratory failure with lethargy noted on hospital day 2 from pneumonia, Tramadol? off Bipap treatment of pneumonia as per above Continue home inhalers, oxygen as needed. 9. History of paroxysmal atrial fibrillation: History of Watchman left atrial appendage closure device, history of pacemaker, history of ventricular septal defect repair, history of bioprosthetic aortic valve, status post repair, history of subaortic membrane resection, history of PFO repair, history of tricuspid valve annuloplasty. Currently holding metoprolol and digoxin--tachycardic with paced rhythm, restart metoprolol now. INR 2.3 continue Coumadin INR goal 2-3 Possible Alcohol Withdrawal admits to drinking 3-5 beers/day Gabapentin changed to Librium Ativan as needed Gabapentin discontinued due to encephalopathy/Librium stopped 2/2 fatigue PRN Ativan 9. Hyperlipidemia: Continue statin. 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 11. Transaminitis. Probably from hypotension. improving 12. Deep venous thrombosis prophylaxis: INR 2.3 Coumadin, trend INR daily. DISPOSITION:uncertain while still fatigued. [facility] Admission and Anticipated Discharge Date Admission Date: April 07, 2022 Subjective The patient is a 66-year-old man who presented with low blood pressure. Overnight he became confused and was felt to have some component of alcohol withdrawal He received several mg of Ativan IV and hasn't awoken all day He has gurgling present and is confused when he is awakened I cannot get him to awaken for me and open his eyes. All gabapentin, ativan and other sedating medications were stopped. His tachycardia is felt to be physiologic in the setting of heart failure and as a result of being off his beta effie He is not withdrawing from alcohol Advised nursing staff not to ask for anymore sedating medications as he walks a very fine line of lethargy and hypotensive when given these substances. Review of Systems Review of Systems: cannot obtain ROS 2/2 oversedation Physical Exam Physical Exam: CONSTITUTIONAL: vitals as above, generally obtunded, thin EYES: normal conjunctivae, no scleral icterus ENT: external ear and nose normal, MMM NECK: trachea midline RESPIRATORY: clear to auscultation on the right with diminished breath sounds throughout the left side, no crackles, rales or wheezes, slightly increased respiratory effort CARDIOVASCULAR: regular rate and rhythm, S1 and 2 heard without murmurs, gallops or rubs, no JVD, no peripheral edema CHEST: inspection of chest revealed PM in left anterior chest. GASTROINTESTINAL: soft, nontender, ND, no guarding MUSCULOSKELETAL: cannot obtain 2/2 obtunded state SKIN: warm and dry, ecchymosis on arms and chest in setting of coumadin use. NEUROLOGIC: CN 2-12 grossly intact, no sensory deficit, normal cognition, normal speech, no tremor PSYCHIATRIC: obtunded Results & Data Results & Data ([facility]) Vital Signs (Past 12 Hours) Vital Signs Temp Pulse Pulse Resp BP Pulse Ox 04/14/22 09:06 36.7 C 103 H 24 133/78 99 04/14/22 07:27 102 H 04/14/22 03:34 36.5 C 103 H 24 118/75 91 Laboratory Results Short CBC 04/14/22 Range/Units 05:25 WBC 8.34 (4.8-10.8) K/uL Hgb 9.5 L (14.0-18.0) g/dL Hct 36.0 L (42-52) % Plt Count 157 (130-400) K/uL BMP 04/14/22 05:25 Sodium 145 Potassium 3.5 Chloride 108 H Carbon Dioxide 34 H BUN 24 H Creatinine 0.97 Glucose 101 H Calcium 9.1 Cardiac Enzymes 04/14/22 Range/Units 05:25 Total Creatine Kinase 102 (30-223) U/L Medications Administered Current Inpatient Medications Acetaminophen (Acetaminophen 325 Mg Tab) 650 mg PO Q4H PRN PRN Reason: Pain or Fever Stop: 05/07/22 22:29 Albuterol (Albuterol Hfa 8 Gm Inhaler) 2 puffs INH Q6H PRN PRN Reason: Shortness Of Breath Stop: 05/07/22 22:45 Atorvastatin Calcium (Atorvastatin 40 Mg Tab) 40 mg PO DAILY OLGA Stop: 05/08/22 08:59 Last Admin: 04/14/22 09:32 Dose: Not Given Documented by: Clopidogrel Bisulfate (Clopidogrel Bisulfate 75 Mg Tab) 75 mg PO QAM [facility] Stop: 05/08/22 08:59 Last Admin: 04/14/22 09:32 Dose: Not Given Documented by: Cyanocobalamin (Cyanocobalamin (B-12) 500 Mcg Tablet) 1,000 mcg PO QDL OLGA Stop: 05/08/22 11:29 Last Admin: 04/14/22 11:03 Dose: Not Given Documented by: Fluticasone/Vilanterol (Fluticasone/Vilanterol 200/25mcg 14 Puffs/Inhaler) 1 puffs INH DAILY OLGA Stop: 05/08/22 08:59 Last Admin: 04/14/22 09:32 Dose: Not Given Documented by: Folic Acid (Folic Acid 1 Mg Tab) 1 mg PO QAM [facility] Stop: 05/08/22 08:59 Last Admin: 04/14/22 09:32 Dose: Not Given Documented by: Furosemide (Furosemide 40 Mg/4 Ml Vial) 40 mg IV BID17 OLGA Stop: 05/14/22 08:59 Last Admin: 04/14/22 09:32 Dose: Not Given Documented by: Furosemide (Furosemide 40 Mg/4 Ml Vial) 40 mg IV ONE STA Stop: 04/14/22 11:09 Heparin Sodium (Beef Lung) (Heparin 10 Unit/Ml 5 Ml Flush) 5 ml FLUSH PRN PRN PRN Reason: Flush Stop: 05/12/22 00:23 Last Admin: 04/12/22 06:11 Dose: 5 ml Documented by: Ceftriaxone Sodium 2,000 mg/ (Dextrose) 70 mls @ 140 mls/hr IV DAILY@1600 [facility]GA; Protocol Stop: 04/14/22 23:59 Last Infusion: 04/13/22 16:58 Dose: Infused Documented by: Lactobacillus Acidophilus (Advanced Probiotic 1250 Mg Capsule) 2 cap PO QAM [facility] Stop: 05/08/22 08:59 Last Admin: 04/14/22 09:33 Dose: Not Given Documented by: Melatonin (Melatonin 3 Mg Tab) 3 mg PO HS PRN PRN Reason: Sleep Stop: 05/07/22 22:45 Metoprolol Tartrate (Metoprolol Tartrate 25 Mg Tab) 25 mg PO BID [facility] Stop: 05/14/22 08:59 Last Admin: 04/14/22 09:33 Dose: Not Given Documented by: Metoprolol Tartrate (Metoprolol Tartrate 1 Mg/Ml Vial) 2.5 mg IV Q6 [facility] Stop: 05/14/22 11:59 Nitroglycerin (Nitroglycerin Sl 0.4 Mg/Tab Tab) 0.4 mg SL UD PRN PRN Reason: Chest Pain Stop: 05/07/22 22:29 Ondansetron HCl (Ondansetron Inj 2 Mg/Ml 2 Ml Vial) 4 mg IV Q6H PRN PRN Reason: Nausea Stop: 05/07/22 22:29 Pantoprazole Sodium (Pantoprazole 40 Mg Tab) 40 mg PO QAM [facility] Stop: 05/08/22 08:59 Last Admin: 04/14/22 09:33 Dose: Not Given Documented by: Polyethylene Glycol (Polyethylene (Miralax) 17 Gm Pack) 17 gm PO DAILY PRN PRN Reason: Constipation Stop: 05/07/22 22:29 Sodium Chloride (Sodium Chloride 0.65% Na Soln 45 Ml ([place])) 1 sprays NA PRN PRN PRN Reason: Dryness Stop: 05/11/22 14:04 Thiamine HCl (Thiamine Hcl 100 Mg Tab) 100 mg PO QAM [facility] Stop: 05/08/22 14:29 Last Admin: 04/14/22 09:33 Dose: Not Given Documented by: Umeclidinium Waddy (Umeclidinium Waddy 62.5mcg/Blister 7 Puffs/Inhaler) 1 puffs INH QAM [facility] Stop: 05/08/22 08:59 Last Admin: 04/14/22 09:33 Dose: Not Given Documented by: Warfarin Sodium (Warfarin Sod 5 Mg Tab) 5 mg PO MoFr@1600 [facility] Stop: 05/08/22 15:59 Last Admin: 04/11/22 16:47 Dose: 5 mg Documented by: Warfarin Sodium (Warfarin Sod 2.5 Mg Tab) 2.5 mg PO SuTuWeThSa@1600 [facility] Stop: 05/09/22 15:59 Last Admin: 04/12/22 16:06 Dose: 2.5 mg Documented by: Zinc Sulfate (Zinc Sulfate 220 Mg Capsule) 220 mg PO QAM [facility] Stop: 05/08/22 08:59 Last Admin: 04/14/22 09:33 Dose: Not Given Documented by: (1) Acute on chronic renal failure Acute renal failure type: unspecified Chronic kidney disease stage: unspecified stage Qualified Code(s): N17.9 - Acute kidney failure, unspecified; N18.9 - Chronic kidney disease, unspecified
[2022-04-14] MEDS: METOPROLOL TARTRATE 1 MG/ML VIAL IV SCH ×2 (11:45→16:49)
--- NOTE | 2022-04-14 13:01 | Cardiology Progress Note ---
Date of Service April 14, 2022 Assessment & Plan (1) Acute hyperkalemia: (2) Acute on chronic renal failure: (3) Acute hypotension: (4) Elevated troponin: (5) Transaminitis: (6) Acute on chronic systolic (congestive) heart failure: (7) Pulmonary embolism, bilateral: (8) PAD (peripheral artery disease): (9) Complete heart block: (10) Afib: (11) Chronic anticoagulation: (12) CAD (coronary artery disease): (13) H/O aortic valve replacement: (14) S/P VSD closure: Plan: Renal function at baseline Still receiving low-dose Levophed for BP support with the plan to transition to midodrine Repeat echocardiogram shows increased velocity across the bioprosthetic aortic valve. Possibly due to hyperdynamic LV systolic function given current clinical status. Blood cultures remain negative. Will continue to follow clinically Admission and Anticipated Discharge Date Admission Date: April 07, 2022 Review of Systems Review of Systems: Unobtainable due to reduced consciousness Physical Exam Physical Exam: General: Awake, alert and oriented x 3. Lethargic. Conversational dyspnea while on BiPAP HEENT: Normocephalic, atraumatic. Pupils equal, round and reactive to light and accommodation. Extraocular muscles are intact. Anicteric sclera. Moist mucous membranes. Neck: No JVD. No bruit. Cardiovascular: Regular. Positive S-4. Normal S-1 and S-2. No S-3. 3/6 mid to late systolic ejection murmur, greatest at the right sternal border, second intercostal space with radiation to the bilateral carotids. No rubs. Pulmonary: Clear to auscultation bilaterally. No rales, rhonchi, or wheezing. Abdomen: Bowel sounds x 4, soft. No rebound, guarding or tenderness. No organomegaly. Extremities: No clubbing, cyanosis or edema. +2 pedal pulses bilaterally. Skin: Warm and dry. Results & Data ([facility]) Vital Signs (Past 12 Hours) Vital Signs Temp Pulse Pulse Resp BP Pulse Ox 04/14/22 12:11 36.4 C L 94 H 16 115/61 98 04/14/22 09:06 36.7 C 103 H 24 133/78 99 04/14/22 07:27 102 H 04/14/22 03:34 36.5 C 103 H 24 118/75 91 (1) Acute on chronic renal failure Acute renal failure type: unspecified Chronic kidney disease stage: unspecified stage Qualified Code(s): N17.9 - Acute kidney failure, unspecified; N18.9 - Chronic kidney disease, unspecified
[2022-04-14] MEDS: cefTRIAXone SODIUM 2,000 MG in DEXTROSE 5% 50 ML IV SCH (16:54)
[2022-04-14] MEDS ORDERED: ALBUMIN 25% 12.5 GM/50 ML VIAL IV ONE (21:15)
[2022-04-14] MEDS: MAGNESIUM SULFATE / D5W 1 GM/100 ML BAG IV SCH (21:45)
[2022-04-14] MEDS: POTASSIUM CHLORIDE / WTR 10 MEQ/100 ML PLCT IV SCH ×2 (21:47→22:40)
[2022-04-14] MEDS ORDERED: chlordiazePOXIDE HCl 5 MG CAP PO SCH (22:00)
[2022-04-14 22:02] LABS: BUN Creatinine Ratio 20.3 (10-20); Calcium 9.6 mg/dl (8.5-10.1); Creatinine Clr Calc Pharmacy 53.6 ml/min; Est GFR (African American) 73.1 ml/min; Potassium 3.9 mmol/L (3.5-5.1)
[2022-04-15] MEDS: METOPROLOL TARTRATE 1 MG/ML VIAL IV SCH ×5 (00:54→23:19)
[2022-04-15] MEDS: MAGNESIUM SULFATE / D5W 1 GM/100 ML BAG IV SCH (01:39)
[2022-04-15] MEDS: POTASSIUM CHLORIDE / WTR 10 MEQ/100 ML PLCT IV SCH ×2 (02:04→03:09)
[2022-04-15] MEDS ORDERED: ALBUMIN 25% 100 mL 25 GM/100 ML VIAL IV ONE (04:22)
--- NOTE | 2022-04-15 04:23 | Communication Note ---
Date of Service: April 14, 2022 Late entry Patient lethargic with episodic restlessness as per RN. CT head initial read Limited by motion artifact through the inferior calvarium and posterior fossa despite repeated imaging attempts. No definite intracranial hemorrhage. No significant mass effect or midline shift. Underlying mild parenchymal involutional changes and subtle encephalomalacia involving the left parietal region, suspected. The paranasal sinuses and mastoid air cells are well-aerated. Serum sodium 149 Serum creatinine 1.18 from (0.97 in a.m.) AP Encephalopathy Hyponatremia Possible overdiuresis Hold Lasix for now IV albumin 1 dose Recheck chemistry in a.m. Will relay to AM provider.
[2022-04-15 05:38] LABS: Base Excess ABG 7.5 mEq/L (-9-1.8); HCO3 ABG 35 mmol/L (19-24); Oxygen Saturation ABG 78.9 % (90-95); PCO2 ABG 68 mmHg (35-46); PO2 ABG 47 mmHg (80-95); pH ABG 7.33 (7.35-7.45)
[2022-04-15 05:39] LABS: Allen Test Pos (Pos)
[2022-04-15 05:45] LABS: INR 2.6 (0.9-1.1); Prothrombin Time 26.6 Seconds (9.0-12.0)
[2022-04-15 06:22] LABS: BUN Creatinine Ratio 24.2 (10-20); Calcium 9.6 mg/dl (8.5-10.1); Creatinine Clr Calc Pharmacy 60.7 ml/min; Est GFR (African American) 90.3 ml/min; Est GFR (Non-African American) 77.9 ml/min; Magnesium 2.1 mg/dl (1.7-2.4); Phosphorus 2.9 mg/dl (2.5-4.9)
--- NOTE | 2022-04-15 06:59 | CT Scan Report ---
CT head/brain wo con CLINICAL HISTORY: 66 years-old Male with ams, high inr. Acutely altered mental status TECHNIQUE: Multiple axial CT images of the head were obtained without contrast. A dose lowering tech nique was utilized adhering to the principles of ALARA. CT DOSE: 1228.53 mGy.cm COMPARISON: None. FINDINGS: No acute intracranial hemorrhage, midline shift, intracranial mass, hydrocephalus, territorial ischem ia or abnormal extra-axial collection. Motion degraded exam. The study was then repeated which was al so motion degraded. Age-related involutional changes. White matter hypodensities suggest chronic micr ovascular ischemic disease. Left parietal encephalomalacia suggestive of a remote infarct. Suboptimal visualization of the posterior fossa structures secondary to the aforementioned motion artifact. The calvarium is intact. Trace right mastoid effusion. Left mastoid air cells and paranasal sinuses are clear. Hypoplastic frontal sinuses. IMPRESSION: 1. Motion degraded exam. No acute intracranial abnormality. 2. Chronic left parietal lobe infarct. ACT 112: Negative or not required by law. The above report was generated using voice recognition software. It may contain grammatical, syntax o r spelling errors. Electronically signed by: Vitaliy Darby M.D. 04/15/2022 6:57 AM
[2022-04-15] MEDS: ADVANCED PROBIOTIC 1250 MG CAPSULE PO SCH (08:09)
[2022-04-15] MEDS: UMECLIDINIUM BROMIDE 62.5MCG/BLISTER 7 PUFFS/INHALER INH SCH (08:09)
[2022-04-15] MEDS: THIAMINE HCL 100 MG TAB PO SCH (08:09)
[2022-04-15] MEDS: ATORVASTATIN 40 MG TAB PO SCH (08:09)
[2022-04-15] MEDS: FLUTICASONE/VILANTEROL 200/25MCG 14 PUFFS/INHALER INH SCH (08:09)
[2022-04-15] MEDS: PANTOprazole 40 MG TAB PO SCH (08:09)
[2022-04-15] MEDS: FOLIC ACID 1 MG TAB PO SCH (08:09)
[2022-04-15] MEDS: CLOPIDOGREL BISULFATE 75 MG TAB PO SCH (08:09)
[2022-04-15] MEDS: ZINC SULFATE 220 MG CAPSULE PO SCH (08:10)
--- NOTE | 2022-04-15 09:18 | Hospitalist Progress Note ---
Date of Service April 15, 2022 Assessment & Plan (1) Hypotension: Plan: Improved and midodrine stopped. Cont to monitor closely. (2) Transaminitis: Plan: resolving. (3) Acute on chronic renal failure: (4) Anemia: (5) Acute and chronic respiratory failure with hypoxia: (6) Chronic anticoagulation: (7) H/O aortic valve replacement: (8) DVT prophylaxis: Plan: 1. Hypotension presents with hypotension, acute kidney injury, and hyperkalemia, initially improved with IVF and emergent treatments but then developed hypotension, and hypercapnea on hospital day #2, transferred to ICU. HypotensionLikely from volume depletion, Sepsis, possible Adrenal Insufficiency but the patient also had morphine overnight which may have explained his lethargy somewhat. Levophed drip started and he was also placed on low dose midodrine with improvement in his blood pressure. Empiric hydrocortisone was added and is now off after a couple of days and clinical improvement. Creatinine is now back to baseline and off IV fluids-->unfortunately no he has worsened pulmonary edema. Was restarted on his PO Lasix today but will plan to switch to IV in am. Cont daily BMP. Continues on Rocephin for total 7 days abx, no clear source of infection. 04/14: stopped midodrine 04/15: BP remains stable 2. Possible component of sepsis from right lower extremity cellulitis, possible pneumonia bilateral Leg erythema, improving off Bipap Urine culture: Negative Blood cultures: negative Repeat Blood cultures: pending given Zosyn IV + doxycycline IV--> transitioned to Ceftriaxone) Completed 7 day course of antibiotics. Echo: EF 70% with increased gradient across prosthetic valve. Assessment per cardiology. 3. Acute diastolic heart failure--on PO Lasic, spironolactone and entresto as outpatient which were held on admission in setting of hypotension and renal failure. IV Lasix restarted on 04/14 in setting of pulmonary edema and held this morning in setting of hypernatremia, also albumin was given. Although contradictory he is needing free water which cannot be given by mouth and he now has a worsening respiratory status because of pulmonary edema. Will give one additional dose of Lasix now and repeat labs in am. 3. Acute Metabolic Encephalopathy secondary to above, Hypercapnea, possible Alcohol Withdrawal still lethargic but following commands, cannot assess comprehension with his current level of fatigue Hypercapnea resolved, off Bipap Librium started by ICU attending but stopped with persistent lethargy on 04/13 he was oriented to person place and time but was very weak and was unable to remember details of his medical mistory That evening he became confused and received Ativan which put him in an obtunded state for the last two days Cannot perform MRI 2/2 pacemaker. Waiting/supporting him until drugs wear off and his delirium clears. Avoid sedating medications. 4. Acute kidney injury possible prerenal etiology, possible ATN Creatinine of 3.2, probably secondary to hypotension Baseline around 1 Given bicarb drip Creatinine improving from 3.2 to 1.8 Nephrology service consulted Recommend to DC IV fluids Creat now 1.0 cont to monitor with daily labs, 5. Hyperkalemia potassium 6.4 on admission resolved-still holding spironolactone and entresto for now. 6.. Mild elevation of troponin: Mostly likely from demand ischemia Repeat troponins in the 50s, plateau echo: LVH, EF 70%, mildly reduced RV systolic function, abnormal prosthetic gradient-cannot assess further with IVORY at this time given mental and respiratory status. 6. P history of right-sided heart failure and also valvular heart disease: Holding diuretics. Central Lab Technician consulted echo: LVH, EF 70%, mildly reduced RV systolic function, abnormal prosthetic gradient 7. Lower extremity pain: History of peripheral vascular disease, history of recent procedure. Vascular surgery consulted No surgical intervention at this point Continue Zosyn for now for possible cellulitis RLE erythema resolved 8. History of chronic obstructive pulmonary disease: (+) hypercapneic respiratory failure with lethargy noted on hospital day 2 from pneumonia, Tramadol? off Bipap treatment of pneumonia as per above Continue home inhalers, oxygen as needed. 9. History of paroxysmal atrial fibrillation: History of Watchman left atrial appendage closure device, history of pacemaker, history of ventricular septal defect repair, history of bioprosthetic aortic valve, status post repair, history of subaortic membrane resection, history of PFO repair, history of tricuspid valve annuloplasty. Currently holding metoprolol and digoxin--tachycardic with paced rhythm, restart metoprolol now. INR 2.3 continue Coumadin INR goal 2-3 Possible Alcohol Withdrawal admits to drinking 3-5 beers/day Gabapentin changed to Librium Ativan as needed Gabapentin discontinued due to encephalopathy/Librium stopped 2/2 fatigue PRN Ativan 9. Hyperlipidemia: Continue statin. 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 11. Transaminitis. Probably from hypotension. improving 12. Deep venous thrombosis prophylaxis: INR 2.3 Coumadin, trend INR daily. DISPOSITION:uncertain while still fatigued. Myla Rock DO [facility] Hospitalist Admission and Anticipated Discharge Date Admission Date: April 07, 2022 Subjective The patient is a 66-year-old man who presented with low blood pressure. Still sedated today and lethargic Now able to verbalize words but is still delirious and pulling at medical devices Respiratory acidosis on ABG this am so tried BIPAP this am but he only tolerated this for an hour. Desaturates without oxygen in place, currently 10 L via oxy mask today CXR slightly improved from yesterday given we were able to administer IV Lasix, but this has been held He has now been without food and water for two days and need to hydrate him Will start dextrose and continue to allow time for him to wake up and reorient Strongly advise against any sedating medications at this time Nursing staff aware. Speech attempted to feed which was not successful today Review of Systems Review of Systems: Unable to obtain 2/2 delirium Physical Exam Physical Exam: CONSTITUTIONAL: vitals as above, generally obtunded, thin EYES: normal conjunctivae, no scleral icterus ENT: external ear and nose normal, MMM NECK: trachea midline RESPIRATORY: clear to auscultation on the right with diminished breath sounds throughout the left side, no crackles, rales or wheezes, slightly increased respiratory effort CARDIOVASCULAR: regular rate and rhythm, S1 and 2 heard without murmurs, gallops or rubs, no JVD, no peripheral edema CHEST: inspection of chest revealed PM in left anterior chest. GASTROINTESTINAL: soft, nontender, ND, no guarding MUSCULOSKELETAL: cannot obtain 2/2 lethargy/delirium SKIN: warm and dry, ecchymosis on arms and chest in setting of coumadin use. NEUROLOGIC: CN 2-12 grossly intact, no sensory deficit, normal cognition, normal speech, no tremor PSYCHIATRIC: lethargic Results & Data Results & Data ([facility]) Vital Signs (Past 12 Hours) Vital Signs Temp Pulse Pulse Pulse Resp BP BP 04/15/22 08:05 36.3 C L 103 H 20 120/84 04/15/22 05:42 104 H 133/86 04/15/22 03:36 35.9 C L 103 H 20 117/82 04/15/22 00:54 104 H 132/85 04/15/22 00:13 36.4 C L 103 H 20 130/86 04/14/22 22:21 36.5 C 104 H 20 127/83 04/14/22 22:17 103 H Pulse Ox 04/15/22 08:05 96 04/15/22 05:42 04/15/22 03:36 95 04/15/22 00:54 04/15/22 00:13 95 04/14/22 22:21 97 04/14/22 22:17 Laboratory Results BMP 04/14/22 04/15/22 21:22 05:24 Sodium 149 H 146 H Potassium 3.9 4.0 Chloride 107 106 Carbon Dioxide 40 H 35 H BUN 24 H 24 H Creatinine 1.18 0.99 Glucose 92 97 Calcium 9.6 9.[address] 04/14/22 20:59 CT head/brain wo con CLINICAL HISTORY: 66 years-old Male with ams, high inr. Acutely altered mental status TECHNIQUE: Multiple axial CT images of the head were obtained without contrast. A dose lowering technique was utilized adhering to the principles of ALARA. CT DOSE: 1228.53 mGy.cm COMPARISON: None. FINDINGS: No acute intracranial hemorrhage, midline shift, intracranial mass, hydrocephalus, territorial ischemia or abnormal extra-axial collection. Motion degraded exam. The study was then repeated which was also motion degraded. Age- related involutional changes. White matter hypodensities suggest chronic microvascular ischemic disease. Left parietal encephalomalacia suggestive of a remote infarct. Suboptimal visualization of the posterior fossa structures secondary to the aforementioned motion artifact. The calvarium is intact. Trace right mastoid effusion. Left mastoid air cells and paranasal sinuses are clear. Hypoplastic frontal sinuses. IMPRESSION: 1. Motion degraded exam. No acute intracranial abnormality. 2. Chronic left parietal lobe infarct. ACT 112: Negative or not required by law. The above report was generated using voice recognition software. It may contain grammatical, syntax or spelling errors. Electronically signed by: Vitaliy Darby M.D. 04/15/2022 6:57 AM Medications Administered Current Inpatient Medications Acetaminophen (Acetaminophen 325 Mg Tab) 650 mg PO Q4H PRN PRN Reason: Pain or Fever Stop: 05/07/22 22:29 Albuterol (Albuterol Hfa 8 Gm Inhaler) 2 puffs INH Q6H PRN PRN Reason: Shortness Of Breath Stop: 05/07/22 22:45 Atorvastatin Calcium (Atorvastatin 40 Mg Tab) 40 mg PO DAILY [facility] Stop: 05/08/22 08:59 Last Admin: 04/15/22 08:09 Dose: Not Given Documented by: Clopidogrel Bisulfate (Clopidogrel Bisulfate 75 Mg Tab) 75 mg PO QAM [facility] Stop: 05/08/22 08:59 Last Admin: 04/15/22 08:09 Dose: Not Given Documented by: Cyanocobalamin (Cyanocobalamin (B-12) 500 Mcg Tablet) 1,000 mcg PO QDL [facility] Stop: 05/08/22 11:29 Last Admin: 04/14/22 11:03 Dose: Not Given Documented by: Fluticasone/Vilanterol (Fluticasone/Vilanterol 200/25mcg 14 Puffs/Inhaler) 1 puffs INH DAILY [facility] Stop: 05/08/22 08:59 Last Admin: 04/15/22 08:09 Dose: Not Given Documented by: Folic Acid (Folic Acid 1 Mg Tab) 1 mg PO QAM [facility] Stop: 05/08/22 08:59 Last Admin: 04/15/22 08:09 Dose: Not Given Documented by: Furosemide (Furosemide 40 Mg/4 Ml Vial) 40 mg IV [id number] [facility] Stop: 05/14/22 08:59 Last Admin: 04/14/22 16:49 Dose: 40 mg Documented by: Heparin Sodium (Beef Lung) (Heparin 10 Unit/Ml 5 Ml Flush) 5 ml FLUSH PRN PRN PRN Reason: Flush Stop: 05/12/22 00:23 Last Admin: 04/12/22 06:11 Dose: 5 ml Documented by: Lactobacillus Acidophilus (Advanced Probiotic 1250 Mg Capsule) 2 cap PO QAM [facility] Stop: 05/08/22 08:59 Last Admin: 04/15/22 08:09 Dose: Not Given Documented by: Melatonin (Melatonin 3 Mg Tab) 3 mg PO HS PRN PRN Reason: Sleep Stop: 05/07/22 22:45 Metoprolol Tartrate (Metoprolol Tartrate 25 Mg Tab) 25 mg PO BID [facility] Stop: 05/14/22 08:59 Last Admin: 04/14/22 20:51 Dose: Not Given Documented by: Metoprolol Tartrate (Metoprolol Tartrate 1 Mg/Ml Vial) 2.5 mg IV Q6 [facility] Stop: 05/14/22 11:59 Last Admin: 04/15/22 05:42 Dose: 2.5 mg Documented by: Nitroglycerin (Nitroglycerin Sl 0.4 Mg/Tab Tab) 0.4 mg SL UD PRN PRN Reason: Chest Pain Stop: 05/07/22 22:29 Ondansetron HCl (Ondansetron Inj 2 Mg/Ml 2 Ml Vial) 4 mg IV Q6H PRN PRN Reason: Nausea Stop: 05/07/22 22:29 Pantoprazole Sodium (Pantoprazole 40 Mg Tab) 40 mg PO [facility] Stop: 05/08/22 08:59 Last Admin: 04/15/22 08:09 Dose: Not Given Documented by: Polyethylene Glycol (Polyethylene (Miralax) 17 Gm Pack) 17 gm PO DAILY PRN PRN Reason: Constipation Stop: 05/07/22 22:29 Sodium Chloride (Sodium Chloride 0.65% Na Soln 45 Ml ([place])) 1 sprays NA PRN PRN PRN Reason: Dryness Stop: 05/11/22 14:04 Thiamine HCl ([facility] Hcl 100 Mg Tab) [facility] [place]: 05/08/22 14:29 Last Admin: 04/15/22 08:09 Dose: Not Given Documented by: Umeclidinium [place] (Umeclidinium [place] 62.5mcg/Blister 7 Puffs/Inhaler) 1 puffs INH [facility] Stop: 05/08/22 08:59 Last Admin: 04/15/22 08:09 Dose: Not Given Documented by: Warfarin Sodium (Warfarin Sod 5 Mg Tab) 5 mg PO [id number] [facility] Stop: 05/08/22 15:59 Last Admin: 04/11/22 16:47 Dose: 5 mg Documented by: Warfarin Sodium (Warfarin Sod 2.5 Mg Tab) 2.5 mg PO [id number] [facility] Stop: 05/09/22 15:59 Last Admin: 04/12/22 16:06 Dose: 2.5 mg Documented by: Zinc Sulfate (Zinc Sulfate 220 Mg Capsule) 220 mg PO QAM [facility] Stop: 05/08/22 08:59 Last Admin: 04/15/22 08:10 Dose: Not Given Documented by: (1) Acute on chronic renal failure Acute renal failure type: unspecified Chronic kidney disease stage: unspecified stage Qualified Code(s): N17.9 - Acute kidney failure, unspecified; N18.9 - Chronic kidney disease, unspecified
[2022-04-15] MEDS: CYANOCOBALAMIN (B-12) 500 MCG TABLET PO SCH (11:49)
--- NOTE | 2022-04-15 12:40 | Neurology Consultation ---
Date of Consultation April 15, 2022 Assessment & Plan (1) Encephalopathy acute: 1. continue to watch observe 2. repeat CT head in 24 hours 3. EEG if nothing seen 4. gabapentin and Librium stopped will take time to wash out due to renal disease 5. agree with thiamine, B12 folate if not already done 6. MRI would help with stroke diagnosis but unfortunately he can not have an mri brain due to watchman device 7. will continue to follow with you at a distant and will reexamine after drug wash out is accomplished Supervising Physician Co-Signing Physician Notes I have seen and discussed above patient with Dr Travis Christopher, neurology I have attempted interview and examined this man have gone through the various specialty progress notes over the past week and discussed his case with June Hernandez with whom I also saw the patient He was admitted with hypotension in the setting of a massive number of cardiovascular and renal and systemic issues all outlined in the above note and in prior progress notes but then declined when his pressure failed to respond but at the same time was started on an alcohol withdrawal program with modest doses of Librium and impressive doses of gabapentin These were continued up until yesterday when he became increasingly lethargic to the point that a neurology consult was felt to be needed CT scan of the head shows what is probably an old deep subcortical left parietal occipital infarction. Exam reveals some reduced withdrawal to noxious stimulation in the right arm and right leg and minimum ability to follow any commands and certainly very lethargic mental status with no discernible verbal output but otherwise with no clear focal neurologic signs At this point I suspect a multifactorial encephalopathy complicated by I think excessive sedation due to medications for treatment of presumptive alcohol withdrawal which clinically does not seem to be an issue Repeating a CT scan in 24 hours might be reasonable to see if there has been other areas of developing infarction in the last few days and at some point we may need to get an EEG if he does not lighten up significantly with withholding of the gabapentin and Librium. In light of his now normalized renal function and better hemodynamic status clearance will be more rapid than it was several days ago but it will still take some time and he has a host of other issues not the least of which is his hypoxemia requiring 9 to 10 L and BiPAP to maintain his current O2 saturation level that may be driving the encephalopathy I will check back with him periodically over the weekend and again if he really fails to come around within the next day or 2 an EEG may be warranted but at this point nothing I see looks like seizure activity clinically. Unfortunately nonconvulsive status epilepticus can have a relatively nonspecific presentation so this part of the differential diagnosis always remains in the background Travis Christopher MD The above note was generated utilizing voice recognition technology and may have spelling errors punctuation errors, pronoun usage errors and syntax errors History of Present Illness Reason for Consultation: weakness poor memroy acute Requesting Physician: Myla Rock DO Attending Physician: Myla Rock DO History of Present Illness Mr. Farooq is a 66 year old man with a PMH-valvular and congenital heart disease status post bioprosthetic aortic valve replacement (#25 Young), VSD repair, subaortic membrane resection, PFO repair, tricuspid valve annuloplasty in 2014 at [facility], afib status post Watchman device, bilateral PE, COPD and PVD. He is followed by Dr. Jansen at [facility] for his cardiac care. The PAD initially diagnosed in 2016 in the setting of claudication. A CTA suggestive of bilateral high-grade SFA disease. Angiogram was deferred at that time. Returned in March 2019 with progressive limiting claudication involving his left calf limiting him to less than a half a block of walking.Underwent bilateral lower extremity angiogram 04/17/2019 and was found to have an occluded proximal LT SFA with distal reconstitution. He underwent endovascular intervention with eventual placement of a 6.5 x 120 Supera and 6.0 x 60 mm absolute self-expanding stent. Discharged home on prior Coumadin and new clopidogrel. In June 2019 He underwent Watchman device insertion and shortly after was diagnosed with PE. Was on anticoagulation with warfarin for about 3 months. Then presented to [facility] in January 2020 with acute heart failure. Echo at that time showed moderate LVH, EF 45-50%, bioprosthetic aortic valve with expected gradients, RV pressure 50-60 mmHg consistent with moderate to severe pulmonary htn, RV moderately to severely dilated. He was then started on Entresto and underwent upgrade to BiV device. Angiogram on 03/04/22 revealed calcified up to 95% right distal SFA stenosis, 50% right proximal popliteal stenosis, 2 vessel runoff via [employer]/peroneal. Underwent successful angioplasty of right mid SFA to proximal popliteal with intravascular lithotripsy and drug eluding balloon (Lutonix 6 x 220). He was noted to have sigificant hypotension with a systolic blood pressure in the 60s. He was given 250 cc NS IV but systolic pressure remained in the 60s and he was referred to the ED. He was admitted and found to have acute renal insufficiency (Cr 3.25) and hyperkalemia (K 6.4). We were consulted today due to leg pain. While examining patient he states the majority of his pain is actually in his back and neck. Neg pain at rest, states if he were to get up and walk his legs would hurt. He is currently minimally responsive and responds minimally to voice commends. Allergies Allergy/AdvReac Type Severity Reaction Status Date / Time carvedilol AdvReac Intermediate NIGHTMARES Verified 04/07/22 21:37 Home Medications Medication Instructions Recorded Confirmed Type albuterol sulfate 90 mcg/actuation 2 puff INHALATION Q6H PRN 07/27/18 04/07/22 History aerosol inhaler (Ventolin HFA) budesonide-formoterol HFA 160 2 puff INHALATION BID 07/27/18 04/07/22 History mcg-4.5 mcg/actuation aerosol inhaler (Symbicort) tiotropium bromide 18 mcg capsule 1 cap INHALATION QAM 07/27/18 04/07/22 History with inhalation device (Spiriva with HandiHaler) turmeric root extract 500 mg 500 mg PO QDL 04/16/19 04/07/22 History capsule spironolactone 25 mg tablet 12.5 mg PO QAM tab 12/26/19 04/07/22 History melatonin 3 mg tablet 3 mg PO HS PRN 08/28/20 04/07/22 History metoprolol succinate 25 mg 25 mg PO DAILY@1600 08/28/20 04/07/22 History tablet,extended release 24 hr digoxin 125 mcg (0.125 mg) tablet 0.125 mg PO DAILY@1600 #30 tab 10/16/20 04/07/22 Rx (Digitek) cyanocobalamin (vitamin B-12) 1,000 mcg PO QDL 02/22/22 04/07/22 History 1,000 mcg capsule zinc gluconate 50 mg tablet 50 mg PO QAM 02/22/22 04/07/22 History pantoprazole 40 mg tablet,delayed 40 mg PO QAM 30 Days #90 tab 03/28/22 04/07/22 Rx release clopidogrel 75 mg tablet 75 mg PO QAM 90 Days #90 tab 04/04/22 04/07/22 Rx Lactobacillus 40-Bifidobact 1 cap PO QAM 04/07/22 04/07/22 History 3-S.thermophilus 100 billion cell capsule (Probiotic) atorvastatin 40 mg tablet 40 mg PO DAILY 04/07/22 04/07/22 History furosemide 40 mg tablet 40 mg PO BID 04/07/22 04/07/22 History gabapentin 100 mg capsule 100 mg PO TID 04/07/22 04/07/22 History magnesium 30 mg tablet 0 mg PO QDL 04/07/22 04/07/22 History potassium chloride 10 mEq 10 meq PO DAILY 04/07/22 04/07/22 History tablet,extended release(part/cryst) sacubitril 24 mg-valsartan 26 mg 1 tab PO BID 04/07/22 04/07/22 History tablet (Entresto) vitamin E 400 unit capsule 400 unit PO QAM 04/07/22 04/07/22 History warfarin 5 mg tablet See Rx Instructions .ROUTE .COMPLEX 04/07/22 04/07/22 History Patient History Medical History (Updated 04/15/22 @ 12:40 by June Hernandez PA-C) Afib Paroxysmal CAD (coronary artery disease) Minimal luminal irregularities, 2014 Chronic anticoagulation COPD (chronic obstructive pulmonary disease) stable GERD (gastroesophageal reflux disease) Hx of Lyme disease approximately 4 years ago per pt Hypotension Nonischemic cardiomyopathy Osteoarthritis Pacemaker secondary to complete heart block; dual chamber May 2016 PAD (peripheral artery disease) Pulmonary hypertension Surgical History H/O aortic valve replacement secondary to severe aortic insufficiency; 2014; bioprosthetic H/O Spinal surgery LUMBAR DISCECTOMY History of cardiac cath Minimal luminal irregularities, 2014 History of colonoscopy History of tooth extraction History of ventricular septal defect s/p repair S/P right knee arthroscopy S/P VSD closure 2015 Status post patent foramen ovale closure Family History Mother Family history of diabetes mellitus Social History Smoking Status: Current every day smoker Cigarettes Per Day: 10; Second Hand Exposure: No; Tobacco Cessation Education Requested by Patient: No Hx Alcohol Use: Yes Alcohol type: beer Hx Substance Use: No Preferred Language: Hungarian Communication Ability: Effective Visual Impairment: No Limitations Rough Carpenter Required: No Beliefs That Will Affect Care: None marital status: Current Living Situation: Alone Feels Safe at Home: Yes Safety Concerns: Feels Safe At This Time Assistive Devices: Oxygen - at Night Review of Systems Review of Systems: All systems reviewed & are unremarkable except as noted in HPI & below Physical Exam Physical Exam: Physical Exam: Constitutional: appearance thin pale minimally responsive Ears, Nose, Mouth and Throat: mucous membranes moist, no injection and skin normal, eyes normal Cardiovascular: regular rate rhythm opening snap Respiratory: course breath sounds with wheezing Musculoskeletal: thin with severe muscle atrophy Skin: no stigmata of neurocutaneous disease noted and normal and intact Eyes: extraocular muscles intact (EOMI) and pupils equal, round and reactive to light (PERRL) NEUROLOGIC EXAMINATION: Mental status: Alert and interactive Oriented to full date and location Oriented to person Speech fluent with no evidence of aphasia Cranial Nerves facial symmetry Reflexes: Deep tendon reflexes decreased bilaterally Sensory: no sensory deficits Coordination: unable to lift Gait/Stance: Posture sitting in bed Motor: unable to maintain against gravity, withdrawal of legs with stimuli L>R Strength: unable to assess Results & Data ([facility]) Vital Signs (Past 12 Hours) Vital Signs Temp Pulse Pulse Resp BP BP Pulse Ox 04/15/22 11:48 102 H 143/80 H 04/15/22 11:46 36.2 C L 102 H 22 143/80 H 96 04/15/22 09:41 110 H 22 99 04/15/22 08:05 36.3 C L 103 H 20 120/84 96 04/15/22 05:42 104 H 133/86 04/15/22 03:36 35.9 C L 103 H 20 117/82 95 04/15/22 00:54 104 H 132/85 Laboratory Results Abnormal lab results 04/14/22 04/14/22 04/15/22 Range/Units 21:22 21:22 05:21 PT (9.0-12.0) Seconds INR (0.9-1.1) ABG pH 7.33 L (7.35-7.45) ABG pCO2 68 H (35-46) mmHg ABG pO2 47 L (80-95) mmHg ABG HCO3 35 H (19-24) mmol/L ABG O2 Saturation 78.9 L (90-95) % ABG Base Excess 7.5 H (-9-1.8) mEq/L Sodium 149 H (136-145) mmol/L Carbon Dioxide 40 H (21-32) mmol/L Anion Gap 2 L (3-11) BUN 24 H (6-23) mg/dl BUN/Creatinine Ratio 20.3 H (10-20) Digoxin 0.6 L (0.8-2.0) ng/ml 04/15/22 04/15/22 Range/Units 05:24 05:24 PT 26.6 H (9.0-12.0) Seconds INR 2.6 H (0.9-1.1) ABG pH (7.35-7.45) ABG pCO2 (35-46) mmHg ABG pO2 (80-95) mmHg ABG HCO3 (19-24) mmol/L ABG O2 Saturation (90-95) % ABG Base Excess (-9-1.8) mEq/L Sodium 146 H (136-145) mmol/L Carbon Dioxide 35 H (21-32) mmol/L Anion Gap (3-11) BUN 24 H (6-23) mg/dl BUN/Creatinine Ratio 24.2 H (10-20) Digoxin (0.8-2.0) ng/ml Diagnostic Findings CXR-Cardiomegaly with mild pulmonary hypertension CT head-Motion degraded exam. No acute intracranial abnormality. Chronic left parietal lobe infarct.
[2022-04-15] MEDS: THIAMINE HCL 100 MG in SYRINGE 9 ML IV SCH (14:29)
--- NOTE | 2022-04-15 15:45 | Cardiology Progress Note ---
Date of Service April 15, 2022 Assessment & Plan (1) Acute hyperkalemia: (2) Acute on chronic renal failure: (3) Acute hypotension: (4) Elevated troponin: (5) Transaminitis: (6) Acute on chronic systolic (congestive) heart failure: (7) Pulmonary embolism, bilateral: (8) PAD (peripheral artery disease): (9) Complete heart block: (10) Afib: (11) Chronic anticoagulation: (12) CAD (coronary artery disease): (13) H/O aortic valve replacement: (14) S/P VSD closure: Plan: Renal function at baseline At this point I believe his increased velocity across the aortic valve was due to hyperdynamic state that he was in upon presentation. Can repeat echocardiogram as an outpatient. Unable to perform IVORY at this time due to mental status changes. No further cardiac testing or invention by cardiology. We will sign off, please call with questions or concerns Admission and Anticipated Discharge Date Admission Date: April 07, 2022 Subjective Patient seen and examined, chart reviewed. Patient remains agitated in the evenings with daytime somnolence. Currently very lethargic. Review of Systems Review of Systems: Unobtainable due to cognitive status Physical Exam Physical Exam: General: Awake, alert and oriented x 3. Lethargic. Conversational dyspnea while on BiPAP HEENT: Normocephalic, atraumatic. Pupils equal, round and reactive to light and accommodation. Extraocular muscles are intact. Anicteric sclera. Moist mucous membranes. Neck: No JVD. No bruit. Cardiovascular: Regular. Positive S-4. Normal S-1 and S-2. No S-3. 3/6 mid to late systolic ejection murmur, greatest at the right sternal border, second intercostal space with radiation to the bilateral carotids. No rubs. Pulmonary: Clear to auscultation bilaterally. No rales, rhonchi, or wheezing. Abdomen: Bowel sounds x 4, soft. No rebound, guarding or tenderness. No organomegaly. Extremities: No clubbing, cyanosis or edema. +2 pedal pulses bilaterally. Skin: Warm and dry. Results & Data ([facility]) Vital Signs (Past 12 Hours) Vital Signs Temp Pulse Pulse Resp BP BP Pulse Ox 04/15/22 11:48 102 H 143/80 H 04/15/22 11:46 36.2 C L 102 H 22 143/80 H 96 04/15/22 09:41 110 H 22 99 04/15/22 08:05 36.3 C L 103 H 20 120/84 96 04/15/22 05:42 104 H 133/86 (1) Acute on chronic renal failure Acute renal failure type: unspecified Chronic kidney disease stage: unspecified stage Qualified Code(s): N17.9 - Acute kidney failure, unspecified; N18.9 - Chronic kidney disease, unspecified
[2022-04-15 17:24] LABS: Hematocrit (blood only) 35.9 % (42-52); Hemoglobin 9.4 g/dL (14.0-18.0); Mean Corpuscular Hemoglobin 22.7 pg (25-34); Mean Corpuscular Hgb Conc 26.2 g/dL (32-36); Mean Corpuscular Volume 86.5 fL (80-100); Mean Platelet Volume 9.5 fL (7.4-10.4); Platelet Count 127 K/uL (130-400); RDW Standard Deviation 78.3 fL (36.4-46.3); Red Blood Count 4.15 M/uL (4.7-6.1); White Blood Count 7.18 K/uL (4.8-10.8)
[2022-04-15 17:29] LABS: BUN Creatinine Ratio 24.3 (10-20); Calcium 9.7 mg/dl (8.5-10.1); Creatinine Clr Calc Pharmacy 56.2 ml/min; Est GFR (African American) 82.2 ml/min; Potassium 3.9 mmol/L (3.5-5.1)
[2022-04-15] MEDS: DEXTROSE 5% 1,000 ML IV SCH (18:19)
[2022-04-15] MEDS ORDERED: FUROSEMIDE 40 MG/4 ML VIAL IV ONE (19:02)
--- NOTE | 2022-04-15 19:23 | XRay Report ---
XR chest 1V portable CLINICAL HISTORY: HYPOXIA. COMPARISON STUDY: 04/13/2022 TECHNIQUE: 1 view of the chest FINDINGS: Single frontal view of the chest demonstrates the heart to again be enlarged status post previous car diothoracic surgery and pacer placement. Compared to the previous examination, there is continued int erval worsening of pulmonary edema. There is also evidence for small bilateral pleural effusions. No confluent alveolar opacities are seen. There is no acute osseous pathology. IMPRESSION: 1. Evidence for continued worsening of pulmonary edema 2. Small bilateral pleural effusions are also again seen. ACT 112: Negative or not required by law. Electronically signed by: Kirk Argueta M.D. 04/15/2022 7:22 PM
[2022-04-15] MEDS ORDERED: LIDOCAINE 5% 1 PATCH TD STA (19:31)
[2022-04-15] MEDS: ACETAMINOPHEN 65 ML IV PRN (21:50)
[2022-04-16] MEDS ORDERED: GABAPENTIN 600 MG TAB PO SCH (02:00)
[2022-04-16] MEDS ORDERED: BENZONATATE 100 MG CAPSULE PO PRN (05:10)
--- NOTE | 2022-04-16 05:10 | Communication Note ---
Date of Service: April 16, 2022 Patient with rust colored sputum and hemoptysis as per RN. No respiratory distress. AP Hemoptysis Coumadin coagulopathy Vitamin K 1 dose now Hold Plavix and Coumadin Solu-Medrol 1 dose, antitussives as needed CT chest Re: Hemoptysis May need pulmonary consultation pending CT chest results
[2022-04-16] MEDS ORDERED: methylPREDNISolone 20 MG in SYRINGE 0 ML IV ONE (05:30)
[2022-04-16] MEDS ORDERED: PHYTONADIONE 5 MG in DEXTROSE 5% 50 ML IV ONE (05:30)
[2022-04-16] MEDS ORDERED: OPTIRAY 320 100ml IV ONE (05:36)
[2022-04-16 05:59] LABS: Hematocrit (blood only) 35.6 % (42-52); Hemoglobin 9.5 g/dL (14.0-18.0); Mean Corpuscular Hemoglobin 22.9 pg (25-34); Mean Corpuscular Hgb Conc 26.7 g/dL (32-36); Mean Corpuscular Volume 85.8 fL (80-100); Mean Platelet Volume 9.5 fL (7.4-10.4); Platelet Count 122 K/uL (130-400); RDW Coefficient of Variation 24.6 % (11.5-14.5); RDW Standard Deviation 76.7 fL (36.4-46.3); Red Blood Count 4.15 M/uL (4.7-6.1); White Blood Count 7.15 K/uL (4.8-10.8)
[2022-04-16] MEDS: METOPROLOL TARTRATE 1 MG/ML VIAL IV SCH ×3 (06:01→17:11)
[2022-04-16] MEDS: ACETAMINOPHEN 65 ML IV PRN (06:08)
[2022-04-16 06:14] LABS: Anisocytosis Present; Basophils # (auto) 0.03 K/uL (0-0.2); Basophils % (auto) 0.4 %; Eosinophils # (auto) 0.27 K/uL (0-0.5); Eosinophils % (auto) 3.8 %; Hypochromasia Present; Immature Granulocytes # (auto) 0.05 K/uL (0.00-0.02); Immature Granulocytes % (auto) 0.7 %; Monocytes # (auto) 0.94 K/uL (0.11-0.59); Monocytes % (auto) 13.1 %; Neutrophils # (auto) 4.86 K/uL (1.4-6.5); Polychromasia 1+; Stomatocytes 1+
[2022-04-16 06:15] LABS: Albumin Globulin Ratio 1.3 (0.9-2); Albumin Level 3.5 gm/dl (3.4-5.0); BUN Creatinine Ratio 22.3 (10-20); Bilirubin,Total 0.8 mg/dl (0.2-1.0); Calcium 9.4 mg/dl (8.5-10.1); Creatinine Clr Calc Pharmacy 49.8 ml/min; Est GFR (African American) 70.9 ml/min; Est GFR (Non-African American) 61.1 ml/min; Globulin 2.7 gm/dl (2.5-4.0); Magnesium 1.8 mg/dl (1.7-2.4); Potassium 3.8 mmol/L (3.5-5.1); Total Protein 6.2 gm/dl (6.0-8.3)
[2022-04-16 06:29] LABS: INR 3.8 (0.9-1.1); Prothrombin Time 37.3 Seconds (9.0-12.0)
--- NOTE | 2022-04-16 07:01 | CT Scan Report ---
CT OF THE CHEST WITH IV CONTRAST CLINICAL HISTORY: Hemoptysis. COMPARISON STUDY: Chest CT February 23, 2020. Chest radiograph April 15, 2022. TECHNIQUE: Following IV administration of 95 mL of Optiray, helical axial images of the chest were o btained. Sagittal and coronal reconstructions were viewed as well as maximal intensity projections o n an independent 3-D workstation. Automated exposure control was utilized for the study. A dose low ering technique was utilized adhering to the principles of ALARA. CT DOSE: 310.49 mGy.cm FINDINGS: There is no thoracic lymphadenopathy. A left subclavian pacer, median sternotomy wires and prosthetic aortic valve are noted. There is no thoracic aortic dissection. Moderate cardiomegaly is noted. Dilatation of the central pulmonary arteries is present. There is no pericardial effusion. Martinez ral annular calcification is noted. There are small bilateral pleural effusions. No pneumothorax is p resent. This exam was not performed as a pulmonary embolus protocol. No pulmonary emboli are identifi ed. Segmental and subsegmental pulmonary arteries within the lower lobes are suboptimally assessed on this exam. Emphysema is present. There is interlobular septal thickening. Superimposed patchy airspa ce opacities within lungs are present. There is no confluent consolidation. No acute fracture or susp icious lesion within the visualized bony thorax. IVC and hepatic veins are dilated with reflux of con trast. Body wall edema is present. IMPRESSION: 1. No pulmonary emboli identified although segmental and subsegmental pulmonary arteries suboptimally assessed due to respiratory motion. Dilatation of the central pulmonary arteries suggestive of pulmo nary arterial hypertension. 2. Small bilateral pleural effusions with interstitial pulmonary edema. Patchy airspace opacities fav or alveolar edema although an superimposed infectious process could appear similar. Cardiomegaly. 3. Emphysema. ACT 112: Negative or not required by law. Electronically signed by: Kushal Messina M.D. 04/16/2022 6:58 AM
[2022-04-16] MEDS: ADVANCED PROBIOTIC 1250 MG CAPSULE PO SCH ×2 (07:48→08:05)
[2022-04-16] MEDS: THIAMINE HCL 100 MG in SYRINGE 9 ML IV SCH (07:48)
[2022-04-16] MEDS: ATORVASTATIN 40 MG TAB PO SCH ×2 (07:49→08:05)
[2022-04-16] MEDS: ZINC SULFATE 220 MG CAPSULE PO SCH ×2 (07:49→08:05)
[2022-04-16] MEDS: FOLIC ACID 1 MG TAB PO SCH ×2 (07:50→08:05)
[2022-04-16] MEDS: PANTOprazole 40 MG TAB PO SCH ×2 (07:50→08:05)
[2022-04-16] MEDS: UMECLIDINIUM BROMIDE 62.5MCG/BLISTER 7 PUFFS/INHALER INH SCH (07:51)
[2022-04-16] MEDS: FLUTICASONE/VILANTEROL 200/25MCG 14 PUFFS/INHALER INH SCH (07:51)
[2022-04-16] MEDS: DEXTROSE 5% 1,000 ML IV SCH (09:05)
[2022-04-16] MEDS: CYANOCOBALAMIN (B-12) 500 MCG TABLET PO SCH (10:32)
[2022-04-16] MEDS ORDERED: LACTATED RINGER'S 1,000 ML IV SCH (15:15)
--- NOTE | 2022-04-16 19:39 | Hospitalist Progress Note ---
Date of Service April 16, 2022 Assessment & Plan (1) Encephalopathy acute: (2) Hypotension: (3) Transaminitis: (4) Acute on chronic renal failure: (5) Anemia: (6) Acute and chronic respiratory failure with hypoxia: (7) Chronic anticoagulation: (8) H/O aortic valve replacement: Plan: 1. Acute encephalopathy- persistent encephalopathy, unclear cause as of now - seen by neuro- recommendations noted - will get repeat CT head per neuro recommendation- Can't get MRI due to watchman device - If negative CT head- will get EEG - Normal TSH, Vitamin b12, folate, ammonia level. Blood clx persistently negative. Procal negative. B1 level pending - avoid sedating medications completely- now waiting for medications washout - Per sister, patient is not an alcoholic and she strongly denies any concern for withdrawal at all from get-go Librium started by ICU attending but stopped with persistent lethargy on 04/13 he was oriented to person place and time but was very weak and was unable to remember details of his medical mistory That evening he became confused and received Ativan which put him in an obtunded state for the last two days Waiting/supporting him until drugs wear off and his delirium clears. Avoid 2. Hypotension- resolved, now BP stable off of any pressors or midodrine or steroids since 04/14 - presented with hypotension, acute kidney injury, and hyperkalemia, initially improved with IVF and emergent treatments but then developed hypotension, and hypercapnea on hospital day #2, transferred to ICU. Levophed drip started and he was also placed on low dose midodrine with improvement in his blood pressure. Empiric hydrocortisone was added and is now off after a couple of days and clinical improvement. Creatinine is now back to baseline and off IV fluids-->unfortunately he had worsened pulmonary edema and started on lasix- then had hypernatremia and given D5W with resolution- CT now shows some pulm edema- so holding off on further ivf for now- monitor volume status S/p 7 days of empiric rocephin but no clear source of infection ?prior right leg cellulitis but no evidence on my exam today. Blood clx negative x2. 04/14: stopped midodrine 04/15 and 04/16: BP remains stable 3. Acute diastolic heart failure--on lasix, spironolactone and entresto as outpatient which were held on admission in setting of hypotension and renal failure. IV Lasix restarted on 04/14 in setting of pulmonary edema and held later in setting of hypernatremia- D5W given for hypernatremia with resolution of hypernatremia - Monitor volume status closely, iv lasix prn 4. Acute kidney injury possible prerenal etiology, possible ATN- resolved. Cr back to baseline from 3.2->1.8->1.2 5. Hyperkalemia- K 6.4 on admission, now resolved. 6. Mild elevation of troponin: Mostly likely from demand ischemia. Trop in 50s, plateaued S/p VSD closure S/p AVR - Echo: LVH, EF 70%, mildly reduced RV systolic function, abnormal prosthetic gradient - Seen by cardio- unable to get IVORY at this time given mental and respiratory status. No further testing per cardio and signed off. - Recommended OP echo 7. Lower extremity pain: History of peripheral vascular disease, history of recent procedure. Vascular surgery consulted- No surgical intervention at this point S/p empiric ABx for possible cellulitis 8. History of COPD- no exacerbation. Patient had hypercapneic respiratory failure with lethargy noted on hospital day 2- Now off of bipap. ABGs noted. Monitor 9. History of paroxysmal atrial fibrillation: History of Watchman left atrial appendage closure device, history of pacemaker, history of ventricular septal defect repair, history of bioprosthetic aortic valve, status post repair, history of subaortic membrane resection, history of PFO repair, history of tricuspid valve annuloplasty. - Metoprolol, digoxin on hold - Monitor on tele 10. ?hemoptysis this morning in setting of supratherapeutic INR- Coumadin held and was given IV Vitamin K. CT chest noted. Will monitor Hb and INR in am. CT chest 04/16 - 1. No pulmonary emboli identified although segmental and subsegmental pulmonary arteries suboptimally assessed due to respiratory motion. Dilatation of the central pulmonary arteries suggestive of pulmonary arterial hypertension. 2. Small bilateral pleural effusions with interstitial pulmonary edema. Patchy airspace opacities favor alveolar edema although an superimposed infectious process could appear similar. Cardiomegaly. 3. Emphysema. 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 Transaminitis- resolved. !3. Hypernatremia- resolved with D5w and now discontinued as CT with some pulm edema Hold all po meds given persistent encephalopathy. 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 Will change essential meds from po to iv. Aspiration precautions. Code status- Full code listed but his sister says patient stated to him in past he would not like any resuscitation or intubation (DNR/DNI) but she is not designated as POA. Will clarify with patient once he is more lucid. DVT ppx- He was on coumadin but INR was reversed this morning due to concern for hemoptysis and elevated INR GI ppx- iv protonix Dispo:Continue inpatient management- will need further work up unless encephalopathy improves Admission and Anticipated Discharge Date Admission Date: April 07, 2022 Subjective He is still very lethargic. He only very briefly responded to verbal stimuli but did not speak anything. Per bedside sitter, he woke up couple times and was trying to climb out of bed. Physical Exam Physical Exam: General: Lethargic, lying in bed, not in acute distress, on NC HEENT: MELODIE Chest: Fair breath sounds anteriorly CVS: Regular rate and rhythm, normal heart sounds, no murmur Abdomen: Soft, non tender, not distended, normal bowel sounds Neuro: Lethargic, very briefly opened eyes with verbal stimuli, squeezed right hand on command, he was using left hand to hold cup per sitter Extremities: No cyanosis, clubbing or edema Skin- ecchymoses on his arms and chest Results & Data Results & Data ([facility]) Vital Signs (Past 12 Hours) Vital Signs Temp Pulse Pulse Resp BP Pulse Ox 04/16/22 14:51 97 H 04/16/22 14:41 36.2 C L 98 H 18 113/88 100 04/16/22 11:25 36.6 C 96 H 16 135/94 90 04/16/22 08:00 86 Laboratory Results Short CBC 04/16/22 Range/Units 05:40 WBC 7.15 (4.8-10.8) K/uL Hgb 9.5 L (14.0-18.0) g/dL Hct 35.6 L (42-52) % Plt Count 122 L (130-400) K/uL BMP 04/16/22 05:40 Sodium 143 Potassium 3.8 Chloride 104 Carbon Dioxide 37 H BUN 27 H Creatinine 1.21 Glucose 100 H Calcium 9.4 Liver Function 04/16/22 Range/Units 05:40 Total Bilirubin 0.8 (0.2-1.0) mg/dl AST 36 (13-39) U/L ALT 93 H (7-52) U/L Alkaline Phosphatase 52 (34-104) U/L Albumin 3.5 (3.4-5.0) gm/dl Medications Administered Current Inpatient Medications Acetaminophen (Acetaminophen 325 Mg Tab) 650 mg PO Q4H PRN PRN Reason: Pain or Fever Stop: 05/07/22 22:29 Albuterol (Albuterol Hfa 8 Gm Inhaler) 2 puffs INH Q6H PRN PRN Reason: Shortness Of Breath Stop: 05/07/22 22:45 Atorvastatin Calcium (Atorvastatin 40 Mg Tab) 40 mg PO DAILY [facility] Stop: 05/08/22 08:59 Last Admin: 04/16/22 08:05 Dose: Not Given Documented by: Benzonatate (Benzonatate 100 Mg Capsule) 100 mg PO TID PRN PRN Reason: Cough Stop: 05/16/22 05:09 Clopidogrel Bisulfate (Clopidogrel Bisulfate 75 Mg Tab) 75 mg PO QAM [facility] Stop: 05/08/22 08:59 Last Admin: 04/15/22 08:09 Dose: Not Given Documented by: Cyanocobalamin (Cyanocobalamin (B-12) 500 Mcg Tablet) 1,000 mcg PO QDL [facility] Stop: 05/08/22 11:29 Last Admin: 04/16/22 10:32 Dose: Not Given Documented by: Fluticasone/Vilanterol (Fluticasone/Vilanterol 200/25mcg 14 Puffs/Inhaler) 1 puffs INH DAILY [facility] Stop: 05/08/22 08:59 Last Admin: 04/16/22 07:51 Dose: 1 puffs Documented by: Folic Acid (Folic Acid 1 Mg Tab) 1 mg PO QAM [facility] Stop: 05/08/22 08:59 Last Admin: 04/16/22 08:05 Dose: Not Given Documented by: Furosemide (Furosemide 40 Mg/4 Ml Vial) 40 mg IV [id number] [facility] Stop: 05/14/22 08:59 Last Admin: 04/14/22 16:49 Dose: 40 mg Documented by: Heparin Sodium (Beef Lung) (Heparin 10 Unit/Ml 5 Ml Flush) 5 ml FLUSH PRN PRN PRN Reason: Flush Stop: 05/12/22 00:23 Last Admin: 04/12/22 06:11 Dose: 5 ml Documented by: Thiamine HCl 100 mg/ Syringe 10 mls @ 2 mls/min IV QAM [facility] Stop: 05/15/22 13:59 Last Admin: 04/16/22 07:48 Dose: 2 mls/min Documented by: Acetaminophen (Ofirmev) 65 mls @ 200 mls/hr IV Q8H PRN; Protocol PRN Reason: pain/fever Stop: 04/18/22 19:30 Last Infusion: 04/16/22 06:29 Dose: Infused Documented by: Lactated Ringer's (Lr) 1,000 mls @ 60 mls/hr IV .[id number] [facility] Stop: 05/16/22 15:14 Last Admin: 04/16/22 15:15 Dose: 60 mls/hr Documented by: Lactobacillus Acidophilus (Advanced Probiotic 1250 Mg Capsule) 2 cap PO [facility] Stop: 05/08/22 08:59 Last Admin: 04/16/22 08:05 Dose: Not Given Documented by: Melatonin (Melatonin 3 Mg Tab) 3 mg PO HS PRN PRN Reason: Sleep Stop: 05/07/22 22:45 Metoprolol Tartrate (Metoprolol Tartrate 25 Mg Tab) 25 mg PO BID [facility] Stop: 05/14/22 08:59 Last Admin: 04/14/22 20:51 Dose: Not Given Documented by: Metoprolol Tartrate (Metoprolol Tartrate 1 Mg/Ml Vial) 2.5 mg IV Q6 [facility] Stop: 05/14/22 11:59 Last Admin: 04/16/22 17:11 Dose: 2.5 mg Documented by: Miscellaneous (Remove Lidoderm Patch) 1 ea N/A DAILY@2300 [facility] Stop: 05/15/22 22:59 Last Admin: 04/15/22 23:18 Dose: 1 ea Documented by: Nitroglycerin (Nitroglycerin Sl 0.4 Mg/Tab Tab) 0.4 mg SL UD PRN PRN Reason: Chest Pain Stop: 05/07/22 22:29 Ondansetron HCl (Ondansetron Inj 2 Mg/Ml 2 Ml Vial) 4 mg IV Q6H PRN PRN Reason: Nausea Stop: 05/07/22 22:29 Pantoprazole Sodium (Pantoprazole 40 Mg Tab) 40 mg PO [facility] Stop: 05/08/22 08:59 Last Admin: 04/16/22 08:05 Dose: Not Given Documented by: Polyethylene Glycol (Polyethylene (Miralax) 17 Gm Pack) 17 gm PO DAILY PRN PRN Reason: Constipation Stop: 05/07/22 22:29 Sodium Chloride (Sodium Chloride 0.65% Na Soln 45 Ml ([place])) 1 sprays NA PRN PRN PRN Reason: Dryness Stop: 05/11/22 14:04 Umeclidinium [place] (Umeclidinium [place] 62.5mcg/Blister 7 Puffs/Inhaler) 1 puffs INH [facility] Stop: 05/08/22 08:59 Last Admin: 04/16/22 07:51 Dose: 1 puffs Documented by: Warfarin Sodium (Warfarin Sod 5 Mg Tab) 5 mg PO [id number]@1600 [facility] Stop: 05/08/22 15:59 Last Admin: 04/11/22 16:47 Dose: 5 mg Documented by: Warfarin Sodium (Warfarin Sod 2.5 Mg Tab) 2.5 mg PO [id number]@1600 [facility] Stop: 05/09/22 15:59 Last Admin: 04/12/22 16:06 Dose: 2.5 mg Documented by: Zinc Sulfate (Zinc Sulfate 220 Mg Capsule) 220 mg PO [facility] Stop: 05/08/22 08:59 Last Admin: 04/16/22 08:05 Dose: Not Given Documented by: (1) Acute on chronic renal failure Acute renal failure type: unspecified Chronic kidney disease stage: unspecified stage Qualified Code(s): N17.9 - Acute kidney failure, unspecified; N18.9 - Chronic kidney disease, unspecified
[2022-04-17] MEDS: METOPROLOL TARTRATE 1 MG/ML VIAL IV SCH ×6 (00:10→23:29)
[2022-04-17 06:33] LABS: Hematocrit (blood only) 37.9 % (42-52); Hemoglobin 10.2 g/dL (14.0-18.0); Mean Corpuscular Hemoglobin 23.2 pg (25-34); Mean Corpuscular Hgb Conc 26.9 g/dL (32-36); Mean Corpuscular Volume 86.1 fL (80-100); Mean Platelet Volume 10.5 fL (7.4-10.4); Nucleated RBC # (auto) 0.03 K/uL (0-0); Nucleated RBC % (auto) 0.3 %; Platelet Count 161 K/uL (130-400); RDW Coefficient of Variation 24.2 % (11.5-14.5); RDW Standard Deviation 75.5 fL (36.4-46.3); White Blood Count 9.09 K/uL (4.8-10.8)
[2022-04-17 06:58] LABS: Albumin Globulin Ratio 1.2 (0.9-2); Albumin Level 3.4 gm/dl (3.4-5.0); BUN Creatinine Ratio 25.4 (10-20); Bilirubin,Total 0.8 mg/dl (0.2-1.0); Calcium 9.5 mg/dl (8.5-10.1); Creatinine Clr Calc Pharmacy 51.7 ml/min; Est GFR (African American) 76.2 ml/min; Est GFR (Non-African American) 65.7 ml/min; Globulin 2.8 gm/dl (2.5-4.0); Magnesium 1.9 mg/dl (1.7-2.4); Total Protein 6.2 gm/dl (6.0-8.3)
[2022-04-17 06:59] LABS: INR 1.3 (0.9-1.1); Prothrombin Time 14.1 Seconds (9.0-12.0)
[2022-04-17 07:08] LABS: Anisocytosis Present; Basophils # (auto) 0.01 K/uL (0-0.2); Basophils % (auto) 0.1 %; Eosinophils # (auto) 0.16 K/uL (0-0.5); Eosinophils % (auto) 1.8 %; Hypochromasia Present; Immature Granulocytes # (auto) 0.06 K/uL (0.00-0.02); Immature Granulocytes % (auto) 0.7 %; Lymphocytes # (auto) 0.99 K/uL (1.2-3.4); Lymphocytes % (auto) 10.9 %; Monocytes # (auto) 0.98 K/uL (0.11-0.59); Monocytes % (auto) 10.8 %; Neutrophils # (auto) 6.89 K/uL (1.4-6.5); Neutrophils % (auto) 75.7 %
[2022-04-17] MEDS: THIAMINE HCL 100 MG in SYRINGE 9 ML IV SCH (08:39)
[2022-04-17] MEDS: UMECLIDINIUM BROMIDE 62.5MCG/BLISTER 7 PUFFS/INHALER INH SCH (08:40)
[2022-04-17] MEDS: FLUTICASONE/VILANTEROL 200/25MCG 14 PUFFS/INHALER INH SCH (08:41)
[2022-04-17] MEDS: ATORVASTATIN 40 MG TAB PO SCH ×2 (08:42→08:48)
--- NOTE | 2022-04-17 08:53 | CT Scan Report ---
CT OF THE HEAD WITHOUT CONTRAST CLINICAL HISTORY: persistent encephalopathy COMPARISON STUDY: Head CT April 15, 2022. CT DOSE: 1842.80 mGy.cm TECHNIQUE: Helical axial images of the head were obtained without IV contrast. Automated exposure con trol was utilized for the study. A dose lowering technique was utilized adhering to the principles o f ALARA. FINDINGS: This exam is moderately compromised by motion artifact. No acute intracranial hemorrhage, m idline shift or mass effect is present. Ventricular system is unremarkable. Basal cisterns are patent . There are no extra-axial collections. There is a small hyperdense focus measuring approximately 7 m m within the posterior left temporal lobe, along the posterior aspect of the left sylvian fissure. Th is is shown on axial image of . This was not present on prior exam. This represents trace acute intracranial hemorrhage. No additional foci of intracranial hemorrhage are present. There is trace fl uid within the bilateral mastoid air cells. 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 IMPRESSION: 1. Motion degraded exam. 7 mm hyperdense focus within the posterior left temporal lobe. This is new s pia prior CT and consistent with a small amount of acute hemorrhage, possibly subarachnoid. A head C T in 24 to 48 hours is recommended. This finding will be called/faxed to ordering provider at time of dictation. 2. Otherwise, unchanged appearance of the brain. Old left parietal lobe infarct. ACT 112: Negative or not required by law. Electronically signed by: Kushal Messina M.D. 04/17/2022 8:52 AM
--- NOTE | 2022-04-17 11:06 | Communication Note ---
Date of Service: April 17, 2022 CT head 04/16/22 1. Motion degraded exam. 7 mm hyperdense focus within the posterior left temporal lobe. This is new since prior CT and consistent with a small amount of acute hemorrhage, possibly subarachnoid. A head CT in 24 to 48 hours is recommended. This finding will be called/faxed to ordering provider at time of dictation. 2. Otherwise, unchanged appearance of the brain. Old left parietal lobe infarct. I immediately spoke with Dr Christopher regarding the CT findings who recommended discussing the case with neurosurgery in [place]. Spoke to [facility] and I was connected to Dr Lemon (neurology- per protocol, neurology evaluates first and will be connected to neurosurgery if neurology there feels necessary). Dr Lemon reviewed the CT head from 04/15 and overnight- He thinks this could be an artifact rather than a true SAH. He recommended repeating CT head in 6-8 hours. If stable, can resume antiplatelet. He recommended waiting a week for initiating anticoagulation if this is true SAH. Okay for DVT prophylaxis. Upon bedside assessment, patient is much improved today- AAOx2, conversing well, eating ice chips, following commands, no focal neurological deficits on gross exam. Clarified code status- He opted for DNR/DNI, as was stated by his sister. Spoke with MARKETING RESEARCHER for reevaluation given significant improvement in his encephalopathy. Full note to follow.
--- NOTE | 2022-04-17 11:49 | Communication Note ---
Date of Service: April 17, 2022 Escobar looks much much better today compared to our visit with him on Monday. He is awake alert communicating has no memory of the last 3 days were very poor memory but on exam seems to move his right arm pretty well where is previously he withdrew it very slowly to noxious stimuli and I suspect he is back to close to what could be established as his baseline neurologically. Repeat CT scan was done and shows a small area of hemorrhage in the left temporal lobe with some subarachnoid bleed and his anticoagulation has appropriately been stopped. I do not think we need to evaluate this any further but I had suggested that our neurosurgeons in [place] please review the images and make recommendations but from my point of view I think all we need is another CAT scan tomorrow and if this is stable then another CAT scan in 48 hours after that and after that no more imaging would be required. This has to be reviewed in the context of his need or lack thereof for chronic anticoagulation long-term and we will review the chart the imaging results and certainly once the small hemorrhage resolves he probably could be back on anticoagulation if this is felt to be necessary medically. He does have a host of underlying medical problems that might require chronic anticoagulation and I think this small hemorrhage probably reflects some of the extra anticoagulation he was given during his current hospital stay Travis Christopher MD
--- NOTE | 2022-04-17 12:32 | CT Scan Report ---
CT head/brain wo con CLINICAL HISTORY: 6 hr follow up on ?SAH per neurology recs COMPARISON STUDY: 04/16/2022 and 04/15/2022 CT DOSE: 786.26 mGy.cm TECHNIQUE: Standard CT of the Brain was performed without IV contrast. A dose lowering technique was utilized adhering to the principles of ALARA. FINDINGS: Compared to the previous examination, a very small hyperdense focus is again seen within th e posterior left temporal parietal lobe as noted on image 20. This is unchanged. There is again not s een on the more remote study from 04/15/2022. There is again characteristic of a small hemorrhage. No new hemorrhages are identified. Again, follow-up in 24 hours is recommended for further evaluation. IMPRESSION: 1. Persistent 7 mm hyperdense focus within the posterior left temporal parietal lobe, again suspiciou s for small hemorrhage. No new hemorrhages are identified. Follow-up in 24 hours is recommended for f urther evaluation. ACT 112: Negative or not required by law. Electronically signed by: Kirk Argueta M.D. 04/17/2022 12:29 PM
[2022-04-17] MEDS: PANTOprazole 40 MG in SYRINGE 0 ML IV SCH (12:47)
[2022-04-17] MEDS ORDERED: GABAPENTIN 600 MG TAB PO SCH (14:00)
--- NOTE | 2022-04-17 17:49 | Hospitalist Progress Note ---
Date of Service April 17, 2022 Assessment & Plan (1) Encephalopathy acute: (2) Hypotension: (3) Transaminitis: (4) Acute on chronic renal failure: (5) Anemia: (6) Acute and chronic respiratory failure with hypoxia: (7) Chronic anticoagulation: (8) H/O aortic valve replacement: Plan: 1. SAH- seen in CT overnight and in repeat CT today in setting of supratherapeutic anticoagulation- details as below- s/p reversal of coumadin with vitamin K, INR 3.8->1.3 today. further anticoag on hold - Spoke with Dr Christopher who recommended reaching out to [facility]. Spoke to Dr Reyes from [facility] who recommended repeat CT head in 6 hours and no need for neurosurgery eval if stable. Ok to start DVT prophylaxis and antiplatelet agent per Dr Reyes. Recommended waiting a week before anticoagulation - Will get repeat CT head in 24 hours and again in 48 hours to ensure stability per Dr Christopher - Will reach out to cardio if anticoag is needed for him given his watchman device CT head 04/16- Motion degraded exam. 7 mm hyperdense focus within the posterior left temporal lobe. This is new since prior CT and consistent with a small amount of acute hemorrhage, possibly subarachnoid. A head CT in 24 to 48 hours is recommended. Otherwise, unchanged appearance of the brain. Old left parietal lobe infarct. CT head 04/17- Persistent 7 mm hyperdense focus within the posterior left temporal parietal lobe, again suspicious for small hemorrhage. No new hemorrhages are identified. Follow-up in 24 hours is recommended for further evaluation. 2. Acute encephalopathy- resolved, possibly from sedating medications. - Repeat CT head with persistent small SAH as above- plan as above - Normal TSH, Vitamin b12, folate, ammonia level. Blood clx persistently negative. Procal negative. B1 level pending - avoid sedating medications completely - Per sister, patient is not an alcoholic and she strongly denies any concern for withdrawal at all from get-go - Neuro following Librium started by ICU attending but stopped with persistent lethargy on 04/13 he was oriented to person place and time but was very weak and was unable to remember details of his medical mistory That evening he became confused and received Ativan which put him in an obtunded state for the last two days Waiting/supporting him until drugs wear off and his delirium clears. 3. Hypotension- resolved, now BP stable off of any pressors or midodrine or steroids since 04/14 - presented with hypotension, acute kidney injury, and hyperkalemia, initially improved with IVF and emergent treatments but then developed hypotension, and hypercapnea on hospital day #2, transferred to ICU. Levophed drip started and he was also placed on low dose midodrine with improvement in his blood pressure. Empiric hydrocortisone was added and is now off after a couple of days and clinical improvement. Creatinine is now back to baseline and off IV fluids-->unfortunately he had worsened pulmonary edema and started on lasix- then had hypernatremia and given D5W with resolution- CT now shows some pulm edema- so holding off on further ivf for now- monitor volume status S/p 7 days of empiric rocephin but no clear source of infection ?prior right leg cellulitis but no evidence on my exam today. Blood clx negative x2. 04/14: stopped midodrine 04/15 and 04/16: BP remains stable 4. Acute diastolic heart failure--on lasix, spironolactone and entresto as outpatient which were held on admission in setting of hypotension and renal failure. IV Lasix restarted on 04/14 in setting of pulmonary edema and held later in setting of hypernatremia- D5W given for hypernatremia with resolution of hypernatremia - Monitor volume status closely, iv lasix prn. BNP in 4000 but respiratory status currently stable- if declines, give iv lasix - will resume po meds likely from tomorrow 4. Acute kidney injury possible prerenal etiology, possible ATN- resolved. Cr back to baseline from 3.2->1.8->1.2 5. Hyperkalemia- K 6.4 on admission, now resolved. 6. Mild elevation of troponin: Mostly likely from demand ischemia. Trop in 50s, plateaued S/p VSD closure S/p AVR - Echo: LVH, EF 70%, mildly reduced RV systolic function, abnormal prosthetic gradient - Seen by cardio- unable to get IVORY at this time given mental and respiratory status. No further testing per cardio and signed off. - Recommended OP echo 7. Lower extremity pain: History of peripheral vascular disease, history of recent procedure. Vascular surgery consulted- No surgical intervention at this point S/p empiric ABx for possible cellulitis 8. History of COPD- no exacerbation. Patient had hypercapneic respiratory failure with lethargy noted on hospital day 2- Now off of bipap. ABGs noted. Monitor 9. History of paroxysmal atrial fibrillation: History of Watchman left atrial appendage closure device, history of pacemaker, history of ventricular septal defect repair, history of bioprosthetic aortic valve, status post repair, history of subaortic membrane resection, history of PFO repair, history of tri cuspid valve annuloplasty. - Metoprolol, digoxin on hold - Monitor on tele 10. ?hemoptysis in setting of supratherapeutic INR- Coumadin held and was given IV Vitamin K. CT chest noted. No further episodes. Hb stable CT chest 04/16 - 1. No pulmonary emboli identified although segmental and subsegmental pulmonary arteries suboptimally assessed due to respiratory motion. Dilatation of the central pulmonary arteries suggestive of pulmonary arterial hypertension. 2. Small bilateral pleural effusions with interstitial pulmonary edema. Patchy airspace opacities favor alveolar edema although an superimposed infectious process could appear similar. Cardiomegaly. 3. Emphysema. 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 Transaminitis- resolved. !3. Hypernatremia- resolved with D5w and now discontinued as CT with some pulm edema. BNP elevated, will consider lasix likely tomorrow Code status- DNR/DNI- discussed in detail at bedside. DVT ppx- likely resume sc heparin from tomorrow GI ppx- protonix Dispo: PCU. WIll need repeat CT head in 24 and 48 hrs Admission and Anticipated Discharge Date Admission Date: April 07, 2022 Subjective He is awake and alert today, conversing and eating although he has no recollection for the past few days as he was encephalopathic. When asked about code status, he stated DNR/DNI. He is asking when he would be able to go home. When asked about the ecchymoses, he says it is from his coumadin and he bruises easily. Physical Exam Physical Exam: General: Sitting at bedside, eating icechips, on NC, not in distress HEENT: EOMI, RAY, MMM Chest: Fair breath sounds bilaterally CVS: Regular rate and rhythm, normal heart sounds, no murmur Abdomen: Soft, non tender, not distended, normal bowel sounds Neuro: Awake, alert, oriented x2. Follows commands. Strength equal on all extremities, sensation intact. Grossly non focal exam Extremities: No cyanosis, clubbing or edema Skin- ecchymoses on his arms and chest Results & Data Results & Data ([facility]) Vital Signs (Past 12 Hours) Vital Signs Temp Pulse Pulse Resp BP BP Pulse Ox 04/17/22 15:53 95 H 04/17/22 15:38 36.6 C 77 17 127/88 95 04/17/22 12:48 88 114/82 04/17/22 11:36 36.8 C 87 16 114/82 95 04/17/22 07:22 37 C 103 H 16 122/84 99 Laboratory Results Short CBC 04/17/22 Range/Units 05:50 WBC 9.09 (4.8-10.8) K/uL Hgb 10.2 L (14.0-18.0) g/dL Hct 37.9 L (42-52) % Plt Count 161 (130-400) K/uL BMP 04/17/22 05:50 Sodium 144 Potassium 4.0 Chloride 104 Carbon Dioxide 37 H BUN 29 H Creatinine 1.14 Glucose 80 Calcium 9.5 Liver Function 04/17/22 Range/Units 05:50 Total Bilirubin 0.8 (0.2-1.0) mg/dl AST 27 (13-39) U/L ALT 76 H (7-52) U/L Alkaline Phosphatase 51 (34-104) U/L Albumin 3.4 (3.4-5.0) gm/dl Diagnostic Findings Head CT 04/16/22 19:40 CT OF THE HEAD WITHOUT CONTRAST CLINICAL HISTORY: persistent encephalopathy COMPARISON STUDY: Head CT April 15, 2022. CT DOSE: 1842.80 mGy.cm TECHNIQUE: Helical axial images of the head were obtained without IV contrast. Automated exposure control was utilized for the study. A dose lowering technique was utilized adhering to the principles of ALARA. FINDINGS: This exam is moderately compromised by motion artifact. No acute intracranial hemorrhage, midline shift or mass effect is present. Ventricular system is unremarkable. Basal cisterns are patent. There are no extra-axial collections. There is a small hyperdense focus measuring approximately 7 mm within the posterior left temporal lobe, along the posterior aspect of the left sylvian fissure. This is shown on axial image 19 of 32. This was not present on prior exam. This represents trace acute intracranial hemorrhage. No additional foci of intracranial hemorrhage are present. There is trace fluid within the bilateral mastoid air cells. 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 IMPRESSION: 1. Motion degraded exam. 7 mm hyperdense focus within the posterior left temporal lobe. This is new since prior CT and consistent with a small amount of acute hemorrhage, possibly subarachnoid. A head CT in 24 to 48 hours is recommended. This finding will be called/faxed to ordering provider at time of dictation. 2. Otherwise, unchanged appearance of the brain. Old left parietal lobe infarct. ACT 112: Negative or not required by law. Electronically signed by: Kushal Messina M.D. 04/17/2022 8:[address] 04/17/22 11:07 CT head/brain wo con CLINICAL HISTORY: 6 hr follow up on ?SAH per neurology recs COMPARISON STUDY: 04/16/2022 and 04/15/2022 CT DOSE: 786.26 mGy.cm TECHNIQUE: Standard CT of the Brain was performed without IV contrast. A dose lowering technique was utilized adhering to the principles of ALARA. FINDINGS: Compared to the previous examination, a very small hyperdense focus is again seen within the posterior left temporal parietal lobe as noted on image 20. This is unchanged. There is again not seen on the more remote study from 04/15/2022. There is again characteristic of a small hemorrhage. No new hemorrhages are identified. Again, follow-up in 24 hours is recommended for further evaluation. IMPRESSION: 1. Persistent 7 mm hyperdense focus within the posterior left temporal parietal lobe, again suspicious for small hemorrhage. No new hemorrhages are identified. Follow-up in 24 hours is recommended for further evaluation. ACT 112: Negative or not required by law. Electronically signed by: Kirk Argueta M.D. 04/17/2022 12:29 PM Medications Administered Current Inpatient Medications Acetaminophen (Acetaminophen 325 Mg Tab) 650 mg PO Q4H PRN PRN Reason: Pain or Fever Stop: 05/07/22 22:29 Albuterol (Albuterol Hfa 8 Gm Inhaler) 2 puffs INH Q6H PRN PRN Reason: Shortness Of Breath Stop: 05/07/22 22:45 Atorvastatin Calcium (Atorvastatin 40 Mg Tab) 40 mg PO DAILY [facility]GA Stop: 05/08/22 08:59 Last Admin: 04/17/22 08:48 Dose: Not Given Documented by: Benzonatate (Benzonatate 100 Mg Capsule) 100 mg PO TID PRN PRN Reason: Cough Stop: 05/16/22 05:09 Clopidogrel Bisulfate (Clopidogrel Bisulfate 75 Mg Tab) 75 mg PO QAM [facility] Stop: 05/08/22 08:59 Last Admin: 04/15/22 08:09 Dose: Not Given Documented by: Cyanocobalamin (Cyanocobalamin (B-12) 500 Mcg Tablet) 1,000 mcg PO QDL [facility] Stop: 05/08/22 11:29 Last Admin: 04/16/22 10:32 Dose: Not Given Documented by: Fluticasone/Vilanterol (Fluticasone/Vilanterol 200/25mcg 14 Puffs/Inhaler) 1 puffs INH DAILY [facility] Stop: 05/08/22 08:59 Last Admin: 04/17/22 08:41 Dose: 1 puffs Documented by: Folic Acid (Folic Acid 1 Mg Tab) 1 mg PO QAM [facility] Stop: 05/08/22 08:59 Last Admin: 04/16/22 08:05 Dose: Not Given Documented by: Furosemide (Furosemide 40 Mg/4 Ml Vial) 40 mg IV BID17 [facility] Stop: 05/14/22 08:59 Last Admin: 04/14/22 16:49 Dose: 40 mg Documented by: Heparin Sodium (Beef Lung) (Heparin 10 Unit/Ml 5 Ml Flush) 5 ml FLUSH PRN PRN PRN Reason: Flush Stop: 05/12/22 00:23 Last Admin: 04/17/22 09:41 Dose: 5 ml Documented by: Thiamine HCl 100 mg/ Syringe 10 mls @ 2 mls/min IV QAM [facility] Stop: 05/15/22 13:59 Last Admin: 04/17/22 08:39 Dose: 2 mls/min Documented by: Acetaminophen (Ofirmev) 65 mls @ 200 mls/hr IV Q8H PRN; Protocol PRN Reason: pain/fever Stop: 04/18/22 19:30 Last Infusion: 04/16/22 06:29 Dose: Infused Documented by: Lactated Ringer's (Lr) 1,000 mls @ 60 mls/hr IV .[id number] [facility] Stop: 05/16/22 15:14 Last Infusion: 04/16/22 20:02 Dose: 0 mls/hr Documented by: Pantoprazole Sodium 40 mg/ (Syringe) 10 mls @ 5 mls/min IV DAILY@1100 [facility] Stop: 05/17/22 10:59 Last Admin: 04/17/22 12:47 Dose: 5 mls/min Documented by: Lactobacillus Acidophilus (Advanced Probiotic 1250 Mg Capsule) 2 cap PO QAM [facility] Stop: 05/08/22 08:59 Last Admin: 04/16/22 08:05 Dose: Not Given Documented by: Melatonin (Melatonin 3 Mg Tab) 3 mg PO HS PRN PRN Reason: Sleep Stop: 05/07/22 22:45 Metoprolol Tartrate (Metoprolol Tartrate 25 Mg Tab) 25 mg PO BID [facility] Stop: 05/14/22 08:59 Last Admin: 04/14/22 20:51 Dose: Not Given Documented by: Metoprolol Tartrate (Metoprolol Tartrate 1 Mg/Ml Vial) 2.5 mg IV Q6 [facility] Stop: 05/14/22 11:59 Last Admin: 04/17/22 12:48 Dose: 2.5 mg Documented by: Miscellaneous (Remove Lidoderm Patch) 1 ea N/A DAILY@2300 [facility] Stop: 05/15/22 22:59 Last Admin: 04/17/22 00:12 Dose: 1 ea Documented by: Nitroglycerin (Nitroglycerin Sl 0.4 Mg/Tab Tab) 0.4 mg SL UD PRN PRN Reason: Chest Pain Stop: 05/07/22 22:29 Ondansetron HCl (Ondansetron Inj 2 Mg/Ml 2 Ml Vial) 4 mg IV Q6H PRN PRN Reason: Nausea Stop: 05/07/22 22:29 Pantoprazole Sodium (Pantoprazole 40 Mg Tab) 40 mg PO QAM [facility] Stop: 05/08/22 08:59 Last Admin: 04/16/22 08:05 Dose: Not Given Documented by: Polyethylene Glycol (Polyethylene (Miralax) 17 Gm Pack) 17 gm PO DAILY PRN PRN Reason: Constipation Stop: 05/07/22 22:29 Sodium Chloride (Sodium Chloride 0.65% Na Soln 45 Ml ([place])) 1 sprays NA PRN PRN PRN Reason: Dryness Stop: 05/11/22 14:04 Umeclidinium [place] (Umeclidinium [place] 62.5mcg/Blister 7 Puffs/Inhaler) 1 puffs INH [facility] Stop: 05/08/22 08:59 Last Admin: 04/17/22 08:40 Dose: 1 puffs Documented by: Warfarin Sodium (Warfarin Sod 5 Mg Tab) 5 mg PO MoFr@1600 [facility] Stop: 05/08/22 15:59 Last Admin: 04/11/22 16:47 Dose: 5 mg Documented by: Warfarin Sodium (Warfarin Sod 2.5 Mg Tab) 2.5 mg PO SuTuWeThSa@1600 [facility] Stop: 05/09/22 15:59 Last Admin: 04/12/22 16:06 Dose: 2.5 mg Documented by: Zinc Sulfate (Zinc Sulfate 220 Mg Capsule) 220 mg PO [facility] Stop: 05/08/22 08:59 Last Admin: 04/16/22 08:05 Dose: Not Given Documented by: (1) Acute on chronic renal failure Acute renal failure type: unspecified Chronic kidney disease stage: unspecified stage Qualified Code(s): N17.9 - Acute kidney failure, unspecified; N18.9 - Chronic kidney disease, unspecified
[2022-04-18] MEDS: METOPROLOL TARTRATE 1 MG/ML VIAL IV SCH ×3 (06:34→17:45)
[2022-04-18 07:24] LABS: Hematocrit (blood only) 33.3 % (42-52); Hemoglobin 8.9 g/dL (14.0-18.0); Mean Corpuscular Hemoglobin 22.5 pg (25-34); Mean Corpuscular Hgb Conc 26.7 g/dL (32-36); Mean Corpuscular Volume 84.1 fL (80-100); Mean Platelet Volume 10.3 fL (7.4-10.4); RDW Standard Deviation 72.7 fL (36.4-46.3); Red Blood Count 3.96 M/uL (4.7-6.1); White Blood Count 10.07 K/uL (4.8-10.8)
[2022-04-18 07:30] LABS: Anisocytosis Present; Basophilic Stippling 1+; Basophils # (auto) 0.01 K/uL (0-0.2); Basophils % (auto) 0.1 %; Eosinophils # (auto) 0.16 K/uL (0-0.5); Eosinophils % (auto) 1.6 %; Hypochromasia Present; Immature Granulocytes # (auto) 0.03 K/uL (0.00-0.02); Immature Granulocytes % (auto) 0.3 %; Lymphocytes # (auto) 0.82 K/uL (1.2-3.4); Lymphocytes % (auto) 8.1 %; Monocytes # (auto) 0.98 K/uL (0.11-0.59); Monocytes % (auto) 9.7 %; Neutrophils # (auto) 8.07 K/uL (1.4-6.5); Neutrophils % (auto) 80.2 %; Platelet Count 126 K/uL (130-400); Platelet Estimate Normal (Normal)
[2022-04-18 07:31] LABS: BUN Creatinine Ratio 25.6 (10-20); Calcium 9.3 mg/dl (8.5-10.1); Creatinine Clr Calc Pharmacy 47.8 ml/min; Est GFR (African American) 68.1 ml/min; Est GFR (Non-African American) 58.8 ml/min; Potassium 3.6 mmol/L (3.5-5.1)
[2022-04-18] MEDS: FLUTICASONE/VILANTEROL 200/25MCG 14 PUFFS/INHALER INH SCH (09:00)
[2022-04-18] MEDS: ATORVASTATIN 40 MG TAB PO SCH (09:00)
[2022-04-18] MEDS: THIAMINE HCL 100 MG in SYRINGE 9 ML IV SCH (09:01)
[2022-04-18] MEDS: PANTOprazole 40 MG in SYRINGE 0 ML IV SCH (09:01)
[2022-04-18] MEDS: UMECLIDINIUM BROMIDE 62.5MCG/BLISTER 7 PUFFS/INHALER INH SCH (09:05)
[2022-04-18] MEDS ORDERED: FUROSEMIDE INJ 20 MG/2 ML VIAL IV ONE (09:22)
--- NOTE | 2022-04-18 11:34 | Cardiology Consultation ---
Date of Consultation April 18, 2022 Assessment & Plan (1) Acute hyperkalemia: (2) Acute on chronic renal failure: (3) Acute hypotension: (4) Elevated troponin: (5) Transaminitis: (6) Acute on chronic systolic (congestive) heart failure: (7) Pulmonary embolism, bilateral: (8) PAD (peripheral artery disease): (9) Complete heart block: (10) Afib: (11) Chronic anticoagulation: (12) CAD (coronary artery disease): (13) H/O aortic valve replacement: (14) S/P VSD closure: Typically following a watchman implant patients are on warfarin and aspirin for approximately 6 weeks and then dual antiplatelet therapy with Plavix and aspirin for an additional 6 months. There are some nuances to this regarding patients that cannot take any anticoagulation which involve doing a follow-up IVORY to make sure the left atrial appendage is completely sealed off with the device and there were no clots on it at which time anticoagulation or antiplatelet therapy can be discontinued. This patient certainly is in the window where anticoagulation can be stopped if it were in regard to the watchman by itself however, I reviewed our clinic notes and he apparently is on warfarin indefinitely due to recurrent pulmonary emboli. Given the circumstances and his recent subarachnoid hemorrhage, I would favor stopping anticoagulation. Anticoagulation is always a risk versus benefit and at present I believe it favors stopping his anticoagulation and if neurology is in agreement antiplatelet therapy as well. History of Present Illness Attending Physician: Cristofer Gifford MD History of Present Illness This is a 66-year-old male patient with a very complicated past medical history as outlined below. He was admitted to this hospital over a week ago with hypotension. Later on in his hospital stay he developed some mental status changes and confusion and neurology was consulted. Sedation was held. CT of the brain indicated a small subarachnoid hemorrhage which probably contributed to his confusion. After the brain believe there is a question of should he be on warfarin especially since he had a watchman device in place. We have been asked to see him again to answer this question. Past medical history: PAST MEDICAL HISTORY: 1.History of endocarditis in 1977 2.Paroxysmal atrial fibrillation /atrial flutter. 3.[id number] = 4 (Age, HTN, PVD, CHF) 4.Bleeding history. GI bleed - 04/2019 5.Complete heart block status post permanent pacemaker implantationand subsequent device upgrade to Bi V ICD September 2020 6.Severe aortic valve insufficiency status post AVR in 2014 (25 mm Young II) 7.Subaortic membrane status post resection in 1959 and 2014 8.Membranous VSD status post repair in 2014 9.PFO status post repair 2014 10.Nonischemic cardiomyopathy. 11.Severe COPD 12.Nonobstructive coronary artery disease 13.Peripheral arterial disease status postMay 2018PTA and stenting of proximal to mid SFA (6.0 x 60 Absolue Pro self-expanding, 6.5 x 120 Supera) 14.Doll's esophagus 15.BPH 16.Polycythemia secondary to chronic hypoxia 17.Bilateral pulmonary emboli on chronic Coumadin therapywhich occurred after Watchman placement Allergies Allergy/AdvReac Type Severity Reaction Status Date / Time carvedilol AdvReac Intermediate NIGHTMARES Verified 04/07/22 21:37 Home Medications Medication Instructions Recorded Confirmed Type albuterol sulfate 90 mcg/actuation 2 puff INHALATION Q6H PRN 07/27/18 04/07/22 H istory aerosol inhaler (Ventolin HFA) budesonide-formoterol HFA 160 2 puff INHALATION BID 07/27/18 04/07/22 History mcg-4.5 mcg/actuation aerosol inhaler (Symbicort) tiotropium bromide 18 mcg capsule 1 cap INHALATION QAM 07/27/18 04/07/22 History with inhalation device (Spiriva with HandiHaler) turmeric root extract 500 mg 500 mg PO QDL 04/16/19 04/07/22 History capsule spironolactone 25 mg tablet 12.5 mg PO QAM tab 12/26/19 04/07/22 History melatonin 3 mg tablet 3 mg PO HS PRN 08/28/20 04/07/22 History metoprolol succinate 25 mg 25 mg PO DAILY@1600 08/28/20 04/07/22 History tablet,extended release 24 hr digoxin 125 mcg (0.125 mg) tablet 0.125 mg PO DAILY@1600 #30 tab 10/16/20 04/07/22 Rx (Digitek) cyanocobalamin (vitamin B-12) 1,000 mcg PO QDL 02/22/22 04/07/22 History 1,000 mcg capsule zinc gluconate 50 mg tablet 50 mg PO QAM 02/22/22 04/07/22 History pantoprazole 40 mg tablet,delayed 40 mg PO QAM 30 Days #90 tab 03/28/22 04/07/22 Rx release clopidogrel 75 mg tablet 75 mg PO QAM 90 Days #90 tab 04/04/22 04/07/22 Rx Lactobacillus 40-Bifidobact 1 cap PO QAM 04/07/22 04/07/22 History 3-S.thermophilus 100 billion cell capsule (Probiotic) atorvastatin 40 mg tablet 40 mg PO DAILY 04/07/22 04/07/22 History furosemide 40 mg tablet 40 mg PO BID 04/07/22 04/07/22 History gabapentin 100 mg capsule 100 mg PO TID 04/07/22 04/07/22 History magnesium 30 mg tablet 0 mg PO QDL 04/07/22 04/07/22 History potassium chloride 10 mEq 10 meq PO DAILY 04/07/22 04/07/22 History tablet,extended release(part/cryst) sacubitril 24 mg-valsartan 26 mg 1 tab PO BID 04/07/22 04/07/22 History tablet (Entresto) vitamin E 400 unit capsule 400 unit PO QAM 04/07/22 04/07/22 History warfarin 5 mg tablet See Rx Instructions .ROUTE .COMPLEX 04/07/22 04/07/22 History Patient History Medical History Afib Paroxysmal CAD (coronary artery disease) Minimal luminal irregularities, 2014 Chronic anticoagulation COPD (chronic obstructive pulmonary disease) stable GERD (gastroesophageal reflux disease) Hx of Lyme disease approximately 4 years ago per pt Hypotension Nonischemic cardiomyopathy Osteoarthritis Pacemaker secondary to complete heart block; dual chamber May 2016 PAD (peripheral artery disease) Pulmonary hypertension Surgical History H/O aortic valve replacement secondary to severe aortic insufficiency; 2014; bioprosthetic H/O Spinal surgery LUMBAR DISCECTOMY History of cardiac cath Minimal luminal irregularities, 2014 History of colonoscopy History of tooth extraction History of ventricular septal defect s/p repair S/P right knee arthroscopy S/P VSD closure 2015 Status post patent foramen ovale closure Family History Mother Family history of diabetes mellitus Social History Smoking Status: Current every day smoker Cigarettes Per Day: 10; Second Hand Exposure: No; Tobacco Cessation Education Requested by Patient: No Hx Alcohol Use: Yes Alcohol type: beer Hx Substance Use: No Preferred Language: Bulgarian Communication Ability: Effective Visual Impairment: No Limitations Watermaster Required: No Beliefs That Will Affect Care: None marital status: Current Living Situation: Alone Feels Safe at Home: Yes Safety Concerns: Feels Safe At This Time Assistive Devices: Oxygen - at Night Review of Systems Review of Systems: Review of Systems: See HPI for pertinent positives. All other 10 point review of systems are negative. Physical Exam 2 Physical Exam: General: no acute distress Head: normocephalic, no masses, lesions, tenderness or abnormalities Eyes: conjunctiva are pink and non-injected, sclera clear Neck: supple, no adenopathy, no bruits, normal jugular venous pulse, no hepatojugular reflux Chest: normal shape and normal respiratory effort Lungs: clear to auscultation and percussion Cardiac Exam: - regular rate & rhythm, no murmurs gallops or rubs - normal S1, normal S2 Pulses: 2(+) throughout Abdomen: abdomen soft, non-tender, no abnormal masses and no hepatosplenomegaly Musculoskeletal: no gait disturbance, no joint inflammation, no deforming arthritis Extremities: no edema and no cyanosis Neuro: grossly normal exam Results & Data ([facility]) Vital Signs (Past 12 Hours) Vital Signs Temp Pulse Pulse Pulse Resp BP BP 04/18/22 07:04 36.7 C 83 23 121/68 04/18/22 06:34 76 90/56 L 04/18/22 06:33 76 90/56 L 04/18/22 03:30 36.5 C 79 24 100/68 Pulse Ox 04/18/22 07:04 94 04/18/22 06:34 04/18/22 06:33 04/18/22 03:30 93 Laboratory Results Laboratory Results - last 24 hr 04/18/22 04/18/22 04/18/22 06:30 06:30 06:30 WBC 10.07 RBC 3.96 L Hgb 8.9 L Hct 33.3 L MCV 84.1 MCH 22.5 L MCHC 26.7 L RDW Std Deviation 72.7 H RDW Coeff of [place] 24.0 H Plt Count 126 L MPV 10.3 Immature Gran % (Auto) 0.3 Neut % (Auto) 80.2 Lymph % (Auto) 8.1 [place] % (Auto) 9.7 Eos % (Auto) 1.6 Baso % (Auto) 0.1 Neut # (Auto) 8.07 H Lymph # (Auto) 0.82 L Trinity # (Auto) 0.98 H Eos # (Auto) 0.16 Baso # (Auto) 0.01 Immature Gran # (Auto) 0.03 H Platelet Estimate Normal Hypochromasia Present Basophilic Stippling 1+ Anisocytosis Present Sodium 144 Potassium 3.6 Chloride 104 Carbon Dioxide 37 H Anion Gap 3 BUN 32 H Creatinine 1.25 Est Cr Clr Drug Dosing 47.8 Est GFR ( Amer) 68.1 Est GFR (Non-Af Amer) 58.8 BUN/Creatinine Ratio 25.6 H Glucose 97 Calcium 9.3 B-Natriuretic Peptide 2803 H Medications Administered Current Inpatient Medications Acetaminophen (Acetaminophen 325 Mg Tab) 650 mg PO Q4H PRN PRN Reason: Pain or Fever Stop: 05/07/22 22:29 Albuterol (Albuterol Hfa 8 Gm Inhaler) 2 puffs INH Q6H PRN PRN Reason: Shortness Of Breath Stop: 05/07/22 22:45 Atorvastatin Calcium (Atorvastatin 40 Mg Tab) 40 mg PO DAILY [facility] Stop: 05/08/22 08:59 Last Admin: 04/18/22 09:00 Dose: 40 mg Documented by: Benzonatate (Benzonatate 100 Mg Capsule) 100 mg PO TID PRN PRN Reason: Cough Stop: 05/16/22 05:09 Clopidogrel Bisulfate (Clopidogrel Bisulfate 75 Mg Tab) 75 mg PO QAM [facility] Stop: 05/08/22 08:59 Last Admin: 04/15/22 08:09 Dose: Not Given Documented by: Cyanocobalamin (Cyanocobalamin (B-12) 500 Mcg Tablet) 1,000 mcg PO QDL [facility] Stop: 05/08/22 11:29 Last Admin: 04/16/22 10:32 Dose: Not Given Documented by: Fluticasone/Vilanterol (Fluticasone/Vilanterol 200/25mcg 14 Puffs/Inhaler) 1 puffs INH DAILY [facility] Stop: 05/08/22 08:59 Last Admin: 04/18/22 09:00 Dose: 1 puffs Documented by: Folic Acid (Folic Acid 1 Mg Tab) 1 mg PO QAM [facility] Stop: 05/08/22 08:59 Last Admin: 04/16/22 08:05 Dose: Not Given Documented by: Furosemide (Furosemide 40 Mg/4 Ml Vial) 40 mg IV BID17 [facility] Stop: 05/14/22 08:59 Last Admin: 04/14/22 16:49 Dose: 40 mg Documented by: Heparin Sodium (Beef Lung) (Heparin 10 Unit/Ml 5 Ml Flush) 5 ml FLUSH PRN PRN PRN Reason: Flush Stop: 05/12/22 00:23 Last Admin: 04/18/22 10:09 Dose: 5 ml Documented by: Thiamine HCl 100 mg/ Syringe 10 mls @ 2 mls/min IV QAM [facility] Stop: 05/15/22 13:59 Last Admin: 04/18/22 09:01 Dose: 2 mls/min Documented by: Acetaminophen (Ofirmev) 65 mls @ 200 mls/hr IV Q8H PRN; Protocol PRN Reason: pain/fever Stop: 04/18/22 19:30 Last Infusion: 04/16/22 06:29 Dose: Infused Documented by: Lactated Ringer's (Lr) 1,000 mls @ 60 mls/hr IV .[id number] [facility] Stop: 05/16/22 15:14 Last Infusion: 04/16/22 20:02 Dose: 0 mls/hr Documented by: Pantoprazole Sodium 40 mg/ (Syringe) 10 mls @ 5 mls/min IV DAILY@1100 [facility] Stop: 05/17/22 10:59 Last Admin: 04/18/22 09:01 Dose: 5 mls/min Documented by: Lactobacillus Acidophilus (Advanced Probiotic 1250 Mg Capsule) 2 cap PO QAM [facility] Stop: 05/08/22 08:59 Last Admin: 04/16/22 08:05 Dose: Not Given Documented by: Melatonin (Melatonin 3 Mg Tab) 3 mg PO HS PRN PRN Reason: Sleep Stop: 05/07/22 22:45 Metoprolol Tartrate (Metoprolol Tartrate 25 Mg Tab) 25 mg PO BID [facility] Stop: 05/14/22 08:59 Last Admin: 04/14/22 20:51 Dose: Not Given Documented by: Metoprolol Tartrate (Metoprolol Tartrate 1 Mg/Ml Vial) 2.5 mg IV Q6 [facility] Stop: 05/14/22 11:59 Last Admin: 04/18/22 06:34 Dose: Not Given Documented by: Miscellaneous (Remove Lidoderm Patch) 1 ea N/A DAILY@2300 [facility] Stop: 05/15/22 22:59 Last Admin: 04/17/22 23:36 Dose: Not Given Documented by: Nitroglycerin (Nitroglycerin Sl 0.4 Mg/Tab Tab) 0.4 mg SL UD PRN PRN Reason: Chest Pain Stop: 05/07/22 22:29 Ondansetron HCl (Ondansetron Inj 2 Mg/Ml 2 Ml Vial) 4 mg IV Q6H PRN PRN Reason: Nausea Stop: 05/07/22 22:29 Pantoprazole Sodium (Pantoprazole 40 Mg Tab) 40 mg PO [facility] Stop: 05/08/22 08:59 Last Admin: 04/16/22 08:05 Dose: Not Given Documented by: Polyethylene Glycol (Polyethylene (Miralax) 17 Gm Pack) 17 gm PO DAILY PRN PRN Reason: Constipation Stop: 05/07/22 22:29 Sodium Chloride (Sodium Chloride 0.65% Na Soln 45 Ml ([place])) 1 sprays NA PRN PRN PRN Reason: Dryness Stop: 05/11/22 14:04 Umeclidinium [place] (Umeclidinium [place] 62.5mcg/Blister 7 Puffs/Inhaler) 1 puffs INH [facility] Stop: 05/08/22 08:59 Last Admin: 04/18/22 09:05 Dose: 1 puffs Documented by: Warfarin Sodium (Warfarin Sod 5 Mg Tab) 5 mg PO MoFr@1600 [facility] Stop: 05/08/22 15:59 Last Admin: 04/11/22 16:47 Dose: 5 mg Documented by: Warfarin Sodium (Warfarin Sod 2.5 Mg Tab) 2.5 mg PO SuTuWeThSa@1600 [facility] Stop: 05/09/22 15:59 Last Admin: 04/12/22 16:06 Dose: 2.5 mg Documented by: Zinc Sulfate (Zinc Sulfate 220 Mg Capsule) 220 mg PO [facility] Stop: 05/08/22 08:59 Last Admin: 04/16/22 08:05 Dose: Not Given Documented by: (1) Acute on chronic renal failure Acute renal failure type: unspecified Chronic kidney disease stage: unspecified stage Qualified Code(s): N17.9 - Acute kidney failure, unspecified; N18.9 - Chronic kidney disease, unspecified
--- NOTE | 2022-04-18 11:44 | CT Scan Report ---
CT head/brain wo con CLINICAL HISTORY: 24 hr follow up for [facility] COMPARISON STUDY: 04/17/2022 and 04/15/2022 CT DOSE: 614.27 mGy.cm TECHNIQUE: Standard CT of the Brain was performed without IV contrast. A dose lowering technique was utilized adhering to the principles of ALARA. FINDINGS: Compared to the previous examination, the very small hyperdense focus within the posterior left temporal parietal lobe is again seen and essentially unchanged. It is again most suspicious for a small hemorrhage. It has not changed from the earlier studies. No new hemorrhage is identified. IMPRESSION: 1. There is again no significant interval change in the findings suspicious for a small hemorrhage in the posterior left temporal parietal lobe. No new hemorrhage is identified. ACT 112: Negative or not required by law. Electronically signed by: Kirk Argueta M.D. 04/18/2022 11:43 AM
--- NOTE | 2022-04-18 15:09 | Communication Note ---
Date of Service: April 18, 2022 Escobar was drowsy again today but was arousable made eye contact but then preferred to go back to sleep. This CT scan done 6 hours after the last 1 shows a stable area of small bleed in the left temporal lobe which is not causing any symptomatology at this point I would suggest we repeat a CT in another 24 hours and if this is stable and cardiology really feels he needs to go back on anticoagulation program due to his high risk for embolic events and I think we should reintroduce it and do another CT in 5 to 7 days We will check back with him periodically Travis Christopher MD
--- NOTE | 2022-04-18 18:16 | Hospitalist Progress Note ---
Date of Service April 18, 2022 Assessment & Plan (1) Encephalopathy acute: (2) Hypotension: (3) Transaminitis: (4) Acute on chronic renal failure: (5) Anemia: (6) Acute and chronic respiratory failure with hypoxia: (7) Chronic anticoagulation: (8) H/O aortic valve replacement: Plan: 1. SAH- in setting of supratherapeutic anticoagulation-s/p reversal of coumadin with vitamin K, INR 3.8->1.3 - Spoke with neurology here as well [place] [facility] [place] heads have been stable, no new hemorrhage - Neuro and cardio recommendations noted. Will get repeat CT head again in 24 hours for stability - Per cardio, anticoagulation can be stopped; and also antiplatelet if neuro agrees. CT head 04/16- Motion degraded exam. 7 mm hyperdense focus within the posterior left temporal lobe. This is new since prior CT and consistent with a small amount of acute hemorrhage, possibly subarachnoid. A head CT in 24 to 48 hours is recommended. Otherwise, unchanged appearance of the brain. Old left parietal lobe infarct. CT head 04/17- Persistent 7 mm hyperdense focus within the posterior left temporal parietal lobe, again suspicious for small hemorrhage. No new hemorrhages are identified. Follow-up in 24 hours is recommended for further jason luation. CT 04/18- 1. There is again no significant interval change in the findings suspicious for a small hemorrhage in the posterior left temporal parietal lobe. No new hemorrhage is identified. 2. Acute encephalopathy- waxing and waning but improved from before, possibly from sedating medications. - CT head with small SAH but stable - Normal TSH, Vitamin b12, folate, ammonia level. Blood clx persistently negative. Procal negative. B1 level pending - avoid sedating medications completely - Per sister, patient is not an alcoholic and she strongly denies any concern f or withdrawal at all from get-go Librium started by ICU attending but stopped with persistent lethargy on 04/13 he was oriented to person place and time but was very weak and was unable to remember details of his medical mistory That evening he became confused and received Ativan which put him in an obtunded state for the last two days Waiting/supporting him until drugs wear off and his delirium clears. 3. Hypotension- resolved, now BP stable off of any pressors or midodrine or steroids since 04/14 - presented with hypotension, acute kidney injury, and hyperkalemia, initially improved with IVF and emergent treatments but then developed hypotension, and hypercapnea on hospital day #2, transferred to ICU. Levophed drip started and he was also placed on low dose midodrine with improvement in his blood pressure. Empiric hydrocortisone was added and is now off after a couple of days and clinical improvement. Creatinine is now back to baseline and off IV fluids-->unfortunately he had worsened pulmonary edema and started on lasix- then had hypernatremia and given D5W with resolution- CT now shows some pulm edema- so holding off on further ivf for now- monitor volume status S/p 7 days of empiric rocephin but no clear source of infection ?prior right leg cellulitis but no evidence on my exam today. Blood clx negative x2. 04/14: stopped midodrine 04/15 and 04/16: BP remains stable 4. Acute diastolic heart failure--on lasix, spironolactone and entresto as outpatient which were held on admission in setting of hypotension and renal fail ure. IV Lasix restarted on 04/14 in setting of pulmonary edema and held later in setting of hypernatremia- D5W given for hypernatremia with resolution of hypernatremia - Monitor volume status closely, iv lasix prn. BNP in 4000 but respiratory status currently stable-given iv lasix today, will monitor again tomorrow to see if he would need more. - will resume po meds when his mental status is more stable- currently waxing and waning mental status 4. Acute kidney injury possible prerenal etiology, possible ATN- resolved. Cr back to baseline from 3.2->1.8->1.2 5. Mild elevation of troponin: Mostly likely from demand ischemia. Trop in 50s, plateaued 6. S/p VSD closure S/p AVR - Echo: LVH, EF 70%, mildly reduced RV systolic function, abnormal prosthetic gradient - Seen by cardio- unable to get IVORY at this time given mental and respiratory status. No further testing per cardio and signed off. - Recommended OP echo 7. Lower extremity pain: History of peripheral vascular disease, history of recent procedure. Vascular surgery consulted- No surgical intervention at this point S/p empiric ABx for possible cellulitis 8. History of COPD- no exacerbation. Patient had hypercapneic respiratory failure with lethargy noted on hospital day 2- Now off of bipap. ABGs noted. Monitor 9. History of paroxysmal atrial fibrillation: History of Watchman left atrial appendage closure device, history of pacemaker, history of ventricular septal defect repair, history of bioprosthetic aortic valve, status post repair, history of subaortic membrane resection, history of PFO repair, history of tricuspid valve annuloplasty. - Metoprolol, digoxin on hold - Monitor on tele 10. ?hemoptysis in setting of supratherapeutic INR- Coumadin held and was given IV Vitamin K. CT chest noted. No further episodes. Hb stable CT chest 04/16 - 1. No pulmonary emboli identified although segmental and subsegmental pulmonary arteries suboptimally assessed due to respiratory motion. Dilatation of the central pulmonary arteries suggestive of pulmonary arterial hypertension. 2. Small bilateral pleural effusions with interstitial pulmonary edema. Patchy airspace opacities favor alveolar edema although an superimposed infectious process could appear similar. Cardiomegaly. 3. Emphysema. 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 DVT ppx- likely resume sc heparin from tomorrow GI ppx- protonix Dispo: PCU. WIll need repeat CT head in 24 and 48 hrs Admission and Anticipated Discharge Date Admission Date: April 07, 2022 Subjective He was sleepy but easily arousable during my encounter. Denies any pain. Denies any issues. No fever. No new neurological deficits. Denies any shortness of b reath. Physical Exam Physical Exam: General: Lying in bed, on NC, not in acute distresss HEENT: EOMI, RAY, MMM Chest: Fair breath sounds bilaterally CVS: Regular rate and rhythm, normal heart sounds, no murmur Abdomen: Soft, non tender, not distended, normal bowel sounds Neuro: Sleepy but easily arousable. Follows commands. Non focal Extremities: No cyanosis, clubbing or edema Skin- ecchymoses on his arms and chest Results & Data Results & Data ([facility]) Vital Signs (Past 12 Hours) Vital Signs Temp Pulse Pulse Pulse Resp BP BP 04/18/22 17:45 70 04/18/22 15:15 36.6 C 70 21 100/59 L 04/18/22 13:29 36.6 C 80 17 96/65 L 04/18/22 12:28 100 H 04/18/22 07:04 36.7 C 83 23 121/68 04/18/22 06:34 76 90/56 L 04/18/22 06:33 76 90/56 L Pulse Ox 04/18/22 17:45 04/18/22 15:15 95 04/18/22 13:29 97 04/18/22 12:28 04/18/22 07:04 94 04/18/22 06:34 04/18/22 06:33 Laboratory Results Short CBC 04/18/22 Range/Units 06:30 WBC 10.07 (4.8-10.8) K/uL Hgb 8.9 L (14.0-18.0) g/dL Hct 33.3 L (42-52) % Plt Count 126 L (130-400) K/uL BMP 04/18/22 06:30 Sodium 144 Potassium 3.6 Chloride 104 Carbon Dioxide 37 H BUN 32 H Creatinine 1.25 Glucose 97 Calcium 9.[address] 04/18/22 07:48 CT head/brain wo con CLINICAL HISTORY: 24 hr follow up for [facility] COMPARISON STUDY: 04/17/2022 and 04/15/2022 CT DOSE: 614.27 mGy.cm TECHNIQUE: Standard CT of the Brain was performed without IV contrast. A dose lowering technique was utilized adhering to the principles of ALARA. FINDINGS: Compared to the previous examination, the very small hyperdense focus within the posterior left temporal parietal lobe is again seen and essentially unchanged. It is again most suspicious for a small hemorrhage. It has not changed from the earlier studies. No new hemorrhage is identified. IMPRESSION: 1. There is again no significant interval change in the findings suspicious for a small hemorrhage in the posterior left temporal parietal lobe. No new hemorrhage is identified. ACT 112: Negative or not required by law. Electronically signed by: Kirk Argueta M.D. 04/18/2022 11:43 AM Medications Administered Current Inpatient Medications Acetaminophen (Acetaminophen 325 Mg Tab) 650 mg PO Q4H PRN PRN Reason: Pain or Fever Stop: 05/07/22 22:29 Albuterol (Albuterol Hfa 8 Gm Inhaler) 2 puffs INH Q6H PRN PRN Reason: Shortness Of Breath Stop: 05/07/22 22:45 Atorvastatin Calcium (Atorvastatin 40 Mg Tab) 40 mg PO DAILY OLGA Stop: 05/08/22 08:59 Last Admin: 04/18/22 09:00 Dose: 40 mg Documented by: Benzonatate (Benzonatate 100 Mg Capsule) 100 mg PO TID PRN PRN Reason: Cough Stop: 05/16/22 05:09 Clopidogrel Bisulfate (Clopidogrel Bisulfate 75 Mg Tab) 75 mg PO QAM OLGA Stop: 05/08/22 08:59 Last Admin: 04/15/22 08:09 Dose: Not Given Documented by: Cyanocobalamin (Cyanocobalamin (B-12) 500 Mcg Tablet) 1,000 mcg PO QDL OLGA Stop: 05/08/22 11:29 Last Admin: 04/16/22 10:32 Dose: Not Given Documented by: Fluticasone/Vilanterol (Fluticasone/Vilanterol 200/25mcg 14 Puffs/Inhaler) 1 puffs INH DAILY OLGA Stop: 05/08/22 08:59 Last Admin: 04/18/22 09:00 Dose: 1 puffs Documented by: Folic Acid (Folic Acid 1 Mg Tab) 1 mg PO QAM [facility] Stop: 05/08/22 08:59 Last Admin: 04/16/22 08:05 Dose: Not Given Documented by: Furosemide (Furosemide 40 Mg/4 Ml Vial) 40 mg IV [id number] [facility] Stop: 05/14/22 08:59 Last Admin: 04/14/22 16:49 Dose: 40 mg Documented by: Heparin Sodium (Beef Lung) (Heparin 10 Unit/Ml 5 Ml Flush) 5 ml FLUSH PRN PRN PRN Reason: Flush Stop: 05/12/22 00:23 Last Admin: 04/18/22 10:09 Dose: 5 ml Documented by: Thiamine HCl 100 mg/ Syringe 10 mls @ 2 mls/min IV QAM OLGA Stop: 05/15/22 13:59 Last Admin: 04/18/22 09:01 Dose: 2 mls/min Documented by: Acetaminophen (Ofirmev) 65 mls @ 200 mls/hr IV Q8H PRN; Protocol PRN Reason: pain/fever Stop: 04/18/22 19:30 Last Infusion: 04/16/22 06:29 Dose: Infused Documented by: Lactated Ringer's (Lr) 1,000 mls @ 60 mls/hr IV .[id number] [facility] Stop: 05/16/22 15:14 Last Infusion: 04/16/22 20:02 Dose: 0 mls/hr Documented by: Pantoprazole Sodium 40 mg/ (Syringe) 10 mls @ 5 mls/min IV DAILY@1100 [facility] Stop: 05/17/22 10:59 Last Admin: 04/18/22 09:01 Dose: 5 mls/min Documented by: Lactobacillus Acidophilus (Advanced Probiotic 1250 Mg Capsule) 2 cap PO QAM [facility] Stop: 05/08/22 08:59 Last Admin: 04/16/22 08:05 Dose: Not Given Documented by: Melatonin (Melatonin 3 Mg Tab) 3 mg PO HS PRN PRN Reason: Sleep Stop: 05/07/22 22:45 Metoprolol Tartrate (Metoprolol Tartrate 25 Mg Tab) 25 mg PO BID [facility] Stop: 05/14/22 08:59 Last Admin: 04/14/22 20:51 Dose: Not Given Documented by: Metoprolol Tartrate (Metoprolol Tartrate 1 Mg/Ml Vial) 2.5 mg IV Q6 [facility] Stop: 05/14/22 11:59 Last Admin: 04/18/22 17:45 Dose: 2.5 mg Documented by: Miscellaneous (Remove Lidoderm Patch) 1 ea N/A DAILY@2300 [facility] Stop: 05/15/22 22:59 Last Admin: 04/17/22 23:36 Dose: Not Given Documented by: Nitroglycerin (Nitroglycerin Sl 0.4 Mg/Tab Tab) 0.4 mg SL UD PRN PRN Reason: Chest Pain Stop: 05/07/22 22:29 Ondansetron HCl (Ondansetron Inj 2 Mg/Ml 2 Ml Vial) 4 mg IV Q6H PRN PRN Reason: Nausea Stop: 05/07/22 22:29 Pantoprazole Sodium (Pantoprazole 40 Mg Tab) 40 mg PO QAM [facility] Stop: 05/08/22 08:59 Last Admin: 04/16/22 08:05 Dose: Not Given Documented by: Polyethylene Glycol (Polyethylene (Miralax) 17 Gm Pack) 17 gm PO DAILY PRN PRN Reason: Constipation Stop: 05/07/22 22:29 Sodium Chloride (Sodium Chloride 0.65% Na Soln 45 Ml ([place])) 1 sprays NA PRN PRN PRN Reason: Dryness Stop: 05/11/22 14:04 Umeclidinium [place] (Umeclidinium [place] 62.5mcg/Blister 7 Puffs/Inhaler) 1 p[facility] [place] Stop: 05/08/22 08:59 Last Admin: 04/18/22 09:05 Dose: 1 puffs Documented by: Warfarin Sodium (Warfarin Sod 5 Mg Tab) 5 mg PO MoFr@1600 [facility] Stop: 05/08/22 15:59 Last Admin: 04/11/22 16:47 Dose: 5 mg Documented by: Warfarin Sodium (Warfarin Sod 2.5 Mg Tab) 2.5 mg PO SuTuWeThSa@1600 [facility] Stop: 05/09/22 15:59 Last Admin: 04/12/22 16:06 Dose: 2.5 mg Documented by: Zinc Sulfate (Zinc Sulfate 220 Mg Capsule) 220 mg PO [facility] Stop: 05/08/22 08:59 Last Admin: 04/16/22 08:05 Dose: Not Given Documented by: (1) Acute on chronic renal failure Acute renal failure type: unspecified Chronic kidney disease stage: unspecified stage Qualified Code(s): N17.9 - Acute kidney failure, unspecified; N18.9 - Chronic kidney disease, unspecified
[2022-04-18] MEDS: HEPARIN SOD 5,000 UNIT/0.5 ML VIAL SQ SCH (20:28)
[2022-04-19] MEDS: METOPROLOL TARTRATE 1 MG/ML VIAL IV SCH ×3 (00:02→12:21)
[2022-04-19 07:00] LABS: BUN Creatinine Ratio 20.3 (10-20); Calcium 9.6 mg/dl (8.5-10.1); Est GFR (African American) 63.2 ml/min; Est GFR (Non-African American) 54.5 ml/min; Magnesium 1.8 mg/dl (1.7-2.4); Potassium 3.5 mmol/L (3.5-5.1)
[2022-04-19] MEDS ORDERED: FUROSEMIDE 40 MG/4 ML VIAL IV ONE (07:17)
[2022-04-19] MEDS: THIAMINE HCL 100 MG in SYRINGE 9 ML IV SCH (09:11)
[2022-04-19] MEDS: ATORVASTATIN 40 MG TAB PO SCH (09:11)
[2022-04-19] MEDS: UMECLIDINIUM BROMIDE 62.5MCG/BLISTER 7 PUFFS/INHALER INH SCH (09:12)
[2022-04-19] MEDS: FLUTICASONE/VILANTEROL 200/25MCG 14 PUFFS/INHALER INH SCH (09:12)
[2022-04-19] MEDS: HEPARIN SOD 5,000 UNIT/0.5 ML VIAL SQ SCH ×2 (09:13→20:45)
--- NOTE | 2022-04-19 11:22 | CT Scan Report ---
HEAD CT NONCONTRAST CT DOSE: 823.94 mGycm HISTORY: 48 hr follow up post SAH TECHNIQUE: Multiaxial CT images of the head were performed without the use of intravenous contrast. A utomated exposure control was utilized for this study. A dose lowering technique was utilized adheri ng to the principles of ALARA. Comparison: Head CT 04/18/2022. Findings: The paranasal sinuses and mastoid air cells are clear. The calvarium and skull base are int act. Trace subarachnoid hemorrhage near the left sylvian fissure has almost completely resolved in th e interval. No additional areas of hemorrhage identified within the brain. There is no mass, midline shift, or acute infarct. Old left parietal lobe infarct again noted. Mild atrophy and microvascular i schemic changes remain unchanged. Impression: Trace subarachnoid hemorrhage near the left sylvian fissure has almost completely resolved in the int erval. ACT 112: Negative or not required by law. Electronically signed by: Lenny Gracia M.D. 04/19/2022 11:20 AM
[2022-04-19] MEDS: PANTOprazole 40 MG in SYRINGE 0 ML IV SCH (12:17)
--- NOTE | 2022-04-19 12:56 | Hospitalist Progress Note ---
Date of Service April 19, 2022 Assessment & Plan (1) Encephalopathy acute: (2) Hypotension: (3) Transaminitis: (4) Acute on chronic renal failure: (5) Anemia: (6) Acute and chronic respiratory failure with hypoxia: (7) Chronic anticoagulation: (8) H/O aortic valve replacement: Plan: 1. SAH- in setting of supratherapeutic anticoagulation-s/p reversal of coumadin with vitamin K, INR 3.8->1.3 - Spoke with neurology here as well as Dr Reyes from [facility] - Repeat CT heads at 6, 24 and 48 hrs have been stable and improving, no new hemorrhage - Neuro and cardio recommendations noted. - Per cardio, anticoagulation can be stopped; and also antiplatelet if neuro agrees. CT head 04/16- Motion degraded exam. 7 mm hyperdense focus within the posterior left temporal lobe. This is new since prior CT and consistent with a small amount of acute hemorrhage, possibly subarachnoid. A head CT in 24 to 48 hours is recommended. Otherwise, unchanged appearance of the brain. Old left parietal lobe infarct. CT head 04/17- Persistent 7 mm hyperdense focus within the posterior left temporal parietal lobe, again suspicious for small hemorrhage. No new hemorrhages are identified. Follow-up in 24 hours is recommended for further evaluation. CT head 04/18- 1. There is again no significant interval change in the findings suspicious for a small hemorrhage in the posterior left temporal parietal lobe. No new hemorrhage is identified. CT head 04/19- Trace subarachnoid hemorrhage near the left sylvian fissure has almost completely resolved in the interval. 2. Acute encephalopathy- improved today. It was possibly from sedating m edications. - CT head with small SAH but stable improving - Normal TSH, Vitamin b12, folate, ammonia level. Blood clx persistently negative. Procal negative. B1 level pending - avoid sedating medications completely - Per sister, patient is not an alcoholic and she strongly denies any concern for withdrawal at all from get-go Librium started by ICU attending but stopped with persistent lethargy on 04/13 he was oriented to person place and time but was very weak and was unable to remember details of his medical history That evening he became confused and received Ativan which put him in an obtunded state for the two days and finally woke up once the drugs wore off 3. Hypotension- resolved, now BP stable off of any pressors or midodrine or steroids since 04/14 - presented with hypotension, acute kidney injury, and hyperkalemia, initially improved with IVF and emergent treatments but then developed hypotension, and hypercapnea on hospital day #2, transferred to ICU. Levophed drip started and he was also placed on low dose midodrine with improvement in his blood pressure. Empiric hydrocortisone was added and is now off after a couple of days and clin ical improvement. Creatinine is now back to baseline and off IV fluids-->unfortunately he had worsened pulmonary edema and started on lasix- then had hypernatremia and given D5W with resolution- CT now shows some pulm edema- so holding off on further ivf for now- monitor volume status S/p 7 days of empiric rocephin but no clear source of infection ?prior right leg cellulitis but no evidence on my exam today. Blood clx negative x2. 04/14: stopped midodrine 04/15 and 04/16: BP remains stable 4. Acute diastolic heart failure--on lasix, spironolactone and entresto as outpatient which were held on admission in setting of hypotension and renal failure. - getting intermittent iv lasix per volume status- iv lasix 04/14, 04/18, 04/19. Monitor I and Os and renal function. BP soft. BNP 3000s - will resume po meds when his mental status is more stable- currently waxing and waning mental status 4. Acute kidney injury possible prerenal etiology, possible ATN- resolved. Cr back to baseline from 3.2->1.8->1.2->1.3 5. Mild elevation of troponin: Mostly likely from demand ischemia. Trop in 50s, plateaued 6. S/p VSD closure S/p AVR - Echo: LVH, EF 70%, mildly reduced RV systolic function, abnormal prosthetic gradient - Seen by cardio- unable to get IVORY at this time given mental and respiratory status. No further testing per cardio and signed off. - Recommended OP echo 7. Lower extremity pain: History of peripheral vascular disease, history of recent procedure. Vascular surgery consulted- No surgical intervention at this point S/p empiric ABx for possible cellulitis 8. History of COPD- no exacerbation. Hypercapnic respiratory failure with lethargy resolved, no longer on bipap. ABGs noted. 9. History of paroxysmal atrial fibrillation: History of Watchman left atrial appendage closure device, history of pacemaker, history of ventricular septal defect repair, history of bioprosthetic aortic valve, status post repair, history of subaortic membrane resection, history of PFO repair, history of tricuspid valve annuloplasty. - Metoprolol, digoxin on hold - Monitor on tele 10. ?hemoptysis in setting of supratherapeutic INR- Coumadin held and was given IV Vitamin K. CT chest noted. No further episodes. Hb stable CT chest 04/16 - 1. No pulmonary emboli identified although segmental and subsegmental pulmonary arteries suboptimally assessed due to respiratory motion. Dilatation of the central pulmonary arteries suggestive of pulmonary arterial hypertension. 2. Small bilateral pleural effusions with interstitial pulmonary edema. Patchy airspace opacities favor alveolar edema although an superimposed infectious process could appear similar. Cardiomegaly. 3. Emphysema. 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 She is available to be reached any time to talk to the patient if patient gets delirious or agitated or acts up Admission and Anticipated Discharge Date Admission Date: April 07, 2022 Subjective He is awake, alert, oriented x3 (knew it was March 2022) and pleasant this morning. Answering questions appropriately and cooperative. He knew he had bleeding in his brain and is being monitored. Tolerating oral intake without issues. No fever, chills, chest pain. Denies any shortness of breath. Physical Exam Physical Exam: General: Lying in bed, on NC, not in acute distress HEENT: EOMI, RAY, MMM Chest: Fair breath sounds bilaterally CVS: Regular rate and rhythm, normal heart sounds, no murmur Abdomen: Soft, non tender, not distended, normal bowel sounds Neuro:AAOx3. answering questions appropriately Extremities: No cyanosis, clubbing or edema Skin- ecchymoses on his arms and chest Psych- calm, cooperative Sitter at bedside Results & Data Results & Data ([facility]) Vital Signs (Past 12 Hours) Vital Signs Temp Pulse Pulse Pulse Resp BP BP 05/24/22 12:21 96/64 L 05/24/22 11:34 36.5 C 63 18 96/64 L 04/19/22 07:10 36.5 C 84 16 106/73 04/19/22 06:34 85 04/19/22 03:47 37.0 C 91 H 16 110/69 Pulse Ox 04/19/22 12:21 04/19/22 11:34 96 04/19/22 07:10 90 04/19/22 06:34 04/19/22 03:47 98 Laboratory Results BMP 04/19/22 05:59 Sodium 143 Potassium 3.5 Chloride 103 Carbon Dioxide 37 H BUN 27 H Creatinine 1.33 Glucose 94 Calcium 9.[address] 04/19/22 07:[address] DOSE: 823.94 mGycm HISTORY: 48 hr follow up post SAH TECHNIQUE: Multiaxial CT images of the head were performed without the use of intravenous contrast. Automated exposure control was utilized for this study. A dose lowering technique was utilized adhering to the principles of ALARA. Comparison: Head CT 04/18/2022. Findings: The paranasal sinuses and mastoid air cells are clear. The calvarium and skull base are intact. Trace subarachnoid hemorrhage near the left sylvian fissure has almost completely resolved in the interval. No additional areas of hemorrhage identified within the brain. There is no mass, midline shift, or acute infarct. Old left parietal lobe infarct again noted. Mild atrophy and microvascular ischemic changes remain unchanged. Impression: Trace subarachnoid hemorrhage near the left sylvian fissure has almost completely resolved in the interval. ACT 112: Negative or not required by law. Electronically signed by: Lenny Gracia M.D. 04/19/2022 11:20 AM Medications Administered Current Inpatient Medications Acetaminophen (Acetaminophen 325 Mg Tab) 650 mg PO Q4H PRN PRN Reason: Pain or Fever Stop: 05/07/22 22:29 Albuterol (Albuterol Hfa 8 Gm Inhaler) 2 puffs INH Q6H PRN PRN Reason: Shortness Of Breath Stop: 05/07/22 22:45 Atorvastatin Calcium (Atorvastatin 40 Mg Tab) 40 mg PO DAILY [facility] Stop: 05/08/22 08:59 Last Admin: 04/19/22 09:11 Dose: 40 mg Documented by: Benzonatate (Benzonatate 100 Mg Capsule) 100 mg PO TID PRN PRN Reason: Cough Stop: 05/16/22 05:09 Clopidogrel Bisulfate (Clopidogrel Bisulfate 75 Mg Tab) 75 mg PO QAM [facility] Stop: 05/08/22 08:59 Last Admin: 04/15/22 08:09 Dose: Not Given Documented by: Cyanocobalamin (Cyanocobalamin (B-12) 500 Mcg Tablet) 1,000 mcg PO QDL [facility] Stop: 05/08/22 11:29 Last Admin: 04/16/22 10:32 Dose: Not Given Documented by: Fluticasone/Vilanterol (Fluticasone/Vilanterol 200/25mcg 14 Puffs/Inhaler) 1 puffs INH DAILY [facility] Stop: 05/08/22 08:59 Last Admin: 04/19/22 09:12 Dose: 1 puffs Documented by: Folic Acid (Folic Acid 1 Mg Tab) 1 mg PO QAM [facility] Stop: 05/08/22 08:59 Last Admin: 04/16/22 08:05 Dose: Not Given Documented by: Furosemide (Furosemide 40 Mg/4 Ml Vial) 40 mg IV BID17 [facility] Stop: 05/14/22 08:59 Last Admin: 04/14/22 16:49 Dose: 40 mg Documented by: Heparin Sodium (Beef Lung) (Heparin 10 Unit/Ml 5 Ml Flush) 5 ml FLUSH PRN PRN PRN Reason: Flush Stop: 05/12/22 00:23 Last Admin: 04/19/22 00:06 Dose: 5 ml Documented by: Heparin Sodium (Porcine) (Heparin Sod 5,000 Unit/0.5 Ml Vial) 5,000 units SQ Q12 [facility] Stop: 05/18/22 20:59 Last Admin: 04/19/22 09:13 Dose: 5,000 units Documented by: Thiamine HCl 100 mg/ Syringe 10 mls @ 2 mls/min IV QAM [facility] Stop: 05/15/22 13:59 Last Admin: 04/19/22 09:11 Dose: 2 mls/min Documented by: Lactated Ringer's (Lr) 1,000 mls @ 60 mls/hr IV .[id number] [facility] Stop: 05/16/22 15:14 Last Infusion: 04/18/22 23:30 Dose: Infused Documented by: Pantoprazole Sodium 40 mg/ (Syringe) 10 mls @ 5 mls/min IV DAILY@1100 [facility] Stop: 05/17/22 10:59 Last Admin: 04/19/22 12:17 Dose: 5 mls/min Documented by: Lactobacillus Acidophilus (Advanced Probiotic 1250 Mg Capsule) 2 cap PO QAM [facility] Stop: 05/08/22 08:59 Last Admin: 04/16/22 08:05 Dose: Not Given Documented by: Melatonin (Melatonin 3 Mg Tab) 3 mg PO HS PRN PRN Reason: Sleep Stop: 05/07/22 22:45 Metoprolol Tartrate (Metoprolol Tartrate 25 Mg Tab) 25 mg PO BID [facility] Stop: 05/14/22 08:59 Last Admin: 04/14/22 20:51 Dose: Not Given Documented by: Metoprolol Tartrate (Metoprolol Tartrate 1 Mg/Ml Vial) 2.5 mg IV Q6 [facility] Stop: 05/14/22 11:59 Last Admin: 04/19/22 12:21 Dose: Not Given Documented by: Miscellaneous (Remove Lidoderm Patch) 1 ea N/A DAILY@2300 [facility] Stop: 05/15/22 22:59 Last Admin: 04/19/22 00:02 Dose: 1 ea Documented by: Nitroglycerin (Nitroglycerin Sl 0.4 Mg/Tab Tab) 0.4 mg SL UD PRN PRN Reason: Chest Pain Stop: 05/07/22 22:29 Ondansetron HCl (Ondansetron Inj 2 Mg/Ml 2 Ml Vial) 4 mg IV Q6H PRN PRN Reason: Nausea Stop: 05/07/22 22:29 Pantoprazole Sodium (Pantoprazole 40 Mg Tab) 40 mg PO QAM [facility] Stop: 05/08/22 08:59 Last Admin: 04/16/22 08:05 Dose: Not Given Documented by: Polyethylene Glycol (Polyethylene (Miralax) 17 Gm Pack) 17 gm PO DAILY PRN PRN Reason: Constipation Stop: 05/07/22 22:29 Sodium Chloride (Sodium Chloride 0.65% Na Soln 45 Ml ([place])) 1 sprays NA PRN PRN PRN Reason: Dryness Stop: 05/11/22 14:04 Umeclidinium [place] (Umeclidinium [place] 62.5mcg/Blister 7 Puffs/Inhaler) 1 puffs INH QAM [facility] Stop: 05/08/22 08:59 Last Admin: 04/19/22 09:12 Dose: 1 puffs Documented by: Warfarin Sodium (Warfarin Sod 5 Mg Tab) 5 mg PO MoFr@1600 [facility] Stop: 05/08/22 15:59 Last Admin: 04/11/22 16:47 Dose: 5 mg Documented by: Warfarin Sodium (Warfarin Sod 2.5 Mg Tab) 2.5 mg PO SuTuWeThSa@1600 [facility] Stop: 05/09/22 15:59 Last Admin: 04/12/22 16:06 Dose: 2.5 mg Documented by: Zinc Sulfate (Zinc Sulfate 220 Mg Capsule) [address] [facility] Stop: 05/08/22 08:59 Last Admin: 04/16/22 08:05 Dose: Not Given Documented by: (1) Acute on chronic renal failure Acute renal failure type: unspecified Chronic kidney disease stage: unspecified stage Qualified Code(s): N17.9 - Acute kidney failure, unspecified; N18.9 - Chronic kidney disease, unspecified
--- NOTE | 2022-04-19 16:48 | Communication Note ---
Date of Service: April 19, 2022 Escobar was more alert today easily arousable and conversant and had no complaints specifically no complaints of headaches. His CT scan shows almost complete resolution of the very small area of hemorrhage in the left temporal lobe and perhaps subarachnoid space At this point I think he could be restarted on any anticoagulation that is deemed necessary by cardiology as he is at high risk for embolic events if he is off it for any length of time Neurology would recommend only another CT scan in about a week this can be done inpatient or outpatient We will sign off the case at this point but will be happy to reevaluate him or answer any questions that remain while he is still in the hospital Travis Christopher MD
[2022-04-19 17:48] LABS: Influenza A virus by PCR Negative (Neg); Influenza B virus by PCR Negative (Neg); RSV by PCR Negative (Neg); SARS CoV2 RNA(COVID-19) InHosp NEGATIVE (Negative)
[2022-04-19] MEDS: METOPROLOL TARTRATE 25 MG TAB PO SCH (20:45)
[2022-04-20 06:44] LABS: BUN Creatinine Ratio 27.7 (10-20); Calcium 9.1 mg/dl (8.5-10.1); Creatinine Clr Calc Pharmacy 60.9 ml/min; Est GFR (African American) 88.2 ml/min; Est GFR (Non-African American) 76.1 ml/min; Potassium 3.8 mmol/L (3.5-5.1)
[2022-04-20 07:05] LABS: Hematocrit (blood only) 32.6 % (42-52); Hemoglobin 8.7 g/dL (14.0-18.0); Mean Corpuscular Hemoglobin 22.7 pg (25-34); Mean Corpuscular Hgb Conc 26.7 g/dL (32-36); Mean Corpuscular Volume 85.1 fL (80-100); Mean Platelet Volume 10.5 fL (7.4-10.4); RDW Coefficient of Variation 23.9 % (11.5-14.5); RDW Standard Deviation 73.5 fL (36.4-46.3); Red Blood Count 3.83 M/uL (4.7-6.1); White Blood Count 8.86 K/uL (4.8-10.8)
[2022-04-20 07:17] LABS: Platelet Count 128 K/uL (130-400); Platelet Estimate Normal (Normal)
[2022-04-20] MEDS ORDERED: FUROSEMIDE 40 MG/4 ML VIAL IV ONE (07:46)
[2022-04-20] MEDS: FLUTICASONE/VILANTEROL 200/25MCG 14 PUFFS/INHALER INH SCH (08:23)
[2022-04-20] MEDS: ATORVASTATIN 40 MG TAB PO SCH (08:23)
[2022-04-20] MEDS: HEPARIN SOD 5,000 UNIT/0.5 ML VIAL SQ SCH ×2 (08:23→20:19)
[2022-04-20] MEDS: METOPROLOL TARTRATE 25 MG TAB PO SCH ×2 (08:24→20:19)
[2022-04-20] MEDS: UMECLIDINIUM BROMIDE 62.5MCG/BLISTER 7 PUFFS/INHALER INH SCH (08:25)
[2022-04-20] MEDS: CLOPIDOGREL BISULFATE 75 MG TAB PO SCH (09:37)
[2022-04-20] MEDS: PANTOprazole 40 MG TAB PO SCH (09:37)
--- NOTE | 2022-04-20 13:58 | Hospitalist Progress Note ---
Date of Service April 20, 2022 Assessment & Plan (1) Encephalopathy acute: (2) Hypotension: (3) Transaminitis: (4) Acute on chronic renal failure: (5) Anemia: (6) Acute and chronic respiratory failure with hypoxia: (7) Chronic anticoagulation: (8) H/O aortic valve replacement: Plan: 1. SAH- in setting of supratherapeutic anticoagulation-s/p reversal of coumadin with vitamin K, INR 3.8->1.3 - Spoke with neurology here as well [place] [facility] [place] heads at 6, 24 and 48 hrs have been stable and improving, no new hemorrhage - Neuro and cardio recommendations noted. - Per cardio, anticoagulation can be stopped. 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 If so, there is no ongoing indication for continued anticoagulation without history of recurrent VTE episodes. Per Dr Reyes, anticoag can be started in a week from SAH episode if needed. Dr Christopher recommended repeat CT scan in a week which can be done as IP or OP. CT head 04/16- Motion degraded exam. 7 mm hyperdense focus within the posterior left temporal lobe. This is new since prior CT and consistent with a small amount of acute hemorrhage, possibly subarachnoid. A head CT in 24 to 48 hours is recommended. Otherwise, unchanged appearance of the brain. Old left parietal lobe infarct. CT head 04/17- Persistent 7 mm hyperdense focus within the posterior left temporal parietal lobe, again suspicious for small hemorrhage. No new hemorrhages are identified. Follow-up in 24 hours is recommended for further evaluation. CT head 04/18- 1. There is again no significant interval change in the findings suspicious for a small hemorrhage in the posterior left temporal parietal lobe. No new hemorrhage is identified. CT head 04/19- Trace subarachnoid hemorrhage near the left sylvian fissure has almost completely resolved in the interval. 2. Acute metabolic encephalopathy- resolved, this is likely his baseline. It was possibly from sedating medications. - CT head with small SAH but stable improving - Normal TSH, Vitamin b12, folate, ammonia level. Blood clx persistently negative. Procal negative. B1 level pending - avoid sedating medications completely - Per sister, patient is not an alcoholic and she strongly denies any concern for withdrawal at all from get-go Librium started by ICU attending but stopped with persistent lethargy on 04/13 he was oriented to person place and time but was very weak and was unable to remember details of his medical history That evening he became confused and received Ativan which put him in an obtunded state for the two days and finally woke up once the drugs wore off 3. Hypotension- resolved, now BP stable off of any pressors or midodrine or steroids since 04/14 - presented with hypotension, acute kidney injury, and hyperkalemia, initially improved with IVF and emergent treatments but then developed hypotension, and hypercapnea on hospital day #2, transferred to ICU. Levophed drip started and he was also placed on low dose midodrine with improvement in his blood pressure. Empiric hydrocortisone was added and is now off after a couple of days and clinical improvement. Creatinine is now back to baseline and off IV fluids-->unfortunately he had worsened pulmonary edema and started on lasix- then had hypernatremia and given D5W with resolution- CT now shows some pulm edema- so holding off on further ivf for now- monitor volume status S/p 7 days of empiric rocephin but no clear source of infection ?prior right leg cellulitis but no evidence on my exam today. Blood clx negative x2. 04/14: stopped midodrine 04/15 and 04/16: BP remains stable 4. Acute diastolic heart failure--on lasix, spironolactone and entresto as outpatient which were held on admission in setting of hypotension and renal failure. - getting intermittent iv lasix per volume status- iv lasix 04/14, 04/18, 04/19, 04/20. Monitor I and Os and renal function. BP soft. BNP 1999s - will resume po meds when his mental status is more stable 4. Acute kidney injury possible prerenal etiology, possible ATN- resolved. Cr back to baseline from 3.2->1.8->1.2->1.3->1 5. Mild elevation of troponin: Mostly likely from demand ischemia. Trop in 50s, plateaued 6. S/p VSD closure S/p AVR - Echo: LVH, EF 70%, mildly reduced RV systolic function, abnormal prosthetic gradient - Seen by cardio- unable to get IVORY at this time given mental and respiratory status. No further testing per cardio and signed off. - Recommended OP echo 7. Lower extremity pain: History of peripheral vascular disease, history of recent procedure. Vascular surgery consulted- No surgical intervention at this point S/p empiric ABx for possible cellulitis 8. History of COPD- no exacerbation. Hypercapnic respiratory failure with lethargy resolved, no longer on bipap. ABGs noted. 9. History of paroxysmal atrial fibrillation: History of Watchman left atrial appendage closure device, history of pacemaker, history of ventricular septal defect repair, history of bioprosthetic aortic valve, status post repair, history of subaortic membrane resection, history of PFO repair, history of tricuspid valve annuloplasty. - Metoprolol, digoxin on hold - Monitor on tele 10. ?hemoptysis in setting of supratherapeutic INR- Coumadin held and was given IV Vitamin K. CT chest noted. No further episodes. Hb stable CT chest 04/16 - 1. No pulmonary emboli identified although segmental and subsegmental pulmonary arteries suboptimally assessed due to respiratory motion. Dilatation of the central pulmonary arteries suggestive of pulmonary arterial hypertension. 2. Small bilateral pleural effusions with interstitial pulmonary edema. Patchy airspace opacities favor alveolar edema although an superimposed infectious process could appear similar. Cardiomegaly. 3. Emphysema. 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 Repeat COVID test on 04/23. Needs PT/OT satish. Rayna (sister [phone]) did not want him to be transferred to [facility] currently as she wants him more stabilized here. She is available to be reached any time to talk to the patient if patient gets delirious or agitated or acts up Admission and Anticipated Discharge Date Admission Date: April 07, 2022 Subjective Discussed that he tested negative for COVID yesterday but by protocol, we will need to repeat on 04/23 per infection control. He was not happy that he would be here until Monday but agreed. States he would like to get therapy to get stronger. States he thinks he might do well with cane rather than a walker and would like to use the hospital cane. Asking if he will be discharged home after that. Physical Exam Physical Exam: General: Lying in bed, on NC, not in acute distress HEENT: EOMI, RAY, MMM Chest: Fair breath sounds bilaterally CVS: Regular rate and rhythm, normal heart sounds, no murmur Abdomen: Soft, non tender, not distended, normal bowel sounds Neuro:AAOx3. answering questions appropriately. non focal Extremities: No cyanosis, clubbing or edema Skin- ecchymoses on his arms and chest Psych- calm, cooperative Results & Data Results & Data ([facility]) Vital Signs (Past 12 Hours) Vital Signs Temp Pulse Pulse Resp BP Pulse Ox 04/20/22 07:22 36.5 C 84 18 143/82 H 100 04/20/22 07:00 76 04/20/22 03:00 37.0 C 74 14 97/59 L 98 Laboratory Results Short CBC 04/20/22 Range/Units 05:29 WBC 8.86 (4.8-10.8) K/uL Hgb 8.7 L (14.0-18.0) g/dL Hct 32.6 L (42-52) % Plt Count 128 L (130-400) K/uL BMP 04/20/22 05:29 Sodium 142 Potassium 3.8 Chloride 103 Carbon Dioxide 38 H BUN 28 H Creatinine 1.01 D Glucose 130 H Calcium 9.1 Medications Administered Current Inpatient Medications Acetaminophen (Acetaminophen 325 Mg Tab) 650 mg PO Q4H PRN PRN Reason: Pain or Fever Stop: 05/07/22 22:29 Albuterol (Albuterol Hfa 8 Gm Inhaler) 2 puffs INH Q6H PRN PRN Reason: Shortness Of Breath Stop: 05/07/22 22:45 Atorvastatin Calcium (Atorvastatin 40 Mg Tab) 40 mg PO DAILY OLGA Stop: 05/08/22 08:59 Last Admin: 04/20/22 08:23 Dose: 40 mg Documented by: Benzonatate (Benzonatate 100 Mg Capsule) 100 mg PO TID PRN PRN Reason: Cough Stop: 05/16/22 05:09 Clopidogrel Bisulfate (Clopidogrel Bisulfate 75 Mg Tab) 75 mg PO QAM OLGA Stop: 05/08/22 08:59 Last Admin: 04/20/22 09:37 Dose: 75 mg Documented by: Cyanocobalamin (Cyanocobalamin (B-12) 500 Mcg Tablet) 1,000 mcg PO QDL [facility] Stop: 05/08/22 11:29 Last Admin: 04/16/22 10:32 Dose: Not Given Documented by: Fluticasone/Vilanterol (Fluticasone/Vilanterol 200/25mcg 14 Puffs/Inhaler) 1 puffs INH DAILY OLGA Stop: 05/08/22 08:59 Last Admin: 04/20/22 08:23 Dose: 1 puffs Documented by: Folic Acid (Folic Acid 1 Mg Tab) 1 mg PO QAM OL[facility] Stop: 05/08/22 08:59 Last Admin: 04/16/22 08:05 Dose: Not Given Documented by: Furosemide (Furosemide 40 Mg/4 Ml Vial) 40 mg IV BID17 [facility] Stop: 05/14/22 08:59 Last Admin: 04/14/22 16:49 Dose: 40 mg Documented by: Heparin Sodium (Beef Lung) (Heparin 10 Unit/Ml 5 Ml Flush) 5 ml FLUSH PRN PRN PRN Reason: Flush Stop: 05/12/22 00:23 Last Admin: 04/19/22 00:06 Dose: 5 ml Documented by: Heparin Sodium (Porcine) (Heparin Sod 5,000 Unit/0.5 Ml Vial) 5,000 units SQ Q12 [facility] Stop: 05/19/22 20:59 Last Admin: 04/20/22 08:23 Dose: 5,000 units Documented by: Lactated Ringer's (Lr) 1,000 mls @ 60 mls/hr IV .[id number] [facility] Stop: 05/16/22 15:14 Last Infusion: 04/18/22 23:30 Dose: Infused Documented by: Lactobacillus Acidophilus (Advanced Probiotic 1250 Mg Capsule) 2 cap PO QAM [facility] Stop: 05/08/22 08:59 Last Admin: 04/16/22 08:05 Dose: Not Given Documented by: Melatonin (Melatonin 3 Mg Tab) 3 mg PO HS PRN PRN Reason: Sleep Stop: 05/07/22 22:45 Metoprolol Tartrate (Metoprolol Tartrate 1 Mg/Ml Vial) 2.5 mg IV Q6 [facility] Stop: 05/14/22 11:59 Last Admin: 04/19/22 12:21 Dose: Not Given Documented by: Metoprolol Tartrate (Metoprolol Tartrate 25 Mg Tab) 12.5 mg PO BID [facility] Stop: 05/19/22 20:59 Last Admin: 04/20/22 08:24 Dose: 12.5 mg Documented by: Miscellaneous (Remove Lidoderm Patch) 1 ea N/A DAILY@2300 [facility] Stop: 05/15/22 22:59 Last Admin: 04/19/22 23:32 Dose: 1 ea Documented by: Nitroglycerin (Nitroglycerin Sl 0.4 Mg/Tab Tab) 0.4 mg SL UD PRN PRN Reason: Chest Pain Stop: 05/07/22 22:29 Ondansetron HCl (Ondansetron Inj 2 Mg/Ml 2 Ml Vial) 4 mg IV Q6H PRN PRN Reason: Nausea Stop: 05/07/22 22:29 Pantoprazole Sodium (Pantoprazole 40 Mg Tab) 40 mg PO [facility] Stop: 05/08/22 08:59 Last Admin: 04/20/22 09:37 Dose: 40 mg Documented by: Polyethylene Glycol (Polyethylene (Miralax) 17 Gm Pack) 17 gm PO DAILY PRN PRN Reason: Constipation Stop: 05/07/22 22:29 Sodium Chloride (Sodium Chloride 0.65% Na Soln 45 Ml (Boundary)) 1 sprays NA PRN PRN PRN Reason: Dryness Stop: 05/11/22 14:04 Umeclidinium [place] (Umeclidinium [place] 62.5mcg/Blister 7 Puffs/Inhaler) 1 puffs INH [facility] Stop: 05/08/22 08:59 Last Admin: 04/20/22 08:25 Dose: 1 puffs Documented by: Warfarin Sodium (Warfarin Sod 5 Mg Tab) 5 mg PO MoFr@1600 [facility] Stop: 05/08/22 15:59 Last Admin: 04/11/22 16:47 Dose: 5 mg Documented by: Warfarin Sodium (Warfarin Sod 2.5 Mg Tab) 2.5 mg PO SuTuWeThSa@1600 [facility] Stop: 05/09/22 15:59 Last Admin: 04/12/22 16:06 Dose: 2.5 mg Documented by: Zinc Sulfate (Zinc Sulfate 220 Mg Capsule) 220 mg PO [facility] Stop: 05/08/22 08:59 Last Admin: 04/16/22 08:05 Dose: Not Given Documented by: (1) Acute on chronic renal failure Acute renal failure type: unspecified Chronic kidney disease stage: unspecified stage Qualified Code(s): N17.9 - Acute kidney failure, unspecified; N18.9 - Chronic kidney disease, unspecified
[2022-04-21 07:39] LABS: BUN Creatinine Ratio 27.4 (10-20); Creatinine Clr Calc Pharmacy 54.4 ml/min; Est GFR (Non-African American) 66.4 ml/min; Magnesium 1.5 mg/dl (1.7-2.4); Potassium 3.7 mmol/L (3.5-5.1)
[2022-04-21] MEDS: UMECLIDINIUM BROMIDE 62.5MCG/BLISTER 7 PUFFS/INHALER INH SCH (08:10)
[2022-04-21] MEDS: FLUTICASONE/VILANTEROL 200/25MCG 14 PUFFS/INHALER INH SCH (08:10)
[2022-04-21] MEDS: HEPARIN SOD 5,000 UNIT/0.5 ML VIAL SQ SCH ×2 (08:11→19:38)
[2022-04-21] MEDS: METOPROLOL TARTRATE 25 MG TAB PO SCH ×2 (08:11→19:38)
[2022-04-21] MEDS: CLOPIDOGREL BISULFATE 75 MG TAB PO SCH (08:12)
[2022-04-21] MEDS: PANTOprazole 40 MG TAB PO SCH (08:12)
[2022-04-21] MEDS: ATORVASTATIN 40 MG TAB PO SCH (08:12)
[2022-04-21] MEDS ORDERED: MAGNESIUM OXIDE 400 MG TAB PO STA (12:54)
--- NOTE | 2022-04-21 12:56 | Hospitalist Progress Note ---
Date of Service April 21, 2022 Assessment & Plan (1) Encephalopathy acute: (2) Hypotension: (3) Transaminitis: (4) Acute on chronic renal failure: (5) Anemia: (6) Acute and chronic respiratory failure with hypoxia: (7) Chronic anticoagulation: (8) H/O aortic valve replacement: Plan: 1. SAH- in setting of supratherapeutic anticoagulation-s/p reversal of coumadin with vitamin K, INR 3.8->1.3 - Spoke with neurology here as well as Dr Reyes [place] [facility] [place] Repeat CT heads at 6, 24 and 48 hrs have been stable and improving, no new hemorrhage - Neuro and cardio recommendations noted. - Per cardio, anticoagulation can be stopped. 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 If so, there is no ongoing indication for continued anticoagulation without history of recurrent VTE episodes. Per Dr Reyes, anticoag can be started in a week from SAH episode if needed. Dr Christopher recommended repeat CT scan in a week which can be done as IP or OP. CT head 04/16- Motion degraded exam. 7 mm hyperdense focus within the posterior left temporal lobe. This is new since prior CT and consistent with a small amount of acute hemorrhage, possibly subarachnoid. A head CT in 24 to 48 hours is recommended. Otherwise, unchanged appearance of the brain. Old left parietal lobe infarct. CT head 04/17- Persistent 7 mm hyperdense focus within the posterior left temporal parietal lobe, again suspicious for small hemorrhage. No new hemorrhages are identified. Follow-up in 24 hours is recommended for further evaluation. CT head 04/18- 1. There is again no significant interval change in the findings suspicious for a small hemorrhage in the posterior left temporal parietal lobe. No new hemorrhage is identified. CT head 04/19- Trace subarachnoid hemorrhage near the left sylvian fissure has almost completely resolved in the interval. 2. Acute metabolic encephalopathy- resolved, this is likely his baseline. It was possibly from sedating medications. - CT head with small SAH but stable improving - Normal TSH, Vitamin b12, folate, ammonia level. Blood clx persistently negative. Procal negative. B1 level pending - avoid sedating medications completely - Per sister, patient is not an alcoholic and she strongly denies any concern for withdrawal at all from get-go Librium started by ICU attending but stopped with persistent lethargy on 04/13 he was oriented to person place and time but was very weak and was unable to remember details of his medical history That evening he became confused and received Ativan which put him in an obtunded state for the two days and finally woke up once the drugs wore off 3. Hypotension- resolved, now BP stable off of any pressors or midodrine or steroids since 04/14 - presented with hypotension, acute kidney injury, and hyperkalemia, initially improved with IVF and emergent treatments but then developed hypotension, and hypercapnea on hospital day #2, transferred to ICU. Levophed drip started and he was also placed on low dose midodrine with improvement in his blood pressure. Empiric hydrocortisone was added and is now off after a couple of days and clinical improvement. Creatinine is now back to baseline and off IV fluids-->unfortunately he had worsened pulmonary edema and started on lasix- then had hypernatremia and given D5W with resolution- CT now shows some pulm edema- so holding off on further ivf for now- monitor volume status S/p 7 days of empiric rocephin but no clear source of infection ?prior right leg cellulitis but no evidence on my exam today. Blood clx negative x2. 04/14: stopped midodrine 04/15 and 04/16: BP remains stable 4. Acute diastolic heart failure--on lasix, spironolactone and entresto as outpatient which were held on admission in setting of hypotension and renal failure. Patient does not seem to have indication for entresto or aldactone as he does not have systolic CHF - getting intermittent iv lasix per volume status- iv lasix 04/14, 04/18, 04/19, 04/20. Monitor I and Os and renal function. BP soft. BNP - will monitor volume status closely and give diuretics as needed. 4. Acute kidney injury possible prerenal etiology, possible ATN- resolved. Cr back to baseline from 3.2->1.8->1.2->1.3->1->1.1 5. Mild elevation of troponin: Mostly likely from demand ischemia. Trop in 50s, plateaued 6. S/p VSD closure S/p AVR - Echo: LVH, EF 70%, mildly reduced RV systolic function, abnormal prosthetic gradient - Seen by cardio- unable to get IVORY at this time given mental and respiratory status. No further testing per cardio and signed off. - Recommended OP echo 7. Lower extremity pain: History of peripheral vascular disease, history of recent procedure. Vascular surgery consulted- No surgical intervention at this point S/p empiric ABx for possible cellulitis 8. History of COPD- no exacerbation. Hypercapnic respiratory failure with lethargy resolved, no longer on bipap. ABGs noted. 9. History of paroxysmal atrial fibrillation: History of Watchman left atrial appendage closure device, history of pacemaker, history of ventricular septal defect repair, history of bioprosthetic aortic valve, status post repair, history of subaortic membrane resection, history of PFO repair, history of tric uspid valve annuloplasty. - Metoprolol, digoxin on hold - Monitor on tele 10. ?hemoptysis in setting of supratherapeutic INR- Coumadin held and was given IV Vitamin K. CT chest noted. No further episodes. Hb stable CT chest 04/16 - 1. No pulmonary emboli identified although segmental and subsegmental pulmonary arteries suboptimally assessed due to respiratory motion. Dilatation of the central pulmonary arteries suggestive of pulmonary arterial hypertension. 2. Small bilateral pleural effusions with interstitial pulmonary edema. Patchy airspace opacities favor alveolar edema although an superimposed infectious process could appear similar. Cardiomegaly. 3. Emphysema. 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 Hypomagnesemia: repleted Code status- DNR/DNI DVT ppx- sc heparin Dispo: Diuresing and weaning down oxygen, monitoring encephalopathy. Repeat COVID test on 04/23. Needs PT/OT Rayna (sister [phone]) did not want him to be transferred to [facility] currently as she wants him more stabilized here. She is available to be reached any time to talk to the patient if patient gets delirious or agitated or acts up Admission and Anticipated Discharge Date Admission Date: April 07, 2022 Subjective He feels fine. He is appreciative of the care he is getting. States he has not been seen by therapy yet. Discussed about repeat covid swab on Monday. He is hopeful to go to rehab in [place] over the weekend. Denies any issues. Physical Exam Physical Exam: General: Sitting id, on NC, not in acute distress HEENT: EOMI, RAY, MMM Chest: Fair breath sounds bilaterally CVS: Regular rate and rhythm, normal heart sounds, no murmur Abdomen: Soft, non tender, not distended, normal bowel sounds Neuro:AAOx3. answering questions appropriately. non focal Extremities: No cyanosis, clubbing or edema Skin- ecchymoses on his arms and chest Psych- calm, cooperative Results & Data Results & Data ([facility]) Vital Signs (Past 12 Hours) Vital Signs Temp Pulse Pulse Resp BP Pulse Ox 04/21/22 11:48 69 18 101/68 97 04/21/22 08:58 77 04/21/22 07:37 82 24 129/97 93 04/21/22 03:08 37.1 C 76 18 111/71 100 Laboratory Results Short CBC 04/07/22 04/08/22 04/08/22 Range/Units 18:22 05:21 11:01 Creatinine 3.25 H 3.17 H 3.09 H (0.6-1.4) mg/dl 04/08/22 04/09/22 04/09/22 Range/Units 16:51 09:00 12:21 Creatinine 3.04 H 2.41 H D 2.33 H (0.6-1.4) mg/dl 04/10/22 04/10/22 04/11/22 Range/Units 04:59 20:34 04:50 Creatinine 1.81 H D 1.28 D 1.20 (0.6-1.4) mg/dl 04/12/22 04/13/22 04/14/22 Range/Units 04:47 05:27 05:25 Creatinine 1.13 1.01 0.97 (0.6-1.4) mg/dl 04/14/22 04/15/22 04/15/22 Range/Units 21:22 05:24 16:44 Creatinine 1.18 0.99 1.07 (0.6-1.4) mg/dl 04/16/22 04/17/22 04/18/22 Range/Units 05:40 05:50 06:30 Creatinine 1.21 1.14 1.25 (0.6-1.4) mg/dl 04/19/22 04/20/22 04/21/22 Range/Units 05:59 05:29 06:45 Creatinine 1.33 1.01 D 1.13 (0.6-1.4) mg/dl BMP 04/21/22 06:45 Sodium 142 Potassium 3.7 Chloride 101 Carbon Dioxide 38 H BUN 31 H Creatinine 1.13 Glucose 89 Calcium 9.0 (1) Acute on chronic renal failure Acute renal failure type: unspecified Chronic kidney disease stage: unspecified stage Qualified Code(s): N17.9 - Acute kidney failure, unspecified; N18.9 - Chronic kidney disease, unspecified
[2022-04-21] MEDS: FUROSEMIDE 40 MG TAB PO ONE ×2 (17:25→17:47)
[2022-04-21] MEDS: MAGNESIUM OXIDE 400 MG TAB PO SCH (19:38)
--- NOTE | 2022-04-21 21:03 | Ultrasound Report ---
US venous doppler bilateral upper extremity CLINICAL HISTORY: Bilateral upper extremity swelling r/o DVT COMPARISON STUDY: None. FINDINGS: Occlusive thrombus identified within the distal right basilic vein. The proximal basilic ve in is not well visualized due to the overlapping bandages. The bilateral internal jugular veins, subc lavian veins, axillary veins, brachial veins, radial veins, and ulnar veins are patent. The left basi lic vein and bilateral cephalic veins are also patent. There is a catheter seen within the right brac hial, axillary, and subclavian veins. IMPRESSION: 1. Occlusive thrombus seen within the distal right basilic vein consistent with a superficial thrombu s. 2. Otherwise, no DVT within the right or left upper extremity. ACT 112: Negative or not required by law. Electronically signed by: Lenny Gracia M.D. 04/21/2022 9:01 PM
[2022-04-22] MEDS: HEPARIN SOD 5,000 UNIT/0.5 ML VIAL SQ SCH ×2 (08:07→20:38)
[2022-04-22] MEDS: FLUTICASONE/VILANTEROL 200/25MCG 14 PUFFS/INHALER INH SCH (08:08)
[2022-04-22] MEDS: UMECLIDINIUM BROMIDE 62.5MCG/BLISTER 7 PUFFS/INHALER INH SCH (08:08)
[2022-04-22] MEDS: MAGNESIUM OXIDE 400 MG TAB PO SCH ×2 (08:11→20:36)
[2022-04-22] MEDS: METOPROLOL TARTRATE 25 MG TAB PO SCH ×2 (08:11→20:35)
[2022-04-22] MEDS: CLOPIDOGREL BISULFATE 75 MG TAB PO SCH (08:12)
[2022-04-22] MEDS: PANTOprazole 40 MG TAB PO SCH (08:12)
[2022-04-22] MEDS: ATORVASTATIN 40 MG TAB PO SCH (08:12)
--- NOTE | 2022-04-22 10:12 | Hospitalist Progress Note ---
Date of Service April 22, 2022 Assessment & Plan (1) Encephalopathy acute: (2) Hypotension: (3) Transaminitis: (4) Acute on chronic renal failure: (5) Anemia: (6) Acute and chronic respiratory failure with hypoxia: (7) Chronic anticoagulation: (8) H/O aortic valve replacement: Plan: 1. SAH- in setting of supratherapeutic anticoagulation-s/p reversal of coumadin with vitamin K, INR 3.8->1.3 - Spoke with neurology here as well as Dr Reyes from [facility] [place] Repeat CT heads at 6, 24 and 48 hrs have been stable and improving, no new hemorrhage - Neuro and cardio recommendations noted. - Per cardio, anticoagulation can be stopped. 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 If so, there is no ongoing indication for continued anticoagulation without history of recurrent VTE episodes. Per Dr Reyes, anticoag can be started in a week from SAH episode if needed. Dr Christopher recommended repeat CT scan in a week which can be done as IP or OP. CT head 04/16- Motion degraded exam. 7 mm hyperdense focus within the posterior left temporal lobe. This is new since prior CT and consistent with a small amount of acute hemorrhage, possibly subarachnoid. A head CT in 24 to 48 hours is recommended. Otherwise, unchanged appearance of the brain. Old left parietal lobe infarct. CT head 04/17- Persistent 7 mm hyperdense focus within the posterior left temp oral parietal lobe, again suspicious for small hemorrhage. No new hemorrhages are identified. Follow-up in 24 hours is recommended for further evaluation. CT head 04/18- 1. There is again no significant interval change in the findings suspicious for a small hemorrhage in the posterior left temporal parietal lobe. No new hemorrhage is identified. CT head 04/19- Trace subarachnoid hemorrhage near the left sylvian fissure has almost completely resolved in the interval. 2. Acute metabolic encephalopathy- resolved, this is likely his baseline. It was possibly from sedating medications. - CT head with small SAH but stable improving - Normal TSH, Vitamin b12, folate, ammonia level. Blood clx persistently negative. Procal negative. B1 level pending - avoid sedating medications completely - Per sister, patient is not an alcoholic and she strongly denies any concern for withdrawal at all from get-go Librium started by ICU attending but stopped with persistent lethargy on 04/13 he was oriented to person place and time but was very weak and was unable to remember details of his medical history That evening he became confused and received Ativan which put him in an obtunded state for the two days and finally woke up once the drugs wore off 3. Hypotension- resolved, now BP stable off of any pressors or midodrine or steroids since 04/14 - presented with hypotension, acute kidney injury, and hyperkalemia, initially improved with IVF and emergent treatments but then developed hypotension, and hypercapnea on hospital day #2, transferred to ICU. Levophed drip started and he was also placed on low dose midodrine with improvement in his blood pressure. Empiric hydrocortisone was added and is now off after a couple of days and clin ical improvement. Creatinine is now back to baseline and off IV fluids-->unfortunately he had worsened pulmonary edema and started on lasix- then had hypernatremia and given D5W with resolution- CT now shows some pulm edema- so holding off on further ivf for now- monitor volume status S/p 7 days of empiric rocephin but no clear source of infection ?prior right leg cellulitis but no evidence on my exam today. Blood clx negative x2. 04/14: stopped midodrine 04/15 and 04/16: BP remains stable 4. Acute diastolic heart failure--on lasix, spironolactone and entresto as outpatient which were held on admission in setting of hypotension and renal failure. Patient does not seem to have indication for entresto or aldactone as he does not have systolic CHF - getting intermittent iv lasix per volume status- iv lasix 04/14, 04/18, 04/19, 04/20. Monitor I and Os and renal function. BP soft. BNP 2000s - PO lasix resumed from today. Monitor volume status closely. Wean off oxygen as tolerated. 4. Acute kidney injury possible prerenal etiology, possible ATN- resolved. Cr back to baseline from 3.2->1.8->1.2->1.3->1->1.1 5. Mild elevation of troponin: Mostly likely from demand ischemia. Trop in 50s, plateaued 6. S/p VSD closure S/p AVR - Echo: LVH, EF 70%, mildly reduced RV systolic function, abnormal prosthetic gr adient - Seen by cardio- unable to get IVORY at this time given mental and respiratory status. No further testing per cardio and signed off. - Recommended OP echo 7. Lower extremity pain: History of peripheral vascular disease, history of recent procedure. Vascular surgery consulted- No surgical intervention at this point S/p empiric ABx for possible cellulitis 8. History of COPD- no exacerbation. Hypercapnic respiratory failure with lethargy resolved, no longer on bipap. ABGs noted. 9. History of paroxysmal atrial fibrillation: History of Watchman left atrial appendage closure device, history of pacemaker, history of ventricular septal defect repair, history of bioprosthetic aortic valve, status post repair, history of subaortic membrane resection, history of PFO repair, history of tricuspid valve annuloplasty. - Low dose metoprolol resumed. Digoxin on hold, likely will not need as s/p Watchman and not in Afib anymore. Also per cardio, anticoag can be stopped. - Monitor on tele 10. ?hemoptysis in setting of supratherapeutic INR- Coumadin held and was given IV Vitamin K. CT chest noted. No further episodes. Hb stable CT chest 04/16 - 1. No pulmonary emboli identified although segmental and subsegmental pulmonary arteries suboptimally assessed due to respiratory motion. Dilatation of the central pulmonary arteries suggestive of pulmonary arterial hypertension. 2. Small bilateral pleural effusions with interstitial pulmonary edema. Patchy airspace opacities favor alveolar edema although an superimposed infectious process could appear similar. Cardiomegaly. 3. Emphysema. 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 Hypomagnesemia: repleted 13. RUE superficial thrombus- no DVT in bilateral UE US. Code status- DNR/DNI DVT ppx- sc heparin Dispo: Repeat COVID test tomorrow as PUI due to exposure (Per infection control Anh- This patient needs to be on COVID precautions and treated as a PUI. He needs to be tested again on Monday, April 23 (Day 5 after last exposure). If the patient tests negative on April 23 and continues to be asymptomatic, COVID precautions can be discontinued at that time. He will need to stay in a private room and closely monitored for symptoms until May 02) Monitor volume status closely, wean down oxygen, will need 2 step O2 eval at discharge. PT/OT eval pending, will likely need rehab. Patient would prefer to go to [place]. Admission and Anticipated Discharge Date Admission Date: April 07, 2022 Subjective Denies new issues. Feels okay. He is appreciative of the care here. States PT has not seen him yet. Feels weak. He hopes to get discharged over the weekend and would like to go to [place]. Physical Exam Physical Exam: General: Sitting in chair, on NC, not in acute distress HEENT: EOMI, RAY, MMM Chest: Fair breath sounds bilaterally CVS: Regular rate and rhythm, normal heart sounds, no murmur Abdomen: Soft, non tender, not distended, normal bowel sounds Neuro:AAOx3. answering questions appropriately. non focal Extremities: No cyanosis, clubbing. Trace LE edema. Rt forearm swollen compared to the left Skin- ecchymoses on his arms and chest Psych- calm, cooperative Results & Data Results & Data ([facility]) Vital Signs (Past 12 Hours) Vital Signs Temp Pulse Pulse Pulse Resp BP Pulse Ox 04/22/22 07:36 85 04/22/22 07:27 37.0 C 74 16 113/71 91 04/22/22 03:24 36.6 C 71 15 107/70 94 04/21/22 23:33 36.4 C L 67 18 93/61 L 95 04/21/22 22:17 68 Medications Administered Current Inpatient Medications Acetaminophen (Acetaminophen 325 Mg Tab) 650 mg PO Q4H PRN PRN Reason: Pain or Fever Stop: 05/07/22 22:29 Albuterol (Albuterol Hfa 8 Gm Inhaler) 2 puffs INH Q6H PRN PRN Reason: Shortness Of Breath Stop: 05/07/22 22:45 Atorvastatin Calcium (Atorvastatin 40 Mg Tab) 40 mg PO DAILY OLGA Stop: 05/08/22 08:59 Last Admin: 04/22/22 08:12 Dose: 40 mg Documented by: Benzonatate (Benzonatate 100 Mg Capsule) 100 mg PO TID PRN PRN Reason: Cough Stop: 05/16/22 05:09 Clopidogrel Bisulfate (Clopidogrel Bisulfate 75 Mg Tab) 75 mg PO QAM OLGA Stop: 05/08/22 08:59 Last Admin: 04/22/22 08:12 Dose: 75 mg Documented by: Cyanocobalamin (Cyanocobalamin (B-12) 500 Mcg Tablet) 1,000 mcg PO QDL OLGA Stop: 05/08/22 11:29 Last Admin: 04/16/22 10:32 Dose: Not Given Documented by: Fluticasone/Vilanterol (Fluticasone/Vilanterol 200/25mcg 14 Puffs/Inhaler) 1 puffs INH DAILY OLGA Stop: 05/08/22 08:59 Last Admin: 04/22/22 08:08 Dose: 1 puffs Documented by: Folic Acid (Folic Acid 1 Mg Tab) 1 mg PO QAM OLGA Stop: 05/08/22 08:59 Last Admin: 04/16/22 08:05 Dose: Not Given Documented by: Furosemide (Furosemide 40 Mg/4 Ml Vial) 40 mg IV BID17 OLGA Stop: 05/14/22 08:59 Last Admin: 04/14/22 16:49 Dose: 40 mg Documented by: Furosemide (Furosemide 40 Mg Tab) 40 mg PO QAM OLGA Stop: 05/22/22 09:59 Heparin Sodium (Beef Lung) (Heparin 10 Unit/Ml 5 Ml Flush) 5 ml FLUSH PRN PRN PRN Reason: Flush Stop: 05/12/22 00:23 Last Admin: 04/19/22 00:06 Dose: 5 ml Documented by: Heparin Sodium (Porcine) (Heparin Sod 5,000 Unit/0.5 Ml Vial) 5,000 units SQ Q12 OLGA Stop: 05/19/22 20:59 Last Admin: 04/22/22 08:07 Dose: 5,000 units Documented by: Lactobacillus Acidophilus (Advanced Probiotic 1250 Mg Capsule) 2 cap PO QAM OLGA Stop: 05/08/22 08:59 Last Admin: 04/16/22 08:05 Dose: Not Given Documented by: Magnesium Oxide (Magnesium Oxide 400 Mg Tab) 400 mg PO BID OLGA Stop: 05/21/22 20:59 Last Admin: 04/22/22 08:11 Dose: 400 mg Documented by: Melatonin (Melatonin 3 Mg Tab) 3 mg PO HS PRN PRN Reason: Sleep Stop: 05/07/22 22:45 Metoprolol Tartrate (Metoprolol Tartrate 1 Mg/Ml Vial) 2.5 mg IV Q6 OLGA Stop: 05/14/22 11:59 Last Admin: 04/19/22 12:21 Dose: Not Given Documented by: Metoprolol Tartrate (Metoprolol Tartrate 25 Mg Tab) 12.5 mg PO BID [facility] Stop: 05/19/22 20:59 Last Admin: 04/22/22 08:11 Dose: 12.5 mg Documented by: Miscellaneous (Remove Lidoderm Patch) 1 ea N/A DAILY@2300 [facility] Stop: 05/15/22 22:59 Last Admin: 04/21/22 19:42 Dose: Not Given Documented by: Nitroglycerin (Nitroglycerin Sl 0.4 Mg/Tab Tab) 0.4 mg SL UD PRN PRN Reason: Chest Pain Stop: 05/07/22 22:29 Ondansetron HCl (Ondansetron Inj 2 Mg/Ml 2 Ml Vial) 4 mg IV Q6H PRN PRN Reason: Nausea Stop: 05/07/22 22:29 Pantoprazole Sodium (Pantoprazole 40 Mg Tab) 40 mg PO [facility] Stop: 05/08/22 08:59 Last Admin: 04/22/22 08:12 Dose: 40 mg Documented by: Polyethylene Glycol (Polyethylene (Miralax) 17 Gm Pack) 17 gm PO DAILY PRN PRN Reason: Constipation Stop: 05/07/22 22:29 Sodium Chloride (Sodium Chloride 0.65% Na Soln 45 Ml ([place])) 1 sprays NA PRN PRN PRN Reason: Dryness Stop: 05/11/22 14:04 Umeclidinium [place] (Umeclidinium [place] 62.5mcg/Blister 7 Puffs/Inhaler) 1 puffs INH [facility] Stop: 05/08/22 08:59 Last Admin: 04/22/22 08:08 Dose: 1 puffs Documented by: Warfarin Sodium (Warfarin Sod 5 Mg Tab) 5 mg PO MoFr@1600 [facility] Stop: 05/08/22 15:59 Last Admin: 04/11/22 16:47 Dose: 5 mg Documented by: Warfarin Sodium (Warfarin Sod 2.5 Mg Tab) 2.5 mg PO SuTuWeThSa@1600 [facility] Stop: 05/09/22 15:59 Last Admin: 04/12/22 16:06 Dose: 2.5 mg Documented by: Zinc Sulfate (Zinc Sulfate 220 Mg Capsule) 220 mg PO [facility] Stop: 05/08/22 08:59 Last Admin: 04/16/22 08:05 Dose: Not Given Documented by: (1) Acute on chronic renal failure Acute renal failure type: unspecified Chronic kidney disease stage: unspecified stage Qualified Code(s): N17.9 - Acute kidney failure, unspecified; N18.9 - Chronic kidney disease, unspecified
[2022-04-22] MEDS: FUROSEMIDE 40 MG TAB PO SCH (10:39)
[2022-04-23 06:58] LABS: Hematocrit (blood only) 30.2 % (42-52); Mean Corpuscular Hemoglobin 22.6 pg (25-34); Mean Corpuscular Hgb Conc 26.5 g/dL (32-36); Mean Corpuscular Volume 85.3 fL (80-100); Mean Platelet Volume 10.8 fL (7.4-10.4); Platelet Count 151 K/uL (130-400); RDW Coefficient of Variation 24.3 % (11.5-14.5); RDW Standard Deviation 75.5 fL (36.4-46.3); Red Blood Count 3.54 M/uL (4.7-6.1); White Blood Count 8.34 K/uL (4.8-10.8)
[2022-04-23 07:10] LABS: BUN Creatinine Ratio 23.2 (10-20); Creatinine Clr Calc Pharmacy 54.8 ml/min; Est GFR (African American) 77.8 ml/min; Est GFR (Non-African American) 67.1 ml/min; Magnesium 1.6 mg/dl (1.7-2.4); Potassium 3.7 mmol/L (3.5-5.1)
[2022-04-23] MEDS ORDERED: POTASSIUM CHLORIDE CRTAB 20 MEQ TABCR PO STA (08:06)
[2022-04-23] MEDS: UMECLIDINIUM BROMIDE 62.5MCG/BLISTER 7 PUFFS/INHALER INH SCH (08:33)
[2022-04-23] MEDS: FLUTICASONE/VILANTEROL 200/25MCG 14 PUFFS/INHALER INH SCH (08:33)
[2022-04-23] MEDS: LIDOCAINE 5% 1 PATCH TD SCH (08:34)
[2022-04-23] MEDS: HEPARIN SOD 5,000 UNIT/0.5 ML VIAL SQ SCH ×2 (08:34→21:13)
[2022-04-23] MEDS: FUROSEMIDE 40 MG TAB PO SCH (08:34)
[2022-04-23] MEDS: ATORVASTATIN 40 MG TAB PO SCH (08:35)
[2022-04-23] MEDS: MAGNESIUM OXIDE 400 MG TAB PO SCH ×2 (08:35→21:13)
[2022-04-23] MEDS: METOPROLOL TARTRATE 25 MG TAB PO SCH ×2 (08:35→21:14)
[2022-04-23] MEDS: CLOPIDOGREL BISULFATE 75 MG TAB PO SCH (08:36)
[2022-04-23] MEDS: PANTOprazole 40 MG TAB PO SCH (08:36)
[2022-04-23] MEDS: MAGNESIUM SULFATE / D5W 1 GM/100 ML BAG IV SCH ×3 (09:02→14:08)
--- NOTE | 2022-04-23 15:27 | Hospitalist Progress Note ---
Date of Service April 23, 2022 Assessment & Plan (1) Encephalopathy acute: (2) Hypotension: (3) Transaminitis: (4) Acute on chronic renal failure: (5) Anemia: (6) Acute and chronic respiratory failure with hypoxia: (7) Chronic anticoagulation: (8) H/O aortic valve replacement: Plan: Per Dr. Gifford's note with addendum w/ date: 1. SAH- in setting of supratherapeutic anticoagulation-s/p reversal of coumadin with vitamin K, INR 3.8->1.3 - Spoke with neurology here as well as Dr Reyes from [facility] [place] - Repeat CT heads at 6, 24 and 48 hrs have been stable and improving, no new hemorrhage - Neuro and cardio recommendations noted. - Per cardio, anticoagulation can be stopped. 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 If so, there is no ongoing indication for continued anticoagulation without history of recurrent VTE episodes. Per Dr Reyes, anticoag can be started in a week from SAH episode if needed. Dr Christopher recommended repeat CT scan in a week which can be done as IP or OP. CT head 04/16- Motion degraded exam. 7 mm hyperdense focus within the posterior left temporal lobe. This is new since prior CT and consistent with a small amount of acute hemorrhage, possibly subarachnoid. A head CT in 24 to 48 hours is recommended. Otherwise, unchanged appearance of the brain. Old left parietal lobe infarct. CT head 04/17- Persistent 7 mm hyperdense focus within the posterior left temporal parietal lobe, again suspicious for small hemorrhage. No new hemorrhages are identified. Follow-up in 24 hours is recommended for further evaluation. CT head 04/18- 1. There is again no significant interval change in the findings suspicious for a small hemorrhage in the posterior left temporal parietal lobe. No new hemorrhage is identified. CT head 04/19- Trace subarachnoid hemorrhage near the left sylvian fissure has almost completely resolved in the interval. 04/23: Pt AOx3, will repeat CT head w/o con tomorrow. d/w Pt's sister Rayna over the phone (04/23) who is not aware of PE or DVT, who believes he was supposed to be on warfarin temporarily after bioprosthetic heart valves placement. She also reported he had recurrent epistaxis and has has bleeding tendency even w/ minor trauma. Per Pt, he reports he has PE 6 years ago (likely unprovoked), watchman procedure 3 years ago, not sure if he had LE DVT or recurrent blood clot. 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 2. Acute metabolic encephalopathy- resolved, this is likely his baseline. It was possibly from sedating medications. - CT head with small SAH but stable improving - Normal TSH, Vitamin b12, folate, ammonia level. Blood clx persistently negative. Procal negative. B1 level pending - avoid sedating medications completely - Per sister, patient is not an alcoholic and she strongly denies any concern for withdrawal at all from get-go Librium started by ICU attending but stopped with persistent lethargy on 04/13 he was oriented to person place and time but was very weak and was unable to remember details of his medical history That evening he became confused and received Ativan which put him in an obtunded state for the two days and finally woke up once the drugs wore off 04/23: AOx3 3. Hypotension- resolved, now BP stable off of any pressors or midodrine or steroids since 04/14 - presented with hypotension, acute kidney injury, and hyperkalemia, initially improved with IVF and emergent treatments but then developed hypotension, and hypercapnea on hospital day #2, transferred to ICU. Levophed drip started and he was also placed on low dose midodrine with improvement in his blood pressure. Empiric hydrocortisone was added and is now off after a couple of days and clinical improvement. Creatinine is now back to baseline and off IV fluids-->unfortunately he had worsened pulmonary edema and started on lasix- then had hypernatremia and given D5W with resolution- CT now shows some pulm edema- so holding off on further ivf for now- monitor volume status S/p 7 days of empiric rocephin but no clear source of infection ?prior right leg cellulitis but no evidence on my exam today. Blood clx negative x2. 04/14: stopped midodrine 04/15 and 04/16: BP remains stable 04/23: BP stable. 4. Acute diastolic heart failure--on lasix, spironolactone and entresto as outpatient which were held on admission in setting of hypotension and renal failure. Patient does not seem to have indication for entresto or aldactone as he does not have systolic CHF - getting intermittent iv lasix per volume status- iv lasix 04/14, 04/18, 04/19, 04/20. Monitor I and Os and renal function. BP soft. BNP 1999s - PO lasix resumed from today. Monitor volume status closely. Wean off oxygen as tolerated. 04/23: c/w PO lasix, FR 1.5L 4. Acute kidney injury possible prerenal etiology, possible ATN- resolved. Cr back to baseline from 3.2->1.8->1.2->1.3->1->1.1 5. Mild elevation of troponin: Mostly likely from demand ischemia. Trop in 50s, plateaued 6. S/p VSD closure S/p AVR - Echo: LVH, EF 70%, mildly reduced RV systolic function, abnormal prosthetic g radient - Seen by cardio- unable to get IVORY at this time given mental and respiratory status. No further testing per cardio and signed off. - Recommended OP echo 7. Lower extremity pain: History of peripheral vascular disease, history of recent procedure. Vascular surgery consulted- No surgical intervention at this point S/p empiric ABx for possible cellulitis 8. History of COPD- no exacerbation. Hypercapnic respiratory failure with lethargy resolved, no longer on bipap. ABGs noted. 9. History of paroxysmal atrial fibrillation: History of Watchman left atrial appendage closure device, history of pacemaker, history of ventricular septal defect repair, history of bioprosthetic aortic valve, status post repair, history of subaortic membrane resection, history of PFO repair, history of tricuspid valve annuloplasty. - Low dose metoprolol resumed. Digoxin on hold, likely will not need as s/p Watchman and not in Afib anymore. Also per cardio, anticoag can be stopped. - Monitor on tele 10. ?hemoptysis in setting of supratherapeutic INR- Coumadin held and was given IV Vitamin K. CT chest noted. No further episodes. Hb stable CT chest 04/16 - . No pulmonary emboli identified although segmental and subsegmental pulmonary arteries suboptimally assessed due to respiratory motion. Dilatation of the central pulmonary arteries suggestive of pulmonary arterial hypertension. 2. Small bilateral pleural effusions with interstitial pulmonary edema. Patchy airspace opacities favor alveolar edema although an superimposed infectious process could appear similar. Cardiomegaly. 3. Emphysema. 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 Hypomagnesemia: repleted 13. RUE superficial thrombus- no DVT in bilateral UE US. Code status- DNR/DNI DVT ppx- sc heparin Dispo: COVID x 2 negtive (for PUI). He will need to stay in a private room and closely monitored for symptoms until May 02). Monitor volume status closely, wean down oxygen, will need 2 step O2 eval at discharge. PT/OT eval pending, will likely need rehab. Patient would prefer to go to [place]. Admission and Anticipated Discharge Date Admission Date: April 07, 2022 Subjective Patient seen and examined at bedside for follow-up of SAH, acute encephalopathy, hypertension, transaminitis, acute on chronic renal failure. Patient was sitting up in chair, eating his lunch, on 4 L nasal cannula oxygen, NAD, no new acute events overnight per patient. Per RN, patient is eating okay. Able to wean down oxygen from 6 L to 4 L today per RN. Patient denies any headache/dizziness/chest pain/palpitations/belly pain/other review of symptoms. Physical Exam Physical Exam: GENERAL: Alert and oriented x3. NAD, on 4L NC O2, looks ill appearing, weak and frail. HEENT: No pallor, no icterus. Pupils equal, round and reactive to light. Oral mucosa moist. NECK: No JVD, no neck masses. HEART: S1 and S2 heard. Regular rate and rhythm. Systolic murmur at pulmonic area, no gallop. RESPIRATORY SYSTEM: Normal AP diameter. No accessory muscle use. No wheezing, no crackles. ABDOMEN: Soft, bowel sounds present, nontender, no distention. CENTRAL NERVOUS SYSTEM: No facial droop. Speech is clear. Obeys simple commands. Moves extremities. EXTREMITIES: 1-2+ BLE edema, BLE Chronic skin changes, no erythema seen. Results & Data Results & Data ([facility]) Vital Signs (Past 12 Hours) Vital Signs Temp Pulse Pulse Pulse Resp BP Pulse Ox 04/23/22 11:29 36.7 C 76 20 113/59 L 100 04/23/22 10:04 78 04/23/22 09:27 96 04/23/22 07:59 36.7 C 70 15 103/60 97 04/23/22 07:24 90 04/23/22 03:22 36.6 C 83 16 97/62 L 92 (1) Acute on chronic renal failure Acute renal failure type: unspecified Chronic kidney disease stage: unspecified stage Qualified Code(s): N17.9 - Acute kidney failure, unspecified; N18.9 - Chronic kidney disease, unspecified
[2022-04-23 17:03] LABS: Hematocrit (blood only) 32.1 % (42-52); Hemoglobin 8.8 g/dL (14.0-18.0)
[2022-04-24 06:45] LABS: Hematocrit (blood only) 29.7 % (42-52); Mean Corpuscular Hemoglobin 23.7 pg (25-34); Mean Corpuscular Hgb Conc 26.9 g/dL (32-36); Mean Corpuscular Volume 87.9 fL (80-100); Platelet Count 154 K/uL (130-400); RDW Coefficient of Variation 24.3 % (11.5-14.5); Red Blood Count 3.38 M/uL (4.7-6.1)
--- NOTE | 2022-04-24 06:58 | CT Scan Report ---
CT SCAN OF THE BRAIN WITHOUT IV CONTRAST CLINICAL HISTORY: Follow-up subarachnoid hemorrhage. COMPARISON STUDY: CT of the brain dated 04/19/2022. TECHNIQUE: Unenhanced axial CT scan of the brain is performed from the vertex to the skull base. A do se lowering technique was utilized adhering to the principles of ALARA. The examination is degraded b y motion artifact. The patient was scanned twice in an effort to improve image quality. CT DOSE: 2803.17 mGy.cm FINDINGS: Brain parenchyma: There is age-related involutional change noting minimal subcortical and periventric ular microangiopathic disease. A focus of left parietal encephalomalacia is unchanged and consistent with a remote infarct. A chronic lacunar infarct is noted in the left basal ganglia. There is no hemo rrhage, mass effect, or evidence of acute territorial ischemia by CT criteria. Aranda-white matter diff erentiation is preserved. No extra-axial fluid collection is seen. Ventricles, sulci, cisterns: Prominent secondary to involutional change. Intracranial vasculature: There is atherosclerotic calcification of the cavernous carotid and vertebr al arteries. Calvarium: Unremarkable. Sinuses and mastoids: The paranasal sinuses are clear. There are trace mastoid effusions. Orbits: The bony orbits are grossly intact. IMPRESSION: 1 There is no hemorrhage, mass effect, or evidence of acute territorial ischemia by CT criteria. 2. Trace subarachnoid hemorrhage along the left sylvian fissure seen on prior examinations has resolv ed. ACT 112: Negative or not required by law. Electronically signed by: Jesus Ramirez M.D. 04/24/2022 6:56 AM
[2022-04-24 07:02] LABS: BUN Creatinine Ratio 22.8 (10-20); Creatinine Clr Calc Pharmacy 61.9 ml/min; Est GFR (African American) 88.2 ml/min; Est GFR (Non-African American) 76.1 ml/min; Magnesium 2.1 mg/dl (1.7-2.4); Phosphorus 2.6 mg/dl (2.5-4.9); Potassium 4.2 mmol/L (3.5-5.1)
[2022-04-24] MEDS: HEPARIN SOD 5,000 UNIT/0.5 ML VIAL SQ SCH (08:53)
[2022-04-24] MEDS: METOPROLOL TARTRATE 25 MG TAB PO SCH (08:53)
[2022-04-24] MEDS: MAGNESIUM OXIDE 400 MG TAB PO SCH (08:53)
[2022-04-24] MEDS: CLOPIDOGREL BISULFATE 75 MG TAB PO SCH (08:56)
[2022-04-24] MEDS: FUROSEMIDE 40 MG TAB PO SCH (08:56)
[2022-04-24] MEDS: LIDOCAINE 5% 1 PATCH TD SCH (08:56)
[2022-04-24] MEDS: ATORVASTATIN 40 MG TAB PO SCH (08:56)
[2022-04-24] MEDS: PANTOprazole 40 MG TAB PO SCH (08:56)
--- NOTE | 2022-04-24 11:20 | Discharge Summary ---
Date of Service April 24, 2022 Admission HPI Per Admitting Provider CHIEF COMPLAINT: Hypotension, ARIEL, hyperkalemia. HISTORY OF PRESENT ILLNESS: This is a 66-year-old male with past medical history significant for COPD, chronic respiratory failure, the patient says he uses oxygen in the nighttime on and off; history of pulmonary embolism; history of paroxysmal atrial fibrillation, status post Watchman's left atrial appendage closure device; history of VSD, status post cardiac pacemaker; history of CAD; pulmonary hypertension; aortic regurgitation; history of PE with acute cor pulmonale; Doll's esophagus; polycythemia secondary to hypoxia; history of rheumatoid arthritis; history of tobacco abuse. The patient lives alone. He went to see vascular surgery for followup and the patient was found to have hypotension and sent to the ER and found to also have hyperkalemia and ARIEL. The patient also has history of congenital heart disease, status post bioprosthetic aortic valve replacement, VSD repair, subaortic membrane resection, PFO repair, tricuspid valve annuloplasty in 2014 at [facility]. The patient underwent bilateral lower extremity angiogram in March 2019 and found to have occluded proximal left SFA with distal reconstitution. He underwent endovascular intervention. On Coumadin and Plavix. The patient recently underwent again bilateral lower extremity angiogram, found to have diffuse left SFA restenosis. Right lower extremity with calcified SFA disease, up to 95% in distal segment. He had right SFA intervention with intravascular lithotripsy and drug-eluting balloon and the patient states since the procedure, he is having lot of pain in the lower extremity. He was seen and evaluated by vascular surgery today and sent in because of hypotension. In the ER, he was also found to have potassium of 6.4, sodium of 132, creatinine of 3.25. Troponin high sensitivity 57. CT of the abdomen and pelvis without contrast, no hydronephrosis was found. After the fluid bolus, his blood pressure improved. He was given calcium gluconate, insulin dextrose, and Veltassa in the ER. The patient is alert and oriented. He did complain of back pain and leg pains. Denies any chest pain, denies any shortness of breath. He has chronic cough from his COPD. Denies any headache. No blurred visions, no earache. Has some runny nose. No sore throat. Appetite is okay. No difficulty swallowing. He lives alone. The patient ambulates without any support. Denies any blood in the stools or black stools. He says he is not urinating much. Recently, his torsemide was changed to Lasix. He says he tries to avoid salt , he is not micturating much. ALLERGIES: COREG. PAST MEDICAL HISTORY: As mentioned above. PAST SURGICAL HISTORY: Right heart catheterization, injection of lumbosacral spine, jaw arthroscopy, right knee arthroscopy, percutaneous closure of left atrial appendage implant in June 2019, reoperation of CABG, right inguinal hernia repair, repair of tricuspid valve, replacement of aortic valve with prosthetic valve, spine surgery, VSD closure. MEDICATIONS: The patient is on albuterol 2 puffs inhalation q. 6 hours p.r.n., atorvastatin 40 mg p.o. daily, Symbicort 2 puffs inhalation b.i.d., Plavix 75 mg p.o. daily, vitamin B12 1000 mcg p.o. daily, digoxin 0.125 mg p.o. daily, Lasix 40 mg p.o. b.i.d., gabapentin 100 mg p.o. t.i.d., probiotic 1 capsule p.o. daily, melatonin 3 mg p.o. at bedtime p.r.n., metoprolol succinate 25 mg p.o. daily, Protonix 40 mg p.o. daily, potassium chloride 10 mEq p.o. daily, Entresto 1 tablet p.o. daily, Creon 1 capsule inhalation daily, spironolactone 12.5 mg p.o. a.m., turmeric root 500 mg p.o. daily, vitamin E 400 units p.o. daily, warfarin as directed, zinc gluconate 50 mg p.o. daily. FAMILY HISTORY: Significant for father has alcoholism, COPD, depression; mother has hypertension, diabetes. SOCIAL HISTORY: Lives alone. Currently smokes half pack a day for 30 years. Alcohol 2 or 3 beers at night as per [employer]. No drug use. REVIEW OF SYSTEMS: As per HPI. Rest of review of systems is negative. Admission Exam Per Admitting Provider GENERAL: The patient is of moderate build, not in acute distress. VITAL SIGNS: Temperature 36.4, pulse 71, respiratory rate 20, blood pressure currently 97/52, oxygen 94% on 2 liters. HEENT: Pupils equal, round and reactive to light. Oral mucosa moist. NECK: No JVD, no neck masses. CARDIOVASCULAR: S1 and S2 heard. Regular rate and rhythm. No murmur, no gallop. RESPIRATORY SYSTEM: Normal AP diameter. No accessory muscle use. No wheezing, no crackles. ABDOMEN: Soft, bowel sounds present, nontender, no distention. CENTRAL NERVOUS SYSTEM: Cranial nerves II through XII are grossly intact, nonfocal. EXTREMITIES: Right lower extremity is slightly erythematous and somewhat cold to touch. No edema seen. Principal Diagnosis Subarachnoid hemorrhage in the setting of supratherapeutic anticoagulation Acute metabolic encephalopathy Hypotension Acute kidney injury Discharge Exam GENERAL: Alert and oriented x3. NAD, on 4L NC O2, looks ill appearing, weak and frail. HEENT: No pallor, no icterus. Pupils equal, round and reactive to light. Oral mucosa moist. NECK: No JVD, no neck masses. HEART: S1 and S2 heard. Regular rate and rhythm. Systolic murmur at pulmonic area, no gallop. RESPIRATORY SYSTEM: Normal AP diameter. No accessory muscle use. No wheezing, no crackles. ABDOMEN: Soft, bowel sounds present, nontender, no distention. CENTRAL NERVOUS SYSTEM: No facial droop. Speech is clear. Obeys simple commands. Moves extremities. EXTREMITIES: 1-2+ BLE edema, BLE Chronic skin changes, no erythema seen. Discharge Data Allergies Allergy/AdvReac Type Severity Reaction Status Date / Time carvedilol AdvReac Intermediate NIGHTMARES Verified 04/07/22 21:37 Consultations 04/07/22 19:38 ED Decision to Admit Stat 04/08/22 08:00 Consult Cardiology Routine Consult Nephrology Routine Consult Vascular Surgery Routine 04/09/22 11:29 Consult Kick Plate Installer Routine 04/14/22 00:37 Consult Neurology Routine 04/18/22 07:48 Consult Cardiology Routine Ordered Studies 04/07/22 19:34 CT abd pelvis wo con Stat 04/14/22 20:59 CT head/brain wo con Urgent 04/16/22 05:03 CT chest diagnostic w con Urgent 04/16/22 19:40 CT head/brain wo con Routine 04/17/22 11:07 CT head/brain wo con Routine 04/18/22 07:48 CT head/brain wo con Routine 04/19/22 07:18 CT head/brain wo con Routine 04/21/22 16:40 US venous doppler UE BI Routine 04/24/22 07:00 CT head/brain wo con Routine Hospital Course (1) Encephalopathy acute: (2) Hypotension: (3) Transaminitis: (4) Acute on chronic renal failure: (5) Anemia: (6) Acute and chronic respiratory failure with hypoxia: (7) Chronic anticoagulation: (8) H/O aortic valve replacement: Per Dr. Gifford's note with addendum w/ date: 1. SAH- in setting of supratherapeutic anticoagulation-s/p reversal of coumadin with vitamin K, INR 3.8->1.3 - Spoke with neurology here as well as Dr Reyes from [facility] - Repeat CT heads at 6, 24 and 48 hrs have been stable and improving, no new hemorrhage - Neuro and cardio recommendations noted. - Per cardio, anticoagulation can be stopped. 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 If so, there is no ongoing indication for continued anticoagulat ion without history of recurrent VTE episodes. Per Dr Reyes, anticoag can be started in a week from SAH episode if needed. Dr Christopher recommended repeat CT scan in a week which can be done as IP or OP. CT head 04/16- Motion degraded exam. 7 mm hyperdense focus within the posterior left temporal lobe. This is new since prior CT and consistent with a small amount of acute hemorrhage, possibly subarachnoid. A head CT in 24 to 48 hours is recommended. Otherwise, unchanged appearance of the brain. Old left parietal lobe infarct. CT head 04/17- Persistent 7 mm hyperdense focus within the posterior left temporal parietal lobe, again suspicious for small hemorrhage. No new hemorrhages are identified. Follow-up in 24 hours is recommended for further evaluation. CT head 04/18- 1. There is again no significant interval change in the findings suspicious for a small hemorrhage in the posterior left temporal parietal lobe. No new hemorrhage is identified. CT head 04/19- Trace subarachnoid hemorrhage near the left sylvian fissure has almost completely resolved in the interval. 04/24: Pt AOx3, will repeat CT head w/o con tomorrow. d/w Pt's sister Rayna over the phone (04/23) who is not aware of PE or DVT in patient, who believes he was supposed to be on warfarin temporarily after bioprosthetic heart valves placement. She also reported he had recurrent epistaxis and has has bleeding tendency even w/ minor trauma. Per Pt, he reports he has PE 6 years ago (likely unprovoked), watchman procedure 3 years ago, not sure if he had LE DVT or recurrent blood clot. Discussion held between family/patient for both benefits and risk of ongoing anticoagulation give recent SAH, plan was reached to hold coumadin and have patient f/u with his parts inspector (at [place]) as OP for further discussion on his anticoagulation in 1-2 weeks upon DC. Pt verbalized understanding. 2. Acute metabolic encephalopathy- resolved, this is likely his baseline. It was possibly from sedating medications. - CT head with small SAH but stable improving - Normal TSH, Vitamin b12, folate, ammonia level. Blood clx persistently neg ative. Procal negative. B1 level pending - avoid sedating medications completely - Per sister, patient is not an alcoholic and she strongly denies any concern for withdrawal at all from get-go Librium started by ICU attending but stopped with persistent lethargy on 04/13 he was oriented to person place and time but was very weak and was unable to remember details of his medical history That evening he became confused and received Ativan which put him in an obtunded state for the two days and finally woke up once the drugs wore off 04/24: AOx3. Gabapentin on hold upon DC. 3. Hypotension- resolved, now BP stable off of any pressors or midodrine or steroids since 04/14 - presented with hypotension, acute kidney injury, and hyperkalemia, initially improved with IVF and emergent treatments but then developed hypotension, and hypercapnea on hospital day #2, transferred to ICU. Levophed drip started and he was also placed on low dose midodrine with improvement in his blood pressure. Empiric hydrocortisone was added and is now off after a couple of days and clinical improvement. Creatinine is now back to baseline and off IV fluids-->unfortunately he had worsened pulmonary edema and started on lasix- then had hypernatremia and given D5W with resolution- CT now shows some pulm edema- so holding off on further ivf for now- monitor volume status S/p 7 days of empiric rocephin but no clear source of infection ?prior right leg cellulitis but no evidence on my exam today. Blood clx negative x2. 04/14: stopped midodrine 04/15 and 04/16: BP remains stable 04/24: BP stable. Cardiac meds optimized upon DC. 4. Acute diastolic heart failure--on lasix, spironolactone and entresto as outpatient which were held on admission in setting of hypotension and renal failure. Patient does not seem to have indication for entresto or aldactone as he does not have systolic CHF - getting intermittent iv lasix per volume status- iv lasix 04/14, 04/18, 04/19, 04/20. Monitor I and Os and renal function. BP soft. BNP 1999s - PO lasix resumed from today. Monitor volume status closely. Wean off oxygen as tolerated. 04/24: c/w PO lasix, FR 1.5L 4. Acute kidney injury possible prerenal etiology, possible ATN- resolved. Cr back to baseline from 3.2->1.8->1.2->1.3->1->1.1 5. Mild elevation of troponin: Mostly likely from demand ischemia. Trop in 50s, plateaued 6. S/p VSD closure S/p AVR - Echo: LVH, EF 70%, mildly reduced RV systolic function, abnormal prosthetic gradient - Seen by cardio- unable to get IVORY at this time given mental and respiratory status. No further testing per cardio and signed off. - Recommended OP echo 7. Lower extremity pain: History of peripheral vascular disease, history of recent procedure. Vascular surgery consulted- No surgical intervention at this point S/p empiric ABx for possible cellulitis 8. History of COPD- no exacerbation. Hypercapnic respiratory failure with lethargy resolved, no longer on bipap. ABGs noted. 9. History of paroxysmal atrial fibrillation: History of Watchman left atrial appendage closure device, history of pacemaker, history of ventricular septal defect repair, history of bioprosthetic aortic valve, status post repair, history of subaortic membrane resection, history of PFO repair, history of tricuspid valve annuloplasty. - Low dose metoprolol resumed. Digoxin on hold, likely will not need as s/p Watchman and not in Afib anymore. Also per cardio, anticoag can be stopped. - Monitor on tele 04/24: Telemetry reviewed, paced rhythm, in 70-80s, afib. Will resume digoxin upon DC. 10. ?hemoptysis in setting of supratherapeutic INR- Coumadin held and was given IV Vitamin K. CT chest noted. No further episodes. Hb stable CT chest 04/16 - 1. No pulmonary emboli identified although segmental and subsegmental pulmonary arteries suboptimally assessed due to respiratory motion. Dilatation of the central pulmonary arteries suggestive of pulmonary arterial hypertension. 2. Small bilateral pleural effusions with interstitial pulmonary edema. Patchy airspace opacities favor alveolar edema although an superimposed infectious process could appear similar. Cardiomegaly. 3. Emphysema. 04/24: no complaints of hemoptysis 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 Hypomagnesemia: repleted 13. RUE superficial thrombus- no DVT in bilateral UE US. Code status- DNR/DNI DVT ppx- sc heparin Dispo: COVID x 2 negtive (for PUI). He will need to stay in a private room and closely monitored for symptoms until May 02). Patient being discharged to [facility] with following instruction at the point of discharge: Follow-up with your primary care physician within a week time. Follow-up with cardiology in 1 to 2 weeks time to discuss on your anticoagulation which has been stopped upon discharge, also discuss on your cardiac medication optimization [your Entresto and Aldactone has been stopped upon discharge, the doses on other medications have been decreased due to low blood pressure]. Maintain fluid restriction of 1.5 L/day. As discussed with you and your sister, your warfarin has been held upon discharge due to subarachnoid hemorrhage, you will have to have further discussion with the cardiology upon discharge as an outpatient. Get your blood work CBC and CMP done in a week time upon discharge, have the results forwarded to your primary care physician. You can use [id number] Tylenol for pain, if not controlled you can use [id number] 4% lidocaine patch daily as needed. Regarding COVID PUI status, COVID test x 2 negative. He will need to stay in a private room and closely monitored for symptoms until May 02. Take medications as prescribed. Total Time Total Time Spent Total Time Spent (In Minutes): 45 Discharge Plan Discharge Items Patient Disposition: Transfer Inpatient Rehab Fac Reason For Visit: REF BY DOC Discharge Diagnosis: Subarachnoid hemorrhage in the setting of supratherapeutic anticoagulation Acute metabolic encephalopathy Hypotension Acute kidney injury Activity: Resume your previous activity Non-emergency contact: Primary Care Provider Call non-emergency contact if: you have any medication questions, your symptoms worsen and your temperature is above 101 Follow-up/Referrals: Haydee Fiore D.O. [Primary Care Provider] - Diet: Heart Healthy Fluids: 1500ml (6 cups) Diet Texture: Easy to Chew Addtl Attending Provider Instructions: Follow-up with your primary care physician within a week time. Follow-up with cardiology in 1 to 2 weeks time to discuss on your anticoagulation which has been stopped upon discharge, also discuss on your ca rdiac medication optimization [your Entresto and Aldactone has been stopped upon discharge, the doses on other medications have been decreased due to low blood pressure]. Maintain fluid restriction of 1.5 L/day. As discussed with you and your sister, your warfarin has been held upon discharge due to subarachnoid hemorrhage, you will have to have further discussion with the cardiology upon discharge as an outpatient. Get your blood work CBC and CMP done in a week time upon discharge, have the results forwarded to your primary care physician. You can use [id number] Tylenol for pain, if not controlled you can use pwhq-tev-jqzyyon 4% lidocaine patch daily as needed. Regarding COVID PUI status, COVID test x 2 negative. He will need to stay in a private room and closely monitored for symptoms until May 02. Take medications as prescribed. Pending Studies at Discharge: No Stand-Alone Forms: My [facility] Skilled Items Patient informed of condition?: Yes DNR: Yes Discharge Level of Care: Acute rehab Communicable Disease: No Discharge Prognosis: Stable Lines: None Urinary Catheter: No Medications and DC Order Prescriptions: New folic acid 1 mg Tablet 1 mg PO QAM Qty: 30 RF: 0 Continued pantoprazole 40 mg tablet,delayed release (DR/EC) 40 mg PO QAM 30 Days Qty: 90 RF: 3 clopidogrel 75 mg tablet 75 mg PO QAM 90 Days Qty: 90 RF: 3 melatonin 3 mg tablet 3 mg PO HS PRN (Reason: Sleep) RF: 0 zinc gluconate 50 mg tablet 50 mg PO QAM RF: 0 cyanocobalamin (vitamin B-12) 1,000 mcg capsule 1,000 mcg PO QDL RF: 0 digoxin [Digitek] 125 mcg (0.125 mg) Tablet 0.125 mg PO DAILY@1600 Qty: 30 RF: 5 albuterol sulfate [Ventolin HFA] 90 mcg/actuation Hfa Aerosol Inhaler 2 puff INHALATION Q6H PRN (Reason: Shortness Of Breath) RF: 0 Spiriva with HandiHaler 18 mcg Capsule, W/Inhalation Device 1 cap INHALATION QAM RF: 0 budesonide-formoterol [Symbicort] 160-4.5 mcg/actuation Hfa Aerosol Inhaler 2 puff Inhalation BID RF: 0 magnesium 30 mg Tablet 0 mg PO QDL RF: 0 vitamin E 400 unit Capsule 400 unit PO QAM RF: 0 Probiotic 100 billion cell Capsule 1 cap PO QAM RF: 0 atorvastatin 40 mg tablet 40 mg PO DAILY RF: 0 potassium chloride 10 mEq tablet,ER particles/crystals 10 meq PO DAILY RF: 0 Changed metoprolol succinate 25 mg tablet extended release 24 hr 12.5 mg PO BID Qty: 0 RF: 0 furosemide 40 mg tablet 40 mg PO QAM Qty: 0 RF: 0 Discontinued spironolactone 25 mg tablet 12.5 mg PO QAM RF: 0 turmeric root extract 500 mg Capsule 500 mg PO QDL RF: 0 warfarin 5 mg tablet See Rx Instructions .ROUTE .COMPLEX RF: 0 gabapentin 100 mg capsule 100 mg PO TID RF: 0 Entresto 24-26 mg tablet 1 tab PO BID RF: 0 Discharge Orders: Discharge Order (Routine); Ordered 04/24/22 Ordered By: Misael Mares Admission Data Admit Date/Time: 04/07/22 21:43 Attending Provider: Misael Mares Admit Provider: John Flores Primary Care Provider: Haydee Fiore Other Providers: Remy Rodriguez ; Nikhil Jansen ; Vishnu Sigala ; Keyon Springer ; Haider العراقي ; Manpreet Fernandez ; Leon Jones ; Whit Benitez ; June Woods ; Birdie Le ; Jeevan Mendoza ; Benigno Javed ; Ernst Almaguer ; Hamzah Ruiz ; [facility]
== END 2022-04-24 12:25 | DRG 64 ==
LOC: ED 16:57 → SUATTDRO 21:43 → 2S 21:43 → 1E 04-09 13:22 → 2S 04-12 17:03 → 2E 04-19 17:21